=== PATIENT | female | born 1940 | race Caucasian/White ===

== ENCOUNTER 2024-08-17 08:50 | Inpatient (IN) | payer OTHER, SELFPAY ==
[2024-08-17] VITALS (27 sets, daily range): BP systolic 81–149; BP diastolic 56–103; BMI 24.8
[2024-08-17 01:59] LABS: % Basophils 0.7 % (0-2); % Eosinophils 1.4 % (0-6); % Immature Granulocytes 0.2 % (0-0.5); % Lymphocytes 24.7 % (20.5-51.1); % Monocytes 7.7 % (1.7-9.3); % Neutrophils 65.3 % (42.2-75.2); Absolute Basophils 0.1 10^3/uL (0-0.2); Absolute Eosinophils 0.1 10^3/uL (0-0.7); Absolute Lymphocytes 2.5 10^3/uL (1.2-3.4); Absolute Monocytes 0.8 10^3/uL (0.1-0.6); Absolute Neutrophils 6.6 10^3/uL (1.4-6.5); Hematocrit 36.3 % (37.0-47.0); Hemoglobin 12.1 g/dL (12.0-16.0); Mean Corp Hgb Conc. 33.3 g/dL (33.0-37.0); Mean Corpuscular Hgb 29.5 pg (27.0-31.0); Mean Corpuscular Volume 88.5 fL (81.0-99.0); Mean Platelet Volume 10.3 fL (7.4-10.4); Nucleated Red Blood Cells % 0 %; Platelet Count 223 10^3/uL (130-400); Red Cell Dist. Width 14.2 % (11.5-14.5)
[2024-08-17] MEDS: LOW STRENGTH ASPIRIN 324 MG PO (02:03)
[2024-08-17] MEDS: HEPARIN 4000 UNITS IV (02:11)
--- NOTE | 2024-08-17 02:11 | ED.GENMED ---
History of Present Illness
General
Chief Complaint: Chest Pain
Source: patient and family
Exam Limitations: none
Time Seen by Provider: 08/17/24 01:47
Nursing documentation reviewed up to this point in time: agreed with
History of Present Illness
History of Present Illness:
84-year-old female history of atrial fibrillation previous seen by Dr. James no history of CAD chest pain for few hours EMS was called patient refused aspirin but took nitro with no change in her chest pain 10 out of 10 in her mid chest did have jaw
pain earlier pain is somewhat reproducible, no vomiting, no fevers
Past History
Past History
ED Past Medical History: Arrthythmia (Atrial fib), Asthma, GERD, HTN, Valvular disease (MVP) and Other (superficial thrombophlebitis LE, Diverticulosis, )
ED Past Surgical History: Cholecystectomy, Orthopedic (Left shoulder surgery, Knee surgery, Left wrist surgery, ) and Other (Vein stripping, )
Social History
Tobacco: Non-smoker
Alcohol: None
Drug: None
Personal:
Living: alone
Employment: Retired
Family History
Family History: Other (Noncontributory)
Review of Systems
Review of Systems
All Other Systems: Not applicable
Constitutional: Denies fever or fatigue
Respiratory: Reports trouble breathing
Cardiac: Reports chest pain; Denies palpitations or syncope
ABD/GI: Reports nausea
Musculoskeletal: Reports no symptoms
Skin: Reports no symptoms
Neurological: Reports no symptoms
Phy Exam
Physical Exam
Physical Exam:
Physical Exam
General: 84 female looks comfortable
Neck: No jaw
Heart: s1/s2 regular rate and rhythm, no murmur. equal radial pulses.
Lungs: no acute respiratory distress. clear bilaterally
Abdomen: Nontender
Neuro: alert and oriented. no focal neurological deficits
Skin: no rash
Psychiatric: well kept. interactive and cooperative
Extremities: no edema. no calf tenderness.
Scores
Heart Score for Chest Pain Patients
STEMI patient?: No
History: Highly Suspicious
ECG: Significant ST-Depression
Age: >/= 65 years
Risk Factors: 1 or 2 Risk Factors
Troponin: >1 - <3 x Normal Limit
Heart Score for Chest Pain Patients: 8
Heart Score Risk: 72.7 % MACE over next 6 weeks
Course
Orders/Labs/Results
Orders:
Orders
08/17/24 01:50
Basic Metabolic Panel Urgent
Comment: CHANGED TO BMP WITHOUT K+ DUE TO HEMOLYSIS
Complete Blood Count/With Diff Urgent
Troponin I Urgent
08/17/24 01:53
Prothrombin Time Urgent
Aspirin 325 mg PO NOW STA
Nitroglycerin Sublingual [Nitrostat (Sublingual)] 0.4 mg SL [id number] PRN
CR Chest Portable - 1 View Urgent
Comment:
Reason For Exam: cp
Reason Study Needs to be Portable: Unable to Transport
08/17/24 01:59
EKG [Electrocardiogram (*1)] Urgent
Reason for Study: Chest Pain
Electrocardiogram (*1) Urgent
Reason for Study: Chest Pain
EKG- Treatment ONCE
Aspirin Chewable [Low Strength Aspirin] 324 mg .ROUTE .STK-MED ONE
Aspirin Chewable [Low Strength Aspirin] 4 mg PO NOW STA
08/17/24 02:00
EKG- Treatment ONCE
08/17/24 02:03
Aspirin Chewable [Low Strength Aspirin] 324 mg PO NOW STA
08/17/24 02:06
Heparin 4,000 units IV NOW STA
Ticagrelor [Brilinta] 180 mg PO ONCE ONE
08/17/24 02:36
Fentanyl Citrate/Pf [Sublimaze] 100 mcg .ROUTE .STK-MED ONE
Heparin 10,000 units .ROUTE .STK-MED ONE
Heparin Sodium,Porcine/Ns/Pf [Heparin 2000 Units/1000 ml] 2,000 unit in 1,000 ml .ROUTE .STK-MED
Lidocaine HCl/Pf [Xylocaine-Mpf 1% Vial] 100 mg .ROUTE .STK-MED ONE
Midazolam HCl [Versed] 2 mg .ROUTE .STK-MED ONE
Verapamil Injectable [Isoptin/Verapamil Injection] 5 mg .ROUTE .STK-MED ONE
08/17/24 02:37
Heparin 1000 Units/500 ml [Heparin] 1,000 units in 500 ml .ROUTE .STK-MED
Nitroglycerin [Tridil] 1,500 mcg .ROUTE .STK-MED ONE
08/17/24 02:59
Ondansetron Injectable [Zofran] 4 mg .ROUTE .STK-MED ONE
08/17/24 03:00
Flush (0.9% Sodium Chloride) [Flush (Nss)] See Dose Instructions IV PER PROTOCOL
08/17/24 03:18
Heparin 1000 Units/500 ml [Heparin] 1,000 units in 500 ml .ROUTE .STK-MED
08/17/24 04:07
Furosemide [Lasix] 40 mg .ROUTE .STK-MED ONE
08/17/24 04:12
Echo 2D MMode Color/Doppler Urgent
Reason for Study: NSTEMI
Acetaminophen [Tylenol] 650 mg PO Q4HPRN PRN
08/17/24 04:13
Electrocardiogram (*1) Urgent
Reason for Study: Other
Other Reason for Exam: s/p intervention
CARDIAC REHAB CONSULT Routine
Co-Sign Provider:
Cardiac Rehab & Exercise Evaluation Referral
Type of Cardiac Rehab Referral: Outpatient
Diagnosis: NSTEMI
Date of Diagnosis/Surgery: 08/17/24
Referring Provider: Donald Degroot
[facility]ensive Cardiac Rehab Exercise Prescription
The above named person is capable of participating in an intensive cardiac rehab exercise therapy program
under the guidance of the [facility] cardiac rehab staff, outpatient registered dieticians and
supervision of a physician.
ICR Program Objectives:
Provide supervised exercise, cooking classes, nutritional counseling and healthy mind-set education to
improve the function/symptom free work capacity to an optimal level as well as control risk factors to
prevent the progression of heart disease. During the supervised exercise therapy session some or all of
the following may be included in the cardiac rehab session: ECG telemetry, BP, heart rate, rate of
perceived exertion, symptoms/tolerance, cholesterol testing and education. Exercise modalities may
include: treadmill, upright or recumbent bike, spin bike, rowing machine, elliptical, recumbent
elliptical, arm-bike machine, recumbent stepper and free weights.
Intensity:
All CR staff will use ACSM guidelines: Most patients will exercise in the following range: Heart Rate
[place] range of 40% to 80% & Oxygen Uptake reserve range 40-80% (VO2R). Peak heart rate and VO2 are
derived from the cardiac rehab submaximal graded exercise test at RPE of 13/14 out of 20. Initial
intensity range: RPE 11 to 14/20 and may expand to 11 to 16/20.
Duration & Frequency:
If appropriate the patient will be progressed up to 40 minutes of exercise therapy. Patients will be
instructed to come three times a week in cardiac rehab and at a home/other gym to achieve optimal
physical activity/exercies i.e. 4000-10,000 steps per day.
Education:
The patient will receive one-on-one education during their orientation, initial exercise evaluation, ITP
reassessments and discharge session. Each exercise session will also include an education class (30-40
minutes).
Activity As Directed
Activity Level: Bedrest
Comment: refer to hemostasis device used for bedrest duration, then ambulate ad eros
Traffic Clerk Procedure As Directed
Cardiac Cath Procedure: percutaneous coronary intervention
Femoral Artery Hemostasis Method As Directed
Procedure performed:: Percutaneous Coronary Int
Type of femoral hemostasis method used:: Internal Closure Device
Duration of bedrest (hours):: 4
Call provider if:: hematoma present after hemostasis achieved
Head of Bed-Restrictions As Directed
Comment: may elevate head of bed 30 degrees
Intake/ Output As Directed
Frequency: Per unit guidelines
Notify MD As Directed
Notify physician if: immediately for chest pain or bleeding from access site(s)
Site Checks As Directed
Check access site for bleeding/hematoma: Yes
Comment: on arrival, Q15min x4, Q30min x2, Q1 hr x2, Q2 hr x2, Q4 hr or per
protocol
Vascular Checks As Directed
Location: distal to access site - pulse check
Frequency: Other
Comment: on arrival, Q15min x4, Q30min x2, Q1 hr x2, Q2 hr x2, Q4 hr or per protocol
Vital Signs As Directed
Frequency: Other
Additional Instructions:: on arrival, Q15min x4, Q30min x2, Q1 hr x2, Q2 hr x2, then Q4 hr or per unit
protocol
DX Deep Vein Thrombosis Video Routine
08/17/24 04:15
Rosuvastatin Calcium [Crestor] 20 mg PO QPM
08/17/24 04:35
Heparin 5,000 units .ROUTE .STK-MED ONE
08/17/24 05:00
Flush (0.9% Sodium Chloride) [Flush (Nss)] See Dose Instructions IV PER PROTOCOL
08/17/24 05:13
Code Status As Directed
Resuscitation Status: Do not resuscitate
Reached after discussion with pt or family/Healthcare POA: Yes
DNR Bracelet Application ONCE
08/17/24 05:16
Change Attending Physician As Directed
Change attending physician to: Augie
08/17/24 05:18
Prochlorperazine [Compazine] 5 mg IV Q6HPRN PRN
08/17/24 05:27
Basic Metabolic Panel IN AM
Cardiovascular Evaluation IN AM
Complete Blood Count/No Diff IN AM
Glycohemoglobin (HgbA1c) Routine
Magnesium IN AM
Troponin I Q6H
08/17/24 06:00
Electrocardiogram (*1) IN AM
Reason for Study: Other
Other Reason for Exam: s/p intervention
Cholesterol Lowering
At Your Request: Full Participation
Does patient need a safe tray?: No
Cholesterol Lowering: Sodium, 2 Gram
08/17/24 08:00
Aspirin Chewable [Low Strength Aspirin] 81 mg PO DAILY
Heparin 5,000 units SC Q12
Metoprolol [Lopressor] 25 mg PO DAILY
Ticagrelor [Brilinta] 90 mg PO BID
08/17/24 10:15
Troponin I Q6H
08/17/24 16:15
Troponin I Q6H
08/18/24 06:00
Electrocardiogram (*1) IN AM
Reason for Study: Other
Other Reason for Exam: s/p intervention
08/19/24 06:00
Electrocardiogram (*1) IN AM
Reason for Study: Other
Other Reason for Exam: s/p intervention
Abnormal Lab Results
08/17/24 08/17/24 08/17/24
01:50 03:00 03:35
RBC 4.10 L 10^6/uL
(4.20-5.40)
Hct 36.3 L %
(37.0-47.0)
MPV
Absolute Neuts (auto) 6.6 H 10^3/uL
(1.4-6.5)
Absolute Monos (auto) 0.8 H 10^3/uL
(0.1-0.6)
BUN 33 H mg/dl
(7-17)
Glucose 158 H mg/dl
(70-99)
Troponin I 0.045 H* ng/ml
POC ACT Low Range 181 H Seconds 292 H Seconds
(116-155) (116-155)
08/17/24 08/17/24
03:54 05:27
RBC
Hct
MPV 10.5 H fL
(7.4-10.4)
Absolute Neuts (auto)
Absolute Monos (auto)
BUN
Glucose
Troponin I
POC ACT Low Range 298 H Seconds
(116-155)
08/17/24 05:27
Vital Signs
Initial and Last Documented VS:
Initial Vital Signs
Pulse Resp
70 16
08/17/24 01:38 08/17/24 01:38
Last Documented Vital Signs
Temp Pulse Resp BP Pulse Ox
96.3 F L 67 16 142/73 96
08/17/24 04:50 08/17/24 05:30 08/17/24 04:50 08/17/24 05:30 08/17/24 05:30
MDM/Problems Addressed
Differential Diagnosis Includes:
ST segment elevation ACS pericarditis LV aneurysm PE
MDM/Problems Addressed:
Chest pain
Chronic conditions affecting care: Arrhythmia
Acute Exacerbation and/or Progression of Chronic Illness: Arrhythmia
*Radiology
Radiology exam reviewed: preliminary read by ED provider
*Pulse Oximetry
Patient hypoxic: no
*EKG
Interpreted by ED Provider?: Yes
Interpretation: abnormal
Comparison EKG: no changes
Heart Rate: 88
Rate: normal
Rhythm: a-fib
Ischemia: ST elevation
*Environmental Compliance Inspector Interpretation
Rate: normal
Interpretation: normal
Heart Rate: 78
Rhythm: a-fib
*Critical Care Note
Total Time (30-74mins, 75-104mins- exclusive of procedures): 30
Data Reviewed
Review of Other/Old Records Reveals: Other (EKG)
Source: patient, family and ambulance crew
Prescriptions/Medications Considered But Not Given:
TNK
Further Testing Considered But Not Given:
Echo
Update Note
Update Note:
Update, patient with somewhat reproducible chest pain EKG is abnormal compared to prior, looks like high lateral ST elevations with inferior reciprocal changes, will review with cardiology
Multiple long conversation with cardiology nursing patient and patient's daughter she was DNR, noncompliant with any meds for A-fib, after extensive conversation she did consent to go to the Traffic [facility]
ED Attending Note
-
Portions of this chart may have been created with voice recognition software.� Occasional wrong word or��sound alike� substitutions may have occurred due to the inherent limitations of voice recognition software.
Discharge Plan
Departure
Patient Disposition: Admit
Date of Disposition: 08/17/24
Time of Disposition: 02:11
Admit to: medical laboratory technician
Presentation/result/management discussed w/ accepting MD/DO: Hospitalist
Patient with high blood pressure during this ER visit?: No
Condition: Fair
Discharge Problem:
ACS (acute coronary syndrome)
Interventions
Interventions:
*General Assessment Last Done: 08/17/24 01:38
*Neglect/Abuse Screening Last Done: 08/17/24 01:38
*ED- Fall Risk Assessment Last Done: 08/17/24 01:38
*Nursing Disposition Last Done: 08/17/24 02:40
ED- Cardiac Assessment Last Done: 08/17/24 02:00
Discharge Date and Time
Discharge Date/Time: 08/17/24 02:40
[2024-08-17] MEDS: BRILINTA 180 MG PO (02:12)
[2024-08-17] MEDS: NITROSTAT (SUBLINGUAL) 0.4 MG SL ×2 (02:13→07:39)
[2024-08-17 02:15] LABS: INR 1.04; PT 13.9 Sec (11.4-14.6)
[2024-08-17 02:37] LABS: Troponin I 0.045 ng/ml
[2024-08-17 02:38] LABS: Blood Urea Nitrogen 33 mg/dl (7-17); Calcium 8.7 mg/dl (8.4-10.2); Carbon Dioxide 22 mmol/L (22-30); Chloride 107 mmol/L (98-107); Estimated Creatinine Clearance 37 ml/min; Glucose 158 mg/dl (70-99); Sodium 138 mmol/L (135-145)
--- NOTE | 2024-08-17 02:47 | ITS.CL.CATH ---
[facility] - Catheterization
Cardiac Catheterization
Procedure Report:
LEFT HEART CATHETERIZATION AND CORONARY INTERVENTION
Date of Procedure: August 17 2024
Referring: [place] emergency room
PROCEDURES:
1. Left heart catheterization, coronary angiogram.
2. Moderate sedation.
3. Successful percutaneous coronary artery intervention of a 90 to 95% hazy, thrombotic mid left circumflex stenosis (lesion type C, DARIEN II flow) with one 2.75 x 30 mm Medtronic [place] drug-eluting stent, postdilated using IVUS guidance with a 2.75
x 20 mm NC trek balloon at 16 mariama with an excellent angiographic result.
4. Intravascular ultrasound (IVUS)
INDICATION: Isa is a 84-year-old female with past medical history of hypertension, multiple drug allergies only on chronic hydrochlorothiazide, paroxysmal atrial fibrillation, refusing anticoagulation as she feels like it affects her vision
who presents with sudden onset substernal chest pain starting this evening found to have significant new ST changes in inferior and lateral leads, not meeting STEMI criteria but clearly new since 2021 with ongoing chest pain despite 2 sublingual
nitroglycerin, full dose aspirin and IV unfractionated heparin. Given persistent chest pain and ST changes noted on EKG, though not a clear ST elevation DE, we activated the heart catheterization lab due to concern for an high risk NSTEMI. Even
after I presented to the emergency room emergently bedside, there was a delay in about 32 minutes given patient expressed a lot of concerns over needing dual antiplatelet therapy post cath in case she would not need a stent without clear explanation
other than not wanting to be on medications. We also discussed her DNR/DNI status that she told me about in extensive detail and after reviewing the risk and benefits and alternative treatment options, she and her daughter have decided to move
ahead with invasive procedures including coronary angiogram excepting the risks that is intrinsic to the procedure excepting to take recommended cardiac medications including DAPT and reversal of DNR/DNI status, wanting to be full code for at least
the duration of this admission.
ACCESS: Right radial artery, 6Fr. sheath, under US guidance. Given significant right subclavian tortuosity this access had to be aborted.
Right common femoral artery, 6 [place] sheath, under ultrasound guidance using a micropuncture kit
HEMODYNAMICS : (mmHg)
AO (s/d) : 140/60
LVEDP : 27
No significant gradient across the aortic valve to suggest aortic stenosis.
CORONARY FINDINGS
Dominance: Right
Left Main Trunk (LMT): Large caliber vessel that gives rise to the LAD and LCx branches and is free of angiographic disease.
Left Anterior Descending Artery (LAD): Medium caliber vessel that gives off 2 major diagonal branches as it courses along the anterior inter-ventricular groove before wrapping around the cardiac apex. The LAD and its branches are free of
angiographic disease.
Left Circumflex Artery (LCx): Large caliber vessel that gives off 2 major obtuse marginal (OM) branches as it courses along the atrio-ventricular (AV) groove. The mid left circumflex has a hazy, thrombotic 90 to 95% stenosis just proximal to OM 1
with a 30 to 40% stenosis just distal to OM1. DARIEN II flow into the distal vessel. This lesion was thought to be the culprit of presenting acute coronary syndrome and was intervened upon as noted below.
Right Coronary Artery (RCA): Large caliber dominant vessel that gives rise to the posterior descending artery (RPDA) and postero-lateral ventricular (RPLV) branches distally. Ostial RCA with eccentric 60 to 70% stenosis and mild pressure dampening
upon selective engagement. Otherwise there is minimal luminal irregularities.
CORONARY INTERVENTION: Decision was made to proceed with mid left circumflex intervention. Additional heparin was given to maintain a therapeutic ACT throughout the case. The left coronary artery was engaged using a 6 [place] 3.5 EBU guide
catheter. A1 90 cm 0.014 run-through coronary wire was successfully advanced into the distal vessel across the mid left circumflex stenosis. The mid left circumflex stenosis lesion was predilated using a 2.5 x 12 mm semicompliant balloon at 14
mariama. The lesion was subsequently stented using a 2.75 x 30 mm Medtronic [place] drug-eluting stent and postdilated using a 2.75 x 20 mm NC trek balloon at 16 mariama. Post PCI IVUS was performed using [employer] [place] eye IVUS catheter which showed a
well-expanded and well apposed stent without evidence of proximal or distal stent edge dissections. DARIEN-3 flow into the distal vessel was restored. Patient tolerated the procedure well. She was loaded with 180 mg of Brilinta in the ED. No acute
complications.
SEDATION: 67 minutes of procedural sedation was utilized. IV Midazolam and IV Fentanyl were administered. An independent medical concierge was present to assist with and help manage the patient's level of consciousness and physiologic status.
RADIATION SUMMARY: Fluoro Time (min): 17.3, Dose (mGy): 443.3, DAP (Gy.cm2) : 32.7
Closure Device: There were no immediate intra-procedural complications. The sheath was pulled in the cathode ray tube salvage processor and a vascular-band applied to the right wrist for radial artery hemostasis using the patent hemostasis technique.
CONCLUSIONS
1. Successful percutaneous coronary artery intervention of a 90 to 95% hazy, thrombotic mid left circumflex stenosis (lesion type C, DARIEN II flow) with one 2.75 x 30 mm Medtronic [place] drug-eluting stent, postdilated using IVUS guidance with a 2.75 x
20 mm NC trek balloon at 16 mariama with an excellent angiographic result.
2. Significantly elevated LVEDP at 27 mmHg
RECOMMENDATIONS
1. Wean radial band per protocol. Monitor right hand perfusion and for bleeding from the radial site following removal of the vascular-band following trans-radial access.
2. Continue aggressive medical therapy and risk factor modification for secondary CAD prevention.
3. Continue ASA 81 mg daily for life. High intensity statin and beta-nuria as tolerated.
4. Continue Brilinta for at least 12 months of uninterrupted dual anti-platelet therapy given drug-eluting stent (YESICA) implantation to mitigate the risk of stent thrombosis. This is not to be stopped for any reason without the guidance of a
bin tripper operator. Of note given her history of paroxysmal versus atrial fibrillation where she has previously refused Eliquis, we will rediscuss given her high CHADS2 Vascor. If patient is agreeable for oral anticoagulation to reduce A-fib related
strokes, would consider switching her Brilinta to Plavix to minimize risk for bleeding. In this scenario would do triple therapy with aspirin, Plavix and Eliquis for 1 week and discontinue aspirin at that time to continue Plavix and Eliquis.
5. Hydrate with normal saline to mitigate the risk of contrast-induced acute kidney injury.
6. Aggressive risk factor control.
7. Echocardiogram to assess biventricular function and rule out any significant valvular abnormality
8. Referral for outpatient cardiac rehab.
9. Depending on how she does during this admission, consider outpatient stress test in the near future to assess ischemia in the RCA territory given moderate lesion in the ostial RCA
Karyn Louis MD, FACC, [facility]
[2024-08-17 03:06] LABS: ACT-LR - POC 181 Seconds (116-155)
[2024-08-17 03:42] LABS: ACT-LR - POC 292 Seconds (116-155)
[2024-08-17 03:59] LABS: ACT-LR - POC 298 Seconds (116-155)
--- NOTE | 2024-08-17 04:16 | CON.CAR ---
Consultation
Consultation Request
Date/Time Consultation Requested: 08/17/24
Date/Time Consultation Performed: 08/17/24
Requesting Provider: Daniel Holder
Performing Provider: Karyn Louis MD, [facility], [facility]
Reason for Consultation: Chest pain
Medical History
-
Chief Complaint: Chest Pain
History of Present Illness:
Isa is a 84-year-old female with past medical history of hypertension, multiple drug allergies only on chronic hydrochlorothiazide, paroxysmal atrial fibrillation, refusing anticoagulation as she feels like it affects her vision who presents
with sudden onset substernal chest pain starting this evening found to have significant new ST changes in inferior and lateral leads, not meeting STEMI criteria but clearly new since 2021 with ongoing chest pain despite 2 sublingual nitroglycerin,
full dose aspirin and IV unfractionated heparin. Given persistent chest pain and ST changes noted on EKG, though not a clear ST elevation LA, we activated the heart catheterization lab due to concern for an high risk NSTEMI. She tell me that
generally she lives independently does not use any walking aids, drives herself however generally just feels extremely weak. Her daughter checks in on her often. She denies any recent similar episodes of chest discomfort before yesterday however
does endorse ongoing dyspnea on exertion. Denies any lower extremity edema, orthopnea or PND. No lightheadedness/dizziness or yunier syncope. In regards to persistent A-fib history she tells me that she used to be on Eliquis but it caused some
vision changes and therefore she refuses to be on any oral anticoagulant. No prior history of of strokes or mini strokes.
Past Medical History
Past Medical History: CAD, HTN, Hypercholesterolemia and Other (A-fib)
Social History
Tobacco: Non-Smoker
Alcohol: None
Drug: None
Personal: Single
Living: Alone
Employment: Retired
Family History
Family History: Reviewed & Not Pertinent
Allergies / Home Medications
Allergy/AdvReac Type Severity Reaction Status Date / Time
erythromycin base Allergy Rash, hives Verified 08/17/24 01:38
(Erythromycin Base)
lisinopril (From Zestril) Allergy BAD COUGH Verified 08/17/24 01:38
tetracycline (Tetracycline) Allergy Hives Verified 08/17/24 01:38
�Medication �Instructions �Recorded �Confirmed �Type
hydrochlorothiazide 25 mg tablet 25 mg PO DAILY 08/17/24 08/17/24 History
Review of Systems
-
All other systems: Negative unless noted
Physical Exam
Vital Signs
Temp Pulse Resp BP Pulse Ox
97.4 F 69 7 120/66 96
08/17/24 01:56 08/17/24 02:15 08/17/24 02:15 08/17/24 02:13 08/17/24 02:15
Lab Results
08/17/24 01:50
08/17/24 01:50
Troponin I 0.045 ng/ml H* 08/17/24 01:50
Physical Exam
General: Well Developed, Well Nourished and Pain
HEENT: Moist Mucous Membranes
Respiratory: Wheezes, Crackles and Non Labored Respirations
Cardiac: S1/S2, Irregular Rhythm and JVD; Negative Murmur, Rub, Peripheral Edema or Calf Tenderness
GI: Soft, Non Tender, Non Distended and Normal Bowel Sounds
Musculoskeletal: No Clubbing, No Cyanosis and No Edema
Skin: Warm and Dry
Neuro: AO x 3
Psych: Calm
Impression / Plan
-
No outpatient edm operator that she follows with regularly.
Impression
High risk NSTEMI: 90 to 95% hazy mid left circumflex stenosis treated with one 2.75 x 30 mm Medtronic Rafiq drug-eluting stent, postdilated using IVUS guidance with a 2.75 x 20 mm NC balloon at 16 mariama.
Hypertension
Hyperlipidemia
Atrial fibrillation
Not on chronic anticoagulation due to Eliquis causing vision changes
Multiple drug allergies
At home, DNR/DNI which was reversed to full code when we discussed CODE STATUS 3 activation of heart catheterization lab with plan to maintain full code throughout this admission
Weakness
Fatigue
Upon my evaluation to the emergency room she was having ongoing 7 out of 10 chest pain for which we gave additional sublingual nitroglycerin at bedside and she has just received 4000 units of IV unfractionated heparin along with 180 mg of Brilinta
which she had chewed up along with the full dose aspirin. Daughter was at bedside. She expressed that she had refused to take Eliquis before given it because vision changes and refuses to be on anticoagulation. Through this we discussed and found
out that she has multiple drug allergies and intolerances. She is only on 1 chronic medication which is hydrochlorothiazide for her blood pressure. She has seen cardiology previously but does not follow with anyone regularly as ' there is nothing
wrong with me'
Extensive discussion was had with what we feel like was going on with the patient and I described to her that there is concern based on her EKG changes and ongoing chest pain that she is having an acute coronary syndrome and what the treatment
options are including medications only, a recommendation for urgent heart catheterization with possible PCI along with medications and the risk and benefits of each of them. Patient has significant hesitations initially agreeing to take dual
antiplatelet therapy in case she would not need a PCI. She also expressed that her living will states that she is a DNR/DNI with her daughter being POA. I expressed to her that given the nature of ACS and invasive heart catheterization, we would
only agree to take her if we can agree to reverse her CODE STATUS and treat her as a full code for the admission this admission. The emergency room physician, Dr. Daniel Holder also joined me and explaining to the patient our concerns in regards to
ongoing symptoms with likely high risk NSTEMI. After extensive discussion and offering her alternative treatment options, patient is agreeable as ' I guess I should try to live' she reassures us that she would take recommended cardiac medications
and she would like to be full code during this admission. Detail risk and benefits were described to her about what a coronary angiogram entails and in a shared decision-making fashion we agreed to proceed with urgent heart catheterization.
RECOMMENDATIONS
1. Continue aggressive medical therapy and risk factor modification for secondary CAD prevention.
2. Continue ASA 81 mg daily for life. High intensity statin and beta-nuria as tolerated.
3. Continue Brilinta for at least 12 months of uninterrupted dual anti-platelet therapy given drug-eluting stent (YESICA) implantation to mitigate the risk of stent thrombosis. This is not to be stopped for any reason without the guidance of a
edm operator. Of note given her history of paroxysmal versus atrial fibrillation where she has previously refused Eliquis, we will rediscuss given her high CHADS2 Vascor. If patient is agreeable for oral anticoagulation to reduce A-fib related
strokes, would consider switching her Brilinta to Plavix to minimize risk for bleeding. In this scenario would do triple therapy with aspirin, Plavix and Eliquis for 1 week and discontinue aspirin at that time to continue Plavix and Eliquis.
4. Echocardiogram to assess biventricular function and rule out any significant valvular abnormality
5. Referral for outpatient cardiac rehab.
6. Depending on how she does during this admission, consider outpatient stress test in the near future to assess ischemia in the RCA territory given moderate lesion in the ostial RCA chest pain
Karyn Louis MD, [facility], [facility]
Critical care time: 38 minutes
Data Reviewed
-
EKG: Tracing Personally Visualized and interpreted
Radiology: Image Personally Visualized and interpreted
Medical Tests (Nuc Med, Echo etc): Image Personally Visualized and interpreted
Labs: Labs Reviewed by me
Critical Care Time (in minutes): 38
--- NOTE | 2024-08-17 05:17 | HPS.HSE ---
Family Physician
-
Family Physician: Solitario Sharma
Chief Complaint
-
Chest Pain
History of Present Illness
Patient is an 84y F with PMH significant for hypertension who presents to ED complaining of crushing chest pain. Patient states that she was sitting on her couch around 10PM this evening when she began to feel 'not right'. She reports profuse
diaphoresis and crushing chest pain. She developed nausea with multiple episodes of non-bloody emesis. Patient woke her daughter who called 911 and she was brought to the ED for further evaluation and treatment.
In the ED, patient was noted to have borderline ST elevations and continued chest discomfort and was taken for urgent catheterization.
She is seen and examined in the IVU post-cath. Patient reports significant 'relief' in her chest discomfort following cath / stent.
90% lesion was discovered in the LCx with stent placed.
Patient has no prior h/o MO, CVA, etc.
Medical History
Past Medical History
Past Medical History: Reports Other
Additional Past Medical History:
Hypertension
Atrial Fibrillation
Varicose Veins
Superficial Thrombophlebitis
Past Surgical History: Reports Other
Additional Past Surgical History:
Vein Stripping
Left TKA
Left Shoulder Surgery
Cholecystectomy
Social History
Tobacco: Non-smoker
Alcohol: None
Drug: None
Family History
Family History: Not pertinent
Allergies / Home Medications
Allergies reflects when Allergies were last updated in [employer].
Home Medications with original date entered in [employer]
Allergy/Medication List:
Allergies
Allergy/AdvReac Type Severity Reaction Status Date / Time
erythromycin base Allergy Rash, hives Verified 08/17/24 01:38
(Erythromycin Base)
lisinopril (From Zestril) Allergy BAD COUGH Verified 08/17/24 01:38
tetracycline (Tetracycline) Allergy Hives Verified 08/17/24 01:38
Home Medications
hydrochlorothiazide 25 mg tablet 25 mg PO DAILY 08/17/24
Review of Systems
-
History Source: Patient
A 12 point ROS was completed and negative except as noted: Yes
Constitutional: Reports Fatigue; Denies Fever or Chills
Respiratory: Denies Cough or Trouble Breathing
Cardiac: Reports Chest Pain and Diaphoresis; Denies Palpitations
Abdomen/GI: Reports Nausea and Vomiting; Denies Abdominal Pain
: Denies Dysuria or Frequency
Musculoskeletal: Denies Joint Pain or Edema
Neurological: Reports Dizzy; Denies Headache
Psych: Denies Depression or Anxiety
Physical Exam
Vital Signs
Vital Signs
Temp Pulse Resp BP Pulse Ox
96.3 F L 75 16 119/56 94
08/17/24 04:50 08/17/24 04:45 08/17/24 04:50 08/17/24 04:45 08/17/24 04:50
Physical Exam
General: Other (84y F in no acute distress at present.)
HEENT: PERRLA and Other (Dry MM.)
Respiratory: Other (Decreased at bases - otherwise clear.)
Cardiac: S1/S2 and Irregular Rhythm; No Murmur
GI: Soft, Non Tender, Non Distended and Normal Bowel Sounds
Musculoskeletal: No Clubbing, No Cyanosis and No Edema
Neuro: AO x 3
Laboratory Results
-
Laboratory Results
PT 13.9 Sec (11.4-14.6) 08/17/24 01:53
INR 1.04 08/17/24 01:53
Total Bilirubin Cancelled 08/17/24 01:50
AST Cancelled 08/17/24 01:50
ALT Cancelled 08/17/24 01:50
Alkaline Phosphatase Cancelled 08/17/24 01:50
Troponin I 0.045 ng/ml H* 08/17/24 01:50
Impression/Plan
-
A/P: Patient is an 84y F with PMH significant for hypertension and A-Fib who presents to ED complaining of crushing substernal chest pain.
NSTEMI / ACS
- Admit for further eval and treatment.
- Urgent cath with 90% stenosis in LCx - stent placed. Patient with clinical relief in chest pain.
- Continue post-cath care per Cardiology.
- DAPT, statin, etc.
- Follow for any new / recurrent chest pain.
Atrial Fibrillation
- Unclear type. Patient not on OAC at her own discretion.
- Monitor on telemetry.
- No need for rate control medications at present.
- Ongoing discussions re: OAC prior to discharge.
- Cardiology following.
Benign Hypertension
- Hold HCTZ for now.
- GDMT for ASCVD / MO as noted above will likely manage BP.
DVT Prophylaxis: Subcut Heparin
Code Status: DNR
[2024-08-17] MEDS: CRESTOR 20 MG PO ×2 (05:27→20:04)
[2024-08-17] MEDS: COMPAZINE 5 MG IV ×2 (05:40→21:02)
[2024-08-17 05:43] LABS: Hematocrit 38.3 % (37.0-47.0); Hemoglobin 12.7 g/dL (12.0-16.0); Mean Corp Hgb Conc. 33.2 g/dL (33.0-37.0); Mean Corpuscular Hgb 29.5 pg (27.0-31.0); Mean Corpuscular Volume 88.9 fL (81.0-99.0); Mean Platelet Volume 10.5 fL (7.4-10.4); Platelet Count 214 10^3/uL (130-400); Red Blood Cell Count 4.31 10^6/uL (4.20-5.40); Red Cell Dist. Width 14.4 % (11.5-14.5); White Blood Cell Count 10.8 10^3/uL (4.8-10.8)
[2024-08-17] MEDS: MORPHINE SULFATE 1 MG IV (06:39)
[2024-08-17] MEDS: LOPRESSOR 25 MG PO ×2 (07:03→20:05)
[2024-08-17 07:20] LABS: Blood Urea Nitrogen 29 mg/dl (7-17); Calcium 9.1 mg/dl (8.4-10.2); Carbon Dioxide 21 mmol/L (22-30); Chloride 103 mmol/L (98-107); Estimated Creatinine Clearance 37 ml/min; Glucose 232 mg/dl (70-99); HDL Cholesterol 87 mg/dl; LDL Cholesterol, Calculated 153 mg/dl; Magnesium 1.6 mg/dl (1.6-2.3); Sodium 140 mmol/L (135-145); Total Cholesterol 255 mg/dl (50-199); Triglyceride 79 mg/dl (10-149); Very Low Density Lipoprotein 15 mg/dl (0-30)
[2024-08-17] MEDS: LOW STRENGTH ASPIRIN 81 MG PO (07:35)
[2024-08-17] MEDS: MAGNESIUM SULFATE 50 IV (07:36)
--- NOTE | 2024-08-17 07:55 | PTCARENOTE ---
Received patient from gold leaf laborer into room 2258. Patient AAOx3. Right groin site C/D/I w/ positive pulse. Tele monitor applied pt Afib w/ BBBC and multiple PVCs. Patient c/o 'chest heaviness' and SOB. Patient sating 97% RA. This RN applied 2L for
comfort. Repositioned patient. 1mg of IV Morphine administered--see MAR for details. Attempted to wean TR band off. Patient developed hematoma. 15 mins of manual pressure applied by nursing staff. Dr. Maxwell made aware and at bedside. Instructed RN
to raise right upper extremity and apply warm compress.STAT orders obtained for US. US at bedside. Right radial pulse positive. Patient w/ multiple episodes of Vtach. Attempted vasal maneuvers. Dr. Louis made aware. 25mg of PO Lopressor
administered.
[2024-08-17] MEDS: KCL 270 MEQ IV (08:05)
--- NOTE | 2024-08-17 08:09 | PTCARENOTE ---
U/S at bedside, unable to do U/S with TR band on, TR band removed, ecchymotic, no bleeding, upper forearm swollen, manual pressure applied, U/S being done shows hematoma on upper arm but no active bleeding. distal pulse weak but palpable. 1SL ntg
given for chest heaviness by previous RN, BP post 81/61, at present 114/59, heaviness was relived by SL nitro. right groin dsg. D/I, distal pulse weak but palpable. patient continues to have runs of [facility], Dr. Haley aware. K 3.0 mag. 1.6,
supplemented as ordered. patient was unable to take large potassium pills, Kim HERRING aware, IV potassium being given. Echo will be back to do Echo this am. Rose Mary HERRING in room assessing patient. patient is sleeping.
[2024-08-17] MEDS: BRILINTA 90 MG PO ×2 (08:22→20:04)
[2024-08-17] MEDS: HEPARIN 5000 UNITS SC ×2 (08:22→20:04)
--- NOTE | 2024-08-17 08:26 | PTCARENOTE ---
Echo being completed at bedside.
--- NOTE | 2024-08-17 08:27 | W.PN.CARDCBS ---
Addendum entered and electronically signed by Karyn Louis MD 08/18/24 01:03:
I saw and examined the patient.
The Process Cheese Cooker's note was reviewed and I agree with the note.
Comment: TT by nursing aroun 7:02AM on 08/17/24 that patient has been complaining of ongoing chest heaviness since 6 AM, as given one mg morphine, ongoing NSVT for which she got 25mg lopressor. I evaluated pt at bedside and she complains of chest
heaviness and difficult catching deep breath.
On exam, patient is well appearing, mild resp distress and pain, +JVD, irregularly irregular rate, normal S1 and S2, no m/r/g, +rales bibisilar, abd soft, NT, ND +BS, warm ext, no LE Edema, right radial site with band in place, fingers cyanotic, so
took out 4cc air bedside.
Asked nursing to get STAT ECG which showed Atach with variable block, ST-T changes from evolving MA, No acute or worsening but expected changes.
Asked nursing to trial SL nitro, additional morhpine as needed, additional lasix, Potassium resultsed low at 3.0 and Mg 1.6, repleted lytes.
global position system technician was called to request STAT bedside echo given chest pressure.
Soon after eval above nursing called me at beside again due to sudden right forearm pain and swelling. Unclear trigger but radial acces had been obtained for cath before and attempted though failed so aborted. Venous blood drawn from antecub fossa
also. STAT US ordered and discussed with Dr. Dheeraj Chapman from vascular, unclear source of hematoma which was reported, in regards to arterial vs venous. Will place MARGIE wrap to provide some compression.
Chest heaviness imporved but with ongoing NSVT, started urgent amiodarone given this for reduce ectopy with aggressive lyte repletion.
Echo reviewed by me showing overall preserved LV fxn, aoritc sclerosis, valve gradient do not suggest significant stenosis.
Aggressive IV diuretics. Stricts ins and outs, replete lytes, K> 4, Mg>2
Trop uptrending at 65, cont to trend and watch on tele.
Does not examine in low flow or cardiogenic shock.
Cont DAPT with ASA and Brilinta, Statin and BB, slowly uptitrte.
Discuss with pt OAC once daughter is at bedside. [id number]. If agreeable would do ASA, plavix and eliquis for 1wk total, then eliquis plavix.
Consider outpt stress to assess ischemia in RCA territory with ostial 60% ostial RCA stenosis.
Monitor another 24-36hrs. Encoruaged HH mediterranean diet and staying active. Outpt cardiac rehab.
Full code.
Karyn H. Louis
CC time: 32mins
Original Note:
Today's Communication / Plan
-
consider for additional diuresis
consider addition of amiodarone. follow rhythm
follow RUE hematoma
continue asa, brilinta. will need to discuss OAC again with patient
echo
Impression / Plan
-
No outpatient coffee weigher that she follows with regularly.
Impression:
High risk NSTEMI: 90 to 95% hazy mid left circumflex stenosis treated with one 2.75 x 30 mm Medtronic Rafiq drug-eluting stent, postdilated using IVUS guidance with a 2.75 x 20 mm NC balloon at 16 mariama.
Hypertension
Hyperlipidemia
Atrial fibrillation
Not on chronic anticoagulation due to Eliquis causing vision changes
Multiple drug allergies
At home, DNR/DNI which was reversed to full code when we discussed CODE STATUS 3 activation of heart catheterization lab with plan to maintain full code throughout this admission
Weakness
Fatigue
Hypokalemia
Hypomagnesemia
NSVT vs aberrant conduction on tele
Echo 08/01/2021: EF 60 to 65%, mild septal hypertrophy, mild MR, heavy focal calcification of noncoronary cusp of aortic valve, mild AR, mild TR, PAP 37 mmHg
ECHO 08/17/24: pending
RECOMMENDATIONS:
- Patient presented with chest discomfort and went urgently to cardiac catheterization for high risk NSTEMI. Status post circumflex PCI 08/16/2024
- trop up to 11, trend to peak. currently CP free.
- Continue aspirin, Brilinta
- This morning with swelling of right forearm/elbow. Ordered stat right upper extremity ultrasound which reveals evidence of hematoma without active bleeding. Manual pressure applied by nursing with improvement. Hemoglobin stable this morning at
12.7
- Noted on review of telemetry overnight to be in atrial fibrillation with frequent runs of NSVT versus aberrancy. Patient with hypokalemia and hypomagnesemia, and stat repletion ordered. continue lopressor 25mg BID. would consider addition of
amiodarone
- She has historically not been on anticoagulation due to prior issues with vision changes on Eliquis. [id number] score of 5 for age, HTN, female, vascular disease. Will continue DAPT at this time, and will need to revisit OAC with patient. If
patient is agreeable for oral anticoagulation to reduce A-fib related strokes, would consider switching her Brilinta to Plavix to minimize risk for bleeding. In this scenario would do triple therapy with aspirin, Plavix and Eliquis for 1 week and
discontinue aspirin at that time to continue Plavix and Eliquis.
- For urgent echocardiogram this morning, last from 2021 as above
- reports SOB this AM. check proBNP. CXR pending this AM. LVEDP at time of cath was 27 and received 40mg IV lasix in laborer pipelines. wean supp O2 as able
- LDL 153. was not on statin therapy prior to admission. crestor 20mg QPM added this admission
- cardiac rehab
- she has residual moderate ostial RCA lesion. will need to consider for OP stress testing to evaluate further if recurrent symptoms.
- d/w nursing
PREADMIT DATA:
Upon my evaluation to the emergency room she was having ongoing 7 out of 10 chest pain for which we gave additional sublingual nitroglycerin at bedside and she has just received 4000 units of IV unfractionated heparin along with 180 mg of Brilinta
which she had chewed up along with the full dose aspirin. Daughter was at bedside. She expressed that she had refused to take Eliquis before given it because vision changes and refuses to be on anticoagulation. Through this we discussed and found
out that she has multiple drug allergies and intolerances. She is only on 1 chronic medication which is hydrochlorothiazide for her blood pressure. She has seen cardiology previously but does not follow with anyone regularly as ' there is nothing
wrong with me'
Extensive discussion was had with what we feel like was going on with the patient and I described to her that there is concern based on her EKG changes and ongoing chest pain that she is having an acute coronary syndrome and what the treatment
options are including medications only, a recommendation for urgent heart catheterization with possible PCI along with medications and the risk and benefits of each of them. Patient has significant hesitations initially agreeing to take dual
antiplatelet therapy in case she would not need a PCI. She also expressed that her living will states that she is a DNR/DNI with her daughter being POA. I expressed to her that given the nature of ACS and invasive heart catheterization, we would
only agree to take her if we can agree to reverse her CODE STATUS and treat her as a full code for the admission this admission. The emergency room physician, Dr. Daniel Holder also joined me and explaining to the patient our concerns in regards to
ongoing symptoms with likely high risk NSTEMI. After extensive discussion and offering her alternative treatment options, patient is agreeable as ' I guess I should try to live' she reassures us that she would take recommended cardiac medications
and she would like to be full code during this admission. Detail risk and benefits were described to her about what a coronary angiogram entails and in a shared decision-making fashion we agreed to proceed with urgent heart catheterization.
Progress Note - [place]
Subjective
Date of Service: August 17, 2024
no CP. reports SOB and palpitations.
Objective
Labs:
08/17/24 05:27
08/17/24 06:42
Labs
Hgb 12.7 g/dL (12.0-16.0) 08/17/24 05:27
Hct 38.3 % (37.0-47.0) 08/17/24 05:27
Plt Count 214 10^3/uL (130-400) 08/17/24 05:27
PT 13.9 Sec (11.4-14.6) 08/17/24 01:53
INR 1.04 08/17/24 01:53
Sodium 140 mmol/L (135-145) 08/17/24 06:42
Potassium 3.0 mmol/L (3.5-5.1) L 08/17/24 06:42
BUN 29 mg/dl (7-17) H 08/17/24 06:42
Creatinine 1.0 mg/dL (0.6-1.0) 08/17/24 06:42
Glucose 232 mg/dl (70-99) H 08/17/24 06:42
Troponins
08/17/24 08/17/24
01:50 05:27
Troponin I 0.045 H* 11.000 H* D
Vital Signs and I&O:
Vital Signs
Temp Pulse Resp BP Pulse Ox
96.4 F L 88 16 91/62 96
08/17/24 06:02 08/17/24 07:03 08/17/24 04:50 08/17/24 07:44 08/17/24 05:45
Vital Signs
Temp Pulse Resp BP Pulse Ox
96.4 F L 88 16 91/62 96
08/17/24 06:02 08/17/24 07:03 08/17/24 04:50 08/17/24 07:44 08/17/24 05:45
Intake & Output
08/15/24 08/16/24 08/17/24 08/18/24
07:59 07:59 07:59 07:59
Output Total 850 / 850
Balance -850 / -850
Physical Exam
Physical Exam
GEN: No distress, awake but lethargic.
HEENT: supple, anicteric, mmm, eomi
LUNGS: CTA B/L, no wheezes/rales
CV: Irreg, S1/S2, no murmur
ABD: soft, BS+, NT/ND
EXT: No cyanosis, clubbing, edema
NEURO: Gross non-focal
SKIN: Warm, pink, dry. No rash. R elbow with ecchymoses, mild swelling. R wrist site c/d/i
[2024-08-17 09:16] LABS: NT-proBNP 2270 pg/ml
[2024-08-17] MEDS: PACERONE 400 MG PO ×3 (09:24→22:15)
[2024-08-17 09:37] LABS: Glycohemoglobin (HgbA1c) 5.5 % (4.0-5.6)
--- NOTE | 2024-08-17 09:49 | PTCARENOTE ---
patient continues to have several runs of Meghan, Rose Mary HERRING aware, po amiodarone given.
--- NOTE | 2024-08-17 09:56 | PTCARENOTE ---
additional K given as ordered. patient c/o being SOB, lasix IV given as ordered. wiley wrap to right forearm as per Rose Mary HERRING.
[2024-08-17] MEDS: KCL 160 MEQ IV (10:01)
[2024-08-17] MEDS: LASIX 20 MG IV ×2 (10:04→23:03)
[2024-08-17] MEDS: FLUSH (NSS) 1 FLUSH IV (10:05)
--- NOTE | 2024-08-17 12:39 | CM ---
spoke to pt in room, she is prev indep, lives alone in a 2 story home with 1 step to enter. she uses a cane and denies any dc planning needs. plan is for dc to home when medically stable.
--- NOTE | 2024-08-17 14:13 | CM ---
priced brilinta- at pts [facility] cost is $112/month. it will be in stock tomorrow
--- NOTE | 2024-08-17 14:50 | W.PN.HOSP.TC ---
Today's Communication/Plan
-
Monitor vitals
See plan
Continue with dual antiplatelet therapy
Echo
Started on metoprolol, Amio
Nonbillable note
Assessment / Plan
Assessment / Plan
General: No acute distress
HEENT: PERRLA and Other (Dry MM.)
Respiratory: No wheezing, clear to auscultation
Cardiac: S1/S2 and Irregular Rhythm; No Murmur
GI: Soft, Non Tender, Non Distended and Normal Bowel Sounds
Musculoskeletal: No Edema
Neuro: AO x 3
NSTEMI / ACS
- Urgent cath with 90% stenosis in LCx - stent placed. Patient with clinical relief in chest pain.
- Continue post-cath care per Cardiology.
- DAPT, statin, etc.
- Follow for any new / recurrent chest pain
Echo pending
Right upper extremity hematoma
Monitor
Atrial Fibrillation
- Unclear type. Patient not on OAC at her own discretion.
- Monitor on telemetry.
- No need for rate control medications at present.
- Ongoing discussions re: OAC prior to discharge.
- Cardiology following; Willie Vasc score 5
Started on metoprolol, amiodarone
Benign Hypertension
- Hold HCTZ for now.
- GDMT for ASCVD / SC as noted above will likely manage BP.
DVT Prophylaxis: Subcut Heparin
Code Status: DNR
Anticipated Discharge: 24 - 48 hours
Subjective/Interval History
-
Date of Service: August 17, 2024
denies pain
Objective Data
-
Labs:
Laboratory Results
08/17/24 08/17/24 08/17/24
05:27 06:42 14:00
WBC 10.8
Hgb 12.7
Hct 38.3
Plt Count 214
Sodium Cancelled 140 Pending
Potassium Cancelled 3.0 L Pending
Chloride Cancelled 103 Pending
Carbon Dioxide Cancelled 21 L Pending
BUN Cancelled 29 H Pending
Creatinine Cancelled 1.0 Pending
Glucose Cancelled 232 H Pending
Calcium Cancelled 9.1 Pending
Vital Signs:
Vital Signs
Temp Pulse Resp BP Pulse Ox
97.4 F 76 16 128/88 98
08/17/24 11:10 08/17/24 11:45 08/17/24 11:10 08/17/24 11:06 08/17/24 11:10
I&O
08/16/24 08/17/24 08/18/24
06:59 06:59 06:59
Output Total 850 / 850
Balance -850 / -850
--- NOTE | 2024-08-17 16:07 | W.PN.UPDATE ---
Update Note
Progress Note Update
checked back in to see patient. reports she now feels rested. reports she had a pleasant visit with her daughter. states she has chest 'tightness' which she rates a 4/10. repeat EKG pending. reports good output with dose of IV lasix. repeat trop
pending. d/w nursing. will try tylenol as SL nitro did not help her discomfort this AM just resulted in hypotension.
update: upon nursing entering room, patient was asked about above reported chest tightness and she now denies. states no pain/discomfort. hold off on tylenol administration. EKG stable. will follow. ? forgetfulness.
--- NOTE | 2024-08-17 16:29 | PTCARENOTE ---
Rose Mary HERRING went in to see patient , patient stated she has chest pressure, Rose Mary ordered EKG, EKG completed, shown to Rose Mary. when I went in to get EKG patient stated 'I dont have chest pressure, where did you hear that from.' lab work
drawn as previously ordered and sent to lab. right radial ecchymotic, distal pulse weak but palpable. wiley bandage remains on upper right forearm. right groin intact. emptied 1000cc of yellow urine from canister.
[2024-08-17 17:02] LABS: Blood Urea Nitrogen 29 mg/dl (7-17); Calcium 8.9 mg/dl (8.4-10.2); Carbon Dioxide 25 mmol/L (22-30); Chloride 105 mmol/L (98-107); Estimated Creatinine Clearance 41 ml/min; Glucose 142 mg/dl (70-99); Potassium 4.3 mmol/L (3.5-5.1); Sodium 137 mmol/L (135-145); eGFR > 60.00
--- NOTE | 2024-08-17 21:26 | PTCARENOTE ---
Assumed care of patient at change of shift. Tele monitor shows Afib w/ BBBC and occasional PVCs. Right radial site dressing intact and ecchymotic. Right radial pulse weak. Right forearm w/ acewrap in place by previous RN. Right groin dressing
saturated. This RN changed dressing and applied a 4x4 w/ tegaderm. Site soft and no hematoma noted at this time. Right pedal pulse palpable. Patient needed to move her bowels. This RN assisted patient to BSC. Patient became lightheaded and dizzy
while standing at bedside. RN assisted patient to sit back down, and obtained blood pressure w/ a result of 129/83. Patient w/ good relief. Attempted to stand and pivot to BSC. Patient had a small loose BM. Patient currently laying in bed. C/o
nausea, and PRN IV Compazine administered--see MAY. Patient educated on activity restrictions. Call salazar within reach.
--- NOTE | 2024-08-17 23:11 | W.PN.UPDATE ---
Update Note
Progress Note Update
-came in @ 10:35 pm to eval pt for c/o SOB after coming back from the bathroom. pOx was 100% on 3L. She has rales at bases b/l, no wheeze, no significant JVD or ankle edema noted. No distress, no CP. LVEDP was 27 on cath 08/17. She received 40 and 20
iv Lasix on 08/17 with good response (UO 1850+). Will give 20 iv Lasix tonight. Consider daily Lasix. Follow am labs.
[2024-08-18] VITALS (8 sets, daily range): BP systolic 124–137; BP diastolic 55–86; BMI 24.9
--- NOTE | 2024-08-18 07:37 | W.PN.CARDCBS ---
Addendum entered and electronically signed by Rose Mary Quintanilla PA-C 08/18/24 13:58:
labs reviewed. K supplemented. bump in WBC to 21.4 - follow for possible infection, could also be reactive/inflammatory. afebrile. will follow
Addendum entered and electronically signed by Neno Esparza MD 08/18/24 12:56:
I saw and examined the patient.
The RECYCLING MANAGER or PA's note was reviewed and I agree with the note.
Comment: General: Well developed, well nourished in NAD.
Neck: Supple, no JVD, HJR, carotids +2 B/L, no bruits bilaterally.
Heart: Non displaced PMI, Irreg, no murmurs, No S3, S4, no rubs.
Lungs: Clear to auscultation bilaterally, no wheeze, rhonchi, rubs bilaterally,
normal expiratory phase.
Abdomen: Normal bowel sounds, soft, non-tender, non-distended.
Extremities: No clubbing, cyanosis or edema bilaterally.
Neuro: Grossly nonfocal, awake, alert and oriented x3.
She remains in rate controlled atrial fibrillation at present. She had an episode of nonsustained VT versus aberrancy. Will decrease amiodarone to 200 mg p.o. 3 times daily. Will continue IV Lasix for acute diastolic CHF. She remains on oxygen.
She might need rehab
Original Note:
Today's Communication / Plan
-
labs pending
IV lasix 40mg daily
continue asa, brilinta, crestor, lopressor
decrease amiodarone to 200mg TID. follow QTc
will discuss OAC with patient/family today when patient more awake
Impression / Plan
-
No outpatient sulfur burner that she follows with regularly.
Impression:
High risk NSTEMI: 90 to 95% hazy mid left circumflex stenosis treated with one 2.75 x 30 mm Medtronic Rafiq drug-eluting stent, postdilated using IVUS guidance with a 2.75 x 20 mm NC balloon at 16 mariama.
Acute HFpEF
Hypertension
Hyperlipidemia
Atrial fibrillation
Not on chronic anticoagulation due to Eliquis causing vision changes
Multiple drug allergies
At home, DNR/DNI which was reversed to full code when we discussed CODE STATUS 3 activation of heart catheterization lab with plan to maintain full code throughout this admission
Weakness
Fatigue
Hypokalemia
Hypomagnesemia
NSVT vs aberrant conduction on tele
Echo 08/01/2021: EF 60 to 65%, mild septal hypertrophy, mild MR, heavy focal calcification of noncoronary cusp of aortic valve, mild AR, mild TR, PAP 37 mmHg
ECHO 08/17/24: EF 54%, mild concentric LVH, moderate MR, mild AR, moderate TR, PAP 25 to 30 mmHg, trivial pericardial effusion
RECOMMENDATIONS:
- Patient presented with chest discomfort and went urgently to cardiac catheterization for high risk NSTEMI. Status post circumflex PCI 08/16/2024
- trop peaked at 63.
- CP free.
- Continue aspirin, Brilinta
- continue wiley wrap of RUE hematoma. hgb pending 08/18
- remains in rate controlled afib vs atach on review of tele. continue with occasional runs of NSVT vs aberrancy. follow electrolytes. continue lopressor and amiodarone, started this admission but will decrease amiodarone dose to 200mg TID given
prolonged QTc by review of EKG 08/18.
- She has historically not been on anticoagulation due to prior issues with vision changes on Eliquis. [id number] score of 5 for age, HTN, female, vascular disease. Will continue DAPT at this time, and will need to revisit OAC with patient/family.
If patient is agreeable for oral anticoagulation to reduce A-fib related strokes, would consider switching her Brilinta to Plavix to minimize risk for bleeding. In this scenario would do triple therapy with aspirin, Plavix and Eliquis for 1 week
and discontinue aspirin at that time to continue Plavix and Eliquis.
- echo with results as above, EF preserved
- was noted to have SOB overnight requiring additional dose of 20mg IV lasix. LVEDP at time of cath 08/16 was 27. proBNP pending. will place on IV lasix 40mg daily pending AM bloodwork. wean supp O2 as able.
- LDL 153. was not on statin therapy prior to admission. crestor 20mg QPM added this admission
- cardiac rehab
- she has residual moderate ostial RCA lesion. will need to consider for OP stress testing to evaluate further if recurrent symptoms.
PREADMIT DATA:
Upon my evaluation to the emergency room she was having ongoing 7 out of 10 chest pain for which we gave additional sublingual nitroglycerin at bedside and she has just received 4000 units of IV unfractionated heparin along with 180 mg of Brilinta
which she had chewed up along with the full dose aspirin. Daughter was at bedside. She expressed that she had refused to take Eliquis before given it because vision changes and refuses to be on anticoagulation. Through this we discussed and found
out that she has multiple drug allergies and intolerances. She is only on 1 chronic medication which is hydrochlorothiazide for her blood pressure. She has seen cardiology previously but does not follow with anyone regularly as ' there is nothing
wrong with me'
Extensive discussion was had with what we feel like was going on with the patient and I described to her that there is concern based on her EKG changes and ongoing chest pain that she is having an acute coronary syndrome and what the treatment
options are including medications only, a recommendation for urgent heart catheterization with possible PCI along with medications and the risk and benefits of each of them. Patient has significant hesitations initially agreeing to take dual
antiplatelet therapy in case she would not need a PCI. She also expressed that her living will states that she is a DNR/DNI with her daughter being POA. I expressed to her that given the nature of ACS and invasive heart catheterization, we would
only agree to take her if we can agree to reverse her CODE STATUS and treat her as a full code for the admission this admission. The emergency room physician, Dr. Daniel Holder also joined me and explaining to the patient our concerns in regards to
ongoing symptoms with likely high risk NSTEMI. After extensive discussion and offering her alternative treatment options, patient is agreeable as ' I guess I should try to live' she reassures us that she would take recommended cardiac medications
and she would like to be full code during this admission. Detail risk and benefits were described to her about what a coronary angiogram entails and in a shared decision-making fashion we agreed to proceed with urgent heart catheterization.
Progress Note - Healthcare Management
Subjective
Date of Service: August 18, 2024
lethargic. denies CP. rfeports SOB improved this AM.
Objective
Labs:
Labs
Hgb 12.7 g/dL (12.0-16.0) 08/17/24 05:27
Hct 38.3 % (37.0-47.0) 08/17/24 05:27
Plt Count 214 10^3/uL (130-400) 08/17/24 05:27
PT 13.9 Sec (11.4-14.6) 08/17/24 01:53
INR 1.04 08/17/24 01:53
Sodium 137 mmol/L (135-145) 08/17/24 16:26
Potassium 4.3 mmol/L (3.5-5.1) D 08/17/24 16:26
BUN 29 mg/dl (7-17) H 08/17/24 16:26
Creatinine 0.9 mg/dL (0.6-1.0) 08/17/24 16:26
Glucose 142 mg/dl (70-99) H 08/17/24 16:26
Troponins
08/17/24 08/17/24 08/17/24
01:50 05:27 10:27
Troponin I 0.045 H* 11.000 H* D Cancelled
08/17/24 08/17/24 08/17/24
12:03 16:26 23:50
Troponin I 49.500 H* D 63.400 H* D 57.300 H*
Vital Signs and I&O:
Vital Signs
Temp Pulse Resp BP Pulse Ox
97.7 F 81 16 135/65 100
08/18/24 04:18 08/18/24 06:00 08/18/24 04:18 08/18/24 05:35 08/18/24 04:18
Vital Signs
Temp Pulse Resp BP Pulse Ox
97.7 F 81 16 135/65 100
08/18/24 04:18 08/18/24 06:00 08/18/24 04:18 08/18/24 05:35 08/18/24 04:18
Intake & Output
08/15/24 08/16/24 08/17/24 08/18/24
07:59 07:59 07:59 07:59
Intake Total 760 / 760
Output Total 850 / 850 1300 / 1300
Balance -850 / -850 -540 / -540
Physical Exam
Physical Exam
GEN: No distress, awake, lethargic. responds to questions when asked. on supp O2
HEENT: supple, anicteric, mmm, eomi
LUNGS: Clear anterolaterally, no wheezes
CV: Irreg, S1/S2, no murmur
ABD: soft, BS+, NT/ND
EXT: No cyanosis, clubbing. trace edema of B/L LE
NEURO: Gross non-focal
SKIN: Warm, pink, dry. No rash. RUE with wiley wrap in place
[2024-08-18] MEDS: LOPRESSOR 25 MG PO ×2 (07:55→19:34)
[2024-08-18] MEDS: PACERONE 200 MG PO ×3 (07:55→22:46)
[2024-08-18] MEDS: LOW STRENGTH ASPIRIN 81 MG PO (07:56)
[2024-08-18] MEDS: HEPARIN 5000 UNITS SC (08:22)
[2024-08-18] MEDS: BRILINTA 90 MG PO (09:34)
[2024-08-18] MEDS: LASIX 40 MG IV (09:37)
[2024-08-18 10:53] LABS: % Basophils 0.1 % (0-2); % Eosinophils 0.1 % (0-6); % Immature Granulocytes 0.5 % (0-0.5); % Monocytes 5.7 % (1.7-9.3); % Neutrophils 90.6 % (42.2-75.2); Absolute Immature Granulocytes 0.1 10^3/uL (0-0.05); Absolute Lymphocytes 0.6 10^3/uL (1.2-3.4); Absolute Monocytes 1.2 10^3/uL (0.1-0.6); Absolute Neutrophils 19.4 10^3/uL (1.4-6.5); Hematocrit 37.9 % (37.0-47.0); Hemoglobin 12.5 g/dL (12.0-16.0); Mean Corpuscular Hgb 28.7 pg (27.0-31.0); Mean Corpuscular Volume 87.1 fL (81.0-99.0); Mean Platelet Volume 10.6 fL (7.4-10.4); Nucleated Red Blood Cells % 0 %; Platelet Count 240 10^3/uL (130-400); Red Blood Cell Count 4.35 10^6/uL (4.20-5.40); Red Cell Dist. Width 14.6 % (11.5-14.5); White Blood Cell Count 21.4 10^3/uL (4.8-10.8)
[2024-08-18 11:18] LABS: NT-proBNP 7020 pg/ml
[2024-08-18 11:44] LABS: Blood Urea Nitrogen 32 mg/dl (7-17); Calcium 8.7 mg/dl (8.4-10.2); Carbon Dioxide 26 mmol/L (22-30); Chloride 100 mmol/L (98-107); Estimated Creatinine Clearance 35 ml/min; Glucose 184 mg/dl (70-99); Magnesium 1.9 mg/dl (1.6-2.3); Potassium 3.8 mmol/L (3.5-5.1); Sodium 134 mmol/L (135-145)
--- NOTE | 2024-08-18 12:46 | W.PN.HOSP.TC ---
Today's Communication/Plan
-
Monitor vital signs
see plan
Monitor leukocytosis
Continue aspirin, Brilinta
Continue metoprolol, Amio
Assessment / Plan
Assessment / Plan
General: No acute distress
HEENT: PERRLA
Respiratory: No wheezing, clear to auscultation
Cardiac: S1/S2 and Irregular Rhythm; No Murmur
GI: Soft, Non Tender, Non Distended and Normal Bowel Sounds
Musculoskeletal: No Edema
Neuro: AO x 3
NSTEMI / ACS
- Urgent cath with 90% stenosis in LCx - stent placed. Patient with clinical relief in chest pain.
- Continue post-cath care per Cardiology.
- DAPT, statin, etc.
Echo with preserved EF
Acute CHF with preserved EF
Continue with IV Lasix
Monitor I's and O's
Daily weight
Right upper extremity hematoma
Monitor
Hyponatremia
Monitor
Leukocytosis
Monitor, denies any fever/chills
Atrial Fibrillation
- Unclear type. Patient not on OAC at her own discretion.
- Monitor on telemetry.
- No need for rate control medications at present.
- Ongoing discussions re: OAC prior to discharge.
- Cardiology following; Willie Vasc score 5
Started on metoprolol, amiodarone
Benign Hypertension
- Hold HCTZ for now.
- GDMT for ASCVD / MS as noted above will likely manage BP.
DVT Prophylaxis: Subcut Heparin
Code Status: DNR
Anticipated Discharge: 24 - 48 hours
Subjective/Interval History
-
Date of Service: August 18, 2024
denies nausea
Objective Data
-
Labs:
Laboratory Results
08/18/24
10:43
WBC 21.4 H
Hgb 12.5
Hct 37.9
Plt Count 240
Sodium 134 L
Potassium 3.8
Chloride 100
Carbon Dioxide 26
BUN 32 H
Creatinine 1.0
Glucose 184 H
Calcium 8.7
Vital Signs:
Vital Signs
Temp Pulse Resp BP Pulse Ox
98.2 F 105 16 133/61 98
08/18/24 11:59 08/18/24 11:55 08/18/24 11:59 08/18/24 11:55 08/18/24 11:59
I&O
08/17/24 08/18/24 08/19/24
06:59 06:59 06:59
Intake Total 760 / 760
Output Total 2150 / 2150 400 / 400
Balance -1390 / -1390 -400 / -400
[2024-08-18] MEDS: KCL 260 MEQ IV (13:34)
--- NOTE | 2024-08-18 15:47 | W.PN.UPDATE ---
Update Note
Progress Note Update
Patient with family friend as well as daughter, Catherine at bedside. We discussed recommendation to retrial anticoagulation with Eliquis given atrial fibrillation. In addition, she is concerned about cost of Brilinta. We will transition from
Brilinta to Plavix. Continue aspirin for 1 week then stop, continuing Plavix and Eliquis. She reports she has history of significant epistaxis on Eliquis. Will need to monitor. Briefly discussed watchman and ablation procedures as potential
options in future. No present complaints of chest discomfort or shortness of breath. All questions answered.
--- NOTE | 2024-08-18 16:11 | CM ---
CM following for DC planning needs.
Met w/ patient at bedside. Sev. other visitors were present.
We reviewed cost of Brilinta-patient would like to investigate other options as this is pricey.
Reviewed initial assessment. Pt. comes from [facility] alone. Pt. is functionally indep. w/ ADLs, mobility with use of a SPC.
Noted in Cards note that rehab may be needed. I asked Attending for PT-OT eval. Will follow.
CM to follow for DC needs.
--- NOTE | 2024-08-18 16:27 | PTCARENOTE ---
Right radial cath site w/ dressing clean, dry and intact. Pt w/ +2 edema and ecchymosis noted from hand to above elbow. Venkata wrap to RUE, arm elevated on a pillow. Pt denies any discomfort. Will monitor.
[2024-08-18] MEDS: CRESTOR 20 MG PO (18:20)
[2024-08-18] MEDS: LOPRESSOR 12.5 MG PO (19:34)
[2024-08-18] MEDS: ELIQUIS 5 MG PO (19:34)
--- NOTE | 2024-08-18 23:46 | PTCARENOTE ---
Pt rec'd at change of shift lying in bed with daughter at bedside. Afib on telemetry no VT noted. Pt with fine crackles in bases, no cough or c/o sob noted. Right radial site ecchymotic and soft. Venkata wrap noted from forearm to upper arm; Elevated on
pillow while in bed. Pt requested to get a bath shortly after change of shift. Pt assisted to sit on side of bed; after resting for a few mins attempted to ambulate to bathroom however after about three steps pt's gait was wobbly and pt stated she
felt little weak. after sitting for a few mins weakness slightly improved and pt placed on bsc with nursing standing within arms length. Pt passed mod amt of loose stool. complete bed bath completed. Pt placed back to bed with pure wick in place.
call salazar within reach.
[2024-08-19] VITALS (9 sets, daily range): BP systolic 111–139; BP diastolic 54–80; PULSE 72; O2SAT 96; BMI 24.6
[2024-08-19 06:03] LABS: % Basophils 0.2 % (0-2); % Immature Granulocytes 0.2 % (0-0.5); % Lymphocytes 11.3 % (20.5-51.1); % Monocytes 9.4 % (1.7-9.3); % Neutrophils 78.9 % (42.2-75.2); Absolute Lymphocytes 1.5 10^3/uL (1.2-3.4); Absolute Monocytes 1.3 10^3/uL (0.1-0.6); Absolute Neutrophils 10.5 10^3/uL (1.4-6.5); Hematocrit 33.1 % (37.0-47.0); Mean Corp Hgb Conc. 33.2 g/dL (33.0-37.0); Mean Corpuscular Hgb 28.9 pg (27.0-31.0); Mean Corpuscular Volume 87.1 fL (81.0-99.0); Mean Platelet Volume 11.1 fL (7.4-10.4); Nucleated Red Blood Cells % 0 %; Platelet Count 212 10^3/uL (130-400); Red Cell Dist. Width 14.6 % (11.5-14.5); White Blood Cell Count 13.2 10^3/uL (4.8-10.8)
[2024-08-19 06:29] LABS: Blood Urea Nitrogen 38 mg/dl (7-17); Calcium 8.7 mg/dl (8.4-10.2); Carbon Dioxide 26 mmol/L (22-30); Chloride 101 mmol/L (98-107); Estimated Creatinine Clearance 35 ml/min; Glucose 100 mg/dl (70-99); Potassium 3.5 mmol/L (3.5-5.1); Sodium 136 mmol/L (135-145)
[2024-08-19] MEDS: PACERONE 200 MG PO ×3 (08:38→22:23)
[2024-08-19] MEDS: LOW STRENGTH ASPIRIN 81 MG PO (08:38)
[2024-08-19] MEDS: ELIQUIS 5 MG PO ×2 (08:39→20:32)
[2024-08-19] MEDS: LOPRESSOR 12.5 MG PO ×2 (08:39→20:32)
[2024-08-19] MEDS: LOPRESSOR 25 MG PO ×2 (08:39→20:32)
[2024-08-19] MEDS: LASIX 40 MG IV (08:39)
[2024-08-19] MEDS: PLAVIX 600 MG PO (08:44)
--- NOTE | 2024-08-19 08:45 | W.PN.CARDCBS ---
Addendum entered and electronically signed by Lukas Yung MD 08/19/24 09:39:
I also discussed with her her CODE STATUS. She will be full code while she is here hospitalized for her non-STEMI.
Addendum entered and electronically signed by Lukas Yung MD 08/19/24 09:37:
I saw and examined the patient.
The Healthcare Market Consultant's note was reviewed and I agree with the note.
Comment:
GEN: No distress, awake, Ox3
HEENT: supple, anicteric, mmm
LUNGS: CTA, no wheezes/rales
CV: Reg, S1/S2, 1/6 syst LSB, S3+
ABD: soft, BS+, NT/ND
EXT: No edema
NEURO: Gross non-focal
SKIN: No rash
Plan:
She continues to improve status post non-STEMI with left circumflex PCI
Telemetry with much less nonsustained VT. Continue amiodarone load 200 mg p.o. 3 times daily. Check EKG to follow QTc.
Replete potassium.
She is having some nosebleeds. I will discuss with interventional cardiology plan for anticoagulation. Potential options would be to lower dose of Eliquis to 2.5 twice daily as she is over 80 and close to 60 kg.
For now we will continue triple therapy. Hemoglobin at 11.
Continue metoprolol and IV Lasix and Crestor.
Original Note:
Today's Communication / Plan
-
continue IV lasix
EKG today to reassess QTc
continue amio
replete K. check mag
transitioned brilinta to plavix. triple therapy for 1 week then stop asa
PT/OT
Impression / Plan
-
No outpatient claim administrator that she follows with regularly.
Impression:
High risk NSTEMI: 90 to 95% hazy mid left circumflex stenosis treated with one 2.75 x 30 mm Medtronic [place] drug-eluting stent, postdilated using IVUS guidance with a 2.75 x 20 mm NC balloon at 16 mariama.
Acute HFpEF
Hypertension
Hyperlipidemia
Atrial fibrillation
Not on chronic anticoagulation due to Eliquis causing vision changes
Multiple drug allergies
At home, DNR/DNI which was reversed to full code when we discussed CODE STATUS 3 activation of heart catheterization lab with plan to maintain full code throughout this admission
Weakness
Fatigue
Hypokalemia
Hypomagnesemia
NSVT vs aberrant conduction on tele
Echo 08/01/2021: EF 60 to 65%, mild septal hypertrophy, mild MR, heavy focal calcification of noncoronary cusp of aortic valve, mild AR, mild TR, PAP 37 mmHg
ECHO 08/17/24: EF 54%, mild concentric LVH, moderate MR, mild AR, moderate TR, PAP 25 to 30 mmHg, trivial pericardial effusion
RECOMMENDATIONS:
- Patient presented with chest discomfort and went urgently to cardiac catheterization for high risk NSTEMI. Status post circumflex PCI 08/16/2024. trop peaked at 63.
- She appears to be doing much better today
- Remains in atrial fibrillation, however with much less ectopy overnight on review of telemetry. Heart rates are controlled. Continue Lopressor 37.5 mg twice daily and amiodarone 200 mg 3 times daily.
- Repeat EKG this morning to reassess QTc which was prolonged by EKG 08/18 and Amio dose was decreased
- After discussion with patient and daughter yesterday, she was agreeable to retry Eliquis. Started on Eliquis 5 mg twice daily. Also presently on aspirin and was transitioned from Brilinta to Plavix this morning. Plan will be for 1 week of
triple therapy, then stopping aspirin and continuing Plavix and Eliquis. Of note she had history of nosebleed on eliquis alone in past, so will need to monitor closely for bleeding.
- hgb stable at 11. continue wiley wrap of RUE hematoma
- echo with results as above, EF preserved
- proBNP 7020. continue diuresis with IV lasix. weaned off supp O2 this AM.
- replete K. check mag
- LDL 153. was not on statin therapy prior to admission. crestor 20mg QPM added this admission
- cardiac rehab
- she has residual moderate ostial RCA lesion. will need to consider for OP stress testing to evaluate further if recurrent symptoms.
- PT/OT evals
- for possible DC within next 24-48 hours
- will arrange OP cardiac follow up
- d/w nursing
PREADMIT DATA:
Upon my evaluation to the emergency room she was having ongoing 7 out of 10 chest pain for which we gave additional sublingual nitroglycerin at bedside and she has just received 4000 units of IV unfractionated heparin along with 180 mg of Brilinta
which she had chewed up along with the full dose aspirin. Daughter was at bedside. She expressed that she had refused to take Eliquis before given it because vision changes and refuses to be on anticoagulation. Through this we discussed and found
out that she has multiple drug allergies and intolerances. She is only on 1 chronic medication which is hydrochlorothiazide for her blood pressure. She has seen cardiology previously but does not follow with anyone regularly as ' there is nothing
wrong with me'
Extensive discussion was had with what we feel like was going on with the patient and I described to her that there is concern based on her EKG changes and ongoing chest pain that she is having an acute coronary syndrome and what the treatment
options are including medications only, a recommendation for urgent heart catheterization with possible PCI along with medications and the risk and benefits of each of them. Patient has significant hesitations initially agreeing to take dual
antiplatelet therapy in case she would not need a PCI. She also expressed that her living will states that she is a DNR/DNI with her daughter being POA. I expressed to her that given the nature of ACS and invasive heart catheterization, we would
only agree to take her if we can agree to reverse her CODE STATUS and treat her as a full code for the admission this admission. The emergency room physician, Dr. Daniel Holder also joined me and explaining to the patient our concerns in regards to
ongoing symptoms with likely high risk NSTEMI. After extensive discussion and offering her alternative treatment options, patient is agreeable as ' I guess I should try to live' she reassures us that she would take recommended cardiac medications
and she would like to be full code during this admission. Detail risk and benefits were described to her about what a coronary angiogram entails and in a shared decision-making fashion we agreed to proceed with urgent heart catheterization.
Progress Note - Telephone Station Repairer
Subjective
Date of Service: August 19, 2024
patient denies CP overnight. states breathing improving. states she can 'feel her stent' in her chest
Objective
Labs:
08/19/24 05:
08/19/24 05:
Labs
Hgb 11.0 g/dL (12.0-16.0) L 08/19/24 05:
Hct 33.1 % (37.0-47.0) L 08/19/24 05:
Plt Count 212 10^3/uL (130-400) 08/19/24 05:31
PT 13.9 Sec (11.4-14.6) 08/17/24 01:53
INR 1.04 08/17/24 01:53
Sodium 136 mmol/L (135-145) 08/19/24 05:31
Potassium 3.5 mmol/L (3.5-5.1) 08/19/24 05:31
BUN 38 mg/dl (7-17) H 08/19/24 05:31
Creatinine 1.0 mg/dL (0.6-1.0) 08/19/24 05:31
Glucose 100 mg/dl (70-99) H 08/19/24 05:31
Troponins
08/17/24 08/17/24 08/17/24
01:50 05:27 10:27
Troponin I 0.045 H* 11.000 H* D Cancelled
08/17/24 08/17/24 08/17/24
12:03 16:26 23:50
Troponin I 49.500 H* D 63.400 H* D 57.300 H*
Vital Signs and I&O:
Vital Signs
Temp Pulse Resp BP Pulse Ox
97.9 F 78 16 139/70 98
08/19/24 07:00 08/19/24 07:00 08/19/24 07:00 08/19/24 07:00 08/19/24 07:00
Vital Signs
Temp Pulse Resp BP Pulse Ox
97.9 F 78 16 139/70 98
08/19/24 07:00 08/19/24 07:00 08/19/24 07:00 08/19/24 07:00 08/19/24 07:00
Intake & Output
08/17/24 08/18/24 08/19/24 08/20/24
07:59 07:59 07:59 07:59
Intake Total 760 / 760 490 / 490
Output Total 850 / 850 1300 / 1300 700 / 700
Balance -850 / -850 -540 / -540 -210 / -210
Physical Exam
Physical Exam
GEN: No distress, awake, alert, oriented to self, place.
HEENT: supple, anicteric, mmm, eomi
LUNGS: Clear B/L, no wheezes
CV: Irreg, S1/S2, no murmur
ABD: soft, BS+, NT/ND
EXT: No cyanosis, clubbing. trace edema of B/L LE
NEURO: Gross non-focal
SKIN: Warm, pink, dry. No rash. RUE with wiley wrap in place with underlying ecchymoses
[2024-08-19] MEDS: KCL 270 MEQ IV (10:10)
--- NOTE | 2024-08-19 11:13 | PTCARENOTE ---
Pt received this am with no c/o of any sob. O2 removed, sat 96%. Pt later had a slight nosebleed which did not persist. Assisted oob to the chair for breakfast. Denies any pain or discomfort. Right arm venkata wrap removed and arm assessed. Continues
with dark ecchymosis at rad site and forearm. Venkata wrap reapplied. Pt oob to the bathroom, gait steady.
--- NOTE | 2024-08-19 11:31 | W.PN.ENT ---
Today's Communication
-
F/u with us in office
Impression / Plan
-
Mild epistaxis secondary to nasal O2 and anti-coagulation.
Cotton packing is applied.
This may be removed tomorrow.
She should f/u with us in office in a week or so
Subjective Data
-
Mild bilateral epistaxis which has resolved
Full consult dictated
Objective Data
-
Vital Signs
Temp Pulse Resp BP Pulse Ox
97.9 F 78 16 139/70 96
08/19/24 07:00 08/19/24 07:00 08/19/24 07:00 08/19/24 07:00 08/19/24 08:00
Intake & Output
08/18/24 08/19/24 08/20/24
06:59 06:59 06:59
Intake:
Oral fluids 360 / 360 240 / 240
IV piggybacks 400 / 400 250 / 250
Output:
Urine, Voided 2150 / 2150 700 / 700
Other:
Number of approximated LARGE 1
amounts of urine
Lab Results
08/19/24 05:31
08/19/24 05:31
PT 13.9 Sec (11.4-14.6) 08/17/24 01:53
INR 1.04 08/17/24 01:53
Calcium 8.7 mg/dl (8.4-10.2) 08/19/24 05:31
Magnesium 2.0 mg/dl (1.6-2.3) 08/19/24 05:31
Total Bilirubin Cancelled 08/17/24 01:50
AST Cancelled 08/17/24 01:50
ALT Cancelled 08/17/24 01:50
Alkaline Phosphatase Cancelled 08/17/24 01:50
Triglycerides 79 mg/dl (10-149) 08/17/24 06:42
LDL Cholesterol, Calc 153 mg/dl 08/17/24 06:42
VLDL Cholesterol, Calc 15 mg/dl (0-30) 08/17/24 06:42
HDL Cholesterol 87 mg/dl 08/17/24 06:42
Physical Exam
-
Dry nasal mucosa with scant clot but no active bleeding.
Cotton packing applied bilaterally
--- NOTE | 2024-08-19 12:52 | CM ---
CM following for DC planning needs.
Met w/ patient at bedside.
We reviewed DC plans. Noted that PT magalie is recommending home health care.
I have discussed this with patient and offered VN. She would be agreeable to this. Referral sent to [facility]; await response.
Plan is for home w/ [facility], if accepted
--- NOTE | 2024-08-19 13:10 | W.PN.HOSP.TC ---
Today's Communication/Plan
-
monitor vitals
see plan
aspirin stopped
cw eliquis,plavix
ENT
wean o2 as tolerated
Assessment / Plan
Assessment / Plan
General: No acute distress
HEENT: PERRLA
Respiratory: No wheezing, clear to auscultation
Cardiac: S1/S2 and Irregular Rhythm; No Murmur
GI: Soft, Non Tender, Non Distended and Normal Bowel Sounds
Musculoskeletal: No Edema
Neuro: AO x 3
NSTEMI / ACS
- Urgent cath with 90% stenosis in LCx - stent placed. Patient with clinical relief in chest pain.
- Continue post-cath care per Cardiology.
-on plavix and eliquis. aspirin stopped
Echo with preserved EF
Acute CHF with preserved EF
Continue with IV Lasix
Monitor I's and O's
Daily weight
Mild epistaxis
Packing per ENT
ENT following
Patient will follow-up with them outpatient
Right upper extremity hematoma
Monitor
Hyponatremia
Monitor
Leukocytosis
Monitor, denies any fever/chills
Atrial Fibrillation
- Unclear type. Patient not on OAC at her own discretion.
- Monitor on telemetry.
- No need for rate control medications at present.
- Ongoing discussions re: OAC prior to discharge.
- Cardiology following; Willie Vasc score 5
Started on metoprolol, amiodarone
Benign Hypertension
- Hold HCTZ for now.
- GDMT for ASCVD / [place] as noted above will likely manage BP.
DVT Prophylaxis: Subcut Heparin
Code Status: DNR
Anticipated Discharge: 24 - 48 hours
Subjective/Interval History
-
Date of Service: August 19, 2024
denies pain
Objective Data
-
Labs:
Laboratory Results
08/19/24
05:31
WBC 13.2 H
Hgb 11.0 L
Hct 33.1 L
Plt Count 212
Sodium 136
Potassium 3.5
Chloride 101
Carbon Dioxide 26
BUN 38 H
Creatinine 1.0
Glucose 100 H
Calcium 8.7
Vital Signs:
Vital Signs
Temp Pulse Resp BP Pulse Ox
97.3 F 78 16 139/70 97
08/19/24 11:41 08/19/24 07:00 08/19/24 11:41 08/19/24 07:00 08/19/24 11:41
I&O
08/18/24 08/19/24 08/20/24
06:59 06:59 06:59
Intake Total 760 / 760 490 / 490
Output Total 2150 / 2150 700 / 700
Balance -1390 / -1390 -210 / -210
[2024-08-19] MEDS: CRESTOR 20 MG PO (17:29)
--- NOTE | 2024-08-19 22:32 | PTCARENOTE ---
Pt rec'd at change of shift awake,alert with nasal packing present. some discomfort per pt but tolerable. R/a sat high 90's on R/A. Lungs diminished but clear. some DENT with ambulating. Right radial and right femoral drsg removed. areas cleansed
with nss left magdiel.
[2024-08-20] VITALS (9 sets, daily range): BP systolic 116–153; BP diastolic 53–98; BMI 24.2
[2024-08-20 04:20] LABS: % Basophils 0.3 % (0-2); % Eosinophils 0.3 % (0-6); % Immature Granulocytes 0.5 % (0-0.5); % Lymphocytes 17.5 % (20.5-51.1); % Monocytes 9.9 % (1.7-9.3); % Neutrophils 71.5 % (42.2-75.2); Absolute Immature Granulocytes 0.1 10^3/uL (0-0.05); Absolute Monocytes 1.2 10^3/uL (0.1-0.6); Absolute Neutrophils 8.3 10^3/uL (1.4-6.5); Hemoglobin 10.9 g/dL (12.0-16.0); Mean Corpuscular Volume 87.8 fL (81.0-99.0); Mean Platelet Volume 11.3 fL (7.4-10.4); Nucleated Red Blood Cells % 0 %; Platelet Count 201 10^3/uL (130-400); Red Blood Cell Count 3.76 10^6/uL (4.20-5.40); Red Cell Dist. Width 14.7 % (11.5-14.5); White Blood Cell Count 11.6 10^3/uL (4.8-10.8)
[2024-08-20 04:39] LABS: Blood Urea Nitrogen 46 mg/dl (7-17); Calcium 8.7 mg/dl (8.4-10.2); Carbon Dioxide 26 mmol/L (22-30); Chloride 104 mmol/L (98-107); Estimated Creatinine Clearance 32 ml/min; Glucose 96 mg/dl (70-99); Potassium 3.5 mmol/L (3.5-5.1); Sodium 136 mmol/L (135-145); eGFR 49.86
--- NOTE | 2024-08-20 07:45 | W.PN.CARDCBS ---
Addendum entered and electronically signed by Lukas Yung MD 08/20/24 08:49:
I saw and examined the patient.
The Flexographic Printing Machinist's note was reviewed and I agree with the note.
Comment:
GEN: No distress, awake, Ox3
HEENT: supple, anicteric, mmm
LUNGS: CTA, no wheezes/rales
CV: Irreg, S1/S2, 1/6 syst LSB, no gallop
ABD: soft, BS+, NT/ND
EXT: Right upper extremity severe ecchymosis
NEURO: Gross non-focal
SKIN: No rash
PLan:
No further nosebleeds. Hemoglobin stable at 10.9. Appreciate ENT input.
Will reduce Eliquis to 2.5 mg p.o. twice daily and continue Plavix. Weight continues to fall with diuresis and is now at 61 kg. With her nosebleeds, anemia, and mild renal insufficiency and age we will use Eliquis 2.5 mg p.o. twice daily.
Much less ventricular ectopy. Continue amiodarone 200 mg twice daily for 1 month then decrease to 20 mg daily. Continue Lopressor 37.5 mg p.o. twice daily.
Transition Lasix to 40 mg p.o. daily.
If stable this afternoon okay for discharge. Will arrange follow-up.
Cont Crestor
Original Note:
Today's Communication / Plan
-
continue eliquis, plavix. pending weight this AM, may need to reduce eliquis dosing to 2.5mg BID
no ectopy noted overnight. will plan for 5 day Bardy monitor upon DC. continue amiodarone 200mg BID for 1 month then decrease to 200mg daily and lopressor 37.5mg BID
transition to po lasix 40mg daily
CBC/BMP/proBNP in 1 week
cardiac rehab
OP cardiac follow up arranged
ok for DC from cardiac standpoint
Impression / Plan
-
No outpatient counter help that she follows with regularly.
Impression:
High risk NSTEMI: 90 to 95% hazy mid left circumflex stenosis treated with one 2.75 x 30 mm Medtronic [place] drug-eluting stent, postdilated using IVUS guidance with a 2.75 x 20 mm NC balloon at 16 mariama.
Acute HFpEF
Hypertension
Hyperlipidemia
Atrial fibrillation
Not on chronic anticoagulation due to Eliquis causing vision changes
Multiple drug allergies
At home, DNR/DNI which was reversed to full code when we discussed CODE STATUS 3 activation of heart catheterization lab with plan to maintain full code throughout this admission
Weakness
Fatigue
Hypokalemia
Hypomagnesemia
NSVT vs aberrant conduction on tele
Echo 08/01/2021: EF 60 to 65%, mild septal hypertrophy, mild MR, heavy focal calcification of noncoronary cusp of aortic valve, mild AR, mild TR, PAP 37 mmHg
ECHO 08/17/24: EF 54%, mild concentric LVH, moderate MR, mild AR, moderate TR, PAP 25 to 30 mmHg, trivial pericardial effusion
RECOMMENDATIONS:
- Patient presented with chest discomfort and went urgently to cardiac catheterization for high risk NSTEMI. Status post circumflex PCI 08/16/2024. trop peaked at 63.
- remains in rate controlled afib however no ectopy noted overnight on review of tele. continue lopressor 37.5mg BID and amiodarone. plan for 200mg BID for 1 month then decrease to 200mg daily. QTc improving by EKG 08/20. will plan for 5 day Bardy
monitor to be placed prior to DC
- Initially post PCI plan was for triple therapy, however patient with history of nosebleeds, and again had nosebleed yesterday. Aspirin stopped. Appreciate ENT input. Currently on Eliquis 5 mg twice daily and Plavix 75 mg daily. Of note she is
borderline for decrease in dosing of Eliquis, so may need to consider if continues with epistaxis. Awaiting 08/20 weight. Hemoglobin 10.9 on 08/20.
- continue wiley wrap of RUE hematoma
- echo with results as above, EF preserved
- BUN/Cr bumped this morning. transition to po lasix 40mg daily. KAIAKO KOHANGA REO was on HCTZ 25mg daily.
- added daily K repletion. mag stable
- LDL 153. was not on statin therapy prior to admission. crestor 20mg QPM added this admission
- cardiac rehab
- she has residual moderate ostial RCA lesion. will need to consider for OP stress testing to evaluate further if recurrent symptoms.
- PT/OT
- cardiac rehab
- OP cardiac follow up arranged. if remains in afib at OP follow up next week, would consider for KAREEN/CV to restore SR.
- d/w nursing
PREADMIT DATA:
Upon my evaluation to the emergency room she was having ongoing 7 out of 10 chest pain for which we gave additional sublingual nitroglycerin at bedside and she has just received 4000 units of IV unfractionated heparin along with 180 mg of Brilinta
which she had chewed up along with the full dose aspirin. Daughter was at bedside. She expressed that she had refused to take Eliquis before given it because vision changes and refuses to be on anticoagulation. Through this we discussed and found
out that she has multiple drug allergies and intolerances. She is only on 1 chronic medication which is hydrochlorothiazide for her blood pressure. She has seen cardiology previously but does not follow with anyone regularly as ' there is nothing
wrong with me'
Extensive discussion was had with what we feel like was going on with the patient and I described to her that there is concern based on her EKG changes and ongoing chest pain that she is having an acute coronary syndrome and what the treatment
options are including medications only, a recommendation for urgent heart catheterization with possible PCI along with medications and the risk and benefits of each of them. Patient has significant hesitations initially agreeing to take dual
antiplatelet therapy in case she would not need a PCI. She also expressed that her living will states that she is a DNR/DNI with her daughter being POA. I expressed to her that given the nature of ACS and invasive heart catheterization, we would
only agree to take her if we can agree to reverse her CODE STATUS and treat her as a full code for the admission this admission. The emergency room physician, Dr. Daniel Holder also joined me and explaining to the patient our concerns in regards to
ongoing symptoms with likely high risk NSTEMI. After extensive discussion and offering her alternative treatment options, patient is agreeable as ' I guess I should try to live' she reassures us that she would take recommended cardiac medications
and she would like to be full code during this admission. Detail risk and benefits were described to her about what a coronary angiogram entails and in a shared decision-making fashion we agreed to proceed with urgent heart catheterization.
Progress Note - Copy Chaser
Subjective
Date of Service: August 20, 2024
resting comfortably
Objective
Labs:
08/20/24 03:04
08/20/24 03:04
Labs
Hgb 10.9 g/dL (12.0-16.0) L 08/20/24 03:04
Hct 33.0 % (37.0-47.0) L 08/20/24 03:04
Plt Count 201 10^3/uL (130-400) 08/20/24 03:04
PT 13.9 Sec (11.4-14.6) 08/17/24 01:53
INR 1.04 08/17/24 01:53
Sodium 136 mmol/L (135-145) 08/20/24 03:04
Potassium 3.5 mmol/L (3.5-5.1) 08/20/24 03:04
BUN 46 mg/dl (7-17) H 08/20/24 03:04
Creatinine 1.1 mg/dL (0.6-1.0) H 08/20/24 03:04
Glucose 96 mg/dl (70-99) 08/20/24 03:04
Troponins
08/17/24 08/17/24 08/17/24
10:27 12:03 16:26
Troponin I Cancelled 49.500 H* D 63.400 H* D
08/17/24
23:50
Troponin I 57.300 H*
Vital Signs and I&O:
Vital Signs
Temp Pulse Resp BP Pulse Ox
98.0 F 64 16 135/70 98
08/20/24 07:30 08/20/24 05:00 08/20/24 07:30 08/20/24 02:54 08/20/24 07:30
Vital Signs
Temp Pulse Resp BP Pulse Ox
98.0 F 64 16 135/70 98
08/20/24 07:30 08/20/24 05:00 08/20/24 07:30 08/20/24 02:54 08/20/24 07:30
Intake & Output
08/17/24 08/18/24 08/19/24 08/20/24
07:59 07:59 07:59 07:59
Intake Total 760 / 760 490 / 490
Output Total 850 / 850 1300 / 1300 700 / 700
Balance -850 / -850 -540 / -540 -210 / -210
Physical Exam
Physical Exam
GEN: No distress, awake but lethargic.
HEENT: supple, anicteric, mmm, eomi
LUNGS: CTA B/L, no wheezes/rales
CV: Irreg, S1/S2, no murmur
ABD: soft, BS+, NT/ND
EXT: No cyanosis, clubbing, edema
NEURO: Gross non-focal
SKIN: Warm, pink, dry. No rash
[2024-08-20] MEDS: KCL 270 MEQ IV (08:18)
[2024-08-20] MEDS: PACERONE 200 MG PO ×2 (08:18→21:37)
[2024-08-20] MEDS: PLAVIX 75 MG PO (08:18)
[2024-08-20] MEDS: LOPRESSOR 25 MG PO ×2 (08:18→21:36)
[2024-08-20] MEDS: LASIX 40 MG PO (08:22)
[2024-08-20] MEDS: KLOR-CON 20 MEQ PO (08:22)
[2024-08-20] MEDS: LOPRESSOR 12.5 MG PO ×2 (08:26→21:37)
[2024-08-20] MEDS: ELIQUIS 2.5 MG PO ×2 (09:14→21:36)
[2024-08-20] MEDS: ELIQUIS PO (09:20)
[2024-08-20] MEDS: COMPAZINE 5 MG IV (09:56)
--- NOTE | 2024-08-20 11:22 | VNURNOTE ---
Attempted to speak w/patient. She was asleep and not disturbed. VN referral accepted in [facility].
--- NOTE | 2024-08-20 11:26 | CM ---
CM following for DC planning needs.
Met w/ patient at bedside. She was c/o SOB. O2 sats 91-99%. Emotional support provided. Did notify RN of her concerns. PCT was also present.
Reviewed DC plan; anticipated DC plan is for home w/ [facility]. Pt. has been accepted for VN.
Will cont. to follow.
--- NOTE | 2024-08-20 13:06 | W.PN.HOSP.TC ---
Today's Communication/Plan
-
monitor vitals
see plan
check CXR
cw lasix
cw amio,metoprolol
appears anxious
Assessment / Plan
Assessment / Plan
General: No acute distress
HEENT: PERRLA
Respiratory: No wheezing, clear to auscultation
Cardiac: S1/S2 and Irregular Rhythm; No Murmur
GI: Soft, Non Tender, Non Distended and Normal Bowel Sounds
Musculoskeletal: No Edema
Neuro: AO x 3
NSTEMI / ACS
- Urgent cath with 90% stenosis in LCx - stent placed. Patient with clinical relief in chest pain.
- Continue post-cath care per Cardiology.
-on plavix and eliquis. aspirin stopped
Echo with preserved EF
Acute CHF with preserved EF
now on PO lasix
Monitor I's and O's
Daily weight
Mild epistaxis
Packing per ENT; packing removed 08/20
ENT following
Patient will follow-up with them outpatient
Right upper extremity hematoma
Monitor
Hyponatremia
Monitor
Leukocytosis
Monitor, denies any fever/chills
Atrial Fibrillation
- Unclear type. Patient not on OAC at her own discretion.
- Monitor on telemetry.
- No need for rate control medications at present.
- Ongoing discussions re: OAC prior to discharge.
- Cardiology following; Willie Vasc score 5
Started on metoprolol, amiodarone. now on plavix and dec dose of eliquis due to bleeding risk
Subjective sob
check CXR; no hypoxia noted so far
Benign Hypertension
- Hold HCTZ for now.
- GDMT for ASCVD / [place] as noted above will likely manage BP.
DVT Prophylaxis: Subcut Heparin
Code Status: DNR
Anticipated Discharge: Within 24 hours
Subjective/Interval History
-
Date of Service: August 20, 2024
feels sob
Objective Data
-
Labs:
Laboratory Results
08/20/24
03:04
WBC 11.6 H
Hgb 10.9 L
Hct 33.0 L
Plt Count 201
Sodium 136
Potassium 3.5
Chloride 104
Carbon Dioxide 26
BUN 46 H
Creatinine 1.1 H
Glucose 96
Calcium 8.7
Vital Signs:
Vital Signs
Temp Pulse Resp BP Pulse Ox
97.3 F 64 18 135/70 100
08/20/24 11:28 08/20/24 05:00 08/20/24 11:28 08/20/24 02:54 08/20/24 11:28
I&O
08/19/24 08/20/24 08/21/24
06:59 06:59 06:59
Intake Total 490 / 490
Output Total 700 / 700
Balance -210 / -210
[2024-08-20] MEDS: CRESTOR 20 MG PO (16:59)
--- NOTE | 2024-08-20 17:30 | PTCARENOTE ---
Pt received this am with no c/o of any pain or sob. Assisted oob to the BR and to the chair for breakfast. Pt c/o of nausea and medicated with compazine as ordered with relief. Pt later stated she was sob, sat 97%. O2 applied at 2L. Dr. Carter aware.
Sent for a CXR.
[2024-08-21] VITALS (11 sets, daily range): BP systolic 96–150; BP diastolic 45–114; PULSE 70; BMI 21.4; BMI 24.2
--- NOTE | 2024-08-21 02:36 | PTCARENOTE ---
Assumed care of the pt @ 1900. Pt is AAOx3 A Fib on the monitor. vss denies cp c/o DENT 1 person assist with rolling walker to bathroom + loose bm. Assisted pt with bath. Rt arm +1 edema and ecchymotic + radial pulse. Pt expressed concerned being
discharged to home feels she needs SNF for rehab. Call salazar within reach.
[2024-08-21 03:41] LABS: % Basophils 0.3 % (0-2); % Eosinophils 0.5 % (0-6); % Immature Granulocytes 0.5 % (0-0.5); % Monocytes 8.4 % (1.7-9.3); % Neutrophils 79.3 % (42.2-75.2); Absolute Eosinophils 0.1 10^3/uL (0-0.7); Absolute Immature Granulocytes 0.1 10^3/uL (0-0.05); Absolute Lymphocytes 1.7 10^3/uL (1.2-3.4); Absolute Monocytes 1.3 10^3/uL (0.1-0.6); Absolute Neutrophils 12.2 10^3/uL (1.4-6.5); Hematocrit 34.2 % (37.0-47.0); Hemoglobin 11.5 g/dL (12.0-16.0); Mean Corp Hgb Conc. 33.6 g/dL (33.0-37.0); Mean Corpuscular Hgb 29.7 pg (27.0-31.0); Mean Corpuscular Volume 88.4 fL (81.0-99.0); Mean Platelet Volume 11.1 fL (7.4-10.4); Nucleated Red Blood Cells % 0 %; Platelet Count 226 10^3/uL (130-400); Red Blood Cell Count 3.87 10^6/uL (4.20-5.40); Red Cell Dist. Width 14.7 % (11.5-14.5); White Blood Cell Count 15.4 10^3/uL (4.8-10.8)
[2024-08-21 04:04] LABS: Blood Urea Nitrogen 44 mg/dl (7-17); Calcium 9.3 mg/dl (8.4-10.2); Carbon Dioxide 25 mmol/L (22-30); Chloride 105 mmol/L (98-107); Estimated Creatinine Clearance 35 ml/min; Glucose 120 mg/dl (70-99); Sodium 139 mmol/L (135-145)
--- NOTE | 2024-08-21 07:45 | W.PN.CARDCBS ---
Addendum entered and electronically signed by Lukas Yung MD 08/21/24 11:00:
I saw and examined the patient.
The Recreation Therapy Aide's note was reviewed and I agree with the note.
Comment:
GEN: No distress, awake, Ox3
HEENT: supple, anicteric, mmm
LUNGS: CTA, no wheezes/rales
CV: Reg, S1/S2, 1/6 syst LSB, no gallop
ABD: soft, BS+, NT/ND
EXT: No edema
NEURO: Gross non-focal
SKIN: No rash
Plan:
In sinus rhythm. Overall doing better. Having some sinus bradycardia. Continue amiodarone 200 mg twice daily for 1 month then 200 mg daily. Will decrease metoprolol to 12.5 mg twice daily
No further nosebleeds. Will continue Eliquis 2.5 mg twice daily and Plavix 75 mg daily.
Continue Lasix 40 mg daily.
Weight is improved. Creat 1.0.
OK for discharge from Cardiology standpoint
Original Note:
Today's Communication / Plan
-
Reduce Lopressor to 12.5 mg twice a day
Discharged home on Eliquis 2.5 mg twice a day and Plavix 75 mg daily
Continue amiodarone 200 mg twice a day x 1 month then 200 mg after
Encourage patient to participate in PT/OT today with hopeful anticipation for discharge to home with VN
Outpatient cardiology follow-up arranged
Impression / Plan
-
No outpatient copy clerk prior to admission, initial consultation Dr. Louis
Impression:
Presented 08/17/2024 with chest discomfort
High risk NSTEMI: 90 to 95% hazy mid left circumflex stenosis treated with one 2.75 x 30 mm Medtronic Rafiq drug-eluting stent, postdilated using IVUS guidance with a 2.75 x 20 mm NC balloon at 16 mariama.
Acute HFpEF
Hypertension
Hyperlipidemia
Atrial fibrillation
Not on chronic anticoagulation due to Eliquis causing vision changes
Multiple drug allergies
At home, DNR/DNI which was reversed to full code when we discussed CODE STATUS 3 activation of heart catheterization lab with plan to maintain full code throughout this admission
Weakness
Fatigue
Hypokalemia
Hypomagnesemia
NSVT vs aberrant conduction on tele
Echo 08/01/2021: EF 60 to 65%, mild septal hypertrophy, mild MR, heavy focal calcification of noncoronary cusp of aortic valve, mild AR, mild TR, PAP 37 mmHg
ECHO 08/17/24: EF 54%, mild concentric LVH, moderate MR, mild AR, moderate TR, PAP 25 to 30 mmHg, trivial pericardial effusion
Left heart catheterization 08/17/2024: LM: Patent. LAD: Patent. Left circumflex: 90 to 95% hazy mid left circumflex stenosis s/p 2.75 x 30 mm Medtronic Leicester drug-eluting stent. Mid circumflex 30 to 40% stenosis. RCA: Ostial 60 to 70% stenosis with
mild pressure dampening upon selective engagement
RECOMMENDATIONS:
- Patient presented with chest discomfort and went urgently to cardiac catheterization for high risk NSTEMI. Status post circumflex PCI 08/16/2024. trop peaked at 63.
-echo with results as above, EF preserved
- Patient noted to be hypotensive and bradycardic. Reduce Lopressor to 12.5 mg twice a day. Of note patient had intolerance to MARGIE inhibitor in the past. Could consider rechallenging with ARB in office if blood pressure allows as outpatient.
-Chest x-ray 08/20/2024 with subtle mild interstitial edema with minimal bilateral pleural effusions.
- BUN/Cr stable at 1.0. Plan is to send patient home on Lasix 40mg daily. 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
- LDL 153. was not on statin therapy prior to admission. crestor 20mg QPM added this admission
- cardiac rehab
- she has residual moderate ostial RCA lesion. will need to consider for OP stress testing to evaluate further if recurrent symptoms.
-Found to have paroxysmal atrial fibrillation during admission. Per review of telemetry converted to sinus rhythm overnight. EKG on 08/21/2024 shows sinus bradycardia with PACs. QTc stable at 490 ms.
-New to pressor and amiodarone this admission. Will reduce Lopressor to 12.5 mg twice a day given bradycardia and hypotension in sinus rhythm
-Plan for 200mg BID for 1 month then decrease to 200mg daily. Consider outpatient monitor at cardiology follow-up will plan for 5 day Bardy monitor to be placed prior to DC
- Initially post PCI plan was for triple therapy, however patient with history of anemia and nosebleeds. Noted to have intermittent nosebleeds during admission. Therefore decision was to stop aspirin. Appreciate ENT input who used nasal packing.
No additional nosebleeds. Given weight of 120 pounds, age of 84 patient's Eliquis reduced to 2.5 mg.
-Patient will go home on Plavix 75 mg and Eliquis 2.5 mg
-Hemoglobin stable at 11.5
- RUE hematoma stable
-Encouraged PT/OT
-OP cardiac follow up arranged. Patient will go home with VN
- d/w nursing, patient, patient's daughter Fatou who was at bedside
Patient is requesting medications be sent to [facility] pharmacy [phone] and if possible be informed of blister pack
PREADMIT DATA:
Upon my evaluation to the emergency room she was having ongoing 7 out of 10 chest pain for which we gave additional sublingual nitroglycerin at bedside and she has just received 4000 units of IV unfractionated heparin along with 180 mg of Brilinta
which she had chewed up along with the full dose aspirin. Daughter was at bedside. She expressed that she had refused to take Eliquis before given it because vision changes and refuses to be on anticoagulation. Through this we discussed and found
out that she has multiple drug allergies and intolerances. She is only on 1 chronic medication which is hydrochlorothiazide for her blood pressure. She has seen cardiology previously but does not follow with anyone regularly as ' there is nothing
wrong with me'
Extensive discussion was had with what we feel like was going on with the patient and I described to her that there is concern based on her EKG changes and ongoing chest pain that she is having an acute coronary syndrome and what the treatment
options are including medications only, a recommendation for urgent heart catheterization with possible PCI along with medications and the risk and benefits of each of them. Patient has significant hesitations initially agreeing to take dual
antiplatelet therapy in case she would not need a PCI. She also expressed that her living will states that she is a DNR/DNI with her daughter being POA. I expressed to her that given the nature of ACS and invasive heart catheterization, we would
only agree to take her if we can agree to reverse her CODE STATUS and treat her as a full code for the admission this admission. The emergency room physician, Dr. Daniel Holder also joined me and explaining to the patient our concerns in regards to
ongoing symptoms with likely high risk NSTEMI. After extensive discussion and offering her alternative treatment options, patient is agreeable as ' I guess I should try to live' she reassures us that she would take recommended cardiac medications
and she would like to be full code during this admission. Detail risk and benefits were described to her about what a coronary angiogram entails and in a shared decision-making fashion we agreed to proceed with urgent heart catheterization.
Progress Note - Etiology Teacher
Subjective
Date of Service: August 21, 2024
Patient seen and examined with daughter Fatou at bedside. Patient reports she is feeling better today.
Objective
Labs:
08/21/24 03:22
08/21/24 03:22
Labs
Hgb 11.5 g/dL (12.0-16.0) L 08/21/24 03:22
Hct 34.2 % (37.0-47.0) L 08/21/24 03:22
Plt Count 226 10^3/uL (130-400) 08/21/24 03:22
PT 13.9 Sec (11.4-14.6) 08/17/24 01:53
INR 1.04 08/17/24 01:53
Sodium 139 mmol/L (135-145) 08/21/24 03:22
Potassium 4.0 mmol/L (3.5-5.1) 08/21/24 03:22
BUN 44 mg/dl (7-17) H 08/21/24 03:22
Creatinine 1.0 mg/dL (0.6-1.0) 08/21/24 03:22
Glucose 120 mg/dl (70-99) H 08/21/24 03:22
Vital Signs and I&O:
Vital Signs
Temp Pulse Resp BP Pulse Ox
97.8 F 55 16 125/60 100
08/21/24 03:10 08/21/24 03:10 08/20/24 22:55 08/21/24 03:01 08/21/24 03:10
Vital Signs
Temp Pulse Resp BP Pulse Ox
97.8 F 55 16 125/60 100
08/21/24 03:10 08/21/24 03:10 08/20/24 22:55 08/21/24 03:01 08/21/24 03:10
Intake & Output
08/19/24 08/20/24 08/21/24 08/22/24
06:59 06:59 06:59 06:59
Intake Total 490 / 490 120 / 120
Output Total 700 / 700
Balance -210 / -210 120 / 120
Physical Exam
Physical Exam
GEN: No distress, awake, Ox3, lying in bed
HEENT: supple, anicteric, mmm
LUNGS: CTA, no wheezes/rales
CV: Reg, S1/S2, no murmur, rub or gallop
ABD: soft, BS+, NT/ND
EXT: No edema, clubbing or cyanosis. Right upper extremity with ecchymosis
NEURO: Gross non-focal
SKIN: No rash, warm, dry, pink
[2024-08-21] MEDS: LOPRESSOR PO ×2 (08:37→10:51)
[2024-08-21] MEDS: PLAVIX 75 MG PO (08:43)
[2024-08-21] MEDS: PACERONE 200 MG PO ×2 (08:43→21:19)
[2024-08-21] MEDS: KLOR-CON 20 MEQ PO (08:43)
[2024-08-21] MEDS: LASIX 40 MG PO (08:43)
[2024-08-21] MEDS: ELIQUIS 2.5 MG PO ×2 (08:44→21:18)
[2024-08-21] MEDS: LOPRESSOR 25 MG PO (11:17)
--- NOTE | 2024-08-21 11:32 | PTCARENOTE ---
received patient sleeping in bed with daughter at bedside. monitor shows SB, BP remains 90/p. help am Lopressor but when patient woke up and was in a chair BP 150/74, Sherice [address] aware and ordered Lopressor 25mg po, given as ordered. stool sample was
ordered by hospitalist, asked patient if she was having loose stool, patient stated, 'yes, 1 time last night.' will continue to monitor and obtain specimen if available.
--- NOTE | 2024-08-21 12:13 | W.PN.HOSP.TC ---
Today's Communication/Plan
-
Monitor vital signs see plan
Slowly improving, PT to see today
Discharge planning, possible discharge tomorrow
cw lasix
amio,metoprolol
discussed with daughter
Assessment / Plan
Assessment / Plan
General: No acute distress
HEENT: PERRLA
Respiratory: No wheezing, clear to auscultation
Cardiac: S1/S2 and Irregular Rhythm; No Murmur
GI: Soft, Non Tender, Non Distended and Normal Bowel Sounds
Musculoskeletal: No Edema
Neuro: AO x 3
NSTEMI / ACS
- Urgent cath with 90% stenosis in LCx - stent placed. Patient with clinical relief in chest pain.
- Continue post-cath care per Cardiology.
-on plavix and eliquis. aspirin stopped
Echo with preserved EF
Acute CHF with preserved EF
now on PO lasix
Monitor I's and O's
Daily weight
Mild epistaxis
Packing per ENT; packing removed 08/20
ENT following
Patient will follow-up with them outpatient
Right upper extremity hematoma
Monitor
Hyponatremia
Monitor
Leukocytosis
Monitor, denies any fever/chills
Atrial Fibrillation
- Unclear type. Patient not on OAC at her own discretion.
- Monitor on telemetry.
- No need for rate control medications at present.
- Ongoing discussions re: OAC prior to discharge.
- Cardiology following; Willie Vasc score 5
Started on metoprolol, amiodarone. now on plavix and dec dose of eliquis due to bleeding risk
Subjective sob
check CXR; no hypoxia noted so far
Benign Hypertension
- Hold HCTZ for now.
- GDMT for ASCVD / KS as noted above will likely manage BP.
DVT Prophylaxis: Subcut Heparin
Code Status: DNR
PT/OT, patient was unable to participate yesterday. PT to see today
Anticipated Discharge: Within 24 hours
Subjective/Interval History
-
Date of Service: August 21, 2024
Feeling little better
Objective Data
-
Labs:
Laboratory Results
08/21/24
03:22
WBC 15.4 H
Hgb 11.5 L
Hct 34.2 L
Plt Count 226
Sodium 139
Potassium 4.0
Chloride 105
Carbon Dioxide 25
BUN 44 H
Creatinine 1.0
Glucose 120 H
Calcium 9.3
Vital Signs:
Vital Signs
Temp Pulse Resp BP Pulse Ox
97.8 F 56 18 150/76 96
08/21/24 03:10 08/21/24 11:17 08/21/24 08:47 08/21/24 11:17 08/21/24 08:47
I&O
08/20/24 08/21/24 08/22/24
06:59 06:59 06:59
Intake Total 120 / 120
Balance 120 / 120
--- NOTE | 2024-08-21 17:46 | PTCARENOTE ---
stool was obtained and sent to lab as ordered.
[2024-08-21] MEDS: CRESTOR 20 MG PO (18:16)
[2024-08-21] MEDS: LOPRESSOR 12.5 MG PO (21:18)
--- NOTE | 2024-08-22 00:02 | PTCARENOTE ---
Assumed care of the pt @ 1900. Pt is AAOx3 sitting up in chair daughter at bedside. SB on the monitor VSS denies cp. Call salazar within reach.
[2024-08-22 03:39] VITALS: BP 148/61
[2024-08-22 04:10] LABS: % Basophils 0.3 % (0-2); % Eosinophils 0.5 % (0-6); % Immature Granulocytes 0.5 % (0-0.5); % Lymphocytes 15.9 % (20.5-51.1); % Monocytes 9.5 % (1.7-9.3); % Neutrophils 73.3 % (42.2-75.2); Absolute Eosinophils 0.1 10^3/uL (0-0.7); Absolute Immature Granulocytes 0.1 10^3/uL (0-0.05); Absolute Monocytes 1.2 10^3/uL (0.1-0.6); Absolute Neutrophils 9.2 10^3/uL (1.4-6.5); Hematocrit 32.2 % (37.0-47.0); Hemoglobin 10.9 g/dL (12.0-16.0); Mean Corp Hgb Conc. 33.9 g/dL (33.0-37.0); Mean Corpuscular Hgb 29.5 pg (27.0-31.0); Mean Corpuscular Volume 87.3 fL (81.0-99.0); Mean Platelet Volume 11.3 fL (7.4-10.4); Nucleated Red Blood Cells % 0 %; Platelet Count 218 10^3/uL (130-400); Red Blood Cell Count 3.69 10^6/uL (4.20-5.40); Red Cell Dist. Width 14.5 % (11.5-14.5); White Blood Cell Count 12.6 10^3/uL (4.8-10.8)
[2024-08-22 04:36] LABS: Blood Urea Nitrogen 48 mg/dl (7-17); Calcium 9.1 mg/dl (8.4-10.2); Carbon Dioxide 22 mmol/L (22-30); Chloride 106 mmol/L (98-107); Estimated Creatinine Clearance 32 ml/min; Glucose 107 mg/dl (70-99); Potassium 4.2 mmol/L (3.5-5.1); Sodium 136 mmol/L (135-145); eGFR 49.86
[2024-08-22 05:24] VITALS: BMI 24.2
[2024-08-22] MEDS: KLOR-CON 20 MEQ PO (07:37)
[2024-08-22 07:38] VITALS: BP 132/87
[2024-08-22] MEDS: PLAVIX 75 MG PO (07:38)
[2024-08-22] MEDS: PACERONE 200 MG PO (07:38)
[2024-08-22] MEDS: LASIX 40 MG PO (07:39)
[2024-08-22] MEDS: LOPRESSOR 12.5 MG PO (07:39)
[2024-08-22] MEDS: ELIQUIS 2.5 MG PO (07:39)
[2024-08-22 10:02] VITALS: BP 127/96
--- NOTE | 2024-08-22 10:16 | PTCARENOTE ---
Dr. Carter in room , allowed to take patient off telemtry, she will be D/C to home today.
[2024-08-22 10:24] VITALS: BP 127/96
[2024-08-22 10:35] VITALS: BP 146/61
[2024-08-22 10:37] VITALS: BP 146/61
--- NOTE | 2024-08-22 10:43 | W.PN.HOSP.TC ---
Today's Communication/Plan
-
Monitor vital signs see plan
Discharge today
Continue with cardiac meds
Time of discharge 38 minutes
Assessment / Plan
Assessment / Plan
General: No acute distress
HEENT: PERRLA
Respiratory: No wheezing, clear to auscultation
Cardiac: S1/S2 and Irregular Rhythm; No Murmur
GI: Soft, Non Tender, Non Distended and Normal Bowel Sounds
Musculoskeletal: No Edema
Neuro: AO x 3
NSTEMI / ACS
- Urgent cath with 90% stenosis in LCx - stent placed. Patient with clinical relief in chest pain.
- Continue post-cath care per Cardiology.
-on plavix and eliquis. aspirin stopped
Echo with preserved EF
Acute CHF with preserved EF
now on PO lasix
Monitor I's and O's
Daily weight
Mild epistaxis
Packing per ENT; packing removed 08/20
ENT following
Patient will follow-up with them outpatient
Right upper extremity hematoma
Monitor
Hyponatremia
Monitor
Leukocytosis
Monitor, denies any fever/chills
Atrial Fibrillation
- Unclear type. Patient not on OAC at her own discretion.
- Monitor on telemetry.
- No need for rate control medications at present.
- Ongoing discussions re: OAC prior to discharge.
- Cardiology following; Willie Vasc score 5
Started on metoprolol, amiodarone. now on plavix and dec dose of eliquis due to bleeding risk
Subjective sob
check CXR; no hypoxia noted so far
Benign Hypertension
-hold HCTZ for now
- GDMT for ASCVD / [place] as noted above will likely manage BP.
DVT Prophylaxis: Subcut Heparin
Code Status: DNR
PT/OT, patient was unable to participate yesterday. PT to see today
Anticipated Discharge: Today
Subjective/Interval History
-
Date of Service: August 22, 2024
denies pain
Objective Data
-
Labs:
Laboratory Results
08/22/24
03:49
WBC 12.6 H
Hgb 10.9 L
Hct 32.2 L
Plt Count 218
Sodium 136
Potassium 4.2
Chloride 106
Carbon Dioxide 22
BUN 48 H
Creatinine 1.1 H
Glucose 107 H
Calcium 9.1
Vital Signs:
Vital Signs
Temp Pulse Resp BP Pulse Ox
98.2 F 64 16 146/61 96
08/22/24 10:37 08/22/24 10:37 08/22/24 10:37 08/22/24 10:37 08/22/24 10:37
I&O
08/21/24 08/22/24 08/23/24
06:59 06:59 06:59
Intake Total 120 / 120
Balance 120 / 120
--- NOTE | 2024-08-22 10:47 | W.DCSUMMARY ---
Discharge Summary
Discharge Data
Date of Admission: 08/17/24
Date of Discharge: 08/22/24
-
Pending Results: No
Hospital Course
84-year-old female with past medical history of hypertension, atrial fibrillation came to the hospital with chest pain known to have acute coronary syndrome with non-ST elevation myocardial infarction patient. Patient was seen by cardiology and was
taken for cardiac catheterization which showed 90% stenosis in LCx where stent was placed. Patient chest pain continued to improve over time. She was started on Plavix. For her A-fib she was also started on Eliquis. She also developed mild
epistaxis for which she was seen by ENT who initially had nasal packing which was removed. She was instructed to follow-up with ENT outpatient. On this hospitalization patient also had acute congestive heart failure exacerbation which was treated
with Lasix. For her atrial fibrillation she was also started on amiodarone along with metoprolol. Once her symptoms continue to improve, she was then discharged home with instructions to follow-up with all her physicians outpatient.
Discharge Plan
-
Patient Disposition: Home (Routine Discharge)
Discharge Diagnosis/Procedures: Non-ST elevation myocardial infarction
Acute congestive heart failure with preserved ejection fraction
Epistaxis
Right upper extremity hematoma
Hyponatremia
Leukocytosis
Atrial fibrillation
Diet: 2 Gram Sodium
Activity: As tolerated
Blood Work: BMP/proBNP in 1 week
Other Services: VN and Cardiac Rehab
Specialty Instructions: Weigh Daily- Call MD for wt gain/loss 3 lbs overnight/5 lbs in 1 week
Activity Restrictions/Additional Instructions:
Call [facility] or [facility] to get scheduled.
Instructions: *[facility] Heart Failure Instructions
Stand Alone Forms: DC Instructions- Cath/EP Lab
Referrals:
[facility] [Outside] - in one to two days
Solitario Sharma MD [Family Provider, Internal Medicine] - in less than 1 week
Mercedez Johnson PA-C [Specified Professional Personl, Cardiology] - 08/25/24 2:40 pm
Referral Note: You have a cardiology follow up appointment at the [place] office, [address]. Please call with questions.
Александр Redd MD [Active, Otology]
Additional Discharge Medication Instructions: continue amiodarone 200mg twice daily for 1 month then decrease to 200mg daily!
Prescriptions:
New
potassium chloride 20 mEq Packet
20 meq PO DAILY Qty: 30 0RF
rosuvastatin 20 mg Tablet
20 mg PO QPM Qty: 30 0RF
Eliquis 2.5 mg Tablet
2.5 mg PO BID Qty: 60 0RF
furosemide 40 mg Tablet
40 mg PO DAILY Qty: 30 0RF
amiodarone 200 mg Tablet
200 mg PO BID Qty: 60 0RF
nitroglycerin 0.4 mg Tablet, Sublingual
0.4 mg sublingual [id number] PRN (Reason: ANGINA) Qty: 3 0RF
metoprolol tartrate 25 mg Tablet
12.5 mg PO BID Qty: 60 0RF
clopidogrel 75 mg Tablet
75 mg PO DAILY Qty: 30 0RF
Discontinued
hydrochlorothiazide 25 mg Tablet
25 mg PO DAILY
Discharge Orders:
Discharge Patient (As Directed); Ordered 08/22/24
Ordered By: Shon Carter
Care Plan Goals
Care Plan Goals:
Problem: Readiness for enhanced knowledge related to diagnosis and treatment plan
Goal: Understand your diagnosis and treatment plan needs, including medications if applicable.
Instructions: Know your diagnosis, underlying causes and treatment plan options, including medications if applicable. Consult with your health care team to learn about your diagnosis and treatment plan, including medications if applicable.
Discharge Date and Time
Discharge Date/Time: 08/22/24 11:38
Print Language: ROMANIAN
--- NOTE | 2024-08-22 11:33 | PTCARENOTE ---
D/C instructions given to patient and daughter, both verbalizes understanding. INT D/C'd, telemetry D/C'd, personal belongings packed and sent home with patient. patient will have VN, D/C papers faxed and confirmed. D/C to home via wc accompanied
by staff.
--- NOTE | 2024-08-22 11:42 | W.PN.CARDCBS ---
Today's Communication / Plan
-
Okay for discharge. Continue amiodarone 200 mg p.o. twice daily for 1 month then decrease to 20 mg daily.
Continue metoprolol 12.5 mg p.o. twice daily. She states she thinks she may have not tolerated metoprolol in the past. For now she is agreeable to continue.
Hemoglobin stable at 10.9. Continue Eliquis 2.5 mg p.o. twice daily and Plavix.
Okay for discharge. She has follow-up early next week.
Will need to continue to monitor possible nosebleeds.
Impression / Plan
-
No outpatient volleyball coach prior to admission, initial consultation Dr. Louis
Impression:
Presented 08/17/2024 with chest discomfort
High risk NSTEMI: 90 to 95% hazy mid left circumflex stenosis treated with one 2.75 x 30 mm Medtronic Rafiq drug-eluting stent, postdilated using IVUS guidance with a 2.75 x 20 mm NC balloon at 16 mariama.
Acute HFpEF
Hypertension
Hyperlipidemia
Atrial fibrillation
Not on chronic anticoagulation due to Eliquis causing vision changes
Multiple drug allergies
At home, DNR/DNI which was reversed to full code when we discussed CODE STATUS 3 activation of heart catheterization lab with plan to maintain full code throughout this admission
Weakness
Fatigue
Hypokalemia
Hypomagnesemia
NSVT vs aberrant conduction on tele
Echo 08/01/2021: EF 60 to 65%, mild septal hypertrophy, mild MR, heavy focal calcification of noncoronary cusp of aortic valve, mild AR, mild TR, PAP 37 mmHg
ECHO 08/17/24: EF 54%, mild concentric LVH, moderate MR, mild AR, moderate TR, PAP 25 to 30 mmHg, trivial pericardial effusion
Left heart catheterization 08/17/2024: LM: Patent. LAD: Patent. Left circumflex: 90 to 95% hazy mid left circumflex stenosis s/p 2.75 x 30 mm Medtronic [place] drug-eluting stent. Mid circumflex 30 to 40% stenosis. RCA: Ostial 60 to 70% stenosis with
mild pressure dampening upon selective engagement
RECOMMENDATIONS:
- Patient presented with chest discomfort and went urgently to cardiac catheterization for high risk NSTEMI. Status post circumflex PCI 08/16/2024. trop peaked at 63.
-echo with results as above, EF preserved
- Patient noted to be hypotensive and bradycardic. Continue low-dose metoprolol 12.5mg po bid. of note patient had intolerance to MARGIE inhibitor in the past. Could consider rechallenging with ARB in office if blood pressure allows as outpatient.
-Chest x-ray 08/20/2024 with subtle mild interstitial edema with minimal bilateral pleural effusions.
- BUN/Cr stable at 1.0. Plan is to send patient home on Lasix 40mg daily. 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
- LDL 153. was not on statin therapy prior to admission. crestor 20mg QPM added this admission
- cardiac rehab
- she has residual moderate ostial RCA lesion. will need to consider for OP stress testing to evaluate further if recurrent symptoms.
-Found to have paroxysmal atrial fibrillation during admission. Per review of telemetry converted to sinus rhythm overnight. EKG on 08/21/2024 shows sinus bradycardia with PACs. QTc stable at 490 ms.
-New to pressor and amiodarone this admission. Will reduce Lopressor to 12.5 mg twice a day given bradycardia and hypotension in sinus rhythm
-Plan for 200mg BID for 1 month then decrease to 200mg daily. Consider outpatient monitor at cardiology follow-up will plan for 5 day Bardy monitor to be placed prior to DC
- Initially post PCI plan was for triple therapy, however patient with history of anemia and nosebleeds. Noted to have intermittent nosebleeds during admission. Therefore decision was to stop aspirin. Appreciate ENT input who used nasal packing.
No additional nosebleeds. Given weight of 120 pounds, age of 84 patient's Eliquis reduced to 2.5 mg.
-Patient will go home on Plavix 75 mg and Eliquis 2.5 mg
-Hemoglobin stable at 11.5
- RUE hematoma stable
-Encouraged PT/OT
-OP cardiac follow up arranged. Patient will go home with VN
- d/w nursing, patient, patient's daughter Fatou who was at bedside
Patient is requesting medications be sent to [facility] pharmacy [phone] and if possible be informed of blister pack
PREADMIT DATA:
Upon my evaluation to the emergency room she was having ongoing 7 out of 10 chest pain for which we gave additional sublingual nitroglycerin at bedside and she has just received 4000 units of IV unfractionated heparin along with 180 mg of Brilinta
which she had chewed up along with the full dose aspirin. Daughter was at bedside. She expressed that she had refused to take Eliquis before given it because vision changes and refuses to be on anticoagulation. Through this we discussed and found
out that she has multiple drug allergies and intolerances. She is only on 1 chronic medication which is hydrochlorothiazide for her blood pressure. She has seen cardiology previously but does not follow with anyone regularly as ' there is nothing
wrong with me'
Extensive discussion was had with what we feel like was going on with the patient and I described to her that there is concern based on her EKG changes and ongoing chest pain that she is having an acute coronary syndrome and what the treatment
options are including medications only, a recommendation for urgent heart catheterization with possible PCI along with medications and the risk and benefits of each of them. Patient has significant hesitations initially agreeing to take dual
antiplatelet therapy in case she would not need a PCI. She also expressed that her living will states that she is a DNR/DNI with her daughter being POA. I expressed to her that given the nature of ACS and invasive heart catheterization, we would
only agree to take her if we can agree to reverse her CODE STATUS and treat her as a full code for the admission this admission. The emergency room physician, Dr. Daniel Holder also joined me and explaining to the patient our concerns in regards to
ongoing symptoms with likely high risk NSTEMI. After extensive discussion and offering her alternative treatment options, patient is agreeable as ' I guess I should try to live' she reassures us that she would take recommended cardiac medications
and she would like to be full code during this admission. Detail risk and benefits were described to her about what a coronary angiogram entails and in a shared decision-making fashion we agreed to proceed with urgent heart catheterization.
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
Subjective
Date of Service: August 22, 2024
Remains in sinus rhythm. Overall doing well.
Objective
Labs:
08/22/24 03:49
08/22/24 03:49
Labs
Hgb 10.9 g/dL (12.0-16.0) L 08/22/24 03:49
Hct 32.2 % (37.0-47.0) L 08/22/24 03:49
Plt Count 218 10^3/uL (130-400) 08/22/24 03:49
PT 13.9 Sec (11.4-14.6) 08/17/24 01:53
INR 1.04 08/17/24 01:53
Sodium 136 mmol/L (135-145) 08/22/24 03:49
Potassium 4.2 mmol/L (3.5-5.1) 08/22/24 03:49
BUN 48 mg/dl (7-17) H 08/22/24 03:49
Creatinine 1.1 mg/dL (0.6-1.0) H 08/22/24 03:49
Glucose 107 mg/dl (70-99) H 08/22/24 03:49
Vital Signs and I&O:
Vital Signs
Temp Pulse Resp BP Pulse Ox
98.2 F 64 16 146/61 96
08/22/24 10:37 08/22/24 10:37 08/22/24 10:37 08/22/24 10:37 08/22/24 10:37
Vital Signs
Temp Pulse Resp BP Pulse Ox
98.2 F 64 16 146/61 96
08/22/24 10:37 08/22/24 10:37 08/22/24 10:37 08/22/24 10:37 08/22/24 10:37
Intake & Output
08/20/24 08/21/24 08/22/24 08/23/24
06:59 06:59 06:59 06:59
Intake Total 120 / 120
Balance 120 / 120
Physical Exam
Physical Exam
GEN: No distress, awake, Ox3
HEENT: supple, anicteric, mmm
LUNGS: CTA, no wheezes/rales
CV: Reg, S1/S2, 1/6 syst LSB, no gallop
ABD: soft, BS+, NT/ND
EXT: No edema
NEURO: Gross non-focal
SKIN: No rash
== END 2024-08-22 11:38 | disposition home health service (06) | DRG 321 ==
LOC: IVU 08:50
PROVIDERS: Physician Assistant; ADMITTING PHYSICIAN Hospitalist; ATTENDING PHYSICIAN Internal Medicine; CONSULT PHYSICIAN Internal Medicine Interventional Cardiology; EMERGENCY PHYSICIAN Emergency Medicine; FAMILY PHYSICIAN Internal Medicine; OTHER PHYSICIAN Otolaryngology
PROC: 4A023N7 Measurement of Cardiac Sampling and Pressure, Left Heart, Percutaneous Approach (ICD-10-PCS; 2024-08-17)
PROC: B2111ZZ Fluoroscopy of Multiple Coronary Arteries using Low Osmolar Contrast (ICD-10-PCS; 2024-08-17)
PROC: 027034Z Dilation of Coronary Artery, One Artery with Drug-eluting Intraluminal Device, Percutaneous Approach (ICD-10-PCS; 2024-08-17)
PROC: B240ZZ3 Ultrasonography of Single Coronary Artery, Intravascular (ICD-10-PCS; 2024-08-17)
PROC: 2Y41X5Z Packing of Nasal Region using Packing Material (ICD-10-PCS; 2024-08-19)
DX: I21.4 Non-ST elevation (NSTEMI) myocardial infarction (principal); I50.31 Acute diastolic (congestive) heart failure; E87.1 Hypo-osmolality and hyponatremia; I47.29 Other ventricular tachycardia; I11.0 Hypertensive heart disease with heart failure; I25.10 Atherosclerotic heart disease of native coronary artery without angina pectoris; I48.0 Paroxysmal atrial fibrillation; Z66 Do not resuscitate; E78.00 Pure hypercholesterolemia, unspecified; R04.0 Epistaxis; D72.829 Elevated white blood cell count, unspecified; R00.1 Bradycardia, unspecified; E87.6 Hypokalemia; E83.42 Hypomagnesemia; S40.021A Contusion of right upper arm, initial encounter; X58.XXXA Exposure to other specified factors, initial encounter; K21.9 Gastro-esophageal reflux disease without esophagitis; J45.909 Unspecified asthma, uncomplicated
CPT/HCPCS: 71045; 71046; 80048; 80061; 83036; 83735; 83880; 84484; 85025; 85027; 85347; 85610; 87045; 87046; 87324; 87427; 87449; 89055; 92978; 93005; 93306; 93458; 93931; 96374; 97116; 97162; 97167; 97530; 97535; 99152; 99153; 99291; C1725; C1753; C1760; C1769; C1874; C1894; C9600

== ENCOUNTER 2024-09-10 16:58 | Emergency (ER) | payer OTHER, SELFPAY ==
[2024-09-10 17:02] VITALS: BP 143/69
--- NOTE | 2024-09-10 18:29 | EDRN ---
Pt in BR at this time and was asked to provide urine spec.
[2024-09-10 19:37] VITALS: BP 130/79
[2024-09-10 20:00] VITALS: BP 140/55
--- NOTE | 2024-09-10 20:26 | ED.GENMED ---
History of Present Illness
General
Chief Complaint: Weakness
Source: patient
Exam Limitations: none
Time Seen by Provider: 09/10/24 20:19
History of Present Illness
History of Present Illness:
See MDM
Past History
Past History
ED Past Medical History: Arrthythmia (Atrial fib), Asthma, GERD, HTN, Valvular disease (MVP) and Other (superficial thrombophlebitis LE, Diverticulosis, )
ED Past Surgical History: Cholecystectomy, Orthopedic (Left shoulder surgery, Knee surgery, Left wrist surgery, ) and Other (Vein stripping, )
Social History
Tobacco: Non-smoker
Alcohol: None
Drug: None
Personal:
Living: alone
Employment: Retired
Family History
Family History: Other (Noncontributory)
Phy Exam
Physical Exam
Physical Exam:
See MDM
Scores
NIH Stroke Score
Level of Consciousness: 0 - Alert
LOC Questions: 0-Answers both correctly
LOC Commands: 0-Performs both correctly
Best Horizontal Gaze: 0-Normal
Visual Conte: 0=Normal, no visual loss
Facial Palsy: 0=Normal, symmetrical
Motor - Right Arm: 0=No drift 10 seconds
Motor - Left Arm: 0=No drift 10 seconds
Motor - Right Le-No drift 5 seconds
Motor - Left Le-No drift 5 seconds
Limb Ataxia: 0-Absent
Sensation: 0-Normal
Best Language: 0-No aphasia
Dysarthria: 0-Normal
Extinction and Inattention: 0-No abnormality
NIH Total Score:: 0
Course
Orders/Labs/Results
Orders:
Orders
09/10/24 17:07
CT Head W/o Iv Contrast Urgent
Reason For Exam: feels pulsing in her head.
09/10/24 20:25
Acetaminophen [Tylenol] 650 mg PO NOW STA
Vital Signs
Initial and Last Documented VS:
Initial Vital Signs
Temp Pulse Resp BP Pulse Ox
97.8 F 66 12 143/69 100
09/10/24 17:02 09/10/24 17:02 09/10/24 17:02 09/10/24 17:02 09/10/24 17:02
Last Documented Vital Signs
Temp Pulse Resp BP Pulse Ox
97.8 F 54 16 140/55 100
09/10/24 17:02 09/10/24 20:15 09/10/24 20:15 09/10/24 20:00 09/10/24 20:28
MDM/Problems Addressed
Differential Diagnosis Includes:
HPI and MDM Narrative:
84-year-old female presenting with headache and weakness. She has had a headache since yesterday. Patient is unsure if this is related to cardiac rehab or recent cardiac stent. She talked to her therapist and was told to go to the hospital to
rule out any stroke. Patient states she developed left-sided weakness earlier today. On my exam, her NIH stroke scale is 0. CT was done prior to my assessment which was negative. On exam, she has no neurodeficits. She is well-appearing and
nontoxic. She has no tenderness to temporal artery palpation. Patient states she feels comfortable going home
Physical exam
General: Well appearing and non-toxic
HEENT: protecting airway. EOMI. No tenderness to palpation of temporal arteries
Neck: appears supple
CV: No evidence of cyanosis
Resp: No accessory muscle use
Abd: Non-distended
Extremities: No deformities
Neuro: alert. Muscle strength and sensation grossly intact in all extremities
Psych: Normal affect
Skin: Intact
Problems Addressed including Acute and Chronic Conditions affecting care:
1. Headache
Acuity: acute
Prognosis: stable
Details: CT negative for ischemic changes. No hemorrhage noted. Patient feeling better after Tylenol
Differential Diagnosis (but not limited to): Migraine, tension headache, intracranial hemorrhage
Testing considered: CTA
Drug therapy (if applicable): OTC meds, please see d/c instruction regarding Rx drugs
Amount and/or Complexity of Data Reviewed
Clinical info obtained from: Patient
External data reviewed: N/A
Labs I independently reviewed (but not limited to): N/A
Radiology: The CT scan was personally and independently reviewed. In addition, official CT report reviewed.
Pulse Ox: not hypoxic
EKG independently reviewed: N/A
Antitank Assault Gunner: N/A
Critical Care: N/A
Risk of Complication:
Social Determinants of health: Good social support
Discussed with other providers: N/A
Escalation of Care includes Admit/Obs: After being observed in the Emergency Department, pt stable for discharge.
Occasional wrong word or 'sound a like' substitutions may have occurred due to the inherent limitations of voice recognition software. Read the chart carefully and recognize, using context, where substitutions have occurred.
*Pulse Oximetry
SaO2: 100
Oxygen Mode of Delivery: Room air
Patient hypoxic: no
*Critical Care Note
Total Time (30-74mins, 75-104mins- exclusive of procedures): Not Applicable
ED Attending Note
-
Portions of this chart may have been created with voice recognition software.� Occasional wrong word or��sound alike� substitutions may have occurred due to the inherent limitations of voice recognition software.
Discharge Plan
Departure
Patient Disposition: Home (Routine Discharge)
Date of Disposition: 09/10/24
Time of Disposition: 20:42
Patient with high blood pressure during this ER visit?: No
Discharge Problem:
Headache
Instructions: Headache in adults - ED discharge instructions
Prescriptions:
No Action
potassium chloride 20 mEq Packet
20 meq PO DAILY Qty: 30 0RF
rosuvastatin 20 mg Tablet
20 mg PO QPM Qty: 30 0RF
Eliquis 2.5 mg Tablet
2.5 mg PO BID Qty: 60 0RF
furosemide 40 mg Tablet
40 mg PO DAILY Qty: 30 0RF
amiodarone 200 mg Tablet
200 mg PO BID Qty: 60 0RF
nitroglycerin 0.4 mg Tablet, Sublingual
0.4 mg sublingual [id number] PRN (Reason: ANGINA) Qty: 3 0RF
metoprolol tartrate 25 mg Tablet
12.5 mg PO BID Qty: 60 0RF
clopidogrel 75 mg Tablet
75 mg PO DAILY Qty: 30 0RF
Referrals:
Solitario Sharma MD [Family Provider, Internal Medicine]
Activity Restrictions/Additional Instructions:
Please return for any worsening symptoms.
You may return at any time if you have further concerns.
Please follow up with your doctor at the first available appointment, preferably this week.
Thank you for choosing [facility].
Interventions
Interventions:
*Risk Screen - Suicide Last Done: 09/10/24 17:02
*General Assessment Last Done: 09/10/24 20:29
*Neglect/Abuse Screening Last Done: 09/10/24 17:02
*ED- Fall Risk Assessment Last Done: 09/10/24 17:02
*ED COVID-19 Vaccine History Last Done: 09/10/24 20:29
ED- Cardiac Assessment Last Done: 09/10/24 20:29
ED- Neurological Assessment Last Done: 09/10/24 20:29
ED- Pulmonary Assessment Last Done: 09/10/24 20:30
Discharge Date and Time
Print Language: HUNGARIAN
[2024-09-10 20:29] VITALS: BMI 25.4
[2024-09-10] MEDS: TYLENOL 650 MG PO (20:34)
== END 2024-09-10 21:26 | disposition home or self-care (01) ==
LOC: EMR 16:58
PROVIDERS: EMERGENCY PHYSICIAN Student in an Organized Health Care Education/Training Program; FAMILY PHYSICIAN Internal Medicine
DX: R51.9 Headache, unspecified (principal); R53.1 Weakness; I10 Essential (primary) hypertension; J45.909 Unspecified asthma, uncomplicated; I48.91 Unspecified atrial fibrillation
CPT/HCPCS: 99284; 70450

== ENCOUNTER 2024-09-18 19:40 | Inpatient (IN) | payer OTHER, SELFPAY ==
[2024-09-18] VITALS (14 sets, daily range): BP systolic 119–150; BP diastolic 47–89; BMI 25.3; BMI 24.4
[2024-09-18 16:26] LABS: Hematocrit 22.9 % (37.0-47.0); Hemoglobin 7.3 g/dL (12.0-16.0); Mean Corp Hgb Conc. 31.9 g/dL (33.0-37.0); Mean Corpuscular Volume 97.0 fL (81.0-99.0); Nucleated Red Blood Cells % 0 %; Platelet Count 251 10^3/uL (130-400); Red Cell Dist. Width 21.0 % (11.5-14.5)
[2024-09-18 16:40] LABS: ALT (SGPT) 33 U/L (0-35); AST (SGOT) 44 U/L (14-36); Albumin 3.6 g/dl (3.5-5.0); Alkaline Phosphatase 72 U/L (38-126); Blood Urea Nitrogen 34 mg/dl (7-17); Calcium 8.6 mg/dl (8.4-10.2); Carbon Dioxide 35 mmol/L (22-30); Chloride 96 mmol/L (98-107); Estimated Creatinine Clearance 28 ml/min; Glucose 133 mg/dl (70-99); Potassium 3.2 mmol/L (3.5-5.1); Sodium 135 mmol/L (135-145); Total Protein 6.2 g/dl (6.3-8.2); eGFR 44.91
[2024-09-18] MEDS: NSS 500 IV (16:44)
[2024-09-18] MEDS: PROTONIX IV 80 MG IV (16:44)
--- NOTE | 2024-09-18 16:45 | ED.GENMED ---
History of Present Illness
General
Chief Complaint: Weakness
Source: patient and family
Exam Limitations: none
Time Seen by Provider: 09/18/24 15:33
Nursing documentation reviewed up to this point in time: agreed with
History of Present Illness
History of Present Illness:
Patient is an 84-year-old female with history atrial fibrillation on Eliquis, CAD s/p recent stent placement, hypertension who presents to the emergency department with progressively worsening weakness. 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
since she suffered a heart attack, 08/17/2024 reports the patient has been extremely weak over the past few weeks however progressively worsening. She states that this point she is having difficulty transferring to the bathroom and the daughter is
having trouble getting her up. Daughter states that patient has been eating and drinking very little. In addition�she reports very small, dark bowel movements. No obvious hematochezia.
Patient denies any recent fever or chills. No chest pain or shortness of breath. No abdominal pain. No dysuria.
Patient was admitted early August and had a stent placed with cardiology. She has since been taking Eliquis, Plavix.
Past History
Past History
ED Past Medical History: Arrthythmia (Atrial fib), Asthma, GERD, HTN, Valvular disease (MVP) and Other (superficial thrombophlebitis LE, Diverticulosis, )
ED Past Surgical History: Cholecystectomy, Orthopedic (Left shoulder surgery, Knee surgery, Left wrist surgery, ) and Other (Vein stripping, )
Social History
Tobacco: Non-smoker
Alcohol: None
Drug: None
Personal:
Living: alone
Employment: Retired
Family History
Family History: Other (Noncontributory)
Review of Systems
Review of Systems
Allergies reviewed?: Yes
All Other Systems: ROS reviewed and negative except as documented in HPI and ROS
Phy Exam
Physical Exam
Physical Exam:
Vitals: Mildly hypertensive, otherwise vital signs stable. Afebrile
General: Patient is well appearing, no acute distress
Skin: Pale, no rashes or lesions
Head: Normocephalic, atraumatic
Eyes: Sclera nonicteric.
Throat: Protecting airway
Neck: Normal ROM, no cervical spine tenderness, no meningismus
Cardiac: Regular rate and irregularly irregular rhythm, no murmurs.
Pulm: Normal respiratory effort, no wheezes, rales, rhonchi heard on exam
.
Abdomen: Abdomen soft and nontender.
Rectal: Dark, heme positive stool.
Extremities: No evidence of cyanosis or edema. 2+ palpable DP pulses bilaterally
Neuro: AAOx3. No focal neurologic deficits. Strength equal bilaterally
Psychiatric: Normal affect.
Course
Orders/Labs/Results
Orders:
Orders
09/18/24 16:03
0.9% Sodium Chloride 500 ml [Nss] 500 ml IV BOLUS
Pantoprazole [Protonix IV] 80 mg IV NOW STA
09/18/24 16:04
Electrocardiogram (*1) Urgent
Reason for Study: Fatigue / Weakness
EKG- Treatment ONCE
09/18/24 16:17
Type+Screen Urgent
COVID-19 Antigen Urgent
Source: Nasal Swab
Complete Blood Count/With Diff Urgent
Comprehensive Metabolic Panel Urgent
Creatine Phosphokinase Urgent
Comment: ADD ON
Magnesium Urgent
Comment: ADD ON
NT-proBNP Urgent
Troponin I Urgent
Urinalysis Reflex To Culture Urgent
Date Specimen was Collected: 09/18/24
Time Specimen was Collected: 16:14
Urine Microscopic Reflex Cult Urgent
09/18/24 17:24
Blood Bank Products [* Blood Bank Products] Urgent
Blood Bank Products: *Packed RBC Leuko(PRBC's)
Quantity: 1
Transfuse Today: Yes
Reason: Anemia
09/18/24 18:49
Add On- LAB Routine
Tests Added?: magnesium
09/18/24 18:50
Potassium Chloride [KCl] 40 meq PO NOW STA
09/18/24 19:19
CT Head W/o Iv Contrast Urgent
Comment:
Reason For Exam: left arm weakness
09/18/24 19:20
Potassium Chloride 10% Elixir [KCl Elixir] 40 meq PO NOW STA
CR Chest - 2 Views Urgent
Comment:
Reason For Exam: shortness of breath
09/18/24 19:26
Admit/Transfer Patient As Directed
Co-Sign Provider:
Level of Care: Inpatient admission
Assign to:: Telemetry
Physician / Group: Ophelia Cunningham
Diagnosis: left-sided weakness, UGIB, anemia
Reason for Telemetry: Chest Pain syndromes
Date to Stop Telemetry: 09/20/24
Time to Stop Telemetry: 11:00
Reason for Hospitalization: left-sided weakness, UGIB, anemia
Expected length of stay greater than two midnights?: Yes
ELOS- Estimated Length of Stay in days: 3
I certify the patient meets the requirements for IP care: Yes
PRN Pain Medication Management As Directed
May give lesser potent ordered pain med per pt: Yes
preference::
Protocol:: Medication orders for pain may be administered in a
manner that supports deferring to patient preference
when the pt is:
- Requesting an ordered lesser potent pain medication.
Least to most potent pain medications are defined
as: acetaminophen < NSAID < tramadol < opioids
(morphine, oxycodone, hydromorphone).
- Requesting a lesser dose of the same medication IF
ORDERED.
- Requesting a less intrusive route of administration
if both routes are prescribed by the provider (PO <
IV).
09/18/24 19:27
Code Status As Directed
Resuscitation Status: Full Code
09/18/24 19:35
Add On- LAB Routine
Tests Added?: creatinine kinase
09/18/24 22:10
Acetaminophen [Tylenol/Feverall] 650 mg RECTAL Q4HPRN PRN
Acetaminophen [Tylenol] 650 mg PO Q4HPRN PRN
Pantoprazole 80 mg/100 ml Nss [Protonix] 80 mg in 100 ml IV Q10H
09/18/24 22:10
CARDIOLOGY CONSULT Routine
Consulting Provider: Neno Esparza
Was physician already notified: Yes
Case Management Consult ONCE
Case Management Consult: Discharge Planning
Comment: stroke/tia
DIETARY IP CONSULT Routine
Reason for Consult: stroke/TIA
GASTROINTESTINAL CONSULT Routine
Consulting Provider: Rosa Pacheco
Was physician already notified: Yes
NEUROLOGY CONSULT Routine
Consulting Provider: Renaldo Deleon
Was physician already notified: Yes
Infusion Pharmacist Urgent
Activity As Directed
Activity Level: As Tolerated
INT (Intravenous Needle Therapy) As Directed
Comment: Place 2 IV catheters of the largest bore possible until stable
NIH Stroke Scale As Directed
Directions: Per protocol
Comment: every shift and with any change in condition or mental status
Neurological Checks As Directed
Frequency: q4h
Additional Instructions:: q4h x 24h upon admission to the floor, then qshift & with any change in condition
and mental status
Orthostatic Vital Signs As Directed
Orthostatic VS Frequency: Now
Comment: then every four hours for twenty-four hours
Patient Education As Directed
Type: Stroke education packet
Comment: provide to patient and family
Pneumatic Compression Sleeves As Directed
Type: Knee high
Swallow Screening CVA/TIA ONLY As Directed
Comment: NPO until swallowing screening completed
If patient FAILS swallow screening:: NPO, Speech Therapy consult, Aspiration Precautions
If patient PASSES swallow screening, diet:: Clear Liquid
Above diet order entered?: Yes- passed screening
Vital Signs As Directed
Frequency: Per unit guidelines
Ot Eval And Treat Routine
Pt Eval And Treat Routine
Activity Level: As Tolerated
Speech Therapy Eval & Treat Routine
DX Deep Vein Thrombosis Video Routine
09/18/24 22:14
Metoprolol [Lopressor] 12.5 mg PO BID
09/18/24 23:13
H&H Q8H
Troponin I Q8H
09/19/24 06:00
Basic Metabolic Panel IN AM
Cardiovascular Evaluation IN AM
Complete Blood Count/No Diff IN AM
Glycohemoglobin (HgbA1c) IN AM
Magnesium IN AM
09/19/24 06:10
Troponin I Q8H
09/19/24 08:00
Aspirin Chewable [Low Strength Aspirin] 81 mg PO DAILY
09/20/24 11:00
DC Protocol for Telemetry ONCE
Abnormal Lab Results
09/18/24
16:17
RBC 2.36 L 10^6/uL
(4.20-5.40)
Hgb 7.3 L g/dL
(12.0-16.0)
Hct 22.9 L %
(37.0-47.0)
MCHC 31.9 L g/dL
(33.0-37.0)
RDW 21.0 H %
(11.5-14.5)
MPV 10.6 H fL
(7.4-10.4)
Absolute Neuts (auto) 7.5 H 10^3/uL
(1.4-6.5)
Absolute Monos (auto) 1.3 H 10^3/uL
(0.1-0.6)
Lymphocytes % 16.7 L %
(20.5-51.1)
Monocytes % 11.9 H %
(1.7-9.3)
Potassium 3.2 L mmol/L
(3.5-5.1)
Chloride 96 L mmol/L
(98-107)
Carbon Dioxide 35 H mmol/L
(22-30)
BUN 34 H mg/dl
(7-17)
Creatinine 1.2 H mg/dL
(0.6-1.0)
Glucose 133 H mg/dl
(70-99)
AST 44 H U/L
(14-36)
Troponin I 0.068 H* ng/ml
Total Protein 6.2 L g/dl
(6.3-8.2)
Ur Occult Blood Reflex 1+ A
(Negative)
Urine Bacteria (Reflex) Few A
(Negative)
Urine Albumin (Reflex) 1+ A
(Neg - Trace)
Crossmatch IS Only See Detail
09/18/24 16:17
09/18/24 16:17
Vital Signs
Initial and Last Documented VS:
Initial Vital Signs
BP Pulse Ox
150/75 95
09/18/24 14:04 09/18/24 14:04
Last Documented Vital Signs
Temp Pulse Resp BP Pulse Ox
98.2 F 72 18 136/62 97
09/18/24 22:33 09/18/24 22:57 09/18/24 22:33 09/18/24 22:57 09/18/24 22:33
MDM/Problems Addressed
Differential Diagnosis Includes:
Not limited to: Viral illness, acute dehydration, acute coronary syndrome, anemia, UTI,
MDM/Problems Addressed:
84-year-old female presenting with progressively worsening weakness at home and history of recent dark stools. No known fever, chest pain, shortness of breath, or syncopal events. Patient hemodynamically stable on arrival and afebrile. On
exam�patient somewhat pale appearing although appears in no apparent distress. Cardio/pulmonary assessment unremarkable. Abdomen soft and nontender however rectal exam reveals heme positive dark stool. Given weakness and associated heme positive
stool�concern for possible GI bleeding. Other considerations include possible dehydration, UTI, failure to thrive, or cardiac etiology. ED plan: Labs, troponin, BNP, UA, viral studies. Will obtain type and screen. Will give 80 mg IV Protonix,
fluids and closely monitor
Update: Labs reveal significant anemia of 7.3 which is a significant decrease from 10.9 approximately 1 month ago. This is likely the etiology of patients worsening weakness. Chemistry reveals mild renal insufficiency and hypokalemia. Troponin
mildly elevated to 0.068 which I suspect to be secondary to demand [place] [address] without any clinical evidence of fluid overload on exam. Urine does not appear infected. Blood consent signed. Will transfuse 1 unit in the ED
given suspected symptomatic anemia secondary to upper GI bleeding. Patient will require admission to hospital for blood transfusion and further monitoring given significant anemia and oral anticoagulation. Patient accepted to hospitalist service
in stable condition.
Chronic conditions affecting care:
Atrial fibrillation on Eliquis, CAD s/p recent stent placement on Plavix, hypertension
Acute Exacerbation and/or Progression of Chronic Illness:
Acutely hypertensive
*Pulse Oximetry
SaO2: 99
Oxygen Mode of Delivery: Room air
Patient hypoxic: no
*EKG
Interpreted by ED Provider?: Yes
EKG Intrepretation Date: 09/18/24
Interpretation: abnormal
Comparison EKG: changes noted
Heart Rate: 68
Rate: normal
Rhythm: a-fib
Oracle: normal axis
Interval: long QT
QRS Pattern: right bundle branch block
Ischemia: T-wave inversion
*Riveting Machine Operator Interpretation
Rate: normal
Interpretation: normal
Heart Rate: 70
Rhythm: sinus
*Critical Care Note
Total Time (30-74mins, 75-104mins- exclusive of procedures): Not Applicable
Patient Management
Discussion with other providers: Hospitalist
Escalation/DeEscalation of care consider admission/obs:
Admit with weakness secondary to upper GI bleeding on anticoagulation
ED Attending Note
-
Portions of this chart may have been created with voice recognition software.� Occasional wrong word or��sound alike� substitutions may have occurred due to the inherent limitations of voice recognition software.
Discharge Plan
Departure
Patient Disposition: Admit
Date of Disposition: 09/18/24
Time of Disposition: 17:51
Presentation/result/management discussed w/ accepting MD/DO: Hospitalist
Discharge Problem:
Acute GI bleeding, Anemia, Generalized weakness
Interventions
Interventions:
*Risk Screen - Suicide Last Done: 09/18/24 23:25
*General Assessment Last Done: 09/18/24 14:05
*Neglect/Abuse Screening Last Done: 09/18/24 14:05
*ED- Fall Risk Assessment Last Done: 09/18/24 14:05
*ED COVID-19 Vaccine History Last Done: 09/18/24 23:25
*Nursing Disposition Last Done: 09/18/24 22:07
ED- Cardiac Assessment Last Done: 09/18/24 19:40
ED- Neurological Assessment Last Done: 09/18/24 21:37
ED- Pulmonary Assessment Last Done: 09/18/24 19:40
Discharge Date and Time
Discharge Date/Time: 09/18/24 22:07
[2024-09-18 16:47] LABS: COVID-19 Antigen Negative (Negative)
[2024-09-18 16:55] LABS: Troponin I 0.068 ng/ml
--- NOTE | 2024-09-18 18:38 | HPS.HSE ---
Family Physician
-
Family Physician: Solitario Sharma
Chief Complaint
-
weakness
History of Present Illness
Ms. Isa Jasso is a 84 yo woman with hx paroxysmal atrial fibrillation on [facility], admission 08/17-08/22/24 for NSTEMI (s/p PCI to LCx), HFpEF, essential HTN, HLD presents to the ER with progressive weakness.
Patient states she has had weakness in her left leg since September 01 where she has trouble walking and has fallen twice. She had a fall where she hit her head on September [address]. Past 4 days she also has left upper extremity weakness,
where she has shaking and cannot lift things easily. No difficulty speaking or swallowing.
She also reports prior history of diarrhea that resolved when she cut out lactose. She now has constipation but when she has a bowel movement it is black. No other signs of active bleeding.
She denies chest pain. She has shortness of breath. No persistent nausea/vomiting or abdominal pain. No LE swelling. No rash.
She took all of her medications this .
Medical History
Past Medical History
Past Medical History: Reports CAD (s/p PCI 09/08) and Other
Additional Past Medical History:
Hypertension
Parosyxmal Atrial Fibrillation
Varicose Veins
Superficial Thrombophlebitis
Past Surgical History: Reports Other
Additional Past Surgical History:
Vein Stripping
Left TKA
Left Shoulder Surgery
Cholecystectomy
Social History
Tobacco: Non-smoker
Alcohol: None
Drug: None
Family History
Family History: Not pertinent
Allergies / Home Medications
Allergies reflects when Allergies were last updated in [facility].
Home Medications with original date entered in [facility]
Allergy/Medication List:
Allergies
Allergy/AdvReac Type Severity Reaction Status Date / Time
erythromycin base Allergy Rash, hives Verified 09/10/24 17:00
(Erythromycin Base)
lisinopril (From Zestril) Allergy BAD COUGH Verified 09/10/24 17:00
tetracycline (Tetracycline) Allergy Hives Verified 09/10/24 17:00
Home Medications
amiodarone 200 mg tablet 200 mg PO BID #60 tabs 08/22/24
apixaban 2.5 mg tablet (Eliquis) 2.5 mg PO BID #60 tabs 08/22/24
clopidogrel 75 mg tablet 75 mg PO DAILY #30 tabs 08/22/24
furosemide 40 mg tablet 40 mg PO DAILY #30 tabs 08/22/24
metoprolol tartrate 25 mg tablet 12.5 mg (1/2 x 25 mg) PO BID #60 tabs 08/22/24
nitroglycerin 0.4 mg sublingual tablet 0.4 mg sublingual [id number] PRN ANGINA #3 tabs 08/22/24
potassium chloride 20 mEq oral packet 20 meq PO DAILY #30 ea 08/22/24
rosuvastatin 20 mg tablet 20 mg PO QPM #30 tabs 08/22/24
Review of Systems
-
History Source: Patient
A 12 point ROS was completed and negative except as noted: Yes
Physical Exam
Vital Signs
Vital Signs
Temp Pulse Resp BP Pulse Ox
98.3 F 67 14 126/47 98
09/18/24 18:28 09/18/24 18:28 09/18/24 18:28 09/18/24 18:28 09/18/24 18:28
Physical Exam
General: No Apparent Distress
HEENT: PERRLA
Respiratory: Clear; No Wheezes
Cardiac: S1/S2, Regular Rhythm and JVD
GI: Soft and Non Tender
Musculoskeletal: No Edema
Skin: Warm and Dry; No Rash
Neuro: AO x 3 and Other (DESTINEE, EOMI, left-sided pronator drift, 4+/5 strength RLE; 4/5 strength LLE, speech normal, slight left-sided facial droop)
Psych: Calm
Laboratory Results
-
09/18/24 16:17
09/18/24 16:17
Laboratory Results
Total Bilirubin 0.6 mg/dl (0.2-1.3) 09/18/24 16:17
AST 44 U/L (14-36) H 09/18/24 16:17
ALT 33 U/L (0-35) 09/18/24 16:17
Alkaline Phosphatase 72 U/L (38-126) 09/18/24 16:17
Troponin I 0.068 ng/ml H* 09/18/24 16:17
Data Reviewed
-
Diagnostic Radiology: Report Reviewed by me
Lab Data: Labs Reviewed by me
Impression/Plan
-
Ms. Isa Jasso is a 84 yo woman with hx paroxysmal atrial fibrillation on Eliquis, admission 08/17-08/22/24 for NSTEMI (s/p PCI to LCx), HFpEF, essential HTN, HLD presents to the ER with progressive weakness.
Triage VS: T 97.6, P 60, BP 150/75, SpO2 95%, RR 19
LABS: WBC 10.8, Hg 7.3 (Hg 10.9 08/22/24), PLT 251, Na 135, K+ 3.2, Cr 1.2 (baseline 1-1.1), Glucose 133, T. Bili 0.6, AST 44, ALT 33, Alk Phos 72, Trop 0.068, BNP 86769
MAR: NS 500cc, Protonix 80mg IV; ordered for 1 unit PRBC
Left-Sided Weakness, concern for acute CVA
-patient had head CT for fall post onset of weakness, with new left arm weakness and patient is on Eliquis will repeat head CT now
-admit to telemetry
-neuro checks
-hold Plavix/Eliquis (for GI Bleed, see below); start asa 81mg PO QD tomorrow
-[employer] Statin
-patient had a bad experience with MRI in past and has metal in left wrist. I will hold off on ordering, discussed with Neurology
-formal Neurology consult tomorrow
-PT/OT/ST
UGIB
Weakness
Melena
Acute Blood Loss Anemia
-receiving 1 unit PRBC now
-s/p Protonix 80mg bolus, will start IV drip
-hold [employer] WORKER Plavix and Eliquis and start daily asa tomorrow with recent cardiac hx (see below)
-trend Hg overnight
-GI consult
-Patient had Eliquis this morning, will continue diet as unable to be scoped tomorrow
Coronary Artery Disease s/p PCI to LCx 08/17/24
-hold Plavix, Eliquis in setting of bleed
-asa 81mg PO QD
-[employer] WORKER Statin
-Cardiology consult
Non-ischemic Troponin Elevation
-no chest pain, in setting of anemia/bleed
-trend overnight
Heart Failure Preserved EF
Moderate MR
Moderate TR
-most recent TTE 08/17/24; EF 54%
-obtain CXR given report of SOB
-replete K, will consider IV Lasix post CXR results and K repletion
-hold off on ordering oral Lasix for tomorrow as suspect she'll benefit from IV diuresis
paroxysmal Atrial Fibrillation
-[employer] WORKER Amiodarone
-hold [employer] WORK[employer] Eliquis as above
-Cardiology consult
Hypokalemia
-replete, add on Mag
Essential HTN
HLD
-[employer] WORKER Statin
DVT PPx SCD
FULL CODE - this was a long discussion in the ER with patient and daughters. I encouraged her to have continued discussions
76 minutes spent on patient care
[2024-09-18 18:56] LABS: Urine Character Clear (Clear)
[2024-09-18 19:24] LABS: Magnesium 2.3 mg/dl (1.6-2.3)
[2024-09-18 19:39] LABS: Urine Red Blood Cell 0-2 /HPF (0-2)
--- NOTE | 2024-09-18 19:46 | CON.CAR ---
Consultation
Consultation Request
Date/Time Consultation Requested: 09/18/2024 19: 30
Date/Time Consultation Performed: 09/18/2024 19: 45
Requesting Provider: Marisa
Performing Provider: Isaias
Reason for Consultation: GI bleed, assess anticoagulation
Medical History
-
Chief Complaint: Chest Pain
History of Present Illness:
Isa has past medical history of hypertension, multiple drug allergies only on chronic hydrochlorothiazide, paroxysmal atrial fibrillation, CAD status post circumflex stent with non-STEMI in August 2024, chronic diastolic CHF, hyperlipidemia.
She was admitted in August 2024 with non-STEMI and underwent circumflex stent.
She is admitted with weakness, anemia, and GI bleeding. She has had weakness in her left leg since September 01 and has had trouble walking and fallen twice. She hit her head on September 10 and a normal CAT scan. Over the past 4 days she has had left
upper extremity weakness where she was shaking and cannot lift things easily. She presented to the ER and found to be severely anemic with hemoglobin of 7.3 and is admitted for workup of GI bleeding. Cardiology consulted regarding anticoagulation
as she is on Plavix and Eliquis. She denies chest pain or shortness of breath.
Past Medical History
Past Medical History: CAD, HTN, Hypercholesterolemia and Other (A-fib)
Past Surgical History: Other (Rotator cuff repair, varicose vein stripping, laparoscopic cholecystectomy, knee arthroscopy, D&C, left foot toe surgery)
Social History
Tobacco: Non-Smoker
Alcohol: None
Drug: None
Personal: Single
Living: Alone
Employment: Retired
Family History
Family History: Other (Father at 77 and had heart disease, mother at 90 and had hypertension)
Allergies / Home Medications
Allergy/AdvReac Type Severity Reaction Status Date / Time
erythromycin base Allergy Rash, hives Verified 09/10/24 17:00
(Erythromycin Base)
lisinopril (From Zestril) Allergy BAD COUGH Verified 09/10/24 17:00
tetracycline (Tetracycline) Allergy Hives Verified 09/10/24 17:00
�Medication �Instructions �Recorded �Confirmed �Type
apixaban 2.5 mg tablet (Eliquis) 2.5 mg PO BID #60 tabs 08/22/24 09/18/24 Rx
clopidogrel 75 mg tablet 75 mg PO DAILY #30 tabs 08/22/24 09/18/24 Rx
furosemide 40 mg tablet 40 mg PO DAILY #30 tabs 08/22/24 09/18/24 Rx
metoprolol tartrate 25 mg tablet 12.5 mg (1/2 x 25 mg) PO BID #60 08/22/24 09/18/24 Rx
tabs
nitroglycerin 0.4 mg sublingual 0.4 mg sublingual [id number] PRN 08/22/24 09/18/24 Rx
tablet ANGINA #3 tabs
acetaminophen 160 mg/5 mL oral 480 mg PO DAILYPRN PRN mild pain 09/18/24 09/18/24 History
liquid
amiodarone 200 mg tablet 200 mg PO DAILY 09/18/24 09/18/24 History
magnesium hydroxide 400 mg/5 mL 15 ml PO ONCE PRN constipation 09/18/24 09/18/24 History
oral suspension (Milk of Magnesia)
ondansetron 4 mg disintegrating 4 mg PO DAILYPRN PRN 09/18/24 09/18/24 History
tablet nausea/vomiting
rosuvastatin 20 mg tablet 20 mg PO DAILY@1500 09/18/24 09/18/24 History
vit C 250 mg-E 90 mg-zinc 40 1 tab PO BID 09/18/24 09/18/24 History
mg-copper 1 [id number] chew
tablet (PreserVision AREDS-2)
Review of Systems
-
History Source: Patient
All other systems: Negative unless noted
Constitutional: Fatigue
EENT: No Symptoms
Respiratory: No Symptoms
Cardiac: No Symptoms
Abdomen/GI: Black Stools
: No Symptoms
Musculoskeletal: No Symptoms
Skin: No Symptoms
Neurological: No Symptoms
Endocrine: No Symptoms
Hematologic/Lymphatic: No Symptoms
Physical Exam
Vital Signs
Temp Pulse Resp BP Pulse Ox
98.4 F 61 20 119/89 95
09/18/24 18:47 09/18/24 18:47 09/18/24 18:47 09/18/24 18:47 09/18/24 18:47
Lab Results
09/18/24 16:17
09/18/24 16:17
Troponin I 0.068 ng/ml H* 09/18/24 16:17
Dxz-A-Ugnffaixgph Pept 00126 pg/ml 09/18/24 16:17
General: Appears pale
Neck: Supple, no JVD, HJR, carotids +2 B/L, no bruits bilaterally.
Heart: Non displaced PMI, irregular, no murmurs, No S3, S4, no rubs.
Lungs: Clear to auscultation bilaterally, no wheeze, rhonchi, rubs bilaterally,
normal expiratory phase.
Abdomen: Normal bowel sounds, soft, non-tender, non-distended.
Extremities: No clubbing, cyanosis or edema bilaterally.
Neuro: Grossly nonfocal, awake, alert and oriented x3.
Impression / Plan
-
Scheduled to see Dr. Yung
Impression:
Severe anemia/GI bleed
NSTEMI August 2024 with peak troponin of 63.4/ 90 to 95% hazy mid left circumflex stenosis treated with one 2.75 x 30 mm Medtronic Phelan drug-eluting stent, postdilated using IVUS guidance with a 2.75 x 20 mm NC balloon at 16 mariama.
Chronic diastolic HFpEF
Hypertension
Hyperlipidemia
Atrial fibrillation on Eliquis
Multiple drug allergies
Hypokalemia
Mild renal insufficiency
Non-NH troponin elevation
Elevated proBNP on admission of 13,200
Echo 08/01/2021: EF 60 to 65%, mild septal hypertrophy, mild MR, heavy focal calcification of noncoronary cusp of aortic valve, mild AR, mild TR, PAP 37 mmHg
ECHO 08/17/24: EF 54%, mild concentric LVH, moderate MR, mild AR, moderate TR, PAP 25 to 30 mmHg, trivial pericardial effusion
Left heart catheterization 08/17/2024: LM: Patent. LAD: Patent. Left circumflex: 90 to 95% hazy mid left circumflex stenosis s/p 2.75 x 30 mm Medtronic Rafiq drug-eluting stent. Mid circumflex 30 to 40% stenosis. RCA: Ostial 60 to 70% stenosis with
mild pressure dampening upon selective engagement
RECOMMENDATIONS:
She presents with a GI bleed with severe anemia and is getting transfusion. GI workup with testing is planned and Eliquis and Plavix are on hold. Agree with starting aspirin and transfusion.
She was in sinus rhythm on discharge in August 2024 but was in A-fib when seen in our office. 5-day monitor in August 2024 revealed 100% atrial fibrillation. Likely asymptomatic with A-fib and will need to consider stopping amiodarone. Eliquis
currently on hold with GI bleeding
There may be an element of volume overload with elevated proBNP of 13,200 which was 7020 in August 2024. Check chest x-ray in AM. Weight is similar to weight on discharge in August 2024
Await GI workup and will need to decide whether Plavix will be continued as she has completed 1 month of Plavix. Might consider discharging on Eliquis and aspirin alone
Data Reviewed
-
EKG: Tracing Personally Visualized and interpreted
Radiology: Report Reviewed by me
CT Scan: Report Reviewed by me
Medical Tests (Nuc Med, Echo etc): Report Reviewed by me
Labs: Labs Reviewed by me
Old Records: Reviewed
[2024-09-18] MEDS: KCL ELIXIR 40 MEQ PO (19:55)
[2024-09-18] MEDS: PROTONIX 100 IV (22:55)
[2024-09-18] MEDS: LOPRESSOR 12.5 MG PO (22:57)
[2024-09-18 23:20] LABS: Hematocrit 23.8 % (37.0-47.0); Hemoglobin 8.1 g/dL (12.0-16.0)
[2024-09-19] VITALS (13 sets, daily range): BP systolic 107–159; BP diastolic 53–118; PULSE 58–76; O2SAT 98; BMI 24.0
[2024-09-19 00:01] LABS: Troponin I 0.064 ng/ml
[2024-09-19 07:06] LABS: Hematocrit 25.2 % (37.0-47.0); Hemoglobin 8.3 g/dL (12.0-16.0); Mean Corp Hgb Conc. 32.9 g/dL (33.0-37.0); Mean Corpuscular Volume 92.6 fL (81.0-99.0); Platelet Count 204 10^3/uL (130-400); Red Cell Dist. Width 20.6 % (11.5-14.5)
[2024-09-19 07:31] LABS: Blood Urea Nitrogen 31 mg/dl (7-17); Calcium 8.4 mg/dl (8.4-10.2); Carbon Dioxide 31 mmol/L (22-30); Chloride 102 mmol/L (98-107); Estimated Creatinine Clearance 28 ml/min; Glucose 100 mg/dl (70-99); HDL Cholesterol 39 mg/dl; LDL Cholesterol, Calculated 28 mg/dl; Magnesium 2.3 mg/dl (1.6-2.3); Potassium 3.3 mmol/L (3.5-5.1); Sodium 136 mmol/L (135-145); Very Low Density Lipoprotein 15 mg/dl (0-30); eGFR 44.91
--- NOTE | 2024-09-19 07:36 | W.PN.HOSP.TC ---
Today's Communication/Plan
-
See plan
Assessment / Plan
Assessment / Plan
Physical Exam
General: No Apparent Distress
HEENT: Normocephalic
Respiratory: Clear to Auscultation Bilaterally
Cardiac: S1/S2, Regular Rhythm and JVD
GI: Soft and Non Tender. Positive bowel sounds.
Musculoskeletal: No cyanosis
Skin: Warm and Dry
Neuro: AO x 3 and Other (DESTINEE, EOMI, left-sided pronator drift, 4+/5 strength RLE; 4/5 strength LLE, speech normal, slight left-sided facial droop)
Psych: Calm
Assessment/Plan
84 yo woman with history of paroxysmal atrial fibrillation on Eliquis, admission 08/17-08/22/24 for NSTEMI (s/p PCI to LCx), HFpEF, essential HTN, HLD presented to the ER with progressive weakness.
Patient states she has had weakness in her left leg since September 01, 2024 where she has trouble walking and has fallen twice. She had a fall where she hit her head on September 10, [address] For 4 days prior to admission this
hospitalization, she also has left upper extremity weakness, where she had shaking and could not lift things easily. No difficulty speaking or swallowing. She also reported prior history of diarrhea that resolved when she cut out lactose. She now
has constipation but when she has a bowel movement it is black. No other signs of active bleeding. She denied chest pain. She has shortness of breath. No persistent nausea/vomiting or abdominal pain. No LE swelling. No rash.

Triage VS: T 97.6, P 60, BP 150/75, SpO2 95%, RR 19
LABS: WBC 10.8, Hg 7.3 (Hg 10.9 08/22/24), PLT 251, Na 135, K+ 3.2, Cr 1.2 (baseline 1-1.1), Glucose 133, T. Bili 0.6, AST 44, ALT 33, Alk Phos 72, Trop 0.068, BNP 76744
MAR: NS 500cc, Protonix 80mg IV; ordered for 1 unit PRBC

Left-Sided Weakness (Left Arm Spasms x 4 days prior to presentation), Left Lower Extremity Weakness and Spasms (for ~2 weeks prior to presentation), concern for acute CVA
Above weakness was thought (by outpatient providers) to be from serum potassium imbalance and lipid lower meds
-Patient had head CT for fall post onset of weakness, with new left arm weakness and patient is on Eliquis; repeat head CT with no bleed
-Continue to monitor on telemetry
-Neuro checks
-Hold Plavix/Eliquis (for GI Bleed, see below); Aspirin 81mg PO QD started on 09/19/24
-[employer]PER[employer] Statin
-patient had a bad experience with MRI in past and has metal in left wrist. Did not order MRI, this was discussed with Neurology
-Neurology consultation appreciated
-PT/OT/ST
UGIB
Generalized Weakness
Melena
Acute Blood Loss Anemia
History of H. Pylori
-Maintain 2 large bore peripheral gauge IVs
-Received 1 unit PRBC on 09/18/24
-s/p Protonix 80mg bolus, continue Protonix Drip
-Okay for clear liquids diet
-See speech evaluation diet for recommendations for when diet is advanced
-hold [employer] Plavix and Eliquis and started daily Aspirin with recent cardiac hx (see below)
-trend Hg and transfuse to maintain Hgb at least 8 given CAD history
-GI consult
-Patient had Eliquis on the morning of 09/19/24
Coronary Artery Disease s/p PCI to LCx 08/17/24
-hold Plavix, Eliquis in setting of bleed
-Continue newly asa 81mg PO QD
-SUPER[employer] Statin
-Cardiology consult
Non-ischemic Troponin Elevation
-no chest pain, in setting of anemia/bleed
-trend overnight
Heart Failure Preserved EF
Moderate MR
Moderate TR
-most recent TTE 08/17/24; EF 54%
-CXR (given reports of SOB): trace bilateral pleural effusions with minimal bibasilar atelectasis
-repleted K, consider IV Lasix
-hold off on ordering oral Lasix for tomorrow as suspect she'll benefit from IV diuresis
paroxysmal Atrial Fibrillation
-[employer] Amiodarone
-hold [employer] Eliquis as above
-Cardiology consult
Hypokalemia
-replete, add on Mag
Essential HTN
HLD
-[employer] Statin
DVT PPx SCD
FULL CODE - Dr. Cunningham had a long discussion in the ER with patient and daughters. Dr. Cunningham encouraged her to have continued discussions
Anticipated Discharge: > 48 hours
Subjective/Interval History
-
Date of Service: September 19, 2024
Patient was seen and examined. No new symptoms or complaints this morning.
Objective Data
-
Labs:
Laboratory Results
09/18/24 09/19/24
23:13 06:53
WBC 9.9
Hgb 8.1 L 8.3 L
Hct 23.8 L 25.2 L
Plt Count 204
Sodium 136
Potassium 3.3 L
Chloride 102
Carbon Dioxide 31 H
BUN 31 H
Creatinine 1.2 H
Glucose 100 H
Calcium 8.4
Vital Signs:
Vital Signs
Temp Pulse Resp BP Pulse Ox
98.2 F 72 18 136/62 95
09/18/24 22:33 09/18/24 22:57 09/18/24 22:33 09/18/24 22:57 09/19/24 03:00
I&O
09/18/24 09/19/24 09/20/24
06:59 06:59 06:59
Intake Total 250 / 250
Balance 250 / 250
[2024-09-19 07:43] LABS: Troponin I 0.084 ng/ml
[2024-09-19] MEDS: LOPRESSOR 12.5 MG PO ×2 (08:21→21:15)
[2024-09-19] MEDS: LOW STRENGTH ASPIRIN 81 MG PO (08:21)
[2024-09-19] MEDS: PACERONE 200 MG PO (08:21)
[2024-09-19] MEDS: PROTONIX 100 IV ×2 (08:21→17:12)
[2024-09-19] MEDS: OCUVITE SOFTGEL PO ×2 (08:32→21:16)
--- NOTE | 2024-09-19 09:52 | CON.GI ---
Consultation
-
Date/Time Consultation Requested: 09/18/24
Date/Time Consultation Performed: 09/19/24
Requesting Provider: Ophelia Cunningham
Performing Provider: Fiona Pacheco
Reason for Consultation: Melena, acute blood loss anemia
Medical History
Chief Complaint / HPI
Chief Complaint: left-sided weakness, melena
History of Present Illness:
Isa Jasso is an 84 y.o. female with pmhx fib on eliquis, HFpEF, HTN, HLD, CAD s/p recent PCI to Lcx on 08/17/24 on plavix admitted with weakness, dark stools and constipation. Rectal exam in the ER with dark, heme positive stool. Neuro exam
notable for left-sided weakness, concerning for stroke. She states she was struggling with left leg weakness in mid august, fell twice, hit her head on 09/10, had a CT scan which was normal. Following this, she started to develop LUE weakness as well.
Her hemoglobin was found to be 7.3. She received 1 unit of PRBC with improvement to 8.1, repeat hgb 8.3.
Upon review of her labs, at baseline prior to recent NSTEMI, hemoglobin in the 12s, dropped to 11 on 08/19/24. Hgb was 10.9 at discharge on 08/22/24. Upon arrival, hub noted to be 7.3. BUN elevated during recent admission, was 48 at discharge, now 34.
Prior EGD in 2014, H pylori +. She has never had a colonoscopy before or noninvasive stool testing for CRC screening. She has always feared colonoscopies and avoided having one. She denies family history of CRC.
Echo 08/01/2021: EF 60 to 65%, mild septal hypertrophy, mild MR, heavy focal calcification of noncoronary cusp of aortic valve, mild AR, mild TR, PAP 37 mmHg
ECHO 08/17/24: EF 54%, mild concentric LVH, moderate MR, mild AR, moderate TR, PAP 25 to 30 mmHg, trivial pericardial effusion
Left heart catheterization 08/17/2024: LM: Patent. LAD: Patent. Left circumflex: 90 to 95% hazy mid left circumflex stenosis s/p 2.75 x 30 mm Medtronic Stout drug-eluting stent. Mid circumflex 30 to 40% stenosis. RCA: Ostial 60 to 70% stenosis with
mild pressure dampening upon selective engagement
Past Medical History
Past Medical History: Other (afib on eliquis, HFpEF, HTN, HLD, CAD s/p recent PCI to Lcx on 08/17/24 )
Past Surgical History: Other (rotator cuff repair, varicose vein stripping, cholecystectomy, knee arthroscopy, D&C, left foot toe surgery)
Social History
Tobacco: Non-Smoker
Alcohol: None
Drug: None
Personal: Single
Living: Alone
Employment: Retired
Family History
Family History: Reviewed & Not Pertinent
Allergies / Home Medications
Allergy/AdvReac Type Severity Reaction Status Date / Time
erythromycin base Allergy Rash, hives Verified 09/10/24 17:00
(Erythromycin Base)
lisinopril (From Zestril) Allergy BAD COUGH Verified 09/10/24 17:00
tetracycline (Tetracycline) Allergy Hives Verified 09/10/24 17:00
�Medication �Instructions �Recorded
metoprolol tartrate 25 mg tablet 12.5 mg (1/2 x 25 mg) PO BID #60 08/22/24
tabs
nitroglycerin 0.4 mg sublingual 0.4 mg sublingual [id number] PRN 08/22/24
tablet ANGINA #3 tabs
acetaminophen 160 mg/5 mL oral 480 mg PO DAILYPRN PRN mild pain 09/18/24
liquid
amiodarone 200 mg tablet 200 mg PO DAILY Heart 09/18/24
Disease/Condition
magnesium hydroxide 400 mg/5 mL 15 ml PO ONCE PRN constipation 09/18/24
oral suspension (Milk of Magnesia)
ondansetron 4 mg disintegrating 4 mg PO DAILYPRN PRN 09/18/24
tablet nausea/vomiting
rosuvastatin 20 mg tablet 20 mg PO DAILY@1500 High 09/18/24
Cholesterol
vit C 250 mg-E 90 mg-zinc 40 1 tab PO BID Supplement 09/18/24
mg-copper 1 [id number] chew
tablet (PreserVision AREDS-2)
apixaban 2.5 mg tablet (Eliquis) 2.5 mg PO BID Blood Clot 09/19/24
Prevention/Tx
clopidogrel 75 mg tablet 75 mg PO DAILY Blood Clot 09/19/24
Prevention/Tx
furosemide 40 mg tablet 40 mg PO DAILY Fluid 09/19/24
Retention/Swelling
Review of Systems
-
All other systems: A 12 pt ROS was Negative except as stated above in HPI
Vital Signs
Temp Pulse Resp BP Pulse Ox
98.5 F 68 18 153/63 95
09/19/24 07:00 09/19/24 07:00 09/19/24 07:00 09/19/24 07:00 09/19/24 07:00
Physical Exam
Exam
General: Well Developed and No Apparent Distress
GI: Soft, Non Tender, Non Distended and Normal Bowel Sounds
Neuro: Other (+left sided weakness)
Results
WBC 9.9 10^3/uL (4.8-10.8) 09/19/24 06:53
Hgb 8.3 g/dL (12.0-16.0) L 09/19/24 06:53
Hct 25.2 % (37.0-47.0) L 09/19/24 06:53
MCV 92.6 fL (81.0-99.0) 09/19/24 06:53
Plt Count 204 10^3/uL (130-400) 09/19/24 06:53
Absolute Neuts (auto) 7.5 10^3/uL (1.4-6.5) H 09/18/24 16:17
Sodium 136 mmol/L (135-145) 09/19/24 06:53
Potassium 3.3 mmol/L (3.5-5.1) L 09/19/24 06:53
Chloride 102 mmol/L (98-107) 09/19/24 06:53
Carbon Dioxide 31 mmol/L (22-30) H 09/19/24 06:53
BUN 31 mg/dl (7-17) H 09/19/24 06:53
Creatinine 1.2 mg/dL (0.6-1.0) H 09/19/24 06:53
Calcium 8.4 mg/dl (8.4-10.2) 09/19/24 06:53
Total Bilirubin 0.6 mg/dl (0.2-1.3) 09/18/24 16:17
AST 44 U/L (14-36) H 09/18/24 16:17
ALT 33 U/L (0-35) 09/18/24 16:17
Alkaline Phosphatase 72 U/L (38-126) 09/18/24 16:17
Diagnostic Image Results:
Prior GI Procedures:
EGD:
Colonoscopy:
Assessment / Plan
-
84 y.o. female with pmhx fib on eliquis, HFpEF, HTN, HLD, CAD s/p recent PCI to Lcx on 08/17/24 on plavix admitted with left-sided weakness and dark stools, found to be anemic with heme positive stool, now with concern for acute CVA.
Hgb 10.9 --> 7.3, received 1 unit PRBC with improvement to 8.1 --> 8.3.
BUN 48 -->34 --> 31
Rectal exam in the ER with dark, heme positive stool. She is on eliquis and plavix, which have both been held on admission, started on 81 mg ASA. Cardiology following. Exam on arrival concerning for new CVA, no acute focal abnormalities seen on head
CT, unable to get an MRI however, Dr. Cunningham is highly suspicious for acute CVA. Formal neurology consult pending.
She certainly had a drop in her hemoglobin following initiation of plavix and eliquis and with melena, likely UGI source of bleeding vs. small bowel vs. right-sided colon. Given her blood thinners, recent cardiac stenting and concern for acute CVA,
she is a high risk procedure, which I explained to her. She is on a PPI gtt. We need to allow for both eliquis and plavix washout regardless. Will await neurology consult, appreciate cardiology input.
Plan
-2 large bore peripheral gauge IVs
-Trend H&H, transfuse for Hgb <8 in setting of cardiac disease
-check iron panel
-okay to hold eliquis and plavix per cardiology, continuing with 81 mg ASA only; may consider ultimately d/cing on eliquis and ASA only
-Neurology consult pending
-continue PPI gtt for now, depending on neuro workup and clinical course moving forward, can determine if we can treat supportively with PPI, if hemoglobin stable and no signs of ongoing GI bleeding vs. need for further assessment with EGD,
understanding she is high risk
-okay for clear liquids
-Prior H. pylori positive, no testing for eradication. Defer ordering test in setting of active bleeding, can lead to false negative results. Defer to outpatient once bleeding has resolved.
Data Reviewed
-
Old Records: Reviewed
-
-
Thank you for consultation and allowing me to participate in the patient's care. Please call the air conditioning supervisor GI physician during the after hours with any questions or concerns.
[2024-09-19 10:26] LABS: Glycohemoglobin (HgbA1c) 4.8 % (4.0-5.6)
--- NOTE | 2024-09-19 10:43 | PTOTSP ---
Speech therapy
Presentation: Patient was oriented but appeared to be easily fatigued. Per daughter, patient typically takes ~4 hour nap after medications.
Patient's speech and language was short in length and weak in quality. Patient reports trouble with word-finding and speech production for~2 days. REFRIGERATING OILER noted intermittent possible dysarthric speech.
Swallowing function: Patient was observed with several sips of thin liquids and bites of puree and regular consistency solid trials in which patient appeared to tolerate as she did not exhibit any overt clinical s/sx of aspiration. Noted mild
prolonged mastication and independent small, single bites and sips which patient's daughter states this is her baseline functioning.
Swallowing complaints: Patient and daughter shared that patient intermittently has difficulty with solids such as rice which has been occurring for 'awhile'. Of note, patient reports having a goiter within the thyroid which may be a contributor to
this complaint. Per daughter, patient has lost ~10 lbs in 1 month and has a decreased appetite.
Per RN, patient tolerated medications crushed in puree. Per daughter, patient typically takes smaller pills with thin liquids and larger pills crushed in puree.
Given the above, recommend continuation of reg/ thin with consideration of Ensure and nutritional consult to ensure adequate caloric and nutritional intake. Consider speech/ language evaluation.
Recommendations:
1. continuation of reg/ thin
2. consideration of Ensure
3. nutritional consult to ensure adequate caloric and nutritional intake
4. assistance and supervision with PO
5. PO only when alert
6. consider speech/ language evaluation
Plan: REFRIGERATING OILER will continue to follow to ensure tolerance; pending hospitalization.
[2024-09-19] MEDS: KLOR-CON 20 MEQ PO (10:44)
[2024-09-19] MEDS: CRESTOR 20 MG PO (14:53)
[2024-09-19 17:34] LABS: Glucose - Point of Care 108 mg/dl (70-99)
[2024-09-19] MEDS: NITROSTAT (SUBLINGUAL) 0.4 MG SL (18:10)
[2024-09-19 19:20] LABS: Troponin I 0.072 ng/ml
--- NOTE | 2024-09-19 20:13 | CON.NEURO ---
Neuro Assessment/Plan
Assessment
left sided weakness, worsening x2 weeks. the spasms when she walks is part of the weakness
Either stroke with deconditioning, or concern for brain tumor.
we had a long discussion, about goals of care and if we should do MRI; patient and dtr/POA Cayla were very reasonable though other outspoken family members had different opinion
patient does not want MRI, as it will not change the treatment, is ready to leave this in God's hands. for now diagnosis will be stroke, but if she worsens after 4 weeks of Rehab then It was probably a brain tumor
with GI bleed, Eliquis stopped and we decided she is never going back on it
she wants to be less aggressive with her care, feels very sedated a few mins after taking her meds and wants to stop non-essential meds
Plan
call with questions
Consultation
Order
Date of Consultation: 09/19/24
Requesting Provider:
Reason for Consult:
Subjective/Objective
Subjective Data
Date of Service: September 19, 2024
from h&p:
Ms. Isa Jasso is a 84 yo woman with hx paroxysmal atrial fibrillation on Eliquis, admission 08/17-08/22/24 for NSTEMI (s/p PCI to LCx), HFpEF, essential HTN, HLD presents to the ER with progressive weakness.
Patient states she has had weakness in her left leg since September 01 where she has trouble walking and has fallen twice. She had a fall where she hit her head on September [address]. Past 4 days she also has left upper extremity weakness,
where she has shaking and cannot lift things easily. No difficulty speaking or swallowing.
She also reports prior history of diarrhea that resolved when she cut out lactose. She now has constipation but when she has a bowel movement it is black. No other signs of active bleeding.
She denies chest pain. She has shortness of breath. No persistent nausea/vomiting or abdominal pain. No LE swelling. No rash.
Objective Data
Vital Signs
Temp Pulse Resp BP Pulse Ox
36.4 C 61 20 138/61 99
09/19/24 15:00 09/19/24 17:37 09/19/24 17:37 09/19/24 18:15 09/19/24 17:37
Lab Results
09/19/24 06:53
09/19/24 06:53
Sodium 136 mmol/L (135-145) 09/19/24 06:53
Potassium 3.3 mmol/L (3.5-5.1) L 09/19/24 06:53
BUN 31 mg/dl (7-17) H 09/19/24 06:53
Glucose 100 mg/dl (70-99) H 09/19/24 06:53
Calcium 8.4 mg/dl (8.4-10.2) 09/19/24 06:53
Dsh-G-Lpddsxdcifr Pept 79200 pg/ml 09/18/24 16:17
LDL Cholesterol, Calc 28 mg/dl 09/19/24 06:53
Patient Allergies
erythromycin base (Erythromycin Base) Allergy (Verified 09/10/24 17:00)
Rash, hives
lisinopril (From Zestril) Allergy (Verified 09/10/24 17:00)
BAD COUGH
tetracycline (Tetracycline) Allergy (Verified 09/10/24 17:00)
Hives
Physical Exam
-
AAOx3, speech clear, language intact
partial visual field loss due to macular degeneration OU, EOMI, face symmetric
LUE/LE 5-/5, RUE/LE full strength
sensation intact to touch
Medications
-
Active Medications
Generic Name Dose Route Start Last Admin
Trade Name Freq PRN Reason Stop Dose Admin
Acetaminophen 650 mg 09/18/24 22:10
Acetaminophen 650 Mg Rectal Suppository RECTAL 10/16/24 22:09
Q4HPRN PRN
OLIVO, mild pain, or temp >100.4F
Acetaminophen 650 mg 09/18/24 22:10
Acetaminophen 325 Mg Tablet PO 10/16/24 22:09
Q4HPRN PRN
OLIVO, mild pain, or temp >100.4F
Amiodarone HCl 200 mg 09/19/24 08:00 09/19/24 08:21
Amiodarone 200 Mg Tablet PO 10/17/24 07:59 200 mg
DAILY ANURADHA Administration
Aspirin 81 mg 09/19/24 08:00 09/19/24 08:21
Aspirin 81 Mg Chewable Tablet PO 10/17/24 07:59 81 mg
DAILY ANURADHA Administration
Pantoprazole Sodium 80 mg in 100 mls @ 10 mls/hr 09/18/24 22:10 09/19/24 17:12
Protonix IV 100 mls
Q10H ANURADHA Administration
8 MG/HR
Metoprolol Tartrate 12.5 mg 09/18/24 22:14 09/19/24 08:21
Metoprolol 12.5 Mg Regular Release Dose (1/2 Of 25 Mg Tablet) PO 10/16/24 22:13 12.5 mg
BID ANURADHA Administration
Nitroglycerin 0.4 mg 09/19/24 17:55 09/19/24 18:10
Nitroglycerin 0.4 Mg Sl Tablet SL 10/17/24 17:54 0.4 mg
[id number] PRN Administration
ANGINA
Rosuvastatin Calcium 20 mg 09/19/24 15:00 09/19/24 14:53
Rosuvastatin (Crestor) 20 Mg Tablet PO 10/17/24 14:59 20 mg
DAILY@1500 ANURADHA Administration
Sodium Chloride 0 flush 09/18/24 23:00
Sodium Chloride 0.9% (Flush) Syringe IV 10/16/24 22:59
PER PROTOCOL ANURADHA
Vitamin C/Vitamin E 1 cap 09/19/24 08:00 07/06/25 08:32
Vit C/Vit E/Lutein/Min/[place]-3 (Ocuvite) Capsule PO 10/17/24 07:59 Not Given
BID ANURADHA
Home Medications
�Medication �Instructions �Recorded
metoprolol tartrate 25 mg tablet 12.5 mg (1/2 x 25 mg) PO BID #60 08/22/24
tabs
nitroglycerin 0.4 mg sublingual 0.4 mg sublingual [id number] PRN 08/22/24
tablet ANGINA #3 tabs
acetaminophen 160 mg/5 mL oral 480 mg PO DAILYPRN PRN mild pain 09/18/24
liquid
amiodarone 200 mg tablet 200 mg PO DAILY Heart 09/18/24
Disease/Condition
magnesium hydroxide 400 mg/5 mL 15 ml PO ONCE PRN constipation 09/18/24
oral suspension (Milk of Magnesia)
ondansetron 4 mg disintegrating 4 mg PO DAILYPRN PRN 09/18/24
tablet nausea/vomiting
rosuvastatin 20 mg tablet 20 mg PO DAILY@1500 High 09/18/24
Cholesterol
vit C 250 mg-E 90 mg-zinc 40 1 tab PO BID Supplement 09/18/24
mg-copper 1 or-[id number] chew
tablet (PreserVision AREDS-2)
apixaban 2.5 mg tablet (Eliquis) 2.5 mg PO BID Blood Clot 09/19/24
Prevention/Tx
clopidogrel 75 mg tablet 75 mg PO DAILY Blood Clot 09/19/24
Prevention/Tx
furosemide 40 mg tablet 40 mg PO DAILY Fluid 09/19/24
Retention/Swelling
[2024-09-20] MEDS: SENOKOT 8.6 MG PO ×3 (00:22→20:53)
[2024-09-20 00:46] LABS: Troponin I 0.074 ng/ml
[2024-09-20 03:22] VITALS: BP 152/66
[2024-09-20] MEDS: PROTONIX 100 IV ×2 (03:36→15:29)
[2024-09-20 07:22] LABS: Hematocrit 26.7 % (37.0-47.0); Hemoglobin 8.8 g/dL (12.0-16.0); Mean Corp Hgb Conc. 33.0 g/dL (33.0-37.0); Mean Corpuscular Volume 93.4 fL (81.0-99.0); Platelet Count 215 10^3/uL (130-400); Red Cell Dist. Width 20.4 % (11.5-14.5)
--- NOTE | 2024-09-20 07:41 | W.PN.HOSP.TC ---
Today's Communication/Plan
-
see a/p
Assessment / Plan
Assessment / Plan
Physical Exam
General: No Apparent Distress
HEENT: Normocephalic
Respiratory: Clear to Auscultation Bilaterally
Cardiac: S1/S2, Regular Rhythm and JVD
GI: Soft and Non Tender. Positive bowel sounds.
Musculoskeletal: No cyanosis
Skin: Warm and Dry
Neuro: AOx3 PERRLA, EOMI, left-sided pronator drift, 4+/5 strength RLE; 4/5 strength LLE, speech normal, slight left-sided facial droop
Psych: Calm
Assessment/Plan
84F paroxysmal afib Eliquis, admission 08/17-08/22/24 for NSTEMI (s/p PCI to LCx), HFpEF, essential HTN, HLD presented to the ER with progressive weakness.
Patient states she has had weakness in her left leg since September 01, 2024 where she has trouble walking and has fallen twice. She had a fall where she hit her head on September 10, [address] For 4 days prior to admission this
hospitalization, she also had left upper extremity weakness, where she had shaking and could not lift things easily. No difficulty speaking or swallowing. She also reported prior history of diarrhea that resolved when she cut out lactose. She now
has constipation but when she has a bowel movement it is black.
Left-Sided Weakness (Left Arm Spasms x 4 days prior to presentation), Left Lower Extremity Weakness and Spasms (for ~2 weeks prior to presentation), concern for acute CVA
-Patient had head CT for fall post onset of weakness, with new left arm weakness and patient is on Eliquis; repeat head CT with no bleed
-Continue to monitor on telemetry
-Neuro checks
-Hold Plavix/Eliquis (for GI Bleed, see below); Aspirin 81mg PO QD started on 09/19/24
-PUMP AND BLOWER OPERATOR Statin
-patient had a bad experience with MRI in past and has metal in left wrist
-Neurology consultation appreciated no need for statin at this time
-PT/OT eval appreciated SNF rehab
-ST eval appreciated
Severe bilateral Carotid Stenosis R>L noted on carotid US
-Vascular eval requested
UGIB
Generalized Weakness
Melena
Acute Blood Loss Anemia
History of H. Pylori
-Maintain 2 large bore peripheral gauge IVs
-Received 1 unit PRBC on 09/18/24
-s/p Protonix 80mg bolus, continue Protonix Drip as per GI
-Diet advanced to Low residue
-See speech evaluation diet for recommendations for when diet is advanced
-hold PUMP AND BLOWER OPERATOR Plavix and Eliquis and started daily Aspirin with recent cardiac hx (see below)
-trend Hg and transfuse to maintain Hgb at least 8 given CAD history
-GI consult appreciated PPI gtt x72 hours then PO BID, deferring EGD for now
-Patient had Eliquis on the morning of 09/19/24
Coronary Artery Disease s/p PCI to LCx 08/17/24
-hold Plavix, Eliquis in setting of bleed
-Continue new asa 81mg PO QD
-Cardiology consult appreciated
Non-ischemic Troponin Elevation
-no chest pain, in setting of anemia/bleed
-trended to peak 0.084 since trended down
Heart Failure Preserved EF
Moderate MR
Moderate TR
-most recent TTE 08/17/24; EF 54%
-CXR (given reports of SOB): trace bilateral pleural effusions with minimal bibasilar atelectasis
-cont PO Lasix Metoprolol
paroxysmal Atrial Fibrillation
-PUMP AND BLOWER OPERATOR Amiodarone
-hold PUMP AND BLOWER OPERATOR Eliquis as above
-Cardiology consult
Suspect CKD III vs mild ZAHIRA
-monitor renal function
Hypokalemia
monitor and replete as necessary
Essential HTN
HLD
-PUMP AND BLOWER OPERATOR Statin
DVT PPx SCD
Full Code
discussed with patient and patient's daughter Fatou
I spent a total of 45 minutes with the patient or on the floor. More than 50% of this time involved counseling and coordination of care.
Anticipated Discharge: 24 - 48 hours
Subjective/Interval History
-
Date of Service: September 20, 2024
No acute distress, appears comfortable at this time. Reports weakness improved.
Objective Data
-
Labs:
Laboratory Results
09/20/24
06:54
WBC 9.7
Hgb 8.8 L
Hct 26.7 L
Plt Count 215
Sodium Pending
Potassium Pending
Chloride Pending
Carbon Dioxide Pending
BUN Pending
Creatinine Pending
Glucose Pending
Calcium Pending
Total Bilirubin Pending
AST Pending
ALT Pending
Alkaline Phosphatase Pending
Vital Signs:
Vital Signs
Temp Pulse Resp BP Pulse Ox
97.8 F 68 16 152/66 95
09/20/24 03:22 09/20/24 03:22 09/20/24 03:22 09/20/24 03:22 09/20/24 03:22
I&O
09/19/24 09/20/24 09/21/24
06:59 06:59 06:59
Intake Total 250 / 250 1080 / 1080
Balance 250 / 250 1080 / 1080
[2024-09-20 07:53] VITALS: BP 148/69; BP 152/62; BP 167/62; PULSE 68; PULSE 76
[2024-09-20 08:00] VITALS: BMI 24.0
[2024-09-20 08:11] LABS: ALT (SGPT) 31 U/L (0-35); AST (SGOT) 49 U/L (14-36); Albumin 3.6 g/dl (3.5-5.0); Alkaline Phosphatase 81 U/L (38-126); Blood Urea Nitrogen 31 mg/dl (7-17); Calcium 9.1 mg/dl (8.4-10.2); Carbon Dioxide 28 mmol/L (22-30); Chloride 102 mmol/L (98-107); Estimated Creatinine Clearance 31 ml/min; Glucose 95 mg/dl (70-99); Magnesium 2.3 mg/dl (1.6-2.3); Potassium 3.6 mmol/L (3.5-5.1); Sodium 137 mmol/L (135-145); Total Protein 6.2 g/dl (6.3-8.2); eGFR 49.86
[2024-09-20] MEDS: LOPRESSOR 12.5 MG PO ×2 (08:21→20:52)
[2024-09-20] MEDS: OCUVITE SOFTGEL PO (08:21)
[2024-09-20] MEDS: LOW STRENGTH ASPIRIN 81 MG PO (08:21)
[2024-09-20] MEDS: PACERONE 200 MG PO (08:21)
[2024-09-20 08:51] LABS: Troponin I 0.083 ng/ml
--- NOTE | 2024-09-20 10:52 | W.PN.GI.CBS2 ---
Today's Communication / Plan
-
Patient given tray of food accidentally. No evidence of active GI bleeding. Okay to advance diet from a GI perspective. PPI gtt x72 hours then PO BID, deferring EGD for now
Assessment / Plan
-
84 y.o. female with pmhx fib on eliquis, HFpEF, HTN, HLD, CAD s/p recent PCI to Lcx on 08/17/24 on plavix admitted with left-sided weakness and dark stools, found to be anemic with heme positive stool, now with concern for acute CVA vs. Brain tumor.
After extensive discussion, patient does not want to proceed with MRI. Working diagnosis is CVA, however, if no improvement following 4 weeks of rehab, likely brain tumor per neurology. .
Hgb 10.9 --> 7.3, received 1 unit PRBC with improvement to 8.1 --> 8.3 --> 8.8
BUN 48 -->34 --> 31
She certainly had a drop in her hemoglobin following initiation of plavix and eliquis and with melena, likely UGI source of bleeding vs. small bowel vs. right-sided colon. Given her blood thinners, recent cardiac stenting and concern for acute CVA,
she is a high risk procedure, which I explained to her. She is on a PPI gtt. Plavix and eliquis both on hold.
Plan
-2 large bore peripheral gauge IVs
-Trend H&H, transfuse for Hgb <8 in setting of cardiac disease
-hemoglobin stable following initial blood transfusion on admission
-check iron panel
-okay to hold eliquis and plavix per cardiology, continuing with 81 mg ASA only; may consider ultimately d/cing on eliquis and ASA only
-continue PPI gtt for now, holding off on EGD, which patient prefers, due to her being high risk and seems bleeding has subsided
,-continue with supportive care
-She had been on clear liquids however, by accident, given a tray of food this morning and ate. Given no active bleeding and overall goals of care following neurology discussion with patient, okay for diet from GI perspective
-bowel regimen
-Prior H. pylori positive, no testing for eradication. Defer ordering test in setting of active bleeding, can lead to false negative results. Defer to outpatient once bleeding has resolved.
Subjective
Subjective
Date of Service: September 20, 2024
Patient evaluated by neurology. Declined MRI. She likely has a brain tumor vs. CVA. She continues on the PPI gtt, hemoglobin is stable at 8.8. She does complain of constipation.
Objective
Data Reviewed
Laboratory Data:
Laboratory Results
09/20/24 06:54
09/20/24 06:54
Laboratory Results
Magnesium 2.3 mg/dl (1.6-2.3) 09/20/24 06:54
Total Bilirubin 1.0 mg/dl (0.2-1.3) 09/20/24 06:54
AST 49 U/L (14-36) H 09/20/24 06:54
ALT 31 U/L (0-35) 09/20/24 06:54
Alkaline Phosphatase 81 U/L (38-126) 09/20/24 06:54
Vital Signs and I&O:
Vital Signs
Temp Pulse Resp BP Pulse Ox
97.9 F 68 16 167/62 99
09/20/24 07:53 09/20/24 07:53 09/20/24 07:53 09/20/24 07:53 09/20/24 08:00
I&O
09/19/24 09/20/24 09/21/24
06:59 06:59 06:59
Intake Total 250 / 250 1080 / 1080
Balance 250 / 250 1080 / 1080
Physical Exam
Physical Exam
HEENT: Anicteric and Moist mucous membranes
GI: Soft, Non Distended and Non Tender
[2024-09-20] MEDS: MIRALAX PO (11:14)
--- NOTE | 2024-09-20 13:02 | W.PN.NEURO.1 ---
Today's Communication / Plan
-
Patient is not interested in diagnostic evaluation by MRI and there is no such testing as MRI while seated
Patient is unwilling to utilize anticoagulant at this time
Would discontinue rosuvastatin as the patient's cholesterol is exceptionally low
Neuro Assessment/Plan
Assessment
left sided weakness, worsening x2 weeks. the spasms when she walks is part of the weakness
Most likely stroke
Plan
Patient is not interested in diagnostic evaluation by MRI and there is no such testing as MRI while seated
Patient is unwilling to utilize anticoagulant at this time
Would discontinue rosuvastatin as the patient's cholesterol is exceptionally low
Will follow as needed
Subjective/Objective
Subjective Data
Date of Service: September 20, 2024
Objective Data
Vital Signs
Temp Pulse Resp BP Pulse Ox
36.6 C 68 16 167/62 99
09/20/24 07:53 09/20/24 07:53 09/20/24 07:53 09/20/24 07:53 09/20/24 08:00
Lab Results
09/20/24 06:54
09/20/24 06:54
Sodium 137 mmol/L (135-145) 09/20/24 06:54
Potassium 3.6 mmol/L (3.5-5.1) 09/20/24 06:54
BUN 31 mg/dl (7-17) H 09/20/24 06:54
Glucose 95 mg/dl (70-99) 09/20/24 06:54
Calcium 9.1 mg/dl (8.4-10.2) 09/20/24 06:54
Piv-A-Kjekuudcuaj Pept 14287 pg/ml 09/18/24 16:17
LDL Cholesterol, Calc 28 mg/dl 09/19/24 06:53
Patient Allergies
erythromycin base (Erythromycin Base) Allergy (Verified 09/10/24 17:00)
Rash, hives
lisinopril (From Zestril) Allergy (Verified 09/10/24 17:00)
BAD COUGH
tetracycline (Tetracycline) Allergy (Verified 09/10/24 17:00)
Hives
Data Reviewed
-
CT Head: Report Reviewed
Labs: Report Reviewed
Reviewed with: Physician
Old Records: Summarized
Past History
Past History
ED Past Medical History: Arrthythmia (Atrial fib), Asthma, GERD, HTN, Valvular disease (MVP) and Other (superficial thrombophlebitis LE, Diverticulosis, )
ED Past Surgical History: Cholecystectomy, Orthopedic (Left shoulder surgery, Knee surgery, Left wrist surgery, ) and Other (Vein stripping, )
Social History
Tobacco: Non-smoker
Alcohol: None
Drug: None
Personal:
Living: alone
Employment: Retired
Family History
Family History: Other (Noncontributory)
Medications
-
Medications:
Generic Name Dose Route Start Last Admin
Trade Name Freq PRN Reason Stop Dose Admin
Acetaminophen 650 mg 09/18/24 22:10
Acetaminophen 650 Mg Rectal Suppository RECTAL 10/16/24 22:09
Q4HPRN PRN
OLIVO, mild pain, or temp >100.4F
Acetaminophen 650 mg 09/18/24 22:10
Acetaminophen 325 Mg Tablet PO 10/16/24 22:09
Q4HPRN PRN
OLIVO, mild pain, or temp >100.4F
Amiodarone HCl 200 mg 09/19/24 08:00 09/20/24 08:21
Amiodarone 200 Mg Tablet PO 10/17/24 07:59 200 mg
DAILY ANURADHA Administration
Aspirin 81 mg 09/19/24 08:00 09/20/24 08:21
Aspirin 81 Mg Chewable Tablet PO 10/17/24 07:59 81 mg
DAILY ANURADHA Administration
Pantoprazole Sodium 80 mg in 100 mls @ 10 mls/hr 09/18/24 22:10 09/20/24 03:36
Protonix IV 100 mls
Q10H ANURADHA Administration
8 MG/HR
Metoprolol Tartrate 12.5 mg 09/18/24 22:14 09/20/24 08:21
Metoprolol 12.5 Mg Regular Release Dose (1/2 Of 25 Mg Tablet) PO 10/16/24 22:13 12.5 mg
BID ANURADHA Administration
Nitroglycerin 0.4 mg 09/19/24 17:55 09/19/24 18:10
Nitroglycerin 0.4 Mg Sl Tablet SL 10/17/24 17:54 0.4 mg
[id number] PRN Administration
ANGINA
Polyethylene Glycol 17 grams 09/20/24 11:00 09/20/24 11:14
Polyethylene Glycol Powder 17 Grams Packet PO 10/18/24 10:59 Not Given
DAILY ANURADHA
Rosuvastatin Calcium 20 mg 09/19/24 15:00 09/19/24 14:53
Rosuvastatin (Crestor) 20 Mg Tablet PO 10/17/24 14:59 20 mg
DAILY@1500 ANURADHA Administration
Sennosides 8.6 mg 09/19/24 23:45 09/20/24 08:21
Sennosides (Senokot) 8.6 Mg Tablet PO 10/17/24 23:44 8.6 mg
BID ANURADHA Administration
Sodium Chloride 0 flush 09/18/24 23:00
Sodium Chloride 0.9% (Flush) Syringe IV 10/16/24 22:59
PER PROTOCOL ANURADHA
Vitamin C/Vitamin E 1 cap 09/19/24 08:00 09/20/24 08:21
Vit C/Vit E/Lutein/Min/[place]-3 (Ocuvite) Capsule PO 10/17/24 07:59 Not Given
BID ANURADHA
--- NOTE | 2024-09-20 14:00 | CHAP ---
Fr. Zi Hussein of [facility] in [place] anointed Isa and gave her Holy Communion. Exact time uncertain.
[2024-09-20 14:15] VITALS: BP 140/64; PULSE 73
--- NOTE | 2024-09-20 14:30 | CON.VAS ---
Consultation
Consultation Request
Date/Time Consultation Performed: 09/20/2024 12:30 PM
Performing Provider: Cate
Reason for Consultation: Carotid stenosis
Medical History
-
Chief Complaint: Left-sided weakness
History of Present Illness:
84-year-old female with past medical history significant for paroxysmal A-fib on Eliquis, NSTEMI 08/17/2024 with PCI, CHF, hypertension admitted through the emergency room on 09/18/2024 for progressive left-sided weakness and dark stool. Patient states
she had weakness in her left leg starting September 01, following this she had 2 falls. On 09/16/2024 she noted her left upper extremity began shaking and she could not lift things easily. She denies any difficulty speaking, trouble getting her words
out, loss of vision in 1 eye or the other. She admits to macular degeneration in both eyes but still has some vision in both eyes. Patient denies similar symptoms in the past.
Rectal exam in the ER with heme positive stool. Eliquis and Plavix held at this time. Cardiology and GI following.
Initially when patient was seen by neurology she was leaning towards comfort measures and did not want MRI and to stop nonessential medications. Today patient showed interest in surgery for carotid stenosis. Vascular consult for evaluation.
Patient seen at bedside this afternoon with daughter present.
Carotid ultrasound: there are greater than 70% stenoses of the bilateral internal carotid arteries. Right more severely affected as compared with the left.
Past Medical History
Past Medical History: Arrhythmias (A-fib on Eliquis), CAD, CHF, GERD, HTN, [place] and Other (Varicose veins)
Past Surgical History: Cardiac (PCI 08/17/2024) and Other (Vein stripping, rotator pair, lap robert, left toe surgery, knee surgery)
Social History
Tobacco: Non-Smoker
Alcohol: None
Drug: None
Personal:
Living: Alone
Employment: Retired
Family History
Family History: CAD
Allergies / Home Medications
Allergy/AdvReac Type Severity Reaction Status Date / Time
erythromycin base Allergy Rash, hives Verified 09/10/24 17:00
(Erythromycin Base)
lisinopril (From Zestril) Allergy BAD COUGH Verified 09/10/24 17:00
tetracycline (Tetracycline) Allergy Hives Verified 09/10/24 17:00
�Medication �Instructions �Recorded �Confirmed �Type
metoprolol tartrate 25 mg tablet 12.5 mg (1/2 x 25 mg) PO BID #60 08/22/24 09/18/24 Rx
tabs
nitroglycerin 0.4 mg sublingual 0.4 mg sublingual [id number] PRN 08/22/24 09/18/24 Rx
tablet ANGINA #3 tabs
acetaminophen 160 mg/5 mL oral 480 mg PO DAILYPRN PRN mild pain 09/18/24 09/18/24 History
liquid
amiodarone 200 mg tablet 200 mg PO DAILY Heart 09/18/24 09/18/24 History
Disease/Condition
magnesium hydroxide 400 mg/5 mL 15 ml PO ONCE PRN constipation 09/18/24 09/18/24 History
oral suspension (Milk of Magnesia)
ondansetron 4 mg disintegrating 4 mg PO DAILYPRN PRN 09/18/24 09/18/24 History
tablet nausea/vomiting
rosuvastatin 20 mg tablet 20 mg PO DAILY@1500 High 09/18/24 09/18/24 History
Cholesterol
vit C 250 mg-E 90 mg-zinc 40 1 tab PO BID Supplement 09/18/24 09/18/24 History
mg-copper 1 [id number]-pyxqcm-cqqmhr chew
tablet (PreserVision AREDS-2)
apixaban 2.5 mg tablet (Eliquis) 2.5 mg PO BID Blood Clot 09/19/24 09/18/24 History
Prevention/Tx
clopidogrel 75 mg tablet 75 mg PO DAILY Blood Clot 09/19/24 09/18/24 History
Prevention/Tx
furosemide 40 mg tablet 40 mg PO DAILY Fluid 09/19/24 09/18/24 History
Retention/Swelling
Review of Systems
-
History Source: Patient and Family
All other systems: Negative unless noted
Constitutional: Reports No Symptoms
EENT: Reports No Symptoms
Respiratory: Reports No Symptoms
Cardiac: Reports No Symptoms
Vascular: Denies Leg Pain / Claudication
Abdomen/GI: Reports No Symptoms
: Reports No Symptoms
Musculoskeletal: Reports No Symptoms
Skin: Reports No Symptoms
Neurological: Reports Weakness
Endocrine: Reports No Symptoms
Physical Exam
Vital Signs
Temp Pulse Resp BP Pulse Ox
97.9 F 68 16 167/62 99
09/20/24 07:53 09/20/24 07:53 09/20/24 07:53 09/20/24 07:53 09/20/24 08:00
Lab Results
09/20/24 06:54
09/20/24 06:54
Troponin I 0.083 ng/ml H* 09/20/24 08:00
Kib-Q-Nrjijtlxuec Pept 65423 pg/ml 09/18/24 16:17
Physical Exam
General: No Apparent Distress
HEENT: Normocephalic and Atraumatic
Respiratory: Non Labored Respirations
Cardiac: Negative JVD
GI: Soft
Skin: Warm
Neuro: Awake, Alert, Oriented and Other (slight weakness to the left leg- improving)
Psych: Calm
Assessment / Plan
-
84-year-old female here with left-sided weakness for 2 weeks, now mostly resolved-neurology following
Refusing MRI
Dark stool being followed by GI, endoscopy on hold
Anticoagulation on hold-cards following (planning for Eliquis/aspirin on discharge)-patient states she will not be resuming anticoagulation
States she has a dye allergy from 'long time ago'
Patient seemed eager for surgery this morning although was considering comfort care last evening
I return to talk about CTA head and neck and daughter prefers patient to sleep on that decision tonight.
Discussed with neurology, GI, and hospitalist
Plan:
Patient and daughter want to sleep on decision regarding CTA head and neck (will check in tomorrow morning)
If patient decides to have CTA, will require prophylactic bicarb drip (1 bag max) and IV dye prep
Discussed with Attending
Data Reviewed
-
Ultrasound: Discussed with Patient
Labs: Labs Reviewed by me
[2024-09-20 14:45] LABS: Troponin I 0.075 ng/ml
[2024-09-20 15:05] VITALS: BP 135/56
--- NOTE | 2024-09-20 15:27 | CM ---
Patient with Dx concern for acute CVA, HF. Plan possible CTA head and neck. Room air. Receiving IV Protonix. PT/OT recommend skilled rehab.
Met with patient and daughter Fatou;
the patient resides alone in a 2 story house with 2 LEONARDA and chairlift to 2nd floor bedroom.
Fatou has been staying with her 3 weeks of the month.
Daughter is considering having patient move to her home in [place] after patient completes rehab.
The patient has been independent in ADLs and ambulation using her rollator.
For the past 4-5 days her leg was shakey and she was staying upstairs and also using a commode, w/c at times.
The patient fell twice in the past 2 weeks.
DME - rollator, commode, w/c, chair lift
Current with [facility] for SN/PT/OT
No prior SNF
PCP - Solitario Sharma
Pharmacy - [facility] Michael Chung, [place]
Discussed short term SNF for rehab; patient and daughter agree to a referral to [facility].
Message with Dr Gaxiola; possibly ready for d/c Wed 08/23; estimate Wed unless patient opts for aggressive tx Carotid Stenosis.
Spoke with Emily Licona; she will review the referral.
Plan follow up with [facility] for acceptance.
--- NOTE | 2024-09-20 15:50 | W.PN.CARDCBS ---
Addendum entered and electronically signed by Neno Esparza MD 09/20/24 16:14:
I saw and examined the patient.
The FRONT OFFICE MEDICAL ASSISTANT or PA's note was reviewed and I agree with the note.
Comment: General: Well developed, well nourished in NAD.
Neck: Supple, no JVD, HJR, carotids +2 B/L, no bruits bilaterally.
Heart: Non displaced PMI, irregular, no murmurs, No S3, S4, no rubs.
Lungs: Scattered rhonchi
Extremities: No clubbing, cyanosis or edema bilaterally.
Neuro: Grossly nonfocal, awake, alert and oriented x3.
Stable cardiology status for GI procedure without further testing. Eliquis and Plavix on hold. Will need discussed with interventional cardiology whether patient could be maintained on Eliquis and aspirin alone when GI approves restart of blood
thinners. Remains in rate controlled atrial fibrillation. Might consider stopping amiodarone.
Original Note:
Today's Communication / Plan
-
Consider rate control instead of rhythm control strategy at this point
Eliquis and Plavix on hold, but no plans for GI work-up
Cont aspirin
Restart Lasix 40 mg PO daily in AM
LDL was 153 last month, now 28. Neurology recommending stopping Crestor due to exceptionally low cholesterol
Impression / Plan
-
PCP: Dr. Solitario Sharma
Card: Scheduled to see Dr. Yung
Impression:
Admitted with GIB and possible CVA 09/18/24
Severe anemia/GI bleed
Likely CVA
patient unable to complete MRI brain
Paroxysmal Afib
Not on OAC due to patient choice
CAD s/p NSTEMI and 2.75 mm [place] YESICA to Circ 08/17/24
Chronic diastolic HFpEF
Hypertension
Hyperlipidemia
Multiple drug allergies
Hypokalemia
Echo 08/01/2021: EF 60 to 65%, mild septal hypertrophy, mild MR, heavy focal calcification of noncoronary cusp of aortic valve, mild AR, mild TR, PAP 37 mmHg
ECHO 08/17/24: EF 54%, mild concentric LVH, moderate MR, mild AR, moderate TR, PAP 25 to 30 mmHg, trivial pericardial effusion
Left heart catheterization 08/17/2024: LM: Patent. LAD: Patent. Left circumflex: 90 to 95% hazy mid left circumflex stenosis s/p 2.75 x 30 mm Medtronic [place] drug-eluting stent. Mid circumflex 30 to 40% stenosis. RCA: Ostial 60 to 70% stenosis with
mild pressure dampening upon selective engagement
Plan:
-Patient admitted with GIB and stroke symptoms. Cardiology was consulted due to recent admission for CAD with PCI and also for known history of A-fib.
-Patient was given 1 unit PRBCs on 09/18/2024 and Hgb improved from 7.3-8.8 on my review of labs on 09/20/2024. GI progress note reviewed by me and they are requesting that both Eliquis and Plavix be held, but there are no plans for upper endoscopy,
apparently patient preferred no GI procedures.
-New to aspirin 81 mg daily that was started and lieu of Plavix and Eliquis, but eventually look to restart Eliquis +/- Plavix vs aspirin given YESICA to the circumflex on 08/17/2024 in the setting of NSTEMI
-Peak troponin last admission was 63.4 on 08/17/2024 and troponin continues to trend down into this admission all labs reviewed by me 09/20/2024.
-LDL was 28 this admission and neurology recommends stopping outpatient dose of Crestor 20 mg daily due to 'exceptionally low cholesterol'. Interestingly LDL was 153 on 08/17/2024 when patient was admitted with NSTEMI.
-Outpatient dose of Lopressor 12.5 mg BID has been continued
-EF was 54% by echo on 08/17/2024.
-Patient with known chronic HFpEF and takes Lasix 40 mg daily. Lasix has been on hold since admission, perhaps because of Cre 1.2 on admission, the baseline creatinine has been 1.0-1.1 all labs reviewed by me. Will restart Lasix 40 mg daily on
09/21/2024 AM
-Patient with known paroxysmal A-fib. Patient was in SR when she was discharged for her [place] admission on 08/22/2024 and wore a 5-day monitor last month that showed 100% burden of A-fib, but we elected to maintain amiodarone 200 mg daily will be
considered rhythm control options. Patient was in A-fib at the time of this admission on ECG as reviewed by me. Patient is asymptomatic with A-fib. Patient should be considered for rate control only at this point.
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
Subjective
Date of Service: September 20, 2024
Denies palpitations
Objective
Labs:
09/20/24 06:54
09/20/24 06:54
Labs
Hgb 8.8 g/dL (12.0-16.0) L 09/20/24 06:54
Hct 26.7 % (37.0-47.0) L 09/20/24 06:54
Plt Count 215 10^3/uL (130-400) 09/20/24 06:54
Sodium 137 mmol/L (135-145) 09/20/24 06:54
Potassium 3.6 mmol/L (3.5-5.1) 09/20/24 06:54
BUN 31 mg/dl (7-17) H 09/20/24 06:54
Creatinine 1.1 mg/dL (0.6-1.0) H 09/20/24 06:54
Glucose 95 mg/dl (70-99) 09/20/24 06:54
Troponins
09/18/24 09/18/24 09/19/24
16:17 23:13 06:53
Troponin I 0.068 H* 0.064 H* 0.084 H* D
09/19/24 09/20/24 09/20/24
18:06 00:14 06:54
Troponin I 0.072 H* 0.074 H* Cancelled
09/20/24 09/20/24
08:00 14:06
Troponin I 0.083 H* 0.075 H*
Vital Signs and I&O:
Vital Signs
Temp Pulse Resp BP Pulse Ox
97.6 F 69 17 135/56 97
09/20/24 15:05 09/20/24 15:05 09/20/24 15:05 09/20/24 15:05 09/20/24 15:05
Vital Signs
Temp Pulse Resp BP Pulse Ox
97.6 F 69 17 135/56 97
09/20/24 15:05 09/20/24 15:05 09/20/24 15:05 09/20/24 15:05 09/20/24 15:05
Intake & Output
09/18/24 09/19/24 09/20/24 09/21/24
06:59 06:59 06:59 06:59
Intake Total 250 / 250 1080 / 1080
Balance 250 / 250 1080 / 1080
Physical Exam
Physical Exam
GEN: AAOx3
LUNGS: RA
CV: Afib on tele
[2024-09-20] MEDS: OCUVITE SOFTGEL 1 CAP PO (20:53)
--- NOTE | 2024-09-20 22:00 | TRANSFER ---
Pt transferred to room 417-01 d/t confused roommate in 437. Pt is AAOx3, NIH is a 0. Pt oriented to new room, call salazar in reach. Bed alarm on, SCDs on.
--- NOTE | 2024-09-20 23:21 | PTCARENOTE ---
Patient was moved to room 417-1 from 437-1 due to her room mate being very loud. New RN assigned to the patient (Erik). Patient happy to be moved
[2024-09-20 23:23] VITALS: BP 144/61
[2024-09-21] VITALS (8 sets, daily range): BP systolic 121–150; BP diastolic 42–71; PULSE 69; O2SAT 98
[2024-09-21] MEDS: PROTONIX 100 IV ×3 (01:43→22:06)
--- NOTE | 2024-09-21 07:54 | W.PN.VS ---
Today's Communication / Plan
-
patient does not wish for surgical intervention
given that would hold on carotid imaging
Assessment/Plan
-
bilateral high grade carotid stenosis - right likely symptomatic
- discussed with patient and her daughter (on phone)
- they do not want surgical intervention at this time
- only want medical management
- understand risks associated with this decision
- given this, we can hold on CTA as she does not think this will change her decision
- call with questions or if patient changes her mind
Subjective Data
-
Date of Service: September 21, 2024
asked to eval patient for bilat carotid stenosis
reports left side weakness
carotid duplex performed demonstrated high grade bilat stenosis
Objective Data
-
Vital Signs
Temp Pulse Resp BP Pulse Ox
97.2 F 69 22 144/61 99
09/20/24 23:23 09/20/24 23:23 09/20/24 23:23 09/20/24 23:23 09/20/24 23:23
Intake and Output
09/20/24 09/21/24 09/22/24
06:59 06:59 06:59
Intake Total 1080 / 1080 660 / 660
Balance 1080 / 1080 660 / 660
Intake:
Oral fluids 960 / 960 540 / 540
IV fluids (Total) 120 / 120
IV piggybacks 120 / 120
Other:
Number of approximated SMALL 3
amounts of urine
Number of approximated MODERATE 3 2
amounts of urine
Calcium 9.1 mg/dl (8.4-10.2) 09/20/24 06:54
Magnesium 2.3 mg/dl (1.6-2.3) 09/20/24 06:54
Total Bilirubin 1.0 mg/dl (0.2-1.3) 09/20/24 06:54
AST 49 U/L (14-36) H 09/20/24 06:54
ALT 31 U/L (0-35) 09/20/24 06:54
Alkaline Phosphatase 81 U/L (38-126) 09/20/24 06:54
Total Protein 6.2 g/dl (6.3-8.2) L 09/20/24 06:54
Albumin 3.6 g/dl (3.5-5.0) 09/20/24 06:54
Physical Exam
-
rrr
ctab
nt,nd,soft
gross motor intact bilat
[2024-09-21] MEDS: LOPRESSOR 12.5 MG PO ×2 (08:13→19:49)
[2024-09-21] MEDS: LASIX 40 MG PO (08:13)
[2024-09-21] MEDS: SENOKOT 8.6 MG PO ×2 (08:13→19:49)
[2024-09-21] MEDS: LOW STRENGTH ASPIRIN 81 MG PO (08:13)
[2024-09-21] MEDS: OCUVITE SOFTGEL PO ×4 (08:13→20:12)
[2024-09-21] MEDS: PACERONE 200 MG PO (08:13)
[2024-09-21] MEDS: MIRALAX 17 GRAMS PO (08:17)
--- NOTE | 2024-09-21 09:34 | VNURNOTE ---
Chart reviewed. Patient is current with [facility]. Appears that DC plan is SNF. [facility] remains available if plans change.
--- NOTE | 2024-09-21 09:53 | W.PN.HOSP.TC ---
Today's Communication/Plan
-
see a/p
Assessment / Plan
Assessment / Plan
Physical Exam
General: No Apparent Distress
HEENT: Normocephalic
Respiratory: Clear to Auscultation Bilaterally
Cardiac: S1/S2, Regular Rhythm and JVD
GI: Soft and Non Tender. Positive bowel sounds.
Musculoskeletal: No cyanosis
Skin: Warm and Dry
Neuro: AOx3 PERRLA, EOMI, left-sided pronator drift, 4+/5 strength RLE; 4/5 strength LLE, speech normal, slight left-sided facial droop
Psych: Calm
Assessment/Plan
84F paroxysmal afib Eliquis, admission 08/17-08/22/24 for NSTEMI (s/p PCI to LCx), HFpEF, essential HTN, HLD presented to the ER with progressive weakness.
Patient states she has had weakness in her left leg since September 01, 2024 where she has trouble walking and has fallen twice. She had a fall where she hit her head on September 10, [address] For 4 days prior to admission this
hospitalization, she also had left upper extremity weakness, where she had shaking and could not lift things easily. No difficulty speaking or swallowing. She also reported prior history of diarrhea that resolved when she cut out lactose. She now
has constipation but when she has a bowel movement it is black.
Left-Sided Weakness (Left Arm Spasms x 4 days prior to presentation), Left Lower Extremity Weakness and Spasms (for ~2 weeks prior to presentation), concern for acute CVA
-Patient had head CT for fall post onset of weakness, with new left arm weakness and patient is on Eliquis; repeat head CT with no bleed
-Continue to monitor on telemetry
-Neuro checks
-Hold Plavix/Eliquis (for GI Bleed, see below); Aspirin 81mg PO QD started on 09/19/24
-SENIOR MARKETING MANAGER Statin
-patient had a bad experience with MRI in past and has metal in left wrist
-Neurology consultation appreciated no need for statin at this time
-PT/OT eval appreciated SNF rehab
-ST eval appreciated
Severe bilateral Carotid Stenosis R>L noted on carotid US
-Vascular eval appreciated patient and family opting for conservative mgmt at this time
UGIB likely exacerbated by/associated with/due to Plavix/Eliquis use.
Generalized Weakness
Melena
Acute Blood Loss Anemia
History of H. Pylori
-Maintain 2 large bore peripheral gauge IVs
-Received 1 unit PRBC on 09/18/24 2nd PRBC 09/21 for goal of 8 as below
-s/p Protonix 80mg bolus, continue Protonix Drip as per GI
-Diet advanced to Low residue
-See speech evaluation diet for recommendations for when diet is advanced
-hold SENIOR MARKETING MANAGER Plavix and Eliquis and started daily Aspirin with recent cardiac hx (see below)
-trend Hg and transfuse to maintain Hgb at least 8 given CAD history
-GI consult appreciated cont PPI, npo after midnight for EGD 09/22/24
-Patient had Eliquis on the morning of 09/19/24
Constipation
-bowel regimen, enema as per GI
Coronary Artery Disease s/p PCI to LCx 08/17/24
-hold Plavix, Eliquis in setting of bleed
-Continue new asa 81mg PO QD
-Cardiology consult appreciated
Non-ischemic Troponin Elevation
-no chest pain, in setting of anemia/bleed
-trended to peak 0.084 since trended down
Heart Failure Preserved EF
Moderate MR
Moderate TR
-most recent TTE 08/17/24; EF 54%
-CXR (given reports of SOB): trace bilateral pleural effusions with minimal bibasilar atelectasis
-cont PO Lasix Metoprolol
paroxysmal Atrial Fibrillation
-SENIOR MARKETING MANAGER Amiodarone
-hold SENIOR MARKETING MANAGER Eliquis as above
-Cardiology consult
Suspect CKD III vs mild ZAHIRA
-monitor renal function
Hypokalemia
monitor and replete as necessary
Essential HTN
HLD
-SENIOR MARKETING MANAGER Statin
DVT PPx SCD
Full Code
discussed with patient and patient's daughter Fatou
I spent a total of 45 minutes with the patient or on the floor. More than 50% of this time involved counseling and coordination of care.
Anticipated Discharge: 24 - 48 hours
Subjective/Interval History
-
Date of Service: September 21, 2024
No acute distress resting comfortably in bed, denies new acute issues at this time. Overall reports feeling well though generalized weakness persists
Objective Data
-
Labs:
Laboratory Results
09/21/24
06:00
WBC Pending
Hgb Pending
Hct Pending
Plt Count Pending
Sodium Pending
Potassium Pending
Chloride Pending
Carbon Dioxide Pending
BUN Pending
Creatinine Pending
Glucose Pending
Calcium Pending
Total Bilirubin Pending
AST Pending
ALT Pending
Alkaline Phosphatase Pending
Vital Signs:
Vital Signs
Temp Pulse Resp BP Pulse Ox
98.4 F 77 16 147/71 100
09/21/24 07:39 09/21/24 07:39 09/21/24 07:39 09/21/24 07:39 09/21/24 07:39
I&O
09/20/24 09/21/24 09/22/24
06:59 06:59 06:59
Intake Total 1080 / 1080 660 / 660
Balance 1080 / 1080 660 / 660
[2024-09-21 10:35] LABS: Hematocrit 22.4 % (37.0-47.0); Hemoglobin 7.3 g/dL (12.0-16.0); Mean Corp Hgb Conc. 32.6 g/dL (33.0-37.0); Mean Corpuscular Volume 93.3 fL (81.0-99.0); Platelet Count 216 10^3/uL (130-400); Red Cell Dist. Width 20.0 % (11.5-14.5)
--- NOTE | 2024-09-21 10:53 | W.PN.CARDCBS ---
Addendum entered and electronically signed by Neno Esparza MD 09/21/24 11:16:
I saw and examined the patient.
The COSMETIC MAKER or PA's note was reviewed and I agree with the note.
Comment: General: Well developed, well nourished in NAD.
Neck: Supple, no JVD, HJR, carotids +2 B/L, no bruits bilaterally.
Heart: Non displaced PMI, Irregular, no murmurs, No S3, S4, no rubs.
Lungs: Clear to auscultation bilaterally, no wheeze, rhonchi, rubs bilaterally,
normal expiratory phase.
Extremities: No clubbing, cyanosis or edema bilaterally.
Neuro: Grossly nonfocal, awake, alert and oriented x3.
She is refusing procedures at present. Discussed with interventional cardiology and patient could be discharged on Eliquis and aspirin but she might refuse to go back on Eliquis. If she refuses Eliquis would prefer aspirin and Plavix if she would
be agreeable. Restart Crestor with CAD.
Original Note:
Today's Communication / Plan
-
If patient truly refuses to restart Eliquis then we need to start DAPT with Plavix and aspirin. If patient is willing to restart Eliquis then would proceed with Eliquis and aspirin and would discontinue Plavix.
Crestor restarted, LDL was 153 last month and patient with CAD
Impression / Plan
-
PCP: Dr. Solitario Sharma
Card: Scheduled to see Dr. Yung
Impression:
Admitted with GIB and possible CVA 09/18/24
Severe anemia/GI bleed
Likely CVA
patient unable to complete MRI brain
Paroxysmal Afib
Not on OAC due to patient choice
CAD s/p NSTEMI and 2.75 mm [place] YESICA to Circ 08/17/24
Chronic diastolic HFpEF
Hypertension
Hyperlipidemia
Multiple drug allergies
Hypokalemia
B/L high-grade carotid disease, likely symptomatic GABRIELA stenosis
Echo 08/01/2021: EF 60 to 65%, mild septal hypertrophy, mild MR, heavy focal calcification of noncoronary cusp of aortic valve, mild AR, mild TR, PAP 37 mmHg
ECHO 08/17/24: EF 54%, mild concentric LVH, moderate MR, mild AR, moderate TR, PAP 25 to 30 mmHg, trivial pericardial effusion
Left heart catheterization 08/17/2024: LM: Patent. LAD: Patent. Left circumflex: 90 to 95% hazy mid left circumflex stenosis s/p 2.75 x 30 mm Medtronic [place] drug-eluting stent. Mid circumflex 30 to 40% stenosis. RCA: Ostial 60 to 70% stenosis with
mild pressure dampening upon selective engagement
Plan:
-Patient admitted with GIB and stroke symptoms. Cardiology was consulted due to recent admission for CAD with PCI and also for known history of A-fib.
-Neurology and vascular surgery notes reviewed, patient is not interested in MRI, no longer wants to take OAC and not interested in carotid procedures.
-Patient was given 1 unit PRBCs on 09/18/2024. Hgb on admission was 7.3 and then improved to 8.8 on 09/20/2024, but back down to 7.3 again on 09/21/2024. GI progress note reviewed by me and they are requesting that both Eliquis and Plavix be held, but
there are no plans for upper endoscopy, apparently patient preferred no GI procedures.
-Daily CBC ordered
-New to aspirin 81 mg daily that was started and lieu of Plavix and Eliquis, but eventually look to restart Eliquis and aspirin given YESICA to the circumflex on 08/17/2024 in the setting of NSTEMI. If patient truly refuses to restart Eliquis then would
recommend Plavix and aspirin for DAPT following PCI.
-Peak troponin last admission was 63.4 on 08/17/2024 and troponin continues to trend down into this admission all labs reviewed by me 09/20/2024.
-LDL was 28 this admission and neurology recommends stopping outpatient dose of Crestor 20 mg daily due to 'exceptionally low cholesterol', but due to recent NSTEMI and LDL of 153 at that time we would like to continue Crestor 20 mg daily, order
placed by me.
-Outpatient dose of Lopressor 12.5 mg BID has been continued
-EF was 54% by echo on 08/17/2024.
-Patient with known chronic HFpEF and takes Lasix 40 mg daily, but dose held on admission due to ZAHIRA. Cre stable at 1.1 on labs reviewed by me 09/21/24 and so Lasix 40 mg PO daily restarted by me.
-Patient with known paroxysmal A-fib. Patient was in SR when she was discharged for her [place] admission on 08/22/2024 then wore a 5-day monitor last month that showed 100% burden of A-fib, but we elected to maintain amiodarone 200 mg daily for possible
eventual rhythm control, but patient no longer wishes to be on OAC Eliquis so will stop amiodarone and abandon rhythm control efforts for now. Patient is asymptomatic with A-fib. Patient should be considered for rate control only at this point.
Progress Note - Asset Protection Specialist
Subjective
Date of Service: September 21, 2024
No chest pain
Objective
Labs:
09/21/24 10:17
Labs
Hgb 7.3 g/dL (12.0-16.0) L 09/21/24 10:17
Hct 22.4 % (37.0-47.0) L 09/21/24 10:17
Plt Count 216 10^3/uL (130-400) 09/21/24 10:17
Sodium 137 mmol/L (135-145) 09/20/24 06:54
Potassium 3.6 mmol/L (3.5-5.1) 09/20/24 06:54
BUN 31 mg/dl (7-17) H 09/20/24 06:54
Creatinine 1.1 mg/dL (0.6-1.0) H 09/20/24 06:54
Glucose 95 mg/dl (70-99) 09/20/24 06:54
Troponins
09/18/24 09/18/24 09/19/24
16:17 23:13 06:53
Troponin I 0.068 H* 0.064 H* 0.084 H* D
09/19/24 09/20/24 09/20/24
18:06 00:14 06:54
Troponin I 0.072 H* 0.074 H* Cancelled
09/20/24 09/20/24
08:00 14:06
Troponin I 0.083 H* 0.075 H*
Vital Signs and I&O:
Vital Signs
Temp Pulse Resp BP Pulse Ox
98.4 F 77 16 147/71 100
09/21/24 07:39 09/21/24 07:39 09/21/24 07:39 09/21/24 07:39 09/21/24 08:00
Vital Signs
Temp Pulse Resp BP Pulse Ox
98.4 F 77 16 147/71 100
09/21/24 07:39 09/21/24 07:39 09/21/24 07:39 09/21/24 07:39 09/21/24 08:00
Intake & Output
09/19/24 09/20/24 09/21/24 09/22/24
06:59 06:59 06:59 06:59
Intake Total 250 / 250 1080 / 1080 660 / 660
Balance 250 / 250 1080 / 1080 660 / 660
Physical Exam
Physical Exam
GEN: AAOx3
LUNGS: RA
CV: Afib on tele
[2024-09-21 10:59] LABS: ALT (SGPT) 26 U/L (0-35); AST (SGOT) 38 U/L (14-36); Albumin 3.0 g/dl (3.5-5.0); Alkaline Phosphatase 61 U/L (38-126); Blood Urea Nitrogen 35 mg/dl (7-17); Calcium 8.3 mg/dl (8.4-10.2); Carbon Dioxide 24 mmol/L (22-30); Chloride 101 mmol/L (98-107); Estimated Creatinine Clearance 31 ml/min; Glucose 142 mg/dl (70-99); Potassium 3.3 mmol/L (3.5-5.1); Sodium 134 mmol/L (135-145); Total Protein 5.3 g/dl (6.3-8.2); eGFR 49.86
--- NOTE | 2024-09-21 13:34 | PN.CDI ---
CDI
- -
CDI:
Physician Documentation Request
Admit Date: 09/18/24 19:40
Dear Doctor Khalida,
Please review the following and provide your response in the progress notes.
Clinical Indicators:
PN, 09/20
#UGIB
#Generalized Weakness
#Melena
#Acute Blood Loss Anemia
#...-hold ELECTRICAL INSTRUMENTATION TECHNICIAN Plavix and Eliquis and started daily Aspirin with recent cardiac hx (see below)
#...-Patient had Eliquis on the morning of 09/19/24
Please clarify the relationship, if any, between these conditions:
Yes, UGIB is exacerbated by/associated with/due to Plavix/Eliquis.
No, UGIB is not exacerbated by/associated with/due to Plavix/Eliquis but it is due to ___. (Please specify)
Other(please specify)
Use of terms such as suspected, likely, concern for, or probable (associated with a specific diagnosis that is being evaluated, monitored, or treated as if it exists) are acceptable and can be coded in the inpatient setting, when documented at the
time of discharge.
Thank you,
Vivi Le RN BSN CCDS
CDI Specialist
Please contact via tiger text
Please use your independent medical judgment in providing your response.
[2024-09-21] MEDS: KCL ELIXIR 40 MEQ PO (13:49)
[2024-09-21 14:56] LABS: Hematocrit 23.7 % (37.0-47.0); Hemoglobin 7.5 g/dL (12.0-16.0)
--- NOTE | 2024-09-21 15:05 | W.PN.GI.CBS2 ---
Today's Communication / Plan
-
NPO for EGD tomorrow; increase bowel regimen
Assessment / Plan
-
84 y.o. female with pmhx fib on eliquis, HFpEF, HTN, HLD, CAD s/p recent PCI to Lcx on 08/17/24 on plavix admitted with left-sided weakness and dark stools, found to be anemic with heme positive stool, now with concern for acute CVA vs. Brain tumor.
After extensive discussion, patient does not want to proceed with MRI. Working diagnosis is CVA, however, if no improvement following 4 weeks of rehab, likely brain tumor per neurology. .
Hgb 10.9 --> 7.3, received 1 unit PRBC with improvement to 8.1 --> 8.3 --> 8.8--> 7.3 --> 7.5
BUN 48 -->34 --> 31--> 35
She certainly had a drop in her hemoglobin following initiation of plavix and eliquis and with melena, likely UGI source of bleeding vs. small bowel vs. right-sided colon. Given her blood thinners, recent cardiac stenting and concern for acute CVA,
she is a high risk procedure, which I explained to her. She is on a PPI gtt. Plavix and eliquis both on hold. Initially, patient wanted to defer EGD, she has declined ongoing vascular intervention of her carotid artery stenosis as well. She does not
want an MRI for further workup of her weakness- CVA vs. Brain tumor. However, with new decrease in hemoglobin this morning, patient now agreeable to EGD. Discussed at bedside with both patient and daughter who understand the risks of the procedure.
Plan
-2 large bore peripheral gauge IVs
-Trend H&H, transfuse for Hgb <8 in setting of cardiac disease
-Recommend transfuse with 1 unit PRBC
-NPO PMN for EGD tomorrow--
-last dose of plavix/elqiuis on 09/18?
-Prior H. pylori positive, no testing for eradication, can take biopsies at time of EGD, however, could potentially yield a false negative in setting of bleeding
-add miralax + senokot, give enema now
Subjective
Subjective
Date of Service: September 21, 2024
Patient seen in follow-up, hemoglobin down to 7.3 today no bowel movement. Repeat was 7.5. BUN increased from 31-->35. She has been taking the Senokot but only having small amounts of stool, feels that stool stuck in her rectum and unable to
fully evacuate, requesting additional laxative.
Objective
Data Reviewed
Laboratory Data:
Laboratory Results
09/21/24 14:27
09/21/24 10:17
Laboratory Results
Magnesium 2.3 mg/dl (1.6-2.3) 09/20/24 06:54
Total Bilirubin 0.6 mg/dl (0.2-1.3) 09/21/24 10:17
AST 38 U/L (14-36) H 09/21/24 10:17
ALT 26 U/L (0-35) 09/21/24 10:17
Alkaline Phosphatase 61 U/L (38-126) 09/21/24 10:17
Vital Signs and I&O:
Vital Signs
Temp Pulse Resp BP Pulse Ox
98.4 F 77 16 147/71 100
09/21/24 07:39 09/21/24 07:39 09/21/24 07:39 09/21/24 07:39 09/21/24 08:00
I&O
09/20/24 09/21/24 09/22/24
06:59 06:59 06:59
Intake Total 1080 / 1080 660 / 660
Balance 1080 / 1080 660 / 660
Physical Exam
Physical Exam
HEENT: Anicteric and Moist mucous membranes
GI: Soft, Non Distended and Non Tender
[2024-09-21] MEDS: CRESTOR 20 MG PO (17:43)
[2024-09-22] VITALS (7 sets, daily range): BP systolic 125–157; BP diastolic 53–70
[2024-09-22] MEDS: PROTONIX 100 IV (07:17)
[2024-09-22 08:09] LABS: Hematocrit 26.7 % (37.0-47.0); Hemoglobin 8.7 g/dL (12.0-16.0); Mean Corp Hgb Conc. 32.6 g/dL (33.0-37.0); Mean Corpuscular Volume 93.4 fL (81.0-99.0); Platelet Count 219 10^3/uL (130-400); Red Cell Dist. Width 18.9 % (11.5-14.5)
[2024-09-22 08:40] LABS: ALT (SGPT) 26 U/L (0-35); AST (SGOT) 37 U/L (14-36); Albumin 2.9 g/dl (3.5-5.0); Alkaline Phosphatase 68 U/L (38-126); Blood Urea Nitrogen 31 mg/dl (7-17); Calcium 8.2 mg/dl (8.4-10.2); Carbon Dioxide 27 mmol/L (22-30); Chloride 103 mmol/L (98-107); Estimated Creatinine Clearance 34 ml/min; Glucose 90 mg/dl (70-99); Magnesium 2.0 mg/dl (1.6-2.3); Potassium 3.4 mmol/L (3.5-5.1); Sodium 136 mmol/L (135-145); Total Protein 5.3 g/dl (6.3-8.2); eGFR 55.90
--- NOTE | 2024-09-22 08:57 | W.PN.HOSP.TC ---
Today's Communication/Plan
-
see a/p
Assessment / Plan
Assessment / Plan
Physical Exam
General: No Apparent Distress appears comfortable at this time
HEENT: Normocephalic PERRLA EOMI
Respiratory: Clear to Auscultation Bilaterally
Cardiac: S1/S2, Regular Rhythm and JVD
GI: Soft and Non Tender. Positive bowel sounds.
Musculoskeletal: No cyanosis
Skin: Warm and Dry
Neuro: AOx3 conversant coherent, no facial droop
Psych: Calm
Assessment/Plan
84F paroxysmal afib Eliquis, admission 08/17-08/22/24 for NSTEMI (s/p PCI to LCx), HFpEF, essential HTN, HLD presented to the ER with progressive weakness.
Patient states she has had weakness in her left leg since September 01, 2024 where she has trouble walking and has fallen twice. She had a fall where she hit her head on September 10, [address] For 4 days prior to admission this
hospitalization, she also had left upper extremity weakness, where she had shaking and could not lift things easily. No difficulty speaking or swallowing. She also reported prior history of diarrhea that resolved when she cut out lactose. She now
has constipation but when she has a bowel movement it is black.
Left-Sided Weakness (Left Arm Spasms x 4 days prior to presentation), Left Lower Extremity Weakness and Spasms (for ~2 weeks prior to presentation), concern for acute CVA
-Patient had head CT for fall post onset of weakness, with new left arm weakness and patient is on Eliquis; repeat head CT with no bleed
-Continue to monitor on telemetry
-Neuro checks
-Hold Plavix/Eliquis (for GI Bleed, see below); Aspirin 81mg PO QD started on 09/19/24
-REHAB THERAPY MANAGER Statin
-patient had a bad experience with MRI in past and has metal in left wrist
-Neurology consultation appreciated no need for statin at this time
-PT/OT eval appreciated SNF rehab
-ST eval appreciated
Severe bilateral Carotid Stenosis R>L noted on carotid US
-Vascular eval appreciated patient and family opting for conservative mgmt at this time
UGIB likely exacerbated by/associated with/due to Plavix/Eliquis use.
Generalized Weakness
Melena
Acute Blood Loss Anemia
History of H. Pylori
-Maintain 2 large bore peripheral gauge IVs
-Received 1 unit PRBC on 09/18/24 2nd PRBC 09/21 for goal of 8 as below
-protonix gtt completed, transitioned to PO daily
-See speech evaluation diet for recommendations for when diet is advanced
-hold REHAB THERAPY MANAGER Plavix and Eliquis and started daily Aspirin with recent cardiac hx (see below)
-trend Hg and transfuse to maintain Hgb at least 8 given CAD history
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
Constipation
-bowel regimen, enema as per GI
Coronary Artery Disease s/p PCI to LCx 08/17/24
-holding Plavix, Eliquis in setting of bleed
-Continue new asa 81mg PO QD
-Cardiology consult appreciated
Non-ischemic Troponin Elevation
-no chest pain, in setting of anemia/bleed
-trended to peak 0.084 since trended down
Heart Failure Preserved EF
Moderate MR
Moderate TR
-most recent TTE 08/17/24; EF 54%
-CXR (given reports of SOB): trace bilateral pleural effusions with minimal bibasilar atelectasis
-cont PO Lasix Metoprolol
paroxysmal Atrial Fibrillation
-REHAB THERAPY MANAGER Amiodarone
-hold REHAB THERAPY MANAGER Eliquis as above
-Cardiology consult
Suspect CKD III vs mild ZAHIRA
-monitor renal function
Hypokalemia
monitor and replete as necessary
Essential HTN
HLD
-REHAB THERAPY MANAGER Statin
DVT PPx SCD
Full Code
discussed with patient and patient's daughter Fatou
I spent a total of 45 minutes with the patient or on the floor. More than 50% of this time involved counseling and coordination of care.
Anticipated Discharge: 24 - 48 hours
Subjective/Interval History
-
Date of Service: September 22, 2024
No acute distress, reports overall feeling well, denies new acute issues at this time.
Objective Data
-
Labs:
Laboratory Results
09/22/24
06:39
WBC 12.1 H
Hgb 8.7 L
Hct 26.7 L
Plt Count 219
Sodium 136
Potassium 3.4 L
Chloride 103
Carbon Dioxide 27
BUN 31 H
Creatinine 1.0
Glucose 90
Calcium 8.2 L
Total Bilirubin 0.8
AST 37 H
ALT 26
Alkaline Phosphatase 68
Vital Signs:
Vital Signs
Temp Pulse Resp BP Pulse Ox
97.6 F 70 18 140/55 98
09/21/24 23:08 09/21/24 23:08 09/21/24 23:08 09/21/24 23:08 09/21/24 23:08
I&O
09/21/24 09/22/24 09/23/24
06:59 06:59 06:59
Intake Total 660 / 660 950 / 950
Balance 660 / 660 950 / 950
[2024-09-22] MEDS: LOPRESSOR 12.5 MG PO ×2 (09:06→20:32)
[2024-09-22] MEDS: LASIX 40 MG PO (09:07)
[2024-09-22] MEDS: PACERONE 200 MG PO (09:07)
[2024-09-22] MEDS: SENOKOT 8.6 MG PO ×2 (09:07→20:32)
[2024-09-22] MEDS: LOW STRENGTH ASPIRIN 81 MG PO (09:07)
[2024-09-22] MEDS: MIRALAX 17 GRAMS PO (09:08)
[2024-09-22] MEDS: OCUVITE SOFTGEL PO ×3 (09:08→20:45)
[2024-09-22] MEDS: LR 1000 IV (09:27)
--- NOTE | 2024-09-22 11:42 | PTOTSP ---
EGG PROCESSOR Evaluation
Patient presents with mild changes to her expressive (i.e., word finding with confrontational naming and fluency of speech in conversation) and receptive language (i.e., complex auditory comprehension). Quick Aphasia Battery Form 1 QAB overall =
8.86 (mild).
Recommend:
1. EGG PROCESSOR f/u at the acute care level and at next level of care for language tx and further cognitive linguistci assessment as appropriate.
--- NOTE | 2024-09-22 12:21 | W.PN.CARDCBS ---
Addendum entered and electronically signed by Neno Esparza MD 09/22/24 12:50:
I saw and examined the patient.
The CATH LAB RADIOLOGICAL TECHNOLOGIST or PA's note was reviewed and I agree with the note.
Comment: General: Well developed, well nourished in NAD.
Neck: Supple, no JVD, HJR, carotids +2 B/L, no bruits bilaterally.
Heart: Non displaced PMI, irregular, no murmurs, No S3, S4, no rubs.
Lungs: Scattered rhonchi
Extremities: No clubbing, cyanosis or edema bilaterally.
Neuro: Grossly nonfocal, awake, alert and oriented x3.
She is for EGD today. Resume Eliquis when okay with GI. Will discontinue Plavix after discussion with interventional cardiology. Will treat with Eliquis and aspirin alone if okay with GI. Will discontinue amiodarone as she appears to be in
permanent A-fib and asymptomatic. Rate is controlled.
Original Note:
Today's Communication / Plan
-
Eventually resume Eliquis 2.5 mg BID and instead of resuming Plavix would resume aspirin instead given GIB. If patient refuses to restart Eliquis then would recommend Plavix and aspirin for DAPT following PCI.
Impression / Plan
-
PCP: Dr. Solitario Sharma
Card: Scheduled to see Dr. Yung
Impression:
Admitted with GIB and possible CVA 09/18/24
Severe anemia/GI bleed
Likely CVA
patient unable to complete MRI brain
Paroxysmal Afib
Not on OAC due to patient choice
CAD s/p NSTEMI and 2.75 mm Rafiq YESICA to Circ 08/17/24
Chronic diastolic HFpEF
Hypertension
Hyperlipidemia
Multiple drug allergies
Hypokalemia
B/L high-grade carotid disease, likely symptomatic GABRIELA stenosis
Echo 08/01/2021: EF 60 to 65%, mild septal hypertrophy, mild MR, heavy focal calcification of noncoronary cusp of aortic valve, mild AR, mild TR, PAP 37 mmHg
ECHO 08/17/24: EF 54%, mild concentric LVH, moderate MR, mild AR, moderate TR, PAP 25 to 30 mmHg, trivial pericardial effusion
Left heart catheterization 08/17/2024: LM: Patent. LAD: Patent. Left circumflex: 90 to 95% hazy mid left circumflex stenosis s/p 2.75 x 30 mm Medtronic [place] drug-eluting stent. Mid circumflex 30 to 40% stenosis. RCA: Ostial 60 to 70% stenosis with
mild pressure dampening upon selective engagement
Plan:
-Patient admitted with GIB and stroke symptoms. Cardiology was consulted due to recent admission for CAD with PCI and also for known history of A-fib.
-Patient's symptoms and h/o Afib concerning for CVA, but patient declined MRI.
-Patient was in SR when she was discharged for her [place] admission on 08/22/2024 then wore a 5-day monitor last month that showed 100% burden of A-fib. Patient has been in Afib throughout this admission. Outpatient dose of amiodarone was stopped and plan
is for rate control.
-Patient was taking Eliquis 2.5 mg BID (age 84, Cre 1.0, wt 59.49 kg) prior to admission, but Eliquis was held on admission due to anemia.
-Patient initially refused GI procedures, but now agreeable and had EGD 09/22/24 that showed possible Romero's esophagus, erythematous mucosa in the gastric body with a few bleeding angiectasias in the duodenum that were injected and treated with
monopolar probe.
-Eventually resume Eliquis 2.5 mg BID and instead of resuming Plavix would resume aspirin instead given GIB. If patient refuses to restart Eliquis then would recommend Plavix and aspirin for DAPT following PCI.
-Peak troponin last admission was 63.4 on 08/17/2024 and troponin continues to trend down into this admission all labs reviewed by me 09/20/2024.
-LDL was 28 this admission and neurology recommended stopping outpatient dose of Crestor 20 mg daily due to 'exceptionally low cholesterol', but due to recent NSTEMI and LDL of 153 at that time we would like to continue Crestor 20 mg daily.
-Outpatient dose of Lopressor 12.5 mg BID has been continued
-EF was 54% by echo on 08/17/2024.
-Patient with known chronic HFpEF and takes Lasix 40 mg daily, but dose held on admission due to ZAHIRA. Cre stable so Lasix 40 mg PO daily restarted 09/21/24
Progress Note - [employer]
Subjective
Date of Service: September 22, 2024
Feels well, waiting for EGD
Objective
Labs:
09/22/24 06:39
Labs
Hgb 8.7 g/dL (12.0-16.0) L 09/22/24 06:39
Hct 26.7 % (37.0-47.0) L 09/22/24 06:39
Plt Count 219 10^3/uL (130-400) 09/22/24 06:39
Sodium 136 mmol/L (135-145) 09/22/24 06:39
Potassium 3.4 mmol/L (3.5-5.1) L 09/22/24 06:39
BUN 31 mg/dl (7-17) H 09/22/24 06:39
Creatinine 1.0 mg/dL (0.6-1.0) 09/22/24 06:39
Glucose 90 mg/dl (70-99) 09/22/24 06:39
Troponins
09/19/24 09/20/24 09/20/24
18:06 00:14 06:54
Troponin I 0.072 H* 0.074 H* Cancelled
09/20/24 09/20/24
08:00 14:06
Troponin I 0.083 H* 0.075 H*
Vital Signs and I&O:
Vital Signs
Temp Pulse Resp BP Pulse Ox
98.2 F 66 18 157/64 97
09/22/24 07:00 09/22/24 07:00 09/22/24 07:00 09/22/24 07:00 09/22/24 07:00
Vital Signs
Temp Pulse Resp BP Pulse Ox
98.2 F 66 18 157/64 97
09/22/24 07:00 09/22/24 07:00 09/22/24 07:00 09/22/24 07:00 09/22/24 07:00
Intake & Output
09/20/24 09/21/24 09/22/24 09/23/24
06:59 06:59 06:59 06:59
Intake Total 1080 / 1080 660 / 660 950 / 950
Balance 1080 / 1080 660 / 660 950 / 950
Physical Exam
Physical Exam
GEN: AAOx3
LUNGS: RA
CV: Afib on tele
[2024-09-22] MEDS: PROTONIX 40 MG PO (12:48)
[2024-09-22 15:49] LABS: Hematocrit 26.6 % (37.0-47.0); Hemoglobin 8.9 g/dL (12.0-16.0); Mean Corp Hgb Conc. 33.5 g/dL (33.0-37.0); Mean Corpuscular Volume 92.0 fL (81.0-99.0); Nucleated Red Blood Cells % 0.1 %; Platelet Count 217 10^3/uL (130-400); Red Cell Dist. Width 18.6 % (11.5-14.5)
[2024-09-22] MEDS: CRESTOR 20 MG PO (17:21)
[2024-09-22] MEDS: ANESTHETIC LOZENGE 1 LOZENGE PO (17:59)
[2024-09-22] MEDS: KCL 20 MEQ PO (20:31)
[2024-09-23 07:30] VITALS: BP 101/68; BP 137/56; BP 86/64; PULSE 74; PULSE 85; PULSE 86
[2024-09-23] MEDS: KCL ELIXIR 40 MEQ PO (07:58)
[2024-09-23] MEDS: SENOKOT 8.6 MG PO (08:00)
[2024-09-23] MEDS: PROTONIX 40 MG PO (08:00)
[2024-09-23] MEDS: LOPRESSOR 12.5 MG PO ×2 (08:00→20:29)
[2024-09-23] MEDS: LOW STRENGTH ASPIRIN 81 MG PO (08:00)
[2024-09-23] MEDS: LASIX 40 MG PO (08:01)
[2024-09-23] MEDS: MIRALAX 17 GRAMS PO (08:01)
[2024-09-23] MEDS: OCUVITE SOFTGEL 1 CAP PO ×2 (08:01→20:17)
[2024-09-23 08:23] LABS: Hematocrit 24.3 % (37.0-47.0); Hemoglobin 8.0 g/dL (12.0-16.0); Mean Corp Hgb Conc. 32.9 g/dL (33.0-37.0); Mean Corpuscular Volume 94.9 fL (81.0-99.0); Platelet Count 212 10^3/uL (130-400); Red Cell Dist. Width 18.6 % (11.5-14.5)
--- NOTE | 2024-09-23 08:38 | W.PN.GI.CBS2 ---
Today's Communication / Plan
-
Okay to resume eliquis tomorrow. Bowel Regimen. Daily PPI. Monitor H&H, transfuse for Hgb <8. GI will sign off, please call with questions.
Assessment / Plan
-
84 y.o. female with pmhx fib on eliquis, HFpEF, HTN, HLD, CAD s/p recent PCI to Lcx on 08/17/24 on plavix admitted with left-sided weakness and dark stools, found to be anemic with heme positive stool, now with concern for acute CVA vs. Brain tumor.
After extensive discussion, patient does not want to proceed with MRI. Working diagnosis is CVA, however, if no improvement following 4 weeks of rehab, likely brain tumor per neurology. .
Hgb 10.9 --> 7.3, received 1 unit PRBC with improvement to 8.1 --> 8.3 --> 8.8--> 7.3 --> 7.5--> 8.9 --> 8
BUN 48 -->34 --> 31--> 35 --> 31 --> AM BMP pending
s/p EGD 09/22 with actively bleeding AVMs in D2, treated with epi and APC. No BMs overnight. Hemoglobin slightly decreased to 8.
Plan:
-monitor H&H, transfuse for Hgb <8
-regular diet
-okay to start eliquis tomorrow, continue ASA; plan to discontinue plavix
-discussed with patient and daughter that she is at risk for rebleeding from AVMs especially with blood thinners, typcially this are slow, chronic bleeds and she could set up blood transfusions as an outpatient, if this happens again and it is not
an active/unstable GI bleed
--Prior H. pylori positive, no testing for eradication, no biopsies taken at time of EGD due to active bleeding; outpatient f/u to discuss
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
-PPI PO daily on discharge
take biopsies at time of EGD, however, could potentially yield a false negative in setting of bleeding
Subjective
Subjective
Date of Service: September 23, 2024
Patient seen in follow-up. She had an EGD yesterday with actively bleeding AVMS in the 2nd portion of the duodenum, treated with epinephrine and APC with adequate hemomstasis. Additionally, very difficult intubation of the esophagus, requiring
scope and then a guidewire to advance an adult endoscope, suspect cervical osteophytes at the UES. She denies any dsphagia.
Objective
Data Reviewed
Laboratory Data:
Laboratory Results
09/23/24 06:47
Laboratory Results
Phosphorus 3.9 mg/dl (2.5-4.5) 09/22/24 06:39
Magnesium 2.0 mg/dl (1.6-2.3) 09/22/24 06:39
Total Bilirubin 0.8 mg/dl (0.2-1.3) 09/22/24 06:39
AST 37 U/L (14-36) H 09/22/24 06:39
ALT 26 U/L (0-35) 09/22/24 06:39
Alkaline Phosphatase 68 U/L (38-126) 09/22/24 06:39
Vital Signs and I&O:
Vital Signs
Temp Pulse Resp BP Pulse Ox
98.1 F 74 14 137/56 98
09/23/24 07:30 09/23/24 07:30 09/23/24 07:30 09/23/24 07:30 09/23/24 07:30
I&O
09/22/24 09/23/24 09/24/24
06:59 06:59 06:59
Intake Total 950 / 950 480 / 480
Balance 950 / 950 480 / 480
Physical Exam
Physical Exam
HEENT: Anicteric and Moist mucous membranes
GI: Soft, Non Distended, Non Tender and Normal Bowel Sounds
[2024-09-23 08:57] LABS: ALT (SGPT) 23 U/L (0-35); AST (SGOT) 34 U/L (14-36); Albumin 2.8 g/dl (3.5-5.0); Alkaline Phosphatase 63 U/L (38-126); Blood Urea Nitrogen 30 mg/dl (7-17); Calcium 8.3 mg/dl (8.4-10.2); Carbon Dioxide 29 mmol/L (22-30); Chloride 102 mmol/L (98-107); Estimated Creatinine Clearance 37 ml/min; Glucose 84 mg/dl (70-99); Magnesium 1.9 mg/dl (1.6-2.3); Potassium 3.2 mmol/L (3.5-5.1); Sodium 135 mmol/L (135-145); Total Protein 5.1 g/dl (6.3-8.2); eGFR > 60.00
--- NOTE | 2024-09-23 09:03 | W.PN.HOSP.TC ---
Today's Communication/Plan
-
Eliquis cleared to restart tomorrow 09/24 as per GI
cardiac med adjustments as per cardiology
monitor H&H with restart Eliquis, possible discharge SNF rehab over weekend if remains stable/cont to improve
Assessment / Plan
Assessment / Plan
Physical Exam
General: No Apparent Distress appears comfortable at this time
HEENT: Normocephalic PERRLA EOMI
Respiratory: Clear to Auscultation Bilaterally
Cardiac: S1/S2, Regular Rhythm and JVD
GI: Soft and Non Tender. Positive bowel sounds.
Musculoskeletal: No cyanosis
Skin: Warm and Dry
Neuro: AOx3 conversant coherent, no facial droop
Psych: Calm
Assessment/Plan
84F paroxysmal afib Eliquis, admission 08/17-08/22/24 for NSTEMI (s/p PCI to LCx), HFpEF, essential HTN, HLD presented to the ER with progressive weakness.
Patient states she has had weakness in her left leg since September 01, 2024 where she has trouble walking and has fallen twice. She had a fall where she hit her head on September 10, [address] For 4 days prior to admission this
hospitalization, she also had left upper extremity weakness, where she had shaking and could not lift things easily. No difficulty speaking or swallowing. She also reported prior history of diarrhea that resolved when she cut out lactose. She now
has constipation but when she has a bowel movement it is black.
Left-Sided Weakness (Left Arm Spasms x 4 days prior to presentation), Left Lower Extremity Weakness and Spasms (for ~2 weeks prior to presentation), concern for acute CVA
-Patient had head CT for fall post onset of weakness, with new left arm weakness and patient is on Eliquis; repeat head CT with no bleed
-Continue to monitor on telemetry
-Neuro checks
-Hold Plavix/Eliquis (for GI Bleed, see below); Aspirin 81mg PO QD started on 09/19/24
-RUG WASHER Statin
-patient had a bad experience with MRI in past and has metal in left wrist
-Neurology consultation appreciated no need for statin at this time
-PT/OT eval appreciated SNF rehab
-ST eval appreciated
Severe bilateral Carotid Stenosis R>L noted on carotid US
-Vascular eval appreciated patient and family opting for conservative mgmt at this time
UGIB likely exacerbated by/associated with/due to Plavix/Eliquis use.
Generalized Weakness
Melena
Acute Blood Loss Anemia
History of H. Pylori
-Maintain 2 large bore peripheral gauge IVs
-Received 1 unit PRBC on 09/18/24 2nd PRBC 09/21 for goal of 8 as below
-protonix gtt completed, transitioned to PO daily
-See speech evaluation diet for recommendations for when diet is advanced
-hold RUG WASHER Plavix and Eliquis and started daily Aspirin with recent cardiac hx (see below)
-trend Hg and transfuse to maintain Hgb at least 8 given CAD history
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
Constipation
-received bowel regimen, enema as per GI with subsequent improvement
Coronary Artery Disease s/p PCI to LCx 08/17/24
-holding Plavix, Eliquis in setting of bleed
-Continue new asa 81mg PO QD
-Cardiology consult appreciated rosuvastatin reduced to 10 mg
Non-ischemic Troponin Elevation
-no chest pain, in setting of anemia/bleed
-trended to peak 0.084 since trended down
Heart Failure Preserved EF
Moderate MR
Moderate TR
-most recent TTE 08/17/24; EF 54%
-CXR (given reports of SOB): trace bilateral pleural effusions with minimal bibasilar atelectasis
-cont PO Lasix Metoprolol
-Lasix reduced to 20 mg Daily as per Cardio
paroxysmal Atrial Fibrillation
-RUG WASHER Amiodarone discontinued as per cardio
-Eliquis to resume 09/24 renally dosed d/t age and weight
Suspect CKD III vs mild ZAHIRA
-more likely mild ZAHIRA
-Cr high 1.2 since trended down
Hypokalemia
monitor and replete as necessary
Essential HTN
HLD
-RUG WASHER Statin
DVT PPx SCD
Full Code
discussed with patient and patient's daughter Fatou
I spent a total of 45 minutes with the patient or on the floor. More than 50% of this time involved counseling and coordination of care.
Anticipated Discharge: 24 - 48 hours
Subjective/Interval History
-
Date of Service: September 23, 2024
No acute distress, appears comfortable at this time. Denies new acute issues.
Objective Data
-
Labs:
Laboratory Results
09/23/24
06:47
WBC 13.9 H
Hgb 8.0 L
Hct 24.3 L
Plt Count 212
Sodium 135
Potassium 3.2 L
Chloride 102
Carbon Dioxide 29
BUN 30 H
Creatinine 0.9
Glucose 84
Calcium 8.3 L
Total Bilirubin 0.8
AST 34
ALT 23
Alkaline Phosphatase 63
Vital Signs:
Vital Signs
Temp Pulse Resp BP Pulse Ox
98.1 F 74 14 137/56 98
09/23/24 07:30 09/23/24 07:30 09/23/24 07:30 09/23/24 07:30 09/23/24 07:30
I&O
09/22/24 09/23/24 09/24/24
06:59 06:59 06:59
Intake Total 950 / 950 480 / 480
Balance 950 / 950 480 / 480
--- NOTE | 2024-09-23 10:29 | CM ---
Addendum entered by Bakari Perales 09/23/24 10:39:
Possible d/c tomorrow per hospitalist. Update to [facility] admissions
Original Note:
Chart reviewed. Plan of care ongoing at this time.
Therapy rec SNF, [facility] accepted and bed availability will be determined when patient is ready for d/c.
Per hospitalist yesterday, d/c another 24-48 hours
Will need insurance auth prior to d/c
Updated patient bedside
Plan: [facility] SNF, pending bed availability
[2024-09-23 13:05] LABS: Iron < 20 ug/dl (37-170)
[2024-09-23 13:11] LABS: Total Iron Binding Capacity 283 ug/dl (265-497)
--- NOTE | 2024-09-23 14:27 | W.PN.CARDCBS ---
Addendum entered and electronically signed by Neno Esparza MD 09/23/24 16:26:
I saw and examined the patient.
The ARCHITECTURE INTERNSHIP or PA's note was reviewed and I agree with the note.
Comment: General: Well developed, well nourished in NAD.
Discussed with patient in detail. Restart Eliquis on 09/24. Plan is to discontinue Plavix at discharge with Eliquis and aspirin baby. Patient daughter complains of to me medicines. Will decrease Lasix to 20 mg daily and Crestor to 10 mg daily.
Amiodarone has been discontinued. Will arrange cardiology follow-up and sign off.
Original Note:
Today's Communication / Plan
-
Decrease Lasix to 20 mg PO daily
Decrease Crestor to 10 mg daily
Amiodarone stopped this admission
Restart Eliquis tomorrow
Plavix stopped and now on aspirin
51 min talking with patient and family and coordination of care
Impression / Plan
-
PCP: Dr. Solitario Sharma
Card: Scheduled to see Dr. Yung
Impression:
Admitted with GIB and possible CVA 09/18/24
Severe anemia/GI bleed
Likely CVA
patient unable to complete MRI brain
Paroxysmal Afib
Not on OAC due to patient choice
CAD s/p NSTEMI and 2.75 mm [place] YESICA to Circ 08/17/24
Chronic diastolic HFpEF
Hypertension
Hyperlipidemia
Multiple drug allergies
Hypokalemia
B/L high-grade carotid disease, likely symptomatic GABRIELA stenosis
Echo 08/01/2021: EF 60 to 65%, mild septal hypertrophy, mild MR, heavy focal calcification of noncoronary cusp of aortic valve, mild AR, mild TR, PAP 37 mmHg
ECHO 08/17/24: EF 54%, mild concentric LVH, moderate MR, mild AR, moderate TR, PAP 25 to 30 mmHg, trivial pericardial effusion
Left heart catheterization 08/17/2024: LM: Patent. LAD: Patent. Left circumflex: 90 to 95% hazy mid left circumflex stenosis s/p 2.75 x 30 mm Medtronic [place] drug-eluting stent. Mid circumflex 30 to 40% stenosis. RCA: Ostial 60 to 70% stenosis with
mild pressure dampening upon selective engagement
Plan:
-Patient admitted with GIB and stroke symptoms. Cardiology was consulted due to recent admission for CAD with PCI and also for known history of A-fib.
-Patient's symptoms and h/o Afib concerning for CVA, but patient declined MRI.
-Patient was in SR when she was discharged for her [place] admission on 08/22/2024 then wore a 5-day monitor last month that showed 100% burden of A-fib. Patient has been in Afib throughout this admission. Outpatient dose of amiodarone was stopped and plan
is for rate control.
-Patient was taking Eliquis 2.5 mg BID (age 84, Cre 1.0, wt 59.49 kg) prior to admission and then held for GIB, but now able to resume on 09/24/24 per GI note that was reviewed by me. ,
-Patient initially refused GI procedures, but had EGD 09/22/24 that showed possible Romero's esophagus, erythematous mucosa in the gastric body with a few bleeding angiectasias in the duodenum that were injected and treated with monopolar probe.
-Instead of resuming Plavix would resume aspirin instead given GIB.
-Peak troponin last admission was 63.4 on 08/17/2024 and troponin continues to trend down into this admission all labs reviewed by me 09/20/2024.
-LDL was 28 this admission and neurology recommended stopping outpatient dose of Crestor 20 mg daily due to 'exceptionally low cholesterol', but due to recent NSTEMI and LDL of 153 at that time we would like to continue Crestor 20 mg daily.
Patient's daughter feels that patient becomes extremely fatigued with Crestor dosing. We will decrease Crestor to 10 mg daily and changed to HS dosing.
-Outpatient dose of Lopressor 12.5 mg BID has been continued
-EF was 54% by echo on 08/17/2024.
-Patient with known chronic HFpEF and takes Lasix 40 mg daily, but dose held on admission due to ZAHIRA. Patient's daughter is concerned that Lasix 40 mg daily is too much due to patient's poor p.o. intake outside of the hospital. We made a plan to
reduce Lasix to 20 mg daily and follow for fluid retention/HF symptoms.
-Talked with patient's daughter, Fatou, by phone for 17 minutes along with patient and family friend in the room. We talked about all the medication changes as noted above and about arranging for outpatient follow-up.
-Stable for d/c to home
Progress Note - Audit Manager
Subjective
Date of Service: September 23, 2024
Feels well, tired and wants to sleep
Objective
Labs:
09/23/24 06:47
09/23/24 06:47
Labs
Hgb 8.0 g/dL (12.0-16.0) L 09/23/24 06:47
Hct 24.3 % (37.0-47.0) L 09/23/24 06:47
Plt Count 212 10^3/uL (130-400) 09/23/24 06:47
Sodium 135 mmol/L (135-145) 09/23/24 06:47
Potassium 3.2 mmol/L (3.5-5.1) L 09/23/24 06:47
BUN 30 mg/dl (7-17) H 09/23/24 06:47
Creatinine 0.9 mg/dL (0.6-1.0) 09/23/24 06:47
Glucose 84 mg/dl (70-99) 09/23/24 06:47
Troponins
09/20/24
14:06
Troponin I 0.075 H*
Vital Signs and I&O:
Vital Signs
Temp Pulse Resp BP Pulse Ox
98.1 F 74 14 137/56 98
09/23/24 07:30 09/23/24 07:30 09/23/24 07:30 09/23/24 07:30 09/23/24 07:30
Vital Signs
Temp Pulse Resp BP Pulse Ox
98.1 F 74 14 137/56 98
09/23/24 07:30 09/23/24 07:30 09/23/24 07:30 09/23/24 07:30 09/23/24 07:30
Intake & Output
09/21/24 09/22/24 09/23/24 09/24/24
06:59 06:59 06:59 06:59
Intake Total 660 / 660 950 / 950 480 / 480
Balance 660 / 660 950 / 950 480 / 480
Physical Exam
Physical Exam
GEN: AAOx3
LUNGS: RA
CV: Afib on tele
[2024-09-23 15:20] LABS: Ferritin 50.5 ng/ml (11.1-264.0)
[2024-09-23 15:40] VITALS: BP 126/59
[2024-09-23 15:52] LABS: Folate 7.8 ng/ml (2.76-20); Vitamin B12 494 pg/ml (239-931)
[2024-09-23] MEDS: CRESTOR 10 MG PO (17:35)
[2024-09-23] MEDS: MELATONIN PO (21:26)
[2024-09-23] MEDS: SENOKOT PO ×2 (21:26→21:57)
[2024-09-23] MEDS: MELATONIN 3 MG PO (22:10)
[2024-09-23 23:07] VITALS: BP 150/56
[2024-09-24] VITALS (8 sets, daily range): BP systolic 90–165; BP diastolic 52–78; PULSE 67–86
[2024-09-24 00:12] LABS: Troponin I 0.086 ng/ml
[2024-09-24 05:24] LABS: Troponin I 0.085 ng/ml
[2024-09-24] MEDS: LASIX 20 MG PO (09:15)
[2024-09-24] MEDS: PROTONIX 40 MG PO (09:15)
[2024-09-24] MEDS: LOW STRENGTH ASPIRIN 81 MG PO (09:15)
[2024-09-24] MEDS: OCUVITE SOFTGEL PO ×2 (09:16→21:04)
[2024-09-24] MEDS: LOPRESSOR 12.5 MG PO ×2 (09:16→20:44)
[2024-09-24] MEDS: ELIQUIS 2.5 MG PO ×2 (09:16→20:43)
[2024-09-24] MEDS: MIRALAX 17 GRAMS PO (09:17)
[2024-09-24] MEDS: KCL ELIXIR 40 MEQ PO (09:17)
--- NOTE | 2024-09-24 10:05 | W.PN.HOSP.TC ---
Today's Communication/Plan
-
1PRBC transfusion
IV Iron infusion
cont monitoring H&H
PT/OT
Assessment / Plan
Assessment / Plan
Physical Exam
General: No Apparent Distress appears comfortable at this time
HEENT: Normocephalic PERRLA EOMI
Respiratory: Clear to Auscultation Bilaterally
Cardiac: S1/S2, Regular Rhythm and JVD
GI: Soft and Non Tender. Positive bowel sounds.
Musculoskeletal: No cyanosis
Skin: Warm and Dry
Neuro: AOx3 conversant coherent, no facial droop
Psych: Calm
Assessment/Plan
84F paroxysmal afib Eliquis, admission 08/17-08/22/24 for NSTEMI (s/p PCI to LCx), HFpEF, essential HTN, HLD presented to the ER with progressive weakness.
Patient states she has had weakness in her left leg since September 01, 2024 where she has trouble walking and has fallen twice. She had a fall where she hit her head on September 10, [address] For 4 days prior to admission this
hospitalization, she also had left upper extremity weakness, where she had shaking and could not lift things easily. No difficulty speaking or swallowing. She also reported prior history of diarrhea that resolved when she cut out lactose. She now
has constipation but when she has a bowel movement it is black.
Left-Sided Weakness (Left Arm Spasms x 4 days prior to presentation), Left Lower Extremity Weakness and Spasms (for ~2 weeks prior to presentation), concern for acute CVA
-Patient had head CT for fall post onset of weakness, with new left arm weakness and patient is on Eliquis; repeat head CT with no bleed
-Continue to monitor on telemetry
-Neuro checks
-Held Plavix/Eliquis (for GI Bleed, see below); Aspirin 81mg PO QD started on 09/19/24
-BONE PULLER Statin
-patient had a bad experience with MRI in past and has metal in left wrist
-Neurology consultation appreciated
-PT/OT eval appreciated SNF rehab
-ST eval appreciated
Severe bilateral Carotid Stenosis R>L noted on carotid US
-Vascular eval appreciated patient and family opting for conservative mgmt at this time
UGIB likely exacerbated by/associated with/due to Plavix/Eliquis use.
Generalized Weakness
Melena
Acute Blood Loss Anemia
History of H. Pylori
-Received 1 unit PRBC on 09/18/24 2nd PRBC 09/21, 3rd unit ordered 09/24 for goal of 8 as below
-protonix gtt completed, transitioned to PO daily
-trend Hg and transfuse to maintain Hgb at least 8 given CAD history
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
Severe Iron Deficiency Anemia
-IV iron infusions
Constipation
-received bowel regimen, enema as per GI with subsequent improvement
Coronary Artery Disease s/p PCI to LCx 08/17/24
-Eliquis resumed
-Plavix discontinued in favor of asa 81mg PO QD as per Cardio
-Cardiology consult appreciated rosuvastatin reduced to 10 mg
Non-ischemic Troponin Elevation
-no chest pain, in setting of anemia/bleed
-trended to peak 0.084 since trended down
Heart Failure Preserved EF
Moderate MR
Moderate TR
-most recent TTE 08/17/24; EF 54%
-CXR (given reports of SOB): trace bilateral pleural effusions with minimal bibasilar atelectasis
-cont PO Lasix Metoprolol
-Lasix reduced to 20 mg Daily as per Cardio
paroxysmal Atrial Fibrillation
-BONE PULLER Amiodarone discontinued as per cardio
-Eliquis resumed 09/24 renally dosed d/t age and weight
Suspect CKD III vs mild ZAHIRA
-more likely mild ZAHIRA
-Cr high 1.2 since trended down
Hypokalemia
monitor and replete as necessary
Essential HTN
HLD
-BONE PULLER Statin
DVT PPx SCD
Full Code
I spent a total of 45 minutes with the patient or on the floor. More than 50% of this time involved counseling and coordination of care.
Anticipated Discharge: 24 - 48 hours
Subjective/Interval History
-
Date of Service: September 24, 2024
No acute distress, appears comfortable at this time. Denies new acute issues.
Objective Data
-
Labs:
Laboratory Results
09/24/24
06:00
WBC Pending
Hgb Pending
Hct Pending
Plt Count Pending
Sodium Pending
Potassium Pending
Chloride Pending
Carbon Dioxide Pending
BUN Pending
Creatinine Pending
Glucose Pending
Calcium Pending
Vital Signs:
Vital Signs
Temp Pulse Resp BP Pulse Ox
97.8 F 71 16 129/52 97
09/24/24 07:36 09/24/24 07:36 09/24/24 07:36 09/24/24 07:36 09/24/24 07:36
I&O
09/23/24 09/24/24 09/25/24
06:59 06:59 06:59
Intake Total 480 / 480 900 / 900
Balance 480 / 480 900 / 900
[2024-09-24 11:16] LABS: Hematocrit 23.4 % (37.0-47.0); Hemoglobin 7.6 g/dL (12.0-16.0); Mean Corp Hgb Conc. 32.5 g/dL (33.0-37.0); Mean Corpuscular Volume 94.0 fL (81.0-99.0); Platelet Count 241 10^3/uL (130-400); Red Cell Dist. Width 18.6 % (11.5-14.5)
[2024-09-24 11:23] LABS: Blood Urea Nitrogen 32 mg/dl (7-17); Calcium 8.4 mg/dl (8.4-10.2); Carbon Dioxide 28 mmol/L (22-30); Chloride 101 mmol/L (98-107); Estimated Creatinine Clearance 34 ml/min; Glucose 131 mg/dl (70-99); Magnesium 1.9 mg/dl (1.6-2.3); Potassium 3.6 mmol/L (3.5-5.1); Sodium 133 mmol/L (135-145); eGFR 55.90
[2024-09-24 11:45] LABS: Troponin I 0.079 ng/ml
[2024-09-24] MEDS: FERRLECIT 110 MG IV (13:56)
[2024-09-24] MEDS: CRESTOR 10 MG PO (17:07)
--- NOTE | 2024-09-24 19:30 | PTCARENOTE ---
Pt. refusing milk of molasses enema and noted to daughter on the phone that she was not taking it.
[2024-09-24] MEDS: SENOKOT 17.2 MG PO (20:44)
[2024-09-24] MEDS: MELATONIN 3 MG PO (20:56)
--- NOTE | 2024-09-25 03:31 | PTCARENOTE ---
Pt. refusing ortho signs, does not want to be bothered, will continue to monitor.
[2024-09-25 07:00] VITALS: BP 150/72
[2024-09-25 07:59] LABS: Hematocrit 27.2 % (37.0-47.0); Hemoglobin 9.0 g/dL (12.0-16.0); Mean Corp Hgb Conc. 33.1 g/dL (33.0-37.0); Mean Corpuscular Volume 92.8 fL (81.0-99.0); Platelet Count 241 10^3/uL (130-400); Red Cell Dist. Width 17.7 % (11.5-14.5)
[2024-09-25 08:18] LABS: Blood Urea Nitrogen 26 mg/dl (7-17); Calcium 8.7 mg/dl (8.4-10.2); Carbon Dioxide 31 mmol/L (22-30); Chloride 100 mmol/L (98-107); Estimated Creatinine Clearance 37 ml/min; Glucose 102 mg/dl (70-99); Magnesium 2.0 mg/dl (1.6-2.3); Potassium 3.3 mmol/L (3.5-5.1); Sodium 135 mmol/L (135-145); eGFR > 60.00
--- NOTE | 2024-09-25 08:27 | W.PN.HOSP.TC ---
Today's Communication/Plan
-
cont Eliquis
monitor H&H
Iron infusions
Protonix switched to Pepcid (not tolerating PO protonix)
compazine prn nausea
Discharge planning SNF rehab
Assessment / Plan
Assessment / Plan
Physical Exam
General: No Apparent Distress appears comfortable at this time
HEENT: Normocephalic PERRLA EOMI
Respiratory: Clear to Auscultation Bilaterally
Cardiac: S1/S2, Regular Rhythm and JVD
GI: Soft and Non Tender. Positive bowel sounds.
Musculoskeletal: No cyanosis
Skin: Warm and Dry
Neuro: AOx3 conversant coherent, no facial droop
Psych: Calm
Assessment/Plan
84F paroxysmal afib Eliquis, admission 08/17-08/22/24 for NSTEMI (s/p PCI to LCx), HFpEF, essential HTN, HLD presented to the ER with progressive weakness.
Patient states she has had weakness in her left leg since September 01, 2024 where she has trouble walking and has fallen twice. She had a fall where she hit her head on September 10, [address] For 4 days prior to admission this
hospitalization, she also had left upper extremity weakness, where she had shaking and could not lift things easily. No difficulty speaking or swallowing. She also reported prior history of diarrhea that resolved when she cut out lactose. She now
has constipation but when she has a bowel movement it is black.
Left-Sided Weakness (Left Arm Spasms x 4 days prior to presentation), Left Lower Extremity Weakness and Spasms (for ~2 weeks prior to presentation), concern for acute CVA
-Patient had head CT for fall post onset of weakness, with new left arm weakness and patient is on Eliquis; repeat head CT with no bleed
-Continue to monitor on telemetry
-Neuro checks
-Held Plavix/Eliquis (for GI Bleed, see below); Aspirin 81mg PO QD started on 09/19/24
-WETLAND SCIENTIST Statin
-patient had a bad experience with MRI in past and has metal in left wrist
-Neurology consultation appreciated
-PT/OT eval appreciated SNF rehab
-ST eval appreciated
Severe bilateral Carotid Stenosis R>L noted on carotid US
-Vascular eval appreciated patient and family opting for conservative mgmt at this time
UGIB likely exacerbated by/associated with/due to Plavix/Eliquis use.
Generalized Weakness
Melena
Acute Blood Loss Anemia
History of H. Pylori
-Received 1 unit PRBC on 09/18/24 2nd PRBC 09/21, 3rd unit ordered 09/24 for goal of 8 as below
-protonix gtt completed, transitioned to PO daily unable to tolerate PO Protonix switched to famotidine (would prescribe Nexium on discharge, not available in hospital)
-trend Hg and transfuse to maintain Hgb at least 8 given CAD history
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
Severe Iron Deficiency Anemia
-IV iron infusions
Constipation
-received bowel regimen, enema as per GI with subsequent improvement
Coronary Artery Disease s/p PCI to LCx 08/17/24
-Eliquis resumed
-Plavix discontinued in favor of asa 81mg PO QD as per Cardio
-Cardiology consult appreciated rosuvastatin reduced to 10 mg
Non-ischemic Troponin Elevation
-no chest pain, in setting of anemia/bleed
-trended to peak 0.084 since trended down
Heart Failure Preserved EF
Moderate MR
Moderate TR
-most recent TTE 08/17/24; EF 54%
-CXR (given reports of SOB): trace bilateral pleural effusions with minimal bibasilar atelectasis
-cont PO Lasix Metoprolol
-Lasix reduced to 20 mg Daily as per Cardio
paroxysmal Atrial Fibrillation
-WETLAND SCIENTIST Amiodarone discontinued as per cardio
-Eliquis resumed 09/24 renally dosed d/t age and weight
Suspect CKD III vs mild ZAHIRA
-more likely mild ZAHIRA
-Cr high 1.2 since trended down
Hypokalemia
monitor and replete as necessary
Essential HTN
HLD
-WETLAND SCIENTIST Statin
DVT PPx SCD
Full Code
Discussed with patient and patient's daughter Fatou
I spent a total of 45 minutes with the patient or on the floor. More than 50% of this time involved counseling and coordination of care.
Anticipated Discharge: 24 - 48 hours
Subjective/Interval History
-
Date of Service: September 25, 2024
No acute distress, appears comfortable at this time. Later developed nausea, resolved with compazine. Unable to tolerate PO protonix switched to famotidine.
Objective Data
-
Labs:
Laboratory Results
09/25/24
07:29
WBC 8.1
Hgb 9.0 L
Hct 27.2 L
Plt Count 241
Sodium 135
Potassium 3.3 L
Chloride 100
Carbon Dioxide 31 H
BUN 26 H
Creatinine 0.9
Glucose 102 H
Calcium 8.7
Vital Signs:
Vital Signs
Temp Pulse Resp BP Pulse Ox
97.9 F 85 16 150/72 96
09/25/24 07:00 09/25/24 07:00 09/25/24 07:00 09/25/24 07:00 09/25/24 07:00
I&O
09/24/24 09/25/24 09/26/24
06:59 06:59 06:59
Intake Total 900 / 900 730 / 730
Balance 900 / 900 730 / 730
[2024-09-25] MEDS: KCL ELIXIR PO ×2 (09:57→10:44)
[2024-09-25] MEDS: MIRALAX 17 GRAMS PO (09:57)
[2024-09-25] MEDS: LOPRESSOR 12.5 MG PO ×2 (09:58→20:07)
[2024-09-25] MEDS: PROTONIX 40 MG PO (09:58)
[2024-09-25] MEDS: ELIQUIS 2.5 MG PO ×2 (09:58→20:06)
[2024-09-25] MEDS: LASIX 20 MG PO (09:58)
[2024-09-25] MEDS: LOW STRENGTH ASPIRIN 81 MG PO (09:59)
[2024-09-25] MEDS: OCUVITE SOFTGEL PO ×2 (10:44→20:07)
[2024-09-25] MEDS: PEPCID 20 MG PO (13:26)
[2024-09-25] MEDS: FERRLECIT 110 MG IV (15:02)
[2024-09-25 15:03] VITALS: BP 155/76; PULSE 77
[2024-09-25 15:14] VITALS: BP 151/78
[2024-09-25] MEDS: CRESTOR 10 MG PO (18:47)
[2024-09-25 19:44] VITALS: BP 138/61
[2024-09-25] MEDS: COMPAZINE 5 MG IV (19:44)
[2024-09-25] MEDS: KLOR-CON 20 MEQ PO (20:06)
[2024-09-25] MEDS: SENOKOT 17.2 MG PO (20:08)
[2024-09-25] MEDS: MELATONIN 3 MG PO (21:59)
[2024-09-25 23:20] VITALS: BP 111/70
[2024-09-26 06:53] VITALS: BMI 24.2
[2024-09-26 07:00] VITALS: BP 130/54
--- NOTE | 2024-09-26 08:01 | W.PN.HOSP.TC ---
Today's Communication/Plan
-
IV iron infusions
Monitor H&H, transfuse goal Hgb 8
bowel regimen, constipation
Discharge planning SNF rehab
Assessment / Plan
Assessment / Plan
Physical Exam
General: No Apparent Distress appears comfortable at this time
HEENT: Normocephalic PERRLA EOMI
Respiratory: Clear to Auscultation Bilaterally
Cardiac: S1/S2, Regular Rhythm and JVD
GI: Soft and Non Tender. Positive bowel sounds.
Musculoskeletal: No cyanosis
Skin: Warm and Dry
Neuro: AOx3 conversant coherent, no facial droop
Psych: Calm
Assessment/Plan
84F paroxysmal afib Eliquis, admission 08/17-08/22/24 for NSTEMI (s/p PCI to LCx), HFpEF, essential HTN, HLD presented to the ER with progressive weakness.
Patient states she has had weakness in her left leg since September 01, 2024 where she has trouble walking and has fallen twice. She had a fall where she hit her head on September 10, [address] For 4 days prior to admission this
hospitalization, she also had left upper extremity weakness, where she had shaking and could not lift things easily. No difficulty speaking or swallowing. She also reported prior history of diarrhea that resolved when she cut out lactose. She now
has constipation but when she has a bowel movement it is black.
Left-Sided Weakness (Left Arm Spasms x 4 days prior to presentation), Left Lower Extremity Weakness and Spasms (for ~2 weeks prior to presentation), concern for acute CVA
-Patient had head CT for fall post onset of weakness, with new left arm weakness and patient is on Eliquis; repeat head CT with no bleed
-Continue to monitor on telemetry
-Neuro checks
-Held Plavix/Eliquis (for GI Bleed, see below); Aspirin 81mg PO QD started on 09/19/24
-AIRCRAFT POWERPLANT REPAIRER Statin
-patient had a bad experience with MRI in past and has metal in left wrist
-Neurology consultation appreciated
-PT/OT eval appreciated SNF rehab
-ST eval appreciated
Severe bilateral Carotid Stenosis R>L noted on carotid US
-Vascular eval appreciated patient and family opting for conservative mgmt at this time
UGIB likely exacerbated by/associated with/due to Plavix/Eliquis use.
Generalized Weakness
Melena
Acute Blood Loss Anemia
History of H. Pylori
-Received 1 unit PRBC on 09/18/24 2nd PRBC 09/21, 3rd unit ordered 09/24 for goal of 8 as below
-protonix gtt completed, transitioned to PO daily unable to tolerate PO Protonix switched to famotidine (would prescribe Nexium on discharge, not available in hospital)
-trend Hg and transfuse to maintain Hgb at least 8 given CAD history
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
-If not tolerating Eliquis d/t worsening anemia/bleeding, may need to consider switch Eliquis to Plavix so patient at least has DAPT for recent stent.
Severe Iron Deficiency Anemia
-IV iron infusions
Constipation
-cont bowel regimen
-milk of magnesia prn
Coronary Artery Disease s/p PCI to LCx 08/17/24
-Eliquis resumed
-Plavix discontinued in favor of asa 81mg PO QD as per Cardio
-Cardiology consult appreciated rosuvastatin reduced to 10 mg
Non-ischemic Troponin Elevation
-no chest pain, in setting of anemia/bleed
-trended to peak 0.084 since trended down
Heart Failure Preserved EF
Moderate MR
Moderate TR
-most recent TTE 08/17/24; EF 54%
-CXR (given reports of SOB): trace bilateral pleural effusions with minimal bibasilar atelectasis
-cont PO Lasix Metoprolol
-Lasix reduced to 20 mg Daily as per Cardio
paroxysmal Atrial Fibrillation
-AIRCRAFT POWERPLANT REPAIRER Amiodarone discontinued as per cardio
-Eliquis resumed 09/24 renally dosed d/t age and weight
Suspect CKD III vs mild ZAHIRA
-more likely mild ZAHIRA
-Cr high 1.2 since trended down
Hypokalemia
monitor and replete as necessary
Essential HTN
HLD
-AIRCRAFT POWERPLANT REPAIRER Statin
DVT PPx SCD
Full Code
Discussed with patient and patient's daughter Fatou
I spent a total of 45 minutes with the patient or on the floor. More than 50% of this time involved counseling and coordination of care.
Anticipated Discharge: 24 - 48 hours
Subjective/Interval History
-
Date of Service: September 26, 2024
reported constipation requesting milk of magnesia. Otherwise no acute distress, appears comfortable.
Objective Data
-
Labs:
Laboratory Results
09/26/24
07:18
WBC Pending
Hgb Pending
Hct Pending
Plt Count Pending
Sodium Pending
Potassium Pending
Chloride Pending
Carbon Dioxide Pending
BUN Pending
Creatinine Pending
Glucose Pending
Calcium Pending
Vital Signs:
Vital Signs
Temp Pulse Resp BP Pulse Ox
97.4 F 70 16 111/70 97
09/25/24 23:20 09/25/24 23:20 09/25/24 23:20 09/25/24 23:20 09/25/24 23:20
I&O
09/25/24 09/26/24 09/27/24
06:59 06:59 06:59
Intake Total 730 / 730 1310 / 1310
Balance 730 / 730 1310 / 1310
[2024-09-26 08:05] LABS: Hematocrit 22.3 % (37.0-47.0); Hemoglobin 7.4 g/dL (12.0-16.0); Mean Corp Hgb Conc. 33.2 g/dL (33.0-37.0); Mean Corpuscular Volume 92.9 fL (81.0-99.0); Platelet Count 209 10^3/uL (130-400); Red Cell Dist. Width 17.4 % (11.5-14.5)
[2024-09-26 08:23] LABS: Blood Urea Nitrogen 26 mg/dl (7-17); Calcium 8.7 mg/dl (8.4-10.2); Carbon Dioxide 31 mmol/L (22-30); Chloride 104 mmol/L (98-107); Estimated Creatinine Clearance 37 ml/min; Glucose 86 mg/dl (70-99); Magnesium 2.1 mg/dl (1.6-2.3); Potassium 3.8 mmol/L (3.5-5.1); Sodium 134 mmol/L (135-145); eGFR > 60.00
[2024-09-26] MEDS: LOPRESSOR 12.5 MG PO ×2 (09:06→20:04)
[2024-09-26] MEDS: KLOR-CON 20 MEQ PO (09:06)
[2024-09-26] MEDS: MIRALAX 17 GRAMS PO (09:07)
[2024-09-26] MEDS: PEPCID 20 MG PO (09:07)
[2024-09-26] MEDS: LOW STRENGTH ASPIRIN 81 MG PO (09:07)
[2024-09-26] MEDS: ELIQUIS 2.5 MG PO ×2 (09:07→20:02)
[2024-09-26] MEDS: LASIX 20 MG PO (09:07)
[2024-09-26] MEDS: OCUVITE SOFTGEL PO (09:09)
[2024-09-26 11:55] LABS: Hematocrit 26.2 % (37.0-47.0); Hemoglobin 8.6 g/dL (12.0-16.0)
--- NOTE | 2024-09-26 12:49 | PTOTSP ---
Speech Pathology
Dysphagia Treatment
Pt seen for dysphagia tx this date. Chart reviewed. WBC WNL. Afebrile. On room air. EGD on 09/22 with esophageal stenosis, suspected cervical osteophyte; small hiatal hernia; and possible Romero's esophagus. Remains on a regular textured diet and
thin liquids. Planned d/c for [facility]. Cleared by PATTI Henley for PO trials.
Patient received OOB in chair. Pleasant. Daughter present. Endorses hx of swallowing difficulty that has since resolved with modifications (i.e. softer foods, interspersing liquids, med modifications). Initiated PO trials of thin liquid via straw
and regular textures with adequate oral acceptance; self-fed; functional mastication and oral preparation; no overt s/s of aspiration or penetration observed. Benefits from interspersing liquids to assist with swallow. Pt appears to be independent
with safe swallowing strategies at this time. No further need for dysphagia tx. F/u at the acute care level and at next level of care for language tx and further cognitive linguistic assessment as appropriate.
Recommend:
1. Maintain current diet of regular textures/thin liquids
2. Meds as best tolerated
3. Strategies: alternated bites and sips, slow rate, opt for softer foods as able
4. HOST COORDINATOR f/u at the acute care level and at next level of care for language tx and further cognitive linguistic assessment as appropriate.
[2024-09-26] MEDS: FERRLECIT 110 MG IV (14:23)
--- NOTE | 2024-09-26 14:24 | CM ---
CM reviewed chart, plan remains [facility] pending bed availability, will need updated PT/OT notes for SNF auth. CM will continue to follow for all discharge planning needs.
Plan; [facility] pending bed availability, will need updated PT/OT for auth
[2024-09-26 15:30] VITALS: BP 146/64
--- NOTE | 2024-09-26 16:11 | CHAP ---
Isa was in good spirits. She shared some of her experience and then wanted to pray the rosary together. Emotional and spiritual support provided.
[2024-09-26] MEDS: CRESTOR 10 MG PO (18:44)
[2024-09-26] MEDS: MILK OF MAGNESIA 30 ML PO (20:02)
[2024-09-26] MEDS: NON-FORMULARY ITEM 1 UNIT PO (20:02)
[2024-09-26] MEDS: SENOKOT 17.2 MG PO (21:45)
[2024-09-26] MEDS: MELATONIN 3 MG PO (21:45)
[2024-09-26 23:57] VITALS: BP 140/72
[2024-09-27] VITALS (10 sets, daily range): BP systolic 117–151; BP diastolic 53–69; PULSE 61–73; O2SAT 100
[2024-09-27] MEDS: DULCOLAX 10 MG RECTAL ×2 (01:31→20:48)
[2024-09-27] MEDS: MILK OF MAGNESIA 30 ML PO (02:41)
--- NOTE | 2024-09-27 02:44 | PTCARENOTE ---
x 1 dose milk of magnesia administered with evening medication pass. Patient with small, black BM. Patient complaining that 'stool feels like it is stuck'. PRN suppository administered. Patient did have a soft, formed, black BM. Patient requesting
an additional dose of milk of magnesia. Last dose administered at 0241.
[2024-09-27 07:40] LABS: Hematocrit 23.2 % (37.0-47.0); Hemoglobin 7.4 g/dL (12.0-16.0)
[2024-09-27] MEDS: LASIX 20 MG PO (08:54)
[2024-09-27] MEDS: LOPRESSOR 12.5 MG PO ×2 (08:54→20:52)
[2024-09-27] MEDS: ELIQUIS 2.5 MG PO (09:00)
[2024-09-27] MEDS: LOW STRENGTH ASPIRIN 81 MG PO (09:00)
[2024-09-27] MEDS: PEPCID 20 MG PO (09:00)
[2024-09-27] MEDS: NON-FORMULARY ITEM 1 UNIT PO ×2 (09:00→20:47)
[2024-09-27] MEDS: MIRALAX 17 GRAMS PO (09:00)
[2024-09-27] MEDS: GLYCERIN SUPPOSITORY ADULT 1 SUPP RECTAL (10:39)
--- NOTE | 2024-09-27 11:20 | CM ---
Chart reviewed. Therapy cont to recommend SNF at d/c.
Per nurse, patient is due for a transfusion today
[facility] prev accepted for rehab, will inquire on bed availability when d/c date is determined
Plan: [facility], pending bed availability at d/c
[2024-09-27] MEDS: FERRLECIT 110 MG IV (15:19)
--- NOTE | 2024-09-27 15:35 | W.PN.HOSP.TC ---
Today's Communication/Plan
-
Assessment / Plan
Assessment / Plan
Physical Exam
General: No Apparent Distress appears comfortable at this time
HEENT: Normocephalic PERRLA EOMI
Respiratory: Clear to Auscultation Bilaterally
Cardiac: S1/S2, Regular Rhythm and JVD
GI: Soft and Non Tender. Positive bowel sounds.
Musculoskeletal: No cyanosis
Skin: Warm and Dry
Neuro: AOx3 conversant coherent, no facial droop
Psych: Calm
Assessment/Plan
84F paroxysmal afib Eliquis, admission 08/17-08/22/24 for NSTEMI (s/p PCI to LCx), HFpEF, essential HTN, HLD presented to the ER with progressive weakness.
Patient states she has had weakness in her left leg since September 01, 2024 where she has trouble walking and has fallen twice. She had a fall where she hit her head on September 10, [address] For 4 days prior to admission this
hospitalization, she also had left upper extremity weakness, where she had shaking and could not lift things easily. No difficulty speaking or swallowing. She also reported prior history of diarrhea that resolved when she cut out lactose. She now
has constipation but when she has a bowel movement it is black.
Left-Sided Weakness (Left Arm Spasms x 4 days prior to presentation), Left Lower Extremity Weakness and Spasms (for ~2 weeks prior to presentation), concern for acute CVA
- Patient had head CT for fall post onset of weakness, with new left arm weakness and patient is on Eliquis; repeat head CT with no bleed
- Evaluated by vascular surgery, has bilateral high-grade carotid artery stenosis with right carotid likely source of her symptoms, patient and family do not want surgical intervention, medical management only
- Held Plavix/Eliquis (for GI Bleed, see below), restarted Eliquis 2.5 mg twice daily on 09/24; Aspirin 81mg PO QD started on 09/19/24, continue home statin
- patient had a bad experience with MRI in past and has metal in left wrist
- Neurology consultation appreciated
- PT/OT eval appreciated SNF rehab
- ST eval appreciated
Severe bilateral Carotid Stenosis R>L noted on carotid US
-Vascular eval appreciated patient and family opting for conservative mgmt at this time
UGIB likely exacerbated by/associated with/due to Plavix/Eliquis use.
- Generalized Weakness
- Melena
- Acute Blood Loss Anemia
- History of H. Pylori
- Received 1 unit PRBC on 09/18/24 2nd PRBC 09/21, 3rd unit ordered 09/24 for goal of 8 as below
- Hemoglobin dropped to 7.4 today, will transfuse another unit PRBCs (4th) to maintain hemoglobin greater than 8.0
- protonix gtt completed, transitioned to PO daily but unable to tolerate PO Protonix so switched to famotidine (would prescribe Nexium on discharge, not available in hospital)
- trend Hg and transfuse to maintain Hgb at least 8 given CAD history
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
- If not tolerating Eliquis d/t worsening anemia/bleeding, may need to consider switch Eliquis to Plavix so patient at least has DAPT for recent stent.
Severe Iron Deficiency Anemia
-IV iron infusions
Constipation
-cont bowel regimen
-milk of magnesia prn
Coronary Artery Disease s/p PCI to LCx 08/17/24
-Eliquis resumed 09/24
-Plavix discontinued in favor of asa 81mg PO QD as per Cardio
-Cardiology consult appreciated rosuvastatin reduced to 10 mg
Non-ischemic Troponin Elevation
-no chest pain, in setting of anemia/bleed
-trended to peak 0.084 since trended down
Heart Failure Preserved EF
Moderate MR
Moderate TR
-most recent TTE 08/17/24; EF 54%
-CXR (given reports of SOB): trace bilateral pleural effusions with minimal bibasilar atelectasis
-cont PO Lasix Metoprolol
-Lasix reduced to 20 mg Daily as per Cardio
paroxysmal Atrial Fibrillation
-DESIGN DRAFTER Amiodarone discontinued as per cardio
-Eliquis resumed 09/24 renally dosed d/t age and weight
Suspect CKD III vs mild ZAHIRA
-more likely mild ZAHIRA
-Cr high 1.2 since trended down to within normal limit
Hypokalemia
monitor and replete as necessary
Essential HTN
HLD
-DESIGN DRAFTER Statin
DVT PPx SCD
Full Code
I spent a total of 45 minutes with the patient or on the floor. More than 50% of this time involved counseling and coordination of care.
Anticipated Discharge: 24 - 48 hours
Subjective/Interval History
-
Date of Service: September 27, 2024
Patient was seen and examined at bedside this morning. Still feeling constipated. Hemoglobin dropped to 7.4 again today, will transfuse another unit PRBCs.
Objective Data
-
Labs:
Laboratory Results
09/27/24
06:48
Hgb 7.4 L
Hct 23.2 L
Vital Signs:
Vital Signs
Temp Pulse Resp BP Pulse Ox
98.7 F 68 16 136/56 98
09/27/24 15:03 09/27/24 15:03 09/27/24 15:03 09/27/24 15:03 09/27/24 14:48
I&O
09/26/24 09/27/24 09/28/24
06:59 06:59 06:59
Intake Total 1310 / 1310 720 / 720 250 / 250
Balance 1310 / 1310 720 / 720 250 / 250
Review of Systems
-
History Source: Patient
All other systems: Reviewed and negative
Abdomen/GI: Reports Constipated
Physical Exam
-
General: No Apparent Distress
[2024-09-27] MEDS: CRESTOR 10 MG PO (18:09)
[2024-09-27] MEDS: ELIQUIS PO (20:09)
[2024-09-27] MEDS: SENOKOT 17.2 MG PO (20:47)
[2024-09-27] MEDS: MELATONIN 3 MG PO (20:47)
[2024-09-27 21:19] LABS: Hematocrit 26.5 % (37.0-47.0); Hemoglobin 8.7 g/dL (12.0-16.0)
[2024-09-28 07:40] LABS: Hematocrit 24.3 % (37.0-47.0); Hemoglobin 8.0 g/dL (12.0-16.0)
[2024-09-28] MEDS: NON-FORMULARY ITEM 1 UNIT PO ×2 (08:04→22:13)
[2024-09-28] MEDS: LOW STRENGTH ASPIRIN 81 MG PO (08:04)
[2024-09-28] MEDS: PEPCID 20 MG PO (08:04)
[2024-09-28] MEDS: MIRALAX 17 GRAMS PO (08:04)
[2024-09-28] MEDS: LASIX 20 MG PO (08:04)
[2024-09-28] MEDS: LOPRESSOR 12.5 MG PO ×2 (08:04→22:15)
[2024-09-28 08:16] VITALS: BP 124/51
[2024-09-28] MEDS: FERRLECIT 110 MG IV (14:13)
--- NOTE | 2024-09-28 14:40 | W.PN.HOSP.TC ---
Today's Communication/Plan
-
Assessment / Plan
Assessment / Plan
Physical Exam
General: No Apparent Distress appears comfortable at this time
HEENT: Normocephalic PERRLA EOMI
Respiratory: Clear to Auscultation Bilaterally
Cardiac: S1/S2, Regular Rhythm and JVD
GI: Soft and Non Tender. Positive bowel sounds.
Musculoskeletal: No cyanosis
Skin: Warm and Dry
Neuro: AOx3 conversant coherent, no facial droop
Psych: Calm
Assessment/Plan
84F paroxysmal afib Eliquis, admission 08/17-08/22/24 for NSTEMI (s/p PCI to LCx), HFpEF, essential HTN, HLD presented to the ER with progressive weakness.
Patient states she has had weakness in her left leg since September 01, 2024 where she has trouble walking and has fallen twice. She had a fall where she hit her head on September 10, [address] For 4 days prior to admission this
hospitalization, she also had left upper extremity weakness, where she had shaking and could not lift things easily. No difficulty speaking or swallowing. She also reported prior history of diarrhea that resolved when she cut out lactose. She now
has constipation but when she has a bowel movement it is black.
Left-Sided Weakness (Left Arm Spasms x 4 days prior to presentation), Left Lower Extremity Weakness and Spasms (for ~2 weeks prior to presentation), concern for acute CVA
- Patient had head CT for fall post onset of weakness, with new left arm weakness and patient is on Eliquis; repeat head CT with no bleed
- Evaluated by vascular surgery, has bilateral high-grade carotid artery stenosis with right carotid likely source of her symptoms, patient and family do not want surgical intervention, medical management only
- Held Plavix/Eliquis (for GI Bleed, see below), restarted Eliquis 2.5 mg twice daily on 09/24; Aspirin 81mg PO QD started on 09/19/24, continue home statin
- Due to concern for ongoing GI bleeding with hemoglobin trending back down to 8.0, will stop Eliquis as patient appears to have had bleeding episodes with this medication in the past, start Plavix
- patient had a bad experience with MRI in past and has metal in left wrist
- Neurology consultation appreciated
- PT/OT eval appreciated SNF rehab
- ST eval appreciated
Severe bilateral Carotid Stenosis R>L noted on carotid US
-Vascular eval appreciated patient and family opting for conservative mgmt at this time
UGIB likely exacerbated by/associated with/due to Plavix/Eliquis use.
- Generalized Weakness
- Melena
- Acute Blood Loss Anemia
- History of H. Pylori
- Received 1 unit PRBC on 09/18/24 2nd PRBC 09/21, 3rd unit ordered 09/24, 4th unit on 09/27 for hemoglobin 7.4
- Hemoglobin recovered to 8.7 yesterday after transfusion however drifted down to 8.0 on labs this morning, goal is to maintain hemoglobin greater than 8.0 considering CAD history
- protonix gtt completed, transitioned to PO daily but unable to tolerate PO Protonix so switched to famotidine (would prescribe Nexium on discharge, not available in hospital)
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
- Patient appears not to be tolerating Eliquis, will switch Eliquis to Plavix so patient at least has DAPT for recent stent.
Severe Iron Deficiency Anemia
-IV iron infusions
Constipation
-cont bowel regimen
-milk of magnesia prn
Coronary Artery Disease s/p PCI to LCx 08/17/24
- Eliquis resumed 09/24, later discontinued 09/28, Plavix restarted
- Continue low-dose aspirin
- Cardiology consult appreciated, rosuvastatin reduced to 10 mg
Non-ischemic Troponin Elevation
-no chest pain, in setting of anemia/bleed
-trended to peak 0.084 since trended down
Heart Failure Preserved EF
Moderate MR
Moderate TR
-most recent TTE 08/17/24; EF 54%
-CXR (given reports of SOB): trace bilateral pleural effusions with minimal bibasilar atelectasis
-cont PO Lasix Metoprolol
-Lasix reduced to 20 mg Daily as per Cardio
paroxysmal Atrial Fibrillation
-CLIENT SERVICES SPECIALIST Amiodarone discontinued as per cardio
-Eliquis resumed 09/24 renally dosed d/t age and weight, discontinued again 09/28
Suspect CKD III vs mild ZAHIRA
-more likely mild ZAHIRA
-Cr high 1.2 since trended down to within normal limit
Hypokalemia
monitor and replete as necessary
Essential HTN
HLD
-CLIENT SERVICES SPECIALIST Statin
DVT PPx SCD
Full Code
I spent a total of 45 minutes with the patient or on the floor. More than 50% of this time involved counseling and coordination of care.
Anticipated Discharge: 24 - 48 hours
Subjective/Interval History
-
Date of Service: September 28, 2024
Patient was seen and examined at bedside this morning. Hemoglobin recovered yesterday to 8.6 from 7.4 after transfusion 1 unit PRBCs. However trended back down to 8.0 this morning. No signs of active bleeding. Blood pressure remained stable.
Objective Data
-
Labs:
Laboratory Results
09/28/24
07:19
Hgb 8.0 L
Hct 24.3 L
Vital Signs:
Vital Signs
Temp Pulse Resp BP Pulse Ox
98.5 F 65 16 124/51 96
09/28/24 08:16 09/28/24 08:16 09/28/24 08:16 09/28/24 08:16 09/28/24 08:16
I&O
09/27/24 09/28/24 09/29/24
06:59 06:59 06:59
Intake Total 720 / 720 1580 / 1580
Balance 720 / 720 1580 / 1580
Review of Systems
-
History Source: Patient
All other systems: Reviewed and negative
Physical Exam
-
General: No Apparent Distress
[2024-09-28 15:56] VITALS: BP 129/43
[2024-09-28] MEDS: CRESTOR 10 MG PO (17:29)
[2024-09-28 20:45] VITALS: BP 123/61
[2024-09-28] MEDS: SENOKOT 17.2 MG PO (22:13)
[2024-09-28] MEDS: MELATONIN PO (22:27)
[2024-09-28 23:18] VITALS: BP 150/75
[2024-09-29] MEDS: MELATONIN 3 MG PO ×2 (01:17→21:52)
[2024-09-29] MEDS: TYLENOL 650 MG PO (01:18)
[2024-09-29 06:21] LABS: Hematocrit 24.9 % (37.0-47.0); Hemoglobin 8.0 g/dL (12.0-16.0)
[2024-09-29] MEDS: NON-FORMULARY ITEM 1 UNIT PO ×2 (07:30→21:52)
[2024-09-29] MEDS: LOPRESSOR 12.5 MG PO ×2 (07:31→21:52)
[2024-09-29] MEDS: LASIX 20 MG PO (07:32)
[2024-09-29] MEDS: PEPCID 20 MG PO (07:32)
[2024-09-29] MEDS: LOW STRENGTH ASPIRIN 81 MG PO (07:32)
[2024-09-29] MEDS: DULCOLAX 10 MG RECTAL (07:36)
[2024-09-29 08:06] VITALS: BP 134/61
[2024-09-29 12:01] LABS: Hematocrit 24.5 % (37.0-47.0); Hemoglobin 7.8 g/dL (12.0-16.0)
--- NOTE | 2024-09-29 13:17 | W.PN.HOSP.TC ---
Today's Communication/Plan
-
Assessment / Plan
Assessment / Plan
Physical Exam
General: No Apparent Distress appears comfortable at this time
HEENT: Normocephalic PERRLA EOMI
Respiratory: Clear to Auscultation Bilaterally
Cardiac: S1/S2, Regular Rhythm, heart rate controlled
GI: Soft and Non Tender. Positive bowel sounds.
Musculoskeletal: No cyanosis
Skin: Warm and Dry
Neuro: AOx3 conversant coherent, no facial droop
Psych: Calm and cooperative
Assessment/Plan
84F paroxysmal afib Eliquis, admission 08/17-08/22/24 for NSTEMI (s/p PCI to LCx), HFpEF, essential HTN, HLD presented to the ER with progressive weakness.
Patient states she has had weakness in her left leg since September 01, 2024 where she has trouble walking and has fallen twice. She had a fall where she hit her head on September 10, [address] For 4 days prior to admission this
hospitalization, she also had left upper extremity weakness, where she had shaking and could not lift things easily. No difficulty speaking or swallowing. She also reported prior history of diarrhea that resolved when she cut out lactose. She now
has constipation but when she has a bowel movement it is black.
Left-Sided Weakness (Left Arm Spasms x 4 days prior to presentation), Left Lower Extremity Weakness and Spasms (for ~2 weeks prior to presentation), concern for acute CVA
- Patient had head CT for fall post onset of weakness, with new left arm weakness and patient on Eliquis; repeat head CT with no bleed
- Evaluated by vascular surgery, has bilateral high-grade carotid artery stenosis with right carotid likely source of her symptoms, patient and family do not want surgical intervention, medical management only
- Held Plavix/Eliquis (for GI Bleed, see below), restarted Eliquis 2.5 mg twice daily on 09/24; Aspirin 81mg PO QD started on 09/19/24, continue home statin
- Have now stopped Eliquis as patient appears to have recurrent bleeding episodes with this medication, start Plavix
- patient had a bad experience with MRI in past and has metal in left wrist, does not want further workup with MRI
- Neurology consultation appreciated, treating presenting symptoms as if she had a stroke
- PT/OT recommending SNF which is being arranged
- ST eval appreciated
Severe bilateral Carotid Stenosis R>L noted on carotid US
-Vascular eval appreciated patient and family opting for conservative mgmt at this time
UGIB likely exacerbated by/associated with/due to Plavix/Eliquis use.
- Generalized Weakness and melena
- Acute Blood Loss Anemia
- History of H. Pylori
- Received 1 unit PRBC on 09/18/24 2nd PRBC 09/21, 3rd unit ordered 09/24, 4th unit on 09/27 for hemoglobin 7.4
- Hemoglobin remains stable around 8.0, which should be her goal considering CAD history
- protonix gtt completed, transitioned to PO daily but unable to tolerate PO Protonix so switched to famotidine (would prescribe Nexium on discharge, not available in hospital)
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
- Patient appears not to be tolerating Eliquis, have now discontinued Eliquis and restarted Plavix so patient at least has DAPT for recent stent.
Severe Iron Deficiency Anemia
-IV iron infusions
Constipation
-cont bowel regimen with holding parameters for loose stools
-milk of magnesia prn
Coronary Artery Disease s/p PCI to LCx 08/17/24
- Eliquis resumed 09/24, later discontinued 09/28, Plavix restarted
- Continue low-dose aspirin
- Cardiology consult appreciated, rosuvastatin reduced to 10 mg
Non-ischemic Troponin Elevation
-no chest pain, in setting of anemia/bleed
-trended to peak 0.084 since trended down
Heart Failure Preserved EF
Moderate MR
Moderate TR
-most recent TTE 08/17/24; EF 54%
-CXR (given reports of SOB): trace bilateral pleural effusions with minimal bibasilar atelectasis
-cont PO Lasix Metoprolol
-Lasix reduced to 20 mg Daily as per Cardio
paroxysmal Atrial Fibrillation
-AUTOMOTIVE ENGINEERING TEACHER Amiodarone discontinued as per cardio
-Eliquis resumed 09/24 renally dosed d/t age and weight, discontinued again 09/28
ZAHIRA
- Mild
-Cr high 1.2 since trended down to within normal limit
Hypokalemia
monitor and replete as necessary
Essential HTN
HLD
-AUTOMOTIVE ENGINEERING TEACHER Statin
DVT PPx SCD
Full Code
I spent a total of 45 minutes with the patient or on the floor. More than 50% of this time involved counseling and coordination of care.
Anticipated Discharge: 24 - 48 hours
Subjective/Interval History
-
Date of Service: September 29, 2024
Patient was seen and examined at bedside this morning. Her constipation has been relieved with aggressive bowel regimen and she had a large bowel movement this morning containing black stools which is likely residual from previous GI bleeding.
Hemoglobin remained stable.
Objective Data
-
Labs:
Laboratory Results
09/29/24 09/29/24
05:38 11:46
Hgb 8.0 L 7.8 L
Hct 24.9 L 24.5 L
Vital Signs:
Vital Signs
Temp Pulse Resp BP Pulse Ox
98.4 F 67 14 134/61 93
09/29/24 08:06 09/29/24 08:06 09/29/24 08:06 09/29/24 08:06 09/29/24 08:06
I&O
09/28/24 09/29/24 09/30/24
06:59 06:59 06:59
Intake Total 1580 / 1580 1260 / 1260
Balance 1580 / 1580 1260 / 1260
Review of Systems
-
History Source: Patient
All other systems: Reviewed and negative
Constitutional: Reports Weakness
Physical Exam
-
General: No Apparent Distress
[2024-09-29 13:34] VITALS: BP 142/62; O2SAT 100
--- NOTE | 2024-09-29 14:27 | CM ---
Per hospitalist, patient is stable for d/c today
[facility] accepted, confirmed w/ admissions bed available today
Called [facility], spoke w/ Zuri to initiate auth. Auth request will be sent to medical device assembler for review, will await determination
Patient will need ambulance auth
Pending auth ref [id number]
[facility]
Report: [phone]

Plan: [facility] today once auth is received
[2024-09-29 15:20] VITALS: BP 122/54
[2024-09-29] MEDS: CRESTOR 10 MG PO (16:51)
[2024-09-29] MEDS: SENOKOT 17.2 MG PO (21:51)
[2024-09-29 22:04] VITALS: BP 149/71
[2024-09-30] VITALS (8 sets, daily range): BP systolic 103–155; BP diastolic 60–75; PULSE 73; O2SAT 100; BMI 24.2
[2024-09-30 06:05] LABS: Hematocrit 23.1 % (37.0-47.0); Hemoglobin 7.3 g/dL (12.0-16.0)
[2024-09-30] MEDS: PEPCID 20 MG PO (08:00)
[2024-09-30] MEDS: LOPRESSOR 12.5 MG PO ×2 (08:00→20:22)
[2024-09-30] MEDS: LOW STRENGTH ASPIRIN 81 MG PO (08:00)
[2024-09-30] MEDS: NON-FORMULARY ITEM 1 UNIT PO ×2 (08:00→20:22)
[2024-09-30] MEDS: PLAVIX 75 MG PO (08:00)
[2024-09-30] MEDS: LASIX 20 MG PO (08:00)
--- NOTE | 2024-09-30 09:17 | W.PN.GI.CBS2 ---
Addendum entered and electronically signed by Ranjan Hawley MD 09/30/24 12:48:
I saw and examined the patient.
The HEALTH UNIT CLERK or PA's note was reviewed and I agree with the note.
Comment: Asked to return to see pt for ongoing bleeding.
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 Few bleeding ectasias in D2- injected w epi and cauterized w monopolar probe
Since EGD has required PRBC on 09/24, 09/27 and today for black stools and hgb repeatedly dropping into 7 range after transfusion.
On Eliquis/ASA, held for GI bleed, then restarted 09/24. Now eliquis held again given bleeding, last dose eliquis 09/27 am. Also rec'd plavix this am. Had recent PCI, stent 08/17. Also concern for CVA this admission with L sided weakness.
REC:
Given ongoing transfusion requirement, will set up EGD to assess ectasias and treat any recurrent bleeding. Will discuss timing with Dr Reid (coming on service tomorrow) given recent DOAC and plavix
Start protonix to help with clotting
May need colonoscopy if EGD negative
Trend Hgb
Addendum entered and electronically signed by MAI Berrios 09/30/24 11:19:
also noted with prior EGD esophageal stenosis with cervical osteophyte with need to downsize scope and guidewire to help traverse passed UES
Original Note:
Today's Communication / Plan
-
called back with continued dark stools-- rectal exam black heme + stool on my exam
s/p 4 units transfused and s/p IV iron given during admission
hbg range 7-9 range during admission now 7.3 today
in review of chart pt placed on therapy with Eliquis, and Plavix in August
she has not tolerated Eliquis and Plavix or just Eliquis and ASA with continued bleeding
last dose Plavix 09/30 and Eliquis 09/27
long discussion with patient on bleeding in setting of new Plavix and Eliquis in August -- concern for change in bowel habits recently with no prior colonoscopy. she also was noted AVM bleeding on recent EGD 09/[address]
will [address] Hawley for repeat EGD with recent AVM and colonoscopy and timing with Plavix dose given 09/30
pending decision on scopes ok to use ASA and heparin/Lovenox bridge if needed
pt wishes to review with daughter to see if she is agreeable to any further scopes when seen by Dr. Hawley
reviewed risk with patient with skipping procedures- continued bleeding, missed lesions, and risk of Anticoagulation hold - recurrent CVA and stent occlusion
trend hbg and stool record
change in low residue diet if case need to proceed with eventual colonoscopy
per Dr. Pacheco
--Prior H. pylori positive, no testing for eradication, no biopsies taken at time of EGD due to active bleeding; outpatient f/u to discuss
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
-PPI PO daily on discharge
take biopsies at time of EGD, however, could potentially yield a false negative in setting of bleeding
Assessment / Plan
-
84 y.o. female with pmhx afib on eliquis (recently started in August), HFpEF, HTN, HLD, CAD s/p recent PCI to Lcx on 08/17/24 on Plavix(recently started in August) admitted with left-sided weakness and dark stools, found to be anemic with heme positive
stool, now with concern for acute CVA vs. Brain tumor. Pt declined MRI.
s/p EGD 09/22 with actively bleeding AVMs in D2, treated with epi and APC.
no hx colonoscopy
-continued Melena
-anemia with iron deficiency s/p 4 units PRBC's given during admission
-EGD with actively bleeding AVM;s
-recent change
-concern for CVA on admission -- pt declined MRI
-carotid stenosis
-hx CAD with PCI/stent 08/17
-hx H pylori
-possible antoine's on EGD
Plan:
called back with continued dark stools-- rectal exam black heme + stool on my exam
s/p 4 units transfused and s/p IV iron given during admission
hbg range 7-9 range during admission now 7.3 today
in review of chart pt placed on therapy with Eliquis, and Plavix in August
she has not tolerated Eliquis and Plavix or just Eliquis and ASA with continued bleeding
last dose Plavix 09/30 and Eliquis 09/27
long discussion with patient on bleeding in setting of new Plavix and Eliquis in August -- concern for change in bowel habits recently with no prior colonoscopy. she also was noted AVM bleeding on recent EGD 09/22
will review [address] Hawley for repeat EGD with recent AVM and colonoscopy and timing with Plavix dose given 09/30
pending decision on scopes ok to use ASA and heparin/Lovenox bridge if needed
pt wishes to review with daughter to see if she is agreeable to any further scopes when seen by Dr. Hawley
reviewed risk with patient with skipping procedures- continued bleeding, missed lesions, and risk of Anticoagulation hold - recurrent CVA and stent occlusion
trend hbg and stool record
change in low residue diet if case need to proceed with eventual colonoscopy
per Dr. Pacheco
--Prior H. pylori positive, no testing for eradication, no biopsies taken at time of EGD due to active bleeding; outpatient f/u to discuss
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
-PPI PO daily on discharge
take biopsies at time of EGD, however, could potentially yield a false negative in setting of bleeding
Subjective
Subjective
Date of Service: September 30, 2024
10/09 black/dark brown stools
Objective
Data Reviewed
Laboratory Data:
Laboratory Results
09/30/24 05:14
09/26/24 07:18
Laboratory Results
Phosphorus 4.1 mg/dl (2.5-4.5) 09/26/24 07:18
Magnesium 2.1 mg/dl (1.6-2.3) 09/26/24 07:18
Total Bilirubin 0.8 mg/dl (0.2-1.3) 09/23/24 06:47
AST 34 U/L (14-36) 09/23/24 06:47
ALT 23 U/L (0-35) 09/23/24 06:47
Alkaline Phosphatase 63 U/L (38-126) 09/23/24 06:47
Vital Signs and I&O:
Vital Signs
Temp Pulse Resp BP Pulse Ox
97.6 F 75 18 144/75 100
09/30/24 07:00 09/30/24 07:00 09/30/24 07:00 09/30/24 07:00 09/30/24 08:00
I&O
09/29/24 09/30/24 10/01/24
06:59 06:59 06:59
Intake Total 1260 / 1260 1100 / 1100
Balance 1260 / 1260 1100 / 1100
Physical Exam
Physical Exam
HEENT: Anicteric and Moist mucous membranes
Cardiology: Normal Sinus Rhythm
Pulmonary: Clear
GI: Soft, Non Distended and Non Tender
Rectal: Black and Hem Positive
Extremities: No Edema
Neuro: Non Focal
--- NOTE | 2024-09-30 11:09 | CM ---
Chart reviewed. SNF auth still pending at this time
Per hospitalst, hold d/c as patient will need another transfusion today
Updated [facility] admissions
CM will cont to follow for d/c
--- NOTE | 2024-09-30 16:15 | W.PN.HOSP.TC ---
Today's Communication/Plan
-
Assessment / Plan
Assessment / Plan
Physical Exam
General: No Apparent Distress appears comfortable at this time
HEENT: Normocephalic PERRLA EOMI
Respiratory: Clear to Auscultation Bilaterally
Cardiac: S1/S2, Regular Rhythm, heart rate controlled
GI: Soft and Non Tender. Positive bowel sounds.
Musculoskeletal: No cyanosis
Skin: Warm and Dry
Neuro: AOx3 conversant coherent, no facial droop
Psych: Calm and cooperative
Assessment/Plan
84F paroxysmal afib Eliquis, admission 08/17-08/22/24 for NSTEMI (s/p PCI to LCx), HFpEF, essential HTN, HLD presented to the ER with progressive weakness.
Patient states she has had weakness in her left leg since September 01, 2024 where she has trouble walking and has fallen twice. She had a fall where she hit her head on September 10, [address] For 4 days prior to admission this
hospitalization, she also had left upper extremity weakness, where she had shaking and could not lift things easily. No difficulty speaking or swallowing. She also reported prior history of diarrhea that resolved when she cut out lactose. She now
has constipation but when she has a bowel movement it is black.
Concern for acute CVA:
- Left-Sided Weakness (Left Arm Spasms x 4 days prior to presentation), Left Lower Extremity Weakness and Spasms (for ~2 weeks prior to presentation)
- Patient had head CT for fall post onset of weakness, with new left arm weakness and patient on Eliquis; repeat head CT with no bleed
- Evaluated by vascular surgery, has bilateral high-grade carotid artery stenosis with right carotid likely source of her symptoms, patient and family do not want surgical intervention, medical management only
- Held Plavix/Eliquis (for GI Bleed, see below), restarted Eliquis 2.5 mg twice daily on 09/24; Aspirin 81mg PO QD started on 09/19/24, continue home statin
- Currently holding blood thinners other than low-dose aspirin pending possible repeat endoscopy for ongoing bleeding
- patient had a bad experience with MRI in past and has metal in left wrist, does not want further workup with MRI
- Neurology consultation appreciated, treating presenting symptoms as if she had a stroke
- PT/OT recommending SNF which is being arranged
- ST eval appreciated
Severe bilateral Carotid Stenosis R>L noted on carotid US
-Vascular eval appreciated patient and family opting for conservative mgmt at this time
UGIB likely exacerbated by/associated with/due to Plavix/Eliquis use.
- Generalized Weakness and melena
- Acute Blood Loss Anemia
- History of H. Pylori
- Received 1 unit PRBC on 09/18/24 2nd PRBC 09/21, 3rd unit ordered 09/24, 4th unit on 09/27 for hemoglobin 7.4
- Hemoglobin remained stable around 8.0, which should be her goal considering CAD history, however dropped to 7.3 on labs this morning and so transfusing another unit PRBCs
- GI following, considering repeat upper endoscopy and possible colonoscopy to identify sources of ongoing bleeding, last dose of Plavix 8 AM 09/30, last dose Eliquis 2.5 mg 9 AM 09/27
- All blood thinners discontinued for now other than low-dose aspirin considering ongoing bleeding, will consider starting heparin drip tomorrow morning if not undergoing endoscopy
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
- protonix gtt transitioned to PO daily but unable to tolerate PO Protonix so switched to famotidine (would prescribe Nexium on discharge, not available in hospital)
- Will transition back to IV Protonix twice daily for now considering apparent active bleeding
- Patient is hesitant to continue Eliquis as she feels recurrent bleeding is due to this medication, however she is agreeable to follow what ever recommendations her medical team offers
Severe Iron Deficiency Anemia
-IV iron infusions
Constipation
- Holding bowel regimen for loose stools
Coronary Artery Disease s/p PCI to LCx 08/17/24
- Has been trialed on both Eliquis and Plavix with recurrent bleeding, both of which have since been discontinued, last dose of Plavix 8 AM 09/30, last dose Eliquis 2.5 mg 9 09/27
- Continue low-dose aspirin
- Cardiology consult appreciated, rosuvastatin reduced to 10 mg
Non-ischemic Troponin Elevation
-no chest pain, in setting of anemia/bleed
-trended to peak 0.084 since trended down
Heart Failure Preserved EF
Moderate MR
Moderate TR
-most recent TTE 08/17/24; EF 54%
-CXR (given reports of SOB): trace bilateral pleural effusions with minimal bibasilar atelectasis
-cont PO Lasix Metoprolol
-Lasix reduced to 20 mg Daily as per Cardio
paroxysmal Atrial Fibrillation
- Heart rate well-controlled with Toprol tartrate 12.5 mg p.o. twice daily, amiodarone discontinued
- Has been trialed on both Eliquis and Plavix with recurrent bleeding, both of which have since been discontinued, last dose of Plavix 8 AM 09/30, last dose Eliquis 2.5 mg 09/27
- Will consider starting IV heparin drip if not going for endoscopy
ZAHIRA
- Mild
- Cr high 1.2 since trended down to within normal limit
Hypokalemia
monitor and replete as necessary
Essential HTN
HLD
-AIR FORCE PILOT Statin
DVT PPx SCD
Full Code
I spent a total of 50 minutes with the patient or on the floor. More than 50% of this time involved counseling and coordination of care.
Anticipated Discharge: > 48 hours
Subjective/Interval History
-
Date of Service: September 30, 2024
Patient was seen and examined at bedside this morning. Hemoglobin dropped again to 7.3 on morning labs. Transfusing another unit PRBCs. Holding further anticoagulation pending possible endoscopy.
Objective Data
-
Labs:
Laboratory Results
09/30/24
05:14
Hgb 7.3 L
Hct 23.1 L
Vital Signs:
Vital Signs
Temp Pulse Resp BP Pulse Ox
98.1 F 77 16 120/71 98
09/30/24 15:34 09/30/24 15:34 09/30/24 15:34 09/30/24 15:34 09/30/24 15:34
I&O
09/29/24 09/30/24 10/01/24
06:59 06:59 06:59
Intake Total 1260 / 1260 1100 / 1100 250 / 250
Balance 1260 / 1260 1100 / 1100 250 / 250
Review of Systems
-
History Source: Patient
All other systems: Reviewed and negative
Physical Exam
-
General: No Apparent Distress
[2024-09-30] MEDS: CRESTOR 10 MG PO (17:25)
[2024-09-30] MEDS: PROTONIX IV 40 MG IV (20:23)
[2024-09-30] MEDS: NSS (PRESERVATIVE FREE) 10 ML IV (20:23)
[2024-09-30] MEDS: MELATONIN PO (21:38)
[2024-10-01] VITALS (12 sets, daily range): BP systolic 16–155; BP diastolic 48–70
[2024-10-01 07:40] LABS: Hematocrit 26.0 % (37.0-47.0); Hemoglobin 8.3 g/dL (12.0-16.0); Mean Corp Hgb Conc. 31.9 g/dL (33.0-37.0); Mean Corpuscular Volume 97.0 fL (81.0-99.0); Nucleated Red Blood Cells % 0 %; Platelet Count 204 10^3/uL (130-400); Red Cell Dist. Width 19.6 % (11.5-14.5)
[2024-10-01 07:55] LABS: INR 1.18; PT 15.3 Sec (11.4-14.6)
[2024-10-01 07:56] LABS: APTT 22.4 Sec (23.4-35.0)
[2024-10-01 08:05] LABS: Blood Urea Nitrogen 31 mg/dl (7-17); Calcium 8.4 mg/dl (8.4-10.2); Carbon Dioxide 26 mmol/L (22-30); Chloride 107 mmol/L (98-107); Estimated Creatinine Clearance 42 ml/min; Glucose 83 mg/dl (70-99); Potassium 3.6 mmol/L (3.5-5.1); Sodium 136 mmol/L (135-145); eGFR > 60.00
[2024-10-01] MEDS: PROTONIX IV 40 MG IV (08:46)
[2024-10-01] MEDS: NSS (PRESERVATIVE FREE) 10 ML IV (08:46)
--- NOTE | 2024-10-01 13:19 | W.PN.UPDATE ---
Update Note
Progress Note Update
GI Update note
I returned to patient's room several hours post EGD when sedation wore off
I discussed that EGD did not show active or old blood. Prior bleeding duodenal ectasia appeared appropriately treatd and there was no oozing from that site.
I did offer her colonoscopy to evaluate for LGI source of blood and iron loss.
Risk/benefits discussed at length. She refuses to do prep. Hospitalist updated
At this juncture GI will sign off please call for ?
[2024-10-01] MEDS: LOPRESSOR 12.5 MG PO (13:34)
[2024-10-01] MEDS: LOW STRENGTH ASPIRIN 81 MG PO (13:34)
[2024-10-01] MEDS: NON-FORMULARY ITEM 1 UNIT PO (13:34)
[2024-10-01] MEDS: LASIX 20 MG PO (13:34)
--- NOTE | 2024-10-01 14:47 | W.DCSUMMARY ---
Discharge Summary
Discharge Data
Date of Admission: 09/18/24
Date of Discharge: 10/01/24
Total time spent discharging patient (in min): 60
-
Pending Results: No
Hospital Course
Ms. Jasso is an 84-year-old female with a medical history of recent NSTEMI (08/17/2024, PCI to LCx), HFpEF, A-fib (on amiodarone and low-dose Eliquis), and hypertension who presented with progressive weakness and black stools. During her
hospitalization 1 month ago for NSTEMI she was started on Plavix after PCI and low-dose Eliquis for her A-fib. During that hospitalization she developed significant epistaxis requiring ENT evaluation and nasal packing and cauterization. A few
weeks after the hospitalization she had multiple falls including a fall in which she hit her head on September 10. Head CT at that time was unremarkable. She reported developing left upper and lower extremity weakness starting approximately 4 days
prior to this admission. Repeat CT brain at the time of this hospitalization showed no evidence of bleeding. She was evaluated by neurology but did not want to undergo further evaluation with MRI due to a bad experience in the past. Neurology
recommended treating her symptoms as if she had a stroke including starting antiplatelets, statin, and PT/OT. Patient and her family were agreeable with this plan. She was also evaluated by vascular surgery and found to have severe bilateral
carotid artery stenosis, right worse than left, which correlates with her presenting symptoms. However patient and family opted for conservative management rather than surgical intervention.
Her clinical course was further complicated by GI bleeding melena and anemia with hemoglobin of 7.3. Her Plavix and Eliquis were held and she was transfused 1 unit of PRBCs on 09/18 and a 2nd unit on 09/21. She was continued on low-dose aspirin. She
underwent upper endoscopy on 09/22/2024 with findings of short segment Romero's esophagus and a few bleeding angioectasias in the duodenum which were cauterized. She was transfused a 3rd unit of PRBCs on 09/24 and her Eliquis was restarted later that
day. However on 09/27 her hemoglobin again dropped to 7.4, at which point she was transfused a 4th unit of PRBCs and her Eliquis was discontinued. Her hemoglobin again dropped to 7.3 on 09/30 at which point she was transfused a 5th unit. She
underwent repeat upper endoscopy on the morning of 10/01 with no evidence of recurrent bleeding. She declined further evaluation with colonoscopy. She did not want to be treated with Eliquis at all going forward, even low-dose. She did agree to
trial aspirin and Plavix considering her bilateral carotid artery stenosis and possible associated stroke. She is aware of the risks versus benefits of treatment with blood thinners versus no treatment, which have also been discussed at length with
her daughter. They are agreeable with the current plan. If she develops evidence of rebleeding including melena, bright red blood per rectum, abrupt hypotension, or worsening anemia she can stop aspirin, Plavix, or both. She will be discharged on
an acid reducing medication. She was unable to tolerate p.o. Protonix and so her regimen was switched to famotidine. However she will be continued on esomeprazole after discharge if tolerated, otherwise can switch back to famotidine. She was
significantly constipated but responded well to an aggressive bowel regimen. She will be continued on a scheduled bowel regimen with holding parameters for loose stools.
She will need frequent blood work to monitor her hemoglobin levels. Labs should be done every 2 to 3 days for 2 weeks after hospital discharge. She will need to follow-up with her primary care physician [facility] for ongoing hemoglobin monitoring and medication adjustments as needed. We discussed in detail the risks versus benefits of using blood thinners. In the short-term the benefits of using aspirin and Plavix likely outweigh the risks
considering her carotid artery stenosis and recent cardiac stent. However this balance of risks versus benefits may change management manager time. At the time of hospital discharge she was medically stable. In addition to following up with her PCP, she will
also need to follow-up with cardiology, gastroenterology, hematology, and vascular surgery.
Physical Exam
General: No Apparent Distress appears comfortable at this time
HEENT: Normocephalic PERRLA EOMI
Respiratory: Clear to Auscultation Bilaterally
Cardiac: S1/S2, Regular Rhythm, heart rate controlled
GI: Soft and Non Tender. Positive bowel sounds.
Musculoskeletal: No cyanosis
Skin: Warm and Dry
Neuro: AOx3 conversant coherent, no facial droop
Psych: Calm and cooperative
Discharge Plan
-
Patient Disposition: Longterm/SNF
Discharge Diagnosis/Procedures: Stroke
Severe bilateral Carotid Stenosis
Upper GI Bleed likely exacerbated by/associated with/due to Plavix/Eliquis use.
Acute Blood Loss Anemia
Severe Iron Deficiency Anemia
Constipation
Coronary Artery Disease status post stent 08/17/24
Chronic Heart Failure with Preserved Ejection Fraction
paroxysmal Atrial Fibrillation
Hypertension
Hyperlipidemia
Condition: Fair
Diet: Low Cholesterol and Supplements
Additional Diets: Daily Ensure Supplement
Activity: With assistance, As tolerated and With Walker
Driving Restrictions: Not until seen by your Dr
Blood Work: Repeat CBC and BMP with primary care provider in 1 week of discharge.
Other Services: PT and OT
Specialty Instructions: Weigh Daily- Call MD for wt gain/loss 3 lbs overnight/5 lbs in 1 week
Activity Restrictions/Additional Instructions:
Follow up with primary care provider in 1 week of discharge. Keep your appointments with Cardiology and Vascular Specialist. Follow up with Hematology in 2-4 weeks of discharge
Ms. Jasso is an 84-year-old female with a medical history of recent NSTEMI (08/17/2024, PCI to LCx), HFpEF, A-fib (on amiodarone and low-dose Eliquis), and hypertension who presented with progressive weakness and black stools. During her
hospitalization 1 month ago for NSTEMI she was started on Plavix after PCI and low-dose Eliquis for her A-fib. During that hospitalization she developed significant epistaxis requiring ENT evaluation and nasal packing and cauterization. A few
weeks after the hospitalization she had multiple falls including a fall in which she hit her head on September 10. Head CT at that time was unremarkable. She reported developing left upper and lower extremity weakness starting approximately 4 days
prior to this admission. Repeat CT brain at the time of this hospitalization showed no evidence of bleeding. She was evaluated by neurology but did not want to undergo further evaluation with MRI due to a bad experience in the past. Neurology
recommended treating her symptoms as if she had a stroke including starting antiplatelets, statin, and PT/OT. Patient and her family were agreeable with this plan. She was also evaluated by vascular surgery and found to have severe bilateral
carotid artery stenosis, right worse than left, which correlates with her presenting symptoms. However patient and family opted for conservative management rather than surgical intervention.
Her clinical course was further complicated by GI bleeding melena and anemia with hemoglobin of 7.3. Her Plavix and Eliquis were held and she was transfused 1 unit of PRBCs on 09/18 and a 2nd unit on 09/21. She was continued on low-dose aspirin. She
underwent upper endoscopy on 09/22/2024 with findings of short segment Roemro's esophagus and a few bleeding angioectasias in the duodenum which were cauterized. She was transfused a 3rd unit of PRBCs on 09/24 and her Eliquis was restarted later that
day. However on 09/27 her hemoglobin again dropped to 7.4, at which point she was transfused a 4th unit of PRBCs and her Eliquis was discontinued. Her hemoglobin again dropped to 7.3 on 09/30 at which point she was transfused a 5th unit. She
underwent repeat upper endoscopy on the morning of 10/01 with no evidence of recurrent bleeding. She declined further evaluation with colonoscopy. She did not want to be treated with Eliquis at all going forward, even low-dose. She did agree to
trial aspirin and Plavix considering her bilateral carotid artery stenosis and possible associated stroke. She is aware of the risks versus benefits of treatment with blood thinners versus no treatment, which have also been discussed at length with
her daughter. They are agreeable with the current plan. If she develops evidence of rebleeding including melena, bright red blood per rectum, abrupt hypotension, or worsening anemia she can stop aspirin, Plavix, or both. She will be discharged on
an acid reducing medication. She was unable to tolerate p.o. Protonix and so her regimen was switched to famotidine. However she will be continued on esomeprazole after discharge if tolerated, otherwise can switch back to famotidine. She was
significantly constipated but responded well to an aggressive bowel regimen. She will be continued on a scheduled bowel regimen with holding parameters for loose stools.
She will need frequent blood work to monitor her hemoglobin levels. Labs should be done every 2 to 3 days for 2 weeks after hospital discharge. She will need to follow-up with her primary care physician [facility] for ongoing hemoglobin monitoring and medication adjustments as needed. We discussed in detail the risks versus benefits of using blood thinners. In the short-term the benefits of using aspirin and Plavix likely outweigh the risks
considering her carotid artery stenosis and recent cardiac stent. However this balance of risks versus benefits may change management manager time. At the time of hospital discharge she was medically stable. In addition to following up with her PCP, she will
also need to follow-up with cardiology, gastroenterology, hematology, and vascular surgery.
Referrals:
Yamil Moore DO [Active, Hematology / Oncology] - in two to four weeks
Lukas Yung MD [Active, Cardiology] - 11/02/24 12:40 pm
Referral Note: You have an appointment to see Dr. Yung's physician shop assistant, iKm, at the [place] office on 11/02/2024 at 12:40 PM. You are later scheduled to see Dr. Yung at the [place] office on 12/02/2024 at 4 PM.
Solitario Sharma MD [Family Provider, Internal Medicine] - in one week
Caroline Krishnamurthy CRNP [Specified Professional Personl, Vascular Surgery] - 10/19/24 1:00 pm
Additional Discharge Medication Instructions: - Stop taking Eliquis (apixaban)
- Stop taking Amiodarone
- Start taking aspirin 81 mg daily
- Continue taking Plavix (clopidogrel) 75 mg daily
- Decrease your dose of Lasix (furosemide) to 20 mg (1/2 tablet of 40 mg tablet) once a day
- Decrease Crestor (rosuvastatin) to 10 mg daily and take at bedtime
- Nexium prescribed for GI prophylaxis recent GI bleed
Prescriptions:
New
aspirin 81 mg Tablet,Chewable
81 mg PO DAILY Qty: 30 0RF
furosemide 20 mg Tablet
20 mg PO DAILY Qty: 30 0RF
melatonin 3 mg Tablet
3 mg PO HS PRN (Reason: Sleep) Qty: 30 0RF
rosuvastatin 10 mg Tablet
10 mg PO QPM Qty: 30 0RF
esomeprazole magnesium [Nexium Packet] [address] for susp in packet
40 mg PO DAILY Qty: 30 0RF
Continued
nitroglycerin 0.4 mg Tablet, Sublingual
0.4 mg sublingual [id number] PRN (Reason: ANGINA) Qty: 3 0RF
metoprolol tartrate 25 mg Tablet
12.5 mg PO BID Qty: 60 0RF
acetaminophen 160 mg/5 mL Liquid
480 mg PO DAILYPRN PRN (Reason: mild pain)
magnesium hydroxide [Milk of Magnesia] 400 mg/5 mL Suspension
15 ml PO ONCE PRN (Reason: constipation)
ondansetron 4 mg Tablet,Disintegrating
4 mg PO DAILYPRN PRN (Reason: nausea/vomiting)
PreserVision AREDS-2 250-90-40-1 mg Tablet,Chewable
1 tab PO BID
clopidogrel 75 mg tablet
75 mg PO DAILY
Discontinued
amiodarone 200 mg tablet
200 mg PO DAILY
rosuvastatin 20 mg tablet
20 mg PO DAILY@1500
furosemide 40 mg tablet
40 mg PO DAILY
Eliquis 2.5 mg tablet
2.5 mg PO BID
Discharge Orders:
Discharge Patient (As Directed); Ordered 10/01/24
Ordered By: Enoch Argueta
Discharge Date and Time
Print Language: SETSWANA
--- NOTE | 2024-10-01 15:05 | CM ---
Patient stable for d/c today.
CM called [facility] for auth status. Auth approved 10/01-10/05. Facility to call [phone] for updates
Ambulance auth approved. Auth ref [id number]
Ambulance forms provided to
Updated patient bedside, happy to d/c today
IMM verbally reviewed, copy provided, copy on chart
[place] [facility]
Report: [phone]

Plan: D/c to [facility] today
--- NOTE | 2024-10-01 16:38 | PTCARENOTE ---
Report called in to Mansoor Gallegos.
[2024-10-01] MEDS: CRESTOR 10 MG PO (17:05)
== END 2024-10-01 19:10 | DRG 377 ==
LOC: 4 WEST ACU 19:40
PROVIDERS: Hospitalist; Internal Medicine; Internal Medicine Gastroenterology; Nurse Practitioner Family; Physician Assistant; ADMITTING PHYSICIAN Student in an Organized Health Care Education/Training Program; ATTENDING PHYSICIAN Internal Medicine; CONSULT PHYSICIAN Internal Medicine; CONSULT PHYSICIAN Internal Medicine Cardiovascular Disease; CONSULT PHYSICIAN Psychiatry & Neurology Clinical Neurophysiology; EMERGENCY PHYSICIAN Student in an Organized Health Care Education/Training Program; FAMILY PHYSICIAN Internal Medicine; OTHER PHYSICIAN Surgery
PROC: 30233N1 Transfusion of Nonautologous Red Blood Cells into Peripheral Vein, Percutaneous Approach (ICD-10-PCS; 2024-09-18)
PROC: 3E0G8GC Introduction of Other Therapeutic Substance into Upper GI, Via Natural or Artificial Opening Endoscopic (ICD-10-PCS; 2024-09-22)
PROC: 0DJ08ZZ Inspection of Upper Intestinal Tract, Via Natural or Artificial Opening Endoscopic (ICD-10-PCS; 2024-10-01)
DX: K31.811 Angiodysplasia of stomach and duodenum with bleeding (principal); I63.9 Cerebral infarction, unspecified; D62 Acute posthemorrhagic anemia; I50.32 Chronic diastolic (congestive) heart failure; D68.32 Hemorrhagic disorder due to extrinsic circulating anticoagulants; N17.9 Acute kidney failure, unspecified; G81.94 Hemiplegia, unspecified affecting left nondominant side; J98.11 Atelectasis; I48.0 Paroxysmal atrial fibrillation; I25.10 Atherosclerotic heart disease of native coronary artery without angina pectoris; I11.0 Hypertensive heart disease with heart failure; K21.9 Gastro-esophageal reflux disease without esophagitis; J45.909 Unspecified asthma, uncomplicated; E87.6 Hypokalemia; N28.9 Disorder of kidney and ureter, unspecified; I45.10 Unspecified right bundle-branch block; K22.2 Esophageal obstruction; K22.70 Barrett's esophagus without dysplasia; K44.9 Diaphragmatic hernia without obstruction or gangrene; D49.6 Neoplasm of unspecified behavior of brain; I65.23 Occlusion and stenosis of bilateral carotid arteries; H35.30 Unspecified macular degeneration; I08.1 Rheumatic disorders of both mitral and tricuspid valves; R29.6 Repeated falls; R79.89 Other specified abnormal findings of blood chemistry; K31.89 Other diseases of stomach and duodenum; K59.00 Constipation, unspecified; E78.00 Pure hypercholesterolemia, unspecified; Z96.652 Presence of left artificial knee joint; I25.2 Old myocardial infarction; Z95.5 Presence of coronary angioplasty implant and graft; Z79.01 Long term (current) use of anticoagulants; Z90.49 Acquired absence of other specified parts of digestive tract; Z88.1 Allergy status to other antibiotic agents; Z88.8 Allergy status to other drugs, medicaments and biological substances; Z11.52 Encounter for screening for COVID-19; Z79.02 Long term (current) use of antithrombotics/antiplatelets; Z82.49 Family history of ischemic heart disease and other diseases of the circulatory system; Z86.19 Personal history of other infectious and parasitic diseases; Z87.19 Personal history of other diseases of the digestive system
CPT/HCPCS: 36430; 70450; 71046; 80048; 80053; 80061; 81003; 81015; 82550; 82607; 82728; 82746; 82962; 83036; 83540; 83550; 83735; 83880; 84100; 84484; 85014; 85018; 85025; 85027; 85610; 85730; 86850; 86900; 86901; 86920; 87811; 92507; 92523; 92526; 92610; 93005; 93880; 96361; 96374; 97110; 97116; 97163; 97166; 97530; 97535; 99285; C1726; J2916; P9016

== ENCOUNTER → 2024-10-04 09:49 | Outpatient (REF) | payer OTHER, SELFPAY ==
[2024-10-04 10:38] LABS: Hematocrit 23.8 % (37.0-47.0); Hemoglobin 7.5 g/dL (12.0-16.0); Mean Corp Hgb Conc. 31.5 g/dL (33.0-37.0); Mean Corpuscular Volume 100.0 fL (81.0-99.0); Nucleated Red Blood Cells % 0 %; Platelet Count 230 10^3/uL (130-400); Red Cell Dist. Width 20.2 % (11.5-14.5)
== END ==
LOC: OLABP 09:49
PROVIDERS: ATTENDING PHYSICIAN Family Medicine
DX: G81.04 Flaccid hemiplegia affecting left nondominant side (principal); I65.22 Occlusion and stenosis of left carotid artery; I65.21 Occlusion and stenosis of right carotid artery; I48.0 Paroxysmal atrial fibrillation; D64.9 Anemia, unspecified; K92.2 Gastrointestinal hemorrhage, unspecified; I10 Essential (primary) hypertension; I50.30 Unspecified diastolic (congestive) heart failure; E78.5 Hyperlipidemia, unspecified; I51.0 Cardiac septal defect, acquired; E87.6 Hypokalemia
CPT/HCPCS: 36415; 85025

== ENCOUNTER 2024-10-05 16:21 | Inpatient (IN) | payer OTHER, SELFPAY ==
[2024-10-05] VITALS (17 sets, daily range): BP systolic 118–161; BP diastolic 52–132; PULSE 97–98; BMI 24.9; BMI 23.4
--- NOTE | 2024-10-05 12:03 | ED.GENMED ---
History of Present Illness
General
Chief Complaint: Abdominal Symptoms
Source: patient
Exam Limitations: none
Time Seen by Provider: 10/05/24 11:23
History of Present Illness
History of Present Illness:
84-year-old female presents from [facility] with increasing fatigue and persistent black-colored stools that have been present past 4 to 5 days. She denies any significant chest pain. She denies shortness of breath. She was admitted to this
hospital recently for non-STEMI and upper GI bleeding. She had endoscopies. She needed blood transfusions. Her daughter feels as though she is going in the wrong direction. Daughter feels like she looks pale. Patient notes some swelling in her
legs.
Past History
Past History
ED Past Medical History: Arrthythmia (Atrial fib), Asthma, GERD, HTN, Valvular disease (MVP) and Other (superficial thrombophlebitis LE, Diverticulosis, )
ED Past Surgical History: Cholecystectomy, Orthopedic (Left shoulder surgery, Knee surgery, Left wrist surgery, ) and Other (Vein stripping, )
Social History
Tobacco: Non-smoker
Alcohol: None
Drug: None
Personal:
Living: alone
Employment: Retired
Family History
Family History: Other (Noncontributory)
Phy Exam
Physical Exam
Physical Exam:
General: Well-appearing female no acute respiratory distress
HEENT: Normocephalic atraumatic
Heart: Regular rate and rhythm
Lungs: Clear no wheeze
Rectal exam: Black-colored stool heme positive, this was performed with female nursePenny in the room as a teacher adult education
Extremities: No cyanosis but edema is noted in the bilateral lower extremities
Skin is slightly pale
Course
Orders/Labs/Results
Orders:
Orders
10/05/24 13:10
Type+Screen Urgent
CMP [Comprehensive Metabolic Panel] Urgent
Complete Blood Count/With Diff Urgent
10/05/24 13:53
* Blood Bank Products Urgent
Blood Bank Products: *Packed RBC Leuko(PRBC's)
Quantity: 1
Transfuse Today: Yes
Reason: Anemia
Pantoprazole [Protonix IV] 80 mg IV NOW STA
Abnormal Lab Results
10/05/24
13:10
RBC 2.19 L 10^6/uL
(4.20-5.40)
Hgb 6.9 L* g/dL
(12.0-16.0)
Hct 21.4 L %
(37.0-47.0)
MCH 31.5 H pg
(27.0-31.0)
MCHC 32.2 L g/dL
(33.0-37.0)
RDW 20.1 H %
(11.5-14.5)
Absolute Monos (auto) 0.8 H 10^3/uL
(0.1-0.6)
Lymphocytes % 19.1 L %
(20.5-51.1)
Monocytes % 10.8 H %
(1.7-9.3)
Sodium 134 L mmol/L
(135-145)
Potassium 3.4 L mmol/L
(3.5-5.1)
BUN 26 H mg/dl
(7-17)
Calcium 8.0 L mg/dl
(8.4-10.2)
AST 45 H U/L
(14-36)
ALT 41 H U/L
(0-35)
Total Protein 5.3 L g/dl
(6.3-8.2)
Albumin 2.9 L g/dl
(3.5-5.0)
Crossmatch IS Only See Detail
10/05/24 13:10
10/05/24 13:10
Vital Signs
Initial and Last Documented VS:
Initial Vital Signs
Temp Pulse Resp BP Pulse Ox
97.5 F 67 18 146/67 100
10/05/24 11:41 10/05/24 11:41 10/05/24 11:41 10/05/24 11:41 10/05/24 11:41
Last Documented Vital Signs
Temp Pulse Resp BP Pulse Ox
97.5 F 65 9 122/105 100
10/05/24 11:41 10/05/24 14:00 10/05/24 14:00 10/05/24 14:00 10/05/24 13:30
MDM/Problems Addressed
Differential Diagnosis Includes:
Patient with fatigue and persistent dark stools over the past several days. Exam shows heme positive stools that are black in color. Will check blood work. I anticipate she will need admission again for persistent GI bleeding and possible anemia
*Pulse Oximetry
SaO2: 100
Oxygen Mode of Delivery: Room air
Patient hypoxic: no
*Critical Care Note
Total Time (30-74mins, 75-104mins- exclusive of procedures): Not Applicable
Update Note
Update Note:
Hemoglobin 6.9. Blood consent signed. The unit of packed red blood cells ordered for her symptomatic anemia likely secondary to GI bleeding. Protonix ordered. Admitted to hospitalist. GI team made aware
ED Attending Note
-
Portions of this chart may have been created with voice recognition software.� Occasional wrong word or��sound alike� substitutions may have occurred due to the inherent limitations of voice recognition software.
Discharge Plan
Departure
Patient Disposition: Admit
Date of Disposition: 10/05/24
Time of Disposition: 14:10
Presentation/result/management discussed w/ accepting MD/DO: Hospitalist
Discharge Problem:
GI (gastrointestinal bleed), Anemia
Prescriptions:
No Action
nitroglycerin 0.4 mg Tablet, Sublingual
0.4 mg sublingual [id number] PRN (Reason: ANGINA) Qty: 3 0RF
metoprolol tartrate 25 mg Tablet
12.5 mg PO BID Qty: 60 0RF
acetaminophen 160 mg/5 mL Liquid
480 mg PO DAILYPRN PRN (Reason: mild pain)
magnesium hydroxide [Milk of Magnesia] 400 mg/5 mL Suspension
15 ml PO ONCE PRN (Reason: constipation)
ondansetron 4 mg Tablet,Disintegrating
4 mg PO DAILYPRN PRN (Reason: nausea/vomiting)
PreserVision AREDS-2 250-90-40-1 mg Tablet,Chewable
1 tab PO BID
clopidogrel 75 mg tablet
75 mg PO DAILY
aspirin 81 mg Tablet,Chewable
81 mg PO DAILY Qty: 30 0RF
furosemide 20 mg Tablet
20 mg PO DAILY Qty: 30 0RF
melatonin 3 mg Tablet
3 mg PO HS PRN (Reason: Sleep) Qty: 30 0RF
rosuvastatin 10 mg Tablet
10 mg PO QPM Qty: 30 0RF
esomeprazole magnesium [Nexium Packet] [address] for susp in packet
40 mg PO DAILY Qty: 30 0RF
Referrals:
Alia Jung DO [Family Provider, General]
Interventions
Interventions:
*Risk Screen - Suicide Last Done: 10/05/24 11:21
*General Assessment Last Done: 10/05/24 11:21
*Neglect/Abuse Screening Last Done: 10/05/24 11:21
*ED- Fall Risk Assessment Last Done: 10/05/24 11:21
*ED COVID-19 Vaccine History Last Done: 10/05/24 11:21
MM-Cinmtp-Qfmgflidrg Assessment Last Done: 10/05/24 11:21
Discharge Date and Time
Print Language: SENEGALESE
[2024-10-05 13:44] LABS: Hematocrit 21.4 % (37.0-47.0); Hemoglobin 6.9 g/dL (12.0-16.0); Mean Corp Hgb Conc. 32.2 g/dL (33.0-37.0); Mean Corpuscular Volume 97.7 fL (81.0-99.0); Platelet Count 235 10^3/uL (130-400); Red Cell Dist. Width 20.1 % (11.5-14.5)
[2024-10-05 13:45] LABS: Nucleated Red Blood Cells % 0 %
[2024-10-05 13:46] LABS: ALT (SGPT) 41 U/L (0-35); AST (SGOT) 45 U/L (14-36); Albumin 2.9 g/dl (3.5-5.0); Alkaline Phosphatase 72 U/L (38-126); Blood Urea Nitrogen 26 mg/dl (7-17); Calcium 8.0 mg/dl (8.4-10.2); Carbon Dioxide 25 mmol/L (22-30); Chloride 104 mmol/L (98-107); Estimated Creatinine Clearance 44 ml/min; Glucose 96 mg/dl (70-99); Potassium 3.4 mmol/L (3.5-5.1); Sodium 134 mmol/L (135-145); Total Protein 5.3 g/dl (6.3-8.2); eGFR > 60.00
[2024-10-05] MEDS: PROTONIX IV 80 MG IV (14:08)
--- NOTE | 2024-10-05 14:44 | PHANOTE ---
med rec note- patient comes from [address], patient did not come with paperwork, called [phone] and spoke to Catherine who said her system is down and will fax over med list when she can
--- NOTE | 2024-10-05 14:48 | CON.GI ---
Addendum entered and electronically signed by Marika Gomez DO 10/05/24 18:01:
Patient seen and examined independently of MAI. I agree with her note with my additions below
Isa is a 89-year-old female with history of CAD with recent PCI to left circumflex on August 17, 2024 who is now being readmitted with black stools while on aspirin and Plavix. After undergoing drug-eluting stent she was placed on Plavix and
aspirin then found to be in A-fib and placed on Eliquis but developed significant epistaxis requiring packing and cauterization. Eliquis was decreased to 2.5 mg twice daily. A few weeks after her hospitalization she had multiple falls including a
head injury with no evidence of bleeding on imaging. Refused further neurology evaluation and patient was placed on antiplatelets statin. Also evaluated by vascular surgery found to have bilateral carotid artery stenosis and opted for conservative
management.
Further complicated by black stools and anemia with a hemoglobin of 7.3. Her Plavix and Eliquis were held transfused 2 units in early September and continued on aspirin. 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
bleeding angioectasias that were treated in the duodenum. Eliquis was restarted but unfortunately on her hemoglobin again dropped and her Eliquis was discontinued and she was given 1/4 unit of blood. Underwent repeat endoscopy on 10/01/2024
with no evidence of recurrent bleeding and she declined colonoscopy which she had never had before.
Upon discharge she was comfortable with aspirin and Plavix. The discussion on the discharge summary states if the patient developed any further bleeding she could stop aspirin and Plavix or both. She was discharged on Nexium.
Her echocardiogram from 08/17/2024 she has an EF of 54%'s with no significant valvular disease. She does have moderate tricuspid regurgitation. No significant stenosis.
Currently her hemoglobin is 6.9, platelets 235, recently normal INR on 10/01/2024, BUN 26, creatinine 0.8, AST 45, ALT 41, alkaline phosphatase 72, albumin 2.9. She states she is lost about 30 pounds since early August since being in and out of the
hospital.
Denies any shortness of breath or chest pain and states her bowels have changed over the past month with intermittent loose stools that have been brown but recently black.
# Intermittent GI bleeding in the setting of Plavix and aspirin off Eliquis
-- Return of black stools, no evidence of epistaxis
--Twice daily PPI for now, hold Plavix
-- Most likely small bowel angioectasias but has never had a colonoscopy
-- Patient is willing to undergo colonoscopy
-- I gave her the option of doing a diagnostic colonoscopy on average aspirin and Plavix but unable to doing any therapeutic maneuvers. Patient only wants to do this once and says she would like to do a Plavix washout and undergo colonoscopy on
Friday. Will continue the aspirin. I did send a message to her primary team and cardiology that if she needs any type of heparin or Lovenox that would be okay until Friday morning
-- Monitor hemoglobin, transfuse as necessary. Planning for colonoscopy on Friday.
-- If negative doing a capsule endoscopy sounds as if it would be virtually impossible to get past her hypertensive esophageal sphincter
Original Note:
Consultation
-
Date/Time Consultation Requested: 10/05/24 1430
Date/Time Consultation Performed: 10/05/24 1515
Requesting Provider: Joaquin Mi PA-C
Performing Provider: [facility]I Jensen, Marika Gomez,
Reason for Consultation: anemia
Medical History
Chief Complaint / HPI
Chief Complaint: weakness/black stools
History of Present Illness:
Pt is a 84 y.o. female with pmh HFpEF, HTN, HLD, CAD with recent PCI to Lcx on 08/17/24 in August with newly started on Plavix She was also noted with new Afib and Eliquis was added. She was admitted 09/18- 10/01 with multiple issues. She was seen
by GI with concern for GI bleeding with black stools and drop in hbg. She did require 5 units PRBC's during admission and completed 2 EGD's. She was offered colonoscopy but declined. She also started on different combination with initial triple
therapy with ASA, Plavix and Eliquis. Then of ASA and Eliquis and finally changed ASA and Plavix with bleeding on all regiment. She now returns with continued bleeding and hbg 6.9 and black stool on exam in ER. . Pt also noted with epistaxis with
Eliquis use, fall, and concern for CVA with b/l carotid stenosis She did decline further work up with MRI.
In review with patient she admits to change in bowel pattern with lower abdominal pain prior to August admission. She believes she had enema at some point then more recently has been passing black stools. She admits to dysphagia that was worse
after first EGD and occasional GERD with tums use and nausea. Pt feels like wt loss with recent admission but minimal change in wt per chart. She denies red blood in stools. Denies vaginal or urinary bleeding. No hx colonoscopy in past. Per
prior noted -Prior H. pylori positive, no testing for eradication, no biopsies taken at time of recent EGD due to active bleeding and also changes of antoine's without bx.
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 Few bleeding ectasias in D2- injected w epi and cauterized w monopolar probe
10/01- EGD - Wendy Do - Hypertensive upper esophageal sphincter. Unable to pass adult enscope but able to transverse with XP endoscope - Erythematous mucosa in the antrum. - Normal examined duodenum. Duodenal areas with prior treatment seen
without active bleeding No specimens collected. No old or fresh blood seen.
Past Medical History
Past Medical History: Other (afib on eliquis, HFpEF, HTN, HLD, CAD s/p recent PCI to Lcx on 08/17/24, anemia, GI bleeding, recent CVA, carotid stenosis, epistaxis )
Past Surgical History: Other (rotator cuff repair, varicose vein stripping, cholecystectomy, knee arthroscopy, D&C, left foot toe surgery)
Social History
Tobacco: Non-Smoker
Alcohol: None
Drug: None
Personal: Single
Living: Penitentiary
Employment: Retired
Family History
Family History: Other (granddaughter with hx chronic GI issue )
Allergies / Home Medications
Allergy/AdvReac Type Severity Reaction Status Date / Time
erythromycin base Allergy Rash, hives Verified 09/10/24 17:00
(Erythromycin Base)
lisinopril (From Zestril) Allergy BAD COUGH Verified 09/10/24 17:00
tetracycline (Tetracycline) Allergy Hives Verified 09/10/24 17:00
�Medication �Instructions �Recorded
metoprolol tartrate 25 mg tablet 12.5 mg (1/2 x 25 mg) PO BID #60 08/22/24
tabs
nitroglycerin 0.4 mg sublingual 0.4 mg sublingual [id number] PRN 08/22/24
tablet ANGINA #3 tabs
acetaminophen 160 mg/5 mL oral 480 mg PO DAILYPRN PRN mild pain 09/18/24
liquid
magnesium hydroxide 400 mg/5 mL 15 ml PO ONCE PRN constipation 09/18/24
oral suspension (Milk of Magnesia)
ondansetron 4 mg disintegrating 4 mg PO DAILYPRN PRN 09/18/24
tablet nausea/vomiting
vit C 250 mg-E 90 mg-zinc 40 1 tab PO BID Supplement 09/18/24
mg-copper 1 [id number] chew
tablet (PreserVision AREDS-2)
clopidogrel 75 mg tablet 75 mg PO DAILY Blood Clot 09/19/24
Prevention/Tx
aspirin 81 mg chewable tablet 81 mg PO DAILY #30 tabs 09/27/24
esomeprazole magnesium 40 mg 40 mg PO DAILY #30 ea 09/27/24
granules delayed release for susp
(Nexium Packet)
furosemide 20 mg tablet 20 mg PO DAILY #30 tabs 09/27/24
melatonin 3 mg tablet 3 mg PO HS PRN Sleep #30 tabs 09/27/24
rosuvastatin 10 mg tablet 10 mg PO QPM #30 tabs 07/14/25
Review of Systems
-
History Source: Patient
Constitutional: Reports Fatigue
EENT: Reports No Symptoms
Respiratory: Reports Trouble Breathing
Cardiac: Reports No Symptoms
Abdomen/GI: Reports Abdominal Pain (at times lower abdominal pain ), Nausea, Diarrhea and Black Stools
: Reports No Symptoms
Musculoskeletal: Reports No Symptoms
Skin: Reports No Symptoms
Neurological: Reports Weakness
Endocrine: Reports No Symptoms
Hematologic/Lymphatic: Reports Bleeding
Vital Signs
Temp Pulse Resp BP Pulse Ox
98.6 F 82 18 122/105 100
10/05/24 14:37 10/05/24 14:37 10/05/24 14:37 10/05/24 14:37 10/05/24 13:30
Physical Exam
Exam
General: Well Developed, Well Nourished and Other (pale appearing )
HEENT: Normocephalic and Anicteric
Respiratory: Clear
Cardiac: Regular Rhythm
GI: Soft, Non Tender and Non Distended
Rectal: Black and Hem Positive (per ER results)
Skin: Warm and Dry
Neuro: Awake, Alert and AO x 3
Psych: Calm
Results
WBC 7.4 10^3/uL (4.8-10.8) 10/05/24 13:10
Hgb 6.9 g/dL (12.0-16.0) L* 10/05/24 13:10
Hct 21.4 % (37.0-47.0) L 10/05/24 13:10
MCV 97.7 fL (81.0-99.0) 10/05/24 13:10
Plt Count 235 10^3/uL (130-400) 10/05/24 13:10
Absolute Neuts (auto) 5.1 10^3/uL (1.4-6.5) 10/05/24 13:10
Sodium 134 mmol/L (135-145) L 10/05/24 13:10
Potassium 3.4 mmol/L (3.5-5.1) L 10/05/24 13:10
Chloride 104 mmol/L (98-107) 10/05/24 13:10
Carbon Dioxide 25 mmol/L (22-30) 10/05/24 13:10
BUN 26 mg/dl (7-17) H 10/05/24 13:10
Creatinine 0.8 mg/dL (0.6-1.0) 10/05/24 13:10
Calcium 8.0 mg/dl (8.4-10.2) L 10/05/24 13:10
Total Bilirubin 0.4 mg/dl (0.2-1.3) 10/05/24 13:10
AST 45 U/L (14-36) H 10/05/24 13:10
ALT 41 U/L (0-35) H 10/05/24 13:10
Alkaline Phosphatase 72 U/L (38-126) 10/05/24 13:10
Diagnostic Image Results:
Echo 08/01/2021: EF 60 to 65%, mild septal hypertrophy, mild MR, heavy focal calcification of noncoronary cusp of aortic valve, mild AR, mild TR, PAP 37 mmHg
ECHO 08/17/24: EF 54%, mild concentric LVH, moderate MR, mild AR, moderate TR, PAP 25 to 30 mmHg, trivial pericardial effusion
Left heart catheterization 08/17/2024: LM: Patent. LAD: Patent. Left circumflex: 90 to 95% hazy mid left circumflex stenosis s/p 2.75 x 30 mm Medtronic Rafiq drug-eluting stent. Mid circumflex 30 to 40% stenosis. RCA: Ostial 60 to 70% stenosis with
mild pressure dampening upon selective engagement
Prior GI Procedures:
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 Few bleeding ectasias in D2- injected w epi and cauterized w monopolar probe
7/18- EGD - [facility] Do - Hypertensive upper esophageal sphincter. Unable to pass adult enscope but able to transverse with XP endoscope - Erythematous mucosa in the antrum. - Normal examined duodenum. Duodenal areas with prior treatment seen
without active bleeding No specimens collected. No old or fresh blood seen.
Colonoscopy: none
Assessment / Plan
-
Pt is a 84 y.o. female with pmh HFpEF, HTN, HLD, CAD with recent PCI to Lcx on 08/17/24 in August with newly started on Plavix She was also noted with new Afib and Eliquis was added. She was admitted 09/18- 10/01 with multiple issues. She was seen
by GI with concern for GI bleeding with black stools and drop in hbg. She did require 5 units PRBC's during admission and completed 2 EGD's. She was offered colonoscopy but declined. She also started on different combination with initial triple
therapy with ASA, Plavix and Eliquis. Then of ASA and Eliquis and finally changed ASA and Plavix with bleeding on all regiment. She now returns with continued bleeding and hbg 6.9 and black stool on exam in ER. Pt also noted with epistaxis with
prior Eliquis use, fall, and concern for CVA with b/l carotid stenosis She did decline further work up with MRI. In review with patient she admits to change in bowel pattern with lower abdominal pain prior to August admission. She believes she had
enema at some point then more recently has been passing black stools. She admits to dysphagia that was worse after first EGD and occasional GERD with tums use and nausea. Pt feels like wt loss with recent admission but minimal change in wt per
chart. She denies red blood in stools. Denies vaginal or urinary bleeding. No hx colonoscopy in past. Per prior noted -Prior H. pylori positive, no testing for eradication, no biopsies taken at time of recent EGD due to active bleeding and also
changes of antoine's without bx.
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 Few bleeding ectasias in D2- injected w epi and cauterized w monopolar probe
10/01- EGD - [facility] Do - Hypertensive upper esophageal sphincter. Unable to pass adult enscope but able to transverse with XP endoscope - Erythematous mucosa in the antrum. - Normal examined duodenum. Duodenal areas with prior treatment seen
without active bleeding No specimens collected. No old or fresh blood seen.
-continued Melena
-anemia with iron deficiency total 6 units PRBC's given since beginning of September
-EGD with actively bleeding AVM's - stable on follow up EGD
-recent change bowel pattern
-concern for recent CVA -- pt declined MRI
-carotid stenosis
-hx CAD with PCI/stent 08/17
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
-hx H pylori
-possible antoine's on EGD
PLAN:
pt with recurrent admission with concern for continued Melena pt placed on therapy with Eliquis, and Plavix in August and has not tolerated any combination of therapy with continued drop in hbg now on 6th unit PRBC's since beginning of August
s/p EGD x 2 as noted
recommended colonoscopy next and pt now agreeable
last dose Plavix 10/05 AM will review timing with Dr. Gomez if neg consider capsule next
pending decision on scopes ok to use ASA and heparin/Lovenox bridge if needed
ok for clear diet
trend hbg
cont PPI
-
-
Thank you for consultation and allowing me to participate in the patient's care. Please call the weapons engineer GI physician during the after hours with any questions or concerns.
--- NOTE | 2024-10-05 15:01 | HPS.HSE ---
Family Physician
-
Family Physician: Alia Jung,
Chief Complaint
-
fatigue and black-colored stools
History of Present Illness
Ms. Isa Jasso is a 84 yo woman with hx paroxysmal atrial fibrillation on Eliquis, admission 08/17-08/22/24 for NSTEMI (s/p PCI to LCx), followed by admission 09/18-10/01/24 for UGIB (s/p EGD with findings of short segment Romero's esophagus and a
few bleeding angiectasias in the duodenum which were cauterized; Eliquis discontinued and she was discharged on Aspirin/Plavix), HFpEF, essential HTN, HLD, presents to the ER with progressive weakness.
Patient reports black colored stools over the past 4-5 days. She has been having one BM/day. She has had increasing fatigue and so brought to the ER.
Patient denies fever/chills. She reports some chest discomfort that is now resolved. Chest discomfort described as heaviness but she reports does not feel like what she experienced with prior NSTEMI. No shortness of breath. No nausea/vomiting.
No abdominal pain. She has had increasing lower extremity swelling since discharge.
Medical History
Past Medical History
Past Medical History: Reports CAD (s/p PCI 09/08) and Other
Additional Past Medical History:
Hypertension
Parosyxmal Atrial Fibrillation
Varicose Veins
Superficial Thrombophlebitis
UGIB, duodenal angioectasias
Past Surgical History: Reports Other
Additional Past Surgical History:
Vein Stripping
Left TKA
Left Shoulder Surgery
Cholecystectomy
Social History
Tobacco: Non-smoker
Alcohol: None
Drug: None
Family History
Family History: Not pertinent
Allergies / Home Medications
Allergies reflects when Allergies were last updated in [facility].
Home Medications with original date entered in [facility]
Allergy/Medication List:
Allergies
Allergy/AdvReac Type Severity Reaction Status Date / Time
erythromycin base Allergy Rash, hives Verified 09/10/24 17:00
(Erythromycin Base)
lisinopril (From Zestril) Allergy BAD COUGH Verified 09/10/24 17:00
tetracycline (Tetracycline) Allergy Hives Verified 09/10/24 17:00
Home Medications
amiodarone 200 mg tablet 200 mg PO BID #60 tabs 08/22/24
apixaban 2.5 mg tablet (Eliquis) 2.5 mg PO BID #60 tabs 08/22/24
clopidogrel 75 mg tablet 75 mg PO DAILY #30 tabs 08/22/24
furosemide 40 mg tablet 40 mg PO DAILY #30 tabs 08/22/24
metoprolol tartrate 25 mg tablet 12.5 mg (1/2 x 25 mg) PO BID #60 tabs 08/22/24
nitroglycerin 0.4 mg sublingual tablet 0.4 mg sublingual [id number] PRN ANGINA #3 tabs 08/22/24
potassium chloride 20 mEq oral packet 20 meq PO DAILY #30 ea 08/22/24
rosuvastatin 20 mg tablet 20 mg PO QPM #30 tabs 08/22/24
Review of Systems
-
History Source: Patient
A 12 point ROS was completed and negative except as noted: Yes
Physical Exam
Vital Signs
Vital Signs
Temp Pulse Resp BP Pulse Ox
98.6 F 83 18 153/66 100
10/05/24 14:52 10/05/24 14:52 10/05/24 14:52 10/05/24 14:52 10/05/24 13:30
Physical Exam
General: No Apparent Distress
HEENT: PERRLA
Respiratory: No Wheezes
Cardiac: S1/S2, Regular Rhythm and JVD
GI: Soft and Non Tender
Musculoskeletal: Edema, Left Lower Extremity and Edema, Right Lower Extremity
Neuro: AO x 3
Psych: Calm
Laboratory Results
-
10/05/24 13:10
10/05/24 13:10
Laboratory Results
Total Bilirubin 0.4 mg/dl (0.2-1.3) 10/05/24 13:10
AST 45 U/L (14-36) H 10/05/24 13:10
ALT 41 U/L (0-35) H 10/05/24 13:10
Alkaline Phosphatase 72 U/L (38-126) 10/05/24 13:10
Data Reviewed
-
Diagnostic Radiology: Report Reviewed by me
Lab Data: Labs Reviewed by me
Impression/Plan
-
Ms. Isa Jasso is a 84 yo woman with hx paroxysmal atrial fibrillation on Eliquis, admission 08/17-08/22/24 for NSTEMI (s/p PCI to LCx), followed by admission 09/18-10/01/24 for left-sided weakness and UGIB (s/p EGD with findings of short segment
Romero's esophagus and a few bleeding angiectasias in the duodenum which were cauterized; Eliquis discontinued and she was discharged on Aspirin/Plavix), HFpEF, essential HTN, HLD, presents to the ER with progressive weakness.
Triage VS: T 97.5, P 67, RR 18, BP 146/67, SpO2 100%
LABS: WBC 7.4, Hg 6.9, PLT 235, Na 134, K+ 3.4, CO2 25, BUN 26, Cr 0.8, T. Bili 0.4, AST 45, ALT 41, Alk Phos 72
She is ordered for Protonix 80mg IV x 1 and 1 unit PRBC
Acute Blood Loss Anemia
Symptomatic Anemia
Melena
Hx UGIB with bleeding angioectasias
-admit to telemetry
-receiving 1 unit PRBC
-IV Protonix gtt
-repeat Hg 6PM and trend q8 hours, transfuse to keep Hg > 8 given recent cardiac history
-hold [employer] Plavix
-clear liquid diet
-GI consult
CAD
s/p PCI to LCx 08/17/24
-hold Plavix as above, continue aspirin 81mg daily
-Cardiology consult to help with med regimen
Heart Failure preserved EF acute exacerbation
Moderate MR
-patient overloaded on exam with b/l LE swelling and JVP
-Lasix 20mg IV x 1 now and continue BID
-replete K
-Troponin and BNP ordered, may need to repeat echo
-Cardiology consulted
Hypokalemia
-replete
Left-sided Weakness and concern for new CVA last admission, patient not MRI candidate
-left-sided weakness seems to have largely resolved on today's exam
-continue aspirin/statin
HLD - [employer] Statin
Paroxysmal Atrial Fibrillation
-Eliquis stopped last admission
-continue [employer] Metoprolol
Essential HTN
-[employer] DES[employer] Metoprolol
Severe bilateral Carotid Stenosis R>L noted on carotid US
-Vascular evaluated patient last admission, patient and family opting for conservative mgmt at this time
DVT PPX - SCD
DNR - patient was full code last admission. She was certain that she would not want CPR or intubation on my discussion with patient today.
I called daughter and left a VM
76 minutes spent on patient care
[2024-10-05 16:10] LABS: Magnesium 2.0 mg/dl (1.6-2.3)
--- NOTE | 2024-10-05 16:16 | CON.CAR ---
Consultation
Consultation Request
Date/Time Consultation Performed: October 05, 2024 at 1530
Medical History
-
Chief Complaint: Anemia with recent coronary stent
History of Present Illness:
This is an 84-year-old female with a complex recent medical history. She was admitted to [facility] on August 17, 2024 following the onset of substernal chest pressure with new dynamic ST segment changes. She continued to experience
substernal chest pressure and was referred for emergent coronary angiography. Significant delay in the door to balloon time because the patient continued to express a lot of concern regarding the need for dual antiplatelet therapy. This was
consistent with her past history and that she had a history of paroxysmal atrial fibrillation and refused oral anticoagulation because of its effects on her visual field.
The patient ultimately consented to proceed with coronary angiography and was found to have a hazy thrombotic 90-95% stenosis in the mid circumflex just beyond OM1. She underwent successful stenting of the circumflex with placement of a 2.75 x 30
mm [place] stent that was implanted at nominal pressures and postdilated with a 2.75 mm noncompliant balloon to 16 mariama with a nice angiographic result. Her troponin peaked at 63.4 ng/mL.
She was started on clopidogrel and apixaban and developed mild epistaxis. She was seen by ENT who treated with nasal packing. She was started on amiodarone and discharged to home.
She returned to for evaluation on 09/18/24 with weakness in the left leg since 09/01/24 and had fallen on several occasions; hitting her head on at least one occasion. She was found to be anemic and had heme (+) dark stools leading to an EGD on
09/22/2024 finding a few bleeding angioectasia in the duodenum which were injected and treated and repeat imaging several days later revealed no recurring active bleeding.
A carotid ultrasound was performed and she was noted to have bilateral >70% stenosis with very high PSV and EDV noted in both the right and left internal carotid arteries. She was seen by Dr. Peterson but she and her daughter refused further
intervention.
She was discharged OFF her apixaban and treated with aspirin 81mg.
She now presents with feeling poorly and recurring black stools, anemia, and GI bleed.
CARDIAC VASCULAR PROCEDURES / IMAGING:
-09/20/2024 carotid ultrasound: Right carotid: Greater than 70% stenosis with PSV 760 cm/sec in the right internal carotid artery and EDV of 327 cm/sec. Left carotid artery: Greater than 70% with PSV 401 cm/sec and EDV 112 cm/sec.
-08/17/2024: PCI: 2.75 x 30 mm [place] stent postdilated with 2.75 mm NC balloon
-08/17/2024: Cath: LM: Patent. LAD: Patent. Left circumflex: 90 to 95% hazy mid left circumflex stenosis s/p 2.75 x 30 mm Medtronic [place] drug-eluting stent. Mid circumflex 30 to 40% stenosis. RCA: Ostial 60 to 70% stenosis with mild pressure
dampening upon selective engagement
-08/17/2024: Echo: LV: Mild concentric LVH. EF 54%. Indeterminate diastolic function. RV: Normal, LA: Normal, RA: Mildly dilated, MV: Moderate MR, AV: Mild AI. Sclerotic valve. TV: Moderate TR with PAP 25-30 mmHg
Past Medical History
- Coronary artery disease: Recent stenting of the circumflex 08/17/2024 as described above
- Paroxysmal atrial fibrillation for which she has refused oral anticoagulation in the past.
- Hypertension
- Hyperlipidemia
- Multiple drug intolerances
- CVA with high-grade bilateral carotid for which she refused intervention. Seen and evaluated by Dr. Peterson. Declined intervention
- Multiple drug intolerances
- Upper GI bleed
- Varicose vein
- Left TKR
- Hx of cholecystectomy
SH: Living with daughter now. No tob. No ETOH
FH: Not pertinent to current admission
Allergies: Lisinopril: cough, Erythromycin: Rash, Tetracycline: rash
Allergies / Home Medications
Allergy/AdvReac Type Severity Reaction Status Date / Time
erythromycin base Allergy Rash, hives Verified 09/10/24 17:00
(Erythromycin Base)
lisinopril (From Zestril) Allergy BAD COUGH Verified 09/10/24 17:00
tetracycline (Tetracycline) Allergy Hives Verified 09/10/24 17:00
�Medication �Instructions �Recorded �Confirmed �Type
metoprolol tartrate 25 mg tablet 12.5 mg (1/2 x 25 mg) PO BID #60 08/22/24 09/18/24 Rx
tabs
nitroglycerin 0.4 mg sublingual 0.4 mg sublingual [id number] PRN 08/22/24 09/18/24 Rx
tablet ANGINA #3 tabs
acetaminophen 160 mg/5 mL oral 480 mg PO DAILYPRN PRN mild pain 09/18/24 09/18/24 History
liquid
magnesium hydroxide 400 mg/5 mL 15 ml PO ONCE PRN constipation 09/18/24 09/18/24 History
oral suspension (Milk of Magnesia)
ondansetron 4 mg disintegrating 4 mg PO DAILYPRN PRN 09/18/24 09/18/24 History
tablet nausea/vomiting
vit C 250 mg-E 90 mg-zinc 40 1 tab PO BID Supplement 09/18/24 09/18/24 History
mg-copper 1 gi-hduwwa-lafoos chew
tablet (PreserVision AREDS-2)
clopidogrel 75 mg tablet 75 mg PO DAILY Blood Clot 09/19/24 09/18/24 History
Prevention/Tx
aspirin 81 mg chewable tablet 81 mg PO DAILY #30 tabs 09/27/24 Rx
esomeprazole magnesium 40 mg 40 mg PO DAILY #30 ea 09/27/24 Rx
granules delayed release for susp
(Nexium Packet)
furosemide 20 mg tablet 20 mg PO DAILY #30 tabs 09/27/24 Rx
melatonin 3 mg tablet 3 mg PO HS PRN Sleep #30 tabs 09/27/24 Rx
rosuvastatin 10 mg tablet 10 mg PO QPM #30 tabs 09/27/24 Rx
Review of Systems
-
History Source: Patient
Constitutional: Weight Gain and Fatigue
Respiratory: Trouble Breathing
Cardiac: No Symptoms
Abdomen/GI: Nausea, Bloody Stools and Black Stools
Musculoskeletal: Joint Pain and Joint Swelling
Skin: No Symptoms
Neurological: Dizzy, Headache and Weakness
Physical Exam
Vital Signs
Temp Pulse Resp BP Pulse Ox
98.8 F 77 18 130/56 99
10/05/24 16:10 10/05/24 16:10 10/05/24 16:10 10/05/24 16:10 10/05/24 15:00
Lab Results
10/05/24 13:10
10/05/24 13:10
Physical Exam
GEN: AAO x 3.��No acute distress
HEENT:��NC/AT, sclera are anicteric, hearing and nares are normal.
LUNGS: Clear in the anterolateral lung mac. No wheezing
CV: Regular rate and rhythm.��Normal S1/S2.��No S3, No S4.��Murmur: II/ LLSB
ABD : Soft, NT, Bowel sounds are present.
EXT: +2 edema
NEURO: Difficult to get history. At times confused
Impression / Plan
-
Primary Cardiology: Dr. Alok Yung : appt scheduled
IMPRESSION :
-Recent lateral wall FL with stenting of the mid Lcx
Initial antiplatelet strategy included clopidogrel and apixaban. She experienced GI bleeding on this regimen and was de-escalated to aspirin and clopidogrel....Now in with recurring GI bleeding and anemia
-GI bleeding with recurrence:
Currently on aspirin and clopidogrel.
Prior bleeding episode on clopidogrel / apixaban for PAD
-Paroxysmal atrial fibrillation
In the past refused OAC. She was amenable to amiodarone and OAC and was started on apixaban post FL but developed GI bleeding. The apixaban was discontinued and she was treated post stent with aspirin and clopidogrel
Off amiodarone
-High grade bilateral Rt > Lt carotid stenosis
She has been evaluated by vascular surgery and declined intervention
-Hyperlipidemia
-Hypertension: Only wants to be on hydrochlorothiazide
-Multiple drug intolerances
RECOMMENDATIONS:
-GI has been consulted
-Continue aspirin and hold clopidogrel
-BID PPI is planned
-Possible colonoscopy after clopidogrel washout
-Spent 90 min reviewing old records and in seeing and evaluating this patient. I reviewed reports including echo, carotid ultrasound, catheterization, EGD and consultations from GI, neuro, cardiology. I met and discussed with patient
Data Reviewed
-
EKG: Tracing Personally Visualized and interpreted
Medical Tests (Nuc Med, Echo etc): Report Reviewed by me
Labs: Labs Reviewed by me
Old Records: Reviewed
[2024-10-05] MEDS: LASIX 20 MG IV (16:19)
[2024-10-05] MEDS: PROTONIX 100 IV (16:19)
[2024-10-05 19:55] LABS: Hematocrit 28.9 % (37.0-47.0); Hemoglobin 9.5 g/dL (12.0-16.0)
[2024-10-05 20:39] LABS: Troponin I 0.064 ng/ml
[2024-10-05] MEDS: CRESTOR 10 MG PO (21:08)
[2024-10-05] MEDS: LOPRESSOR 12.5 MG PO (21:08)
[2024-10-05] MEDS: KCL 270 MEQ IV (21:12)
[2024-10-06] VITALS (12 sets, daily range): BP systolic 119–175; BP diastolic 47–82; PULSE 77–100; BMI 23.3
[2024-10-06] MEDS: PROTONIX 100 IV (01:27)
--- NOTE | 2024-10-06 03:40 | PTCARENOTE ---
Received pt as an admit from ED. Pt AAOx3. No c/o pain. Pt afebrile, VSS. Afib on slide developer. IV C/D/I, infusing without issues. Assist x 1 with rolling walker. No N/V or stools this shift. EKG and labs obtained upon arrival to unit.
Call salazar within reach and bed in lowest position.
[2024-10-06 05:18] LABS: Hematocrit 23.8 % (37.0-47.0); Hemoglobin 7.7 g/dL (12.0-16.0); Mean Corp Hgb Conc. 32.4 g/dL (33.0-37.0); Mean Corpuscular Volume 96.0 fL (81.0-99.0); Platelet Count 203 10^3/uL (130-400); Red Cell Dist. Width 20.4 % (11.5-14.5)
[2024-10-06 06:06] LABS: Troponin I 0.068 ng/ml
[2024-10-06 06:14] LABS: ALT (SGPT) 37 U/L (0-35); AST (SGOT) 40 U/L (14-36); Albumin 2.6 g/dl (3.5-5.0); Alkaline Phosphatase 64 U/L (38-126); Blood Urea Nitrogen 24 mg/dl (7-17); Calcium 8.3 mg/dl (8.4-10.2); Carbon Dioxide 27 mmol/L (22-30); Chloride 109 mmol/L (98-107); Estimated Creatinine Clearance 44 ml/min; Glucose 81 mg/dl (70-99); Magnesium 2.0 mg/dl (1.6-2.3); Potassium 4.0 mmol/L (3.5-5.1); Sodium 139 mmol/L (135-145); Total Protein 4.9 g/dl (6.3-8.2); eGFR > 60.00
[2024-10-06] MEDS: LOPRESSOR 12.5 MG PO ×2 (07:56→20:14)
[2024-10-06] MEDS: LASIX 20 MG IV (07:57)
[2024-10-06] MEDS: LOW STRENGTH ASPIRIN 81 MG PO (07:57)
--- NOTE | 2024-10-06 08:54 | W.PN.HOSP.TC ---
Today's Communication/Plan
-
Switch to oral Lasix
Protonix twice daily
Monitor hemoglobin
Assessment / Plan
Assessment / Plan
Gen-AAOx3, NAD
HEENT-NC, AT, anicteric, clear oral mm
Neck-supple
CV-reg, no M, +S1/S2
Lungs-clear B/L
Abd-soft, NT, ND
Ext-no edema
Musculoskeletal-no cyanosis, clubbing
Skin-warm and dry
Neuro-grossly non-focal
Psych-calm, cooperative
Acute on chronic heart failure with preserved EF -on IV Lasix. Cardiology following. BNP 9520. Suspect she is euvolemic now, can switch back to oral Lasix. Weight of 59.6 kg appears improved compared to recent hospitalizations.
Acute blood loss anemia -due to GI bleed. Hemoglobin 7.7 this morning, admission hemoglobin 6.9. Hemodynamically stable. Getting second unit PRBC transfusion now. Plavix on hold awaiting washout for colonoscopy on October 11. Discussed
with GI service Dr. Goemz.
Monitor hemoglobin.
Acute GI bleed -awaiting colonoscopy on Friday after Plavix washout. GI consulted. Protonix twice daily.
She had a recent EGD October 01, 2024 that showed hypertensive upper esophageal sphincter, unable to pass adult endoscope but able to traverse with XP endoscope. Erythematous mucosa in the antrum, normal duodenum, no specimens collected. No old or
fresh blood seen.
EGD done September 22, 2024 showed esophageal stenosis possible cervical osteophyte, small hiatal hernia, short segment Romero's esophagus, erythematous mucosa in the gastric body and antrum, a few bleeding angiectasia's in the duodenum which were
injected and treated with a monopolar probe. No specimens collected.
Troponin elevation -likely acute nonischemic myocardial injury due to acute blood loss anemia. She denies chest pain or shortness of breath. Monitor for now.
Hypokalemia -POA, resolved.
Hyponatremia -POA, resolved.
Bilateral carotid stenosis -patient declined intervention during last hospitalization.
Paroxysmal atrial fibrillation -patient declined oral anticoagulation during last hospitalization.
CAD -s/p NSTEMI with YESICA to circumflex 08/17/2024. Plavix on hold awaiting colonoscopy next week. Continue aspirin.
Essential hypertension -occasional blood pressures are elevated.
Hyperlipidemia -rosuvastatin. Mild transaminase elevation noted, unclear etiology. Possibly due to passive congestion from heart failure. Monitor for now.
Varicose veins
Superficial thrombophlebitis
DNR
Anticipated Discharge: > 48 hours
Subjective/Interval History
-
Date of Service: October 06, 2024
Patient seen and examined. No complaints.
Objective Data
-
Labs:
Laboratory Results
10/06/24 10/06/24 10/06/24
05:09 05:09 05:09
WBC 6.0
Hgb Cancelled 7.7 L
Hct Cancelled 23.8 L
Plt Count 203
Sodium 139
Potassium 4.0
Chloride 109 H
Carbon Dioxide 27
BUN 24 H
Creatinine 0.8
Glucose 81
Calcium 8.3 L
Total Bilirubin 0.6
AST 40 H
ALT 37 H
Alkaline Phosphatase 64
10/06/24
10:49
WBC
Hgb Cancelled
Hct Cancelled
Plt Count
Sodium
Potassium
Chloride
Carbon Dioxide
BUN
Creatinine
Glucose
Calcium
Total Bilirubin
AST
ALT
Alkaline Phosphatase
Vital Signs:
Vital Signs
Temp Pulse Resp BP Pulse Ox
98.7 F 78 17 136/66 99
10/06/24 08:04 10/06/24 08:09 10/06/24 08:04 10/06/24 08:09 10/06/24 07:43
I&O
10/05/24 10/06/24 10/07/24
06:59 06:59 06:59
Intake Total 490 / 490 0 / 0
Output Total 0 / 0
Balance 490 / 490 0 / 0
Review of Systems
-
History Source: Patient
All other systems: Reviewed and negative
[2024-10-06] MEDS: PROTONIX 40 MG PO ×2 (09:57→20:14)
[2024-10-06] MEDS: LASIX 40 MG PO (09:57)
--- NOTE | 2024-10-06 10:57 | W.PN.GI.CBS2 ---
Addendum entered and electronically signed by Marika Gomez DO 10/06/24 14:29:
Patient seen and examined independently of SURGERY SCHEDULING COORDINATOR. I agree with her note with my additions below
Formed black stool today. Twice daily PPI is fine. Does not need a PPI drip. Most likely small bowel angioectasias/she had some on endoscopy just recently. She is also never had a colonoscopy and is now willing. I discussed with her I could do
her colonoscopy while on Plavix and aspirin but I cannot take anything out. She would prefer to proceed with the procedure when she can have polypectomies which would be Friday. She is agreeable.
She did get a unit of blood this morning. I believe the 9.5 was incorrect that she had gotten 1 unit after 6.8 which she go to 7.8.
Continue the aspirin, Plavix on hold.
Continue with low residue diet. Would start slow prepping her over the weekend to make sure she is cleaned out for Friday. Will go ahead and start with twice daily MiraLAX
Original Note:
Today's Communication / Plan
-
pt with recurrent admission with concern for continued Melena pt placed on therapy with Eliquis, and Plavix in August and has not tolerated any combination of therapy
total 7 units PRBC since beginning of September
s/p EGD x 2 as noted
plan for colonoscopy on Friday after plavix wash out (last dose 10/05) -- pt agreeable
will give dose MOM now with constipation
if colon neg consider capsule next
appreciate cards input -- cont ASA and if needed ok for heparin/lovenox
cont low residue diet
trend hbg-- 6.8-- 9.5--7.7
cont PPI
Assessment / Plan
-
Pt is a 84 y.o. female with pmh HFpEF, HTN, HLD, CAD with recent PCI to Lcx on 08/17/24 in August with newly started on Plavix She was also noted with new Afib and Eliquis was added. She was admitted 09/18- 10/01 with multiple issues. She was seen
by GI with concern for GI bleeding with black stools and drop in hbg. She did require 5 units PRBC's during admission and completed 2 EGD's. She was offered colonoscopy but declined. She also started on different combination with initial triple
therapy with ASA, Plavix and Eliquis. Then of ASA and Eliquis and finally changed ASA and Plavix with bleeding on all regiment. She now returns with continued bleeding and hbg 6.9 and black stool on exam in ER. Pt also noted with epistaxis with
prior Eliquis use, fall, and concern for CVA with b/l carotid stenosis She did decline further work up with MRI. In review with patient she admits to change in bowel pattern with lower abdominal pain prior to August admission. She believes she had
enema at some point then more recently has been passing black stools. She admits to dysphagia that was worse after first EGD and occasional GERD with tums use and nausea. Pt feels like wt loss with recent admission but minimal change in wt per
chart. She denies red blood in stools. Denies vaginal or urinary bleeding. No hx colonoscopy in past. Per prior noted -Prior H. pylori positive, no testing for eradication, no biopsies taken at time of recent EGD due to active bleeding and also
changes of antoine's without bx.
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 Few bleeding ectasias in D2- injected w epi and cauterized w monopolar probe
10/01- EGD - Wendy Do - Hypertensive upper esophageal sphincter. Unable to pass adult enscope but able to transverse with XP endoscope - Erythematous mucosa in the antrum. - Normal examined duodenum. Duodenal areas with prior treatment seen
without active bleeding No specimens collected. No old or fresh blood seen.
-continued Melena
-anemia with iron deficiency total 6 units PRBC's given since beginning of September
-EGD with actively bleeding AVM's - stable on follow up EGD
-elevated troponin
-recent change bowel pattern
-concern for recent CVA -- pt declined MRI
-carotid stenosis
-hx CAD with PCI/stent 08/17
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
-hx H pylori
-possible antoine's on EGD
PLAN:
pt with recurrent admission with concern for continued Melena pt placed on therapy with Eliquis, and Plavix in August and has not tolerated any combination of therapy
total 7 units PRBC since beginning of September
s/p EGD x 2 as noted
plan for colonoscopy on Friday after plavix wash out (last dose 10/05) -- pt agreeable
will give dose MOM now with constipation
if colon neg consider capsule next
appreciate cards input -- cont ASA and if needed ok for heparin/lovenox
cont low residue diet
trend hbg-- 6.8-- 9.5--7.7
cont PPI
Subjective
Subjective
Date of Service: October 06, 2024
on low residue diet, no stools and feeling constipated
Objective
Data Reviewed
Laboratory Data:
Laboratory Results
10/06/24 10:49
10/06/24 05:09
Laboratory Results
Magnesium 2.0 mg/dl (1.6-2.3) 10/06/24 05:09
Total Bilirubin 0.6 mg/dl (0.2-1.3) 10/06/24 05:09
AST 40 U/L (14-36) H 10/06/24 05:09
ALT 37 U/L (0-35) H 10/06/24 05:09
Alkaline Phosphatase 64 U/L (38-126) 10/06/24 05:09
Vital Signs and I&O:
Vital Signs
Temp Pulse Resp BP Pulse Ox
97.9 F 76 17 132/63 99
10/06/24 10:36 10/06/24 10:36 10/06/24 10:36 10/06/24 10:36 10/06/24 07:43
I&O
10/05/24 10/06/24 10/07/24
06:59 06:59 06:59
Intake Total 490 / 490 250 / 250
Output Total 0 / 0
Balance 490 / 490 250 / 250
Physical Exam
Physical Exam
HEENT: Anicteric and Moist mucous membranes
Cardiology: Normal Sinus Rhythm
Pulmonary: Clear
GI: Soft, Non Distended and Tender
Extremities: No Edema
Neuro: Non Focal
--- NOTE | 2024-10-06 12:50 | CM ---
Patient seen at bedside
IA completed
Dx: UGIB
came from [facility] was there for rehab (10/01), recent hospitalization at
does not wish to return to [facility]
Patient lives with daughter in a 2 story home, 1 step to enter, has a stair glide to bed/bath
PLOF: Independent with walker outside home
DME: Walker, cane, stair glide, wheelchair, shower chair
Denies insecurities
Has had VN in past, [facility] recent
PCP: Solitario Sharma
Pharmacy: [address], [place]
PLAN; tbd, follow hospital progress, CM to follow for needs
--- NOTE | 2024-10-06 14:04 | W.PN.CARDCBS ---
Addendum entered and electronically signed by Lukas Yung MD 10/06/24 15:22:
I saw and examined the patient.
The Manager Infrastructure's note was reviewed and I agree with the note.
Comment:
GEN: No distress, awake, Ox3
HEENT: supple, anicteric, mmm
LUNGS: CTA, no wheezes/rales
CV: Irreg, S1/S2, 1/6 syst LSB, no gallop
ABD: soft, BS+, NT/ND
EXT: No edema
NEURO: Gross non-focal
SKIN: No rash
PLan:
Hemoglobin was down to 7.7 this morning. Agree with plans for transfusion. Continue to hold Plavix and continue aspirin. She had a recent left circumflex PCI.
Awaiting Plavix washout for colonoscopy early next week.
Continue Lopressor for rate control. She remains in A-fib. Plan is for rate control strategy for now.
Continue Lasix 40 mg daily especially with transfusions. LVEF 54% with moderate MR. Weight is overall stable with chronic heart failure with preserved ejection fraction.
Continue medical therapy for CAD. Continue aspirin, metoprolol, and rosuvastatin.
Original Note:
Today's Communication / Plan
-
Plavix on hold
Aspirin has been continued
Impression / Plan
-
PCP: Dr. Solitario Sharma
Card: Scheduled to see Dr. Yung
Impression:
Admitted with recurrent GIB
Recent admission for GIB, CVA 09/18/24 until 10/01/24
Recent admission for NSTEMI and CHF 08/17/24 until 08/22/24
Acute blood loss anemia and GIB
Acute on chronic HFpEF
h/o possible CVA 09/2024
patient unable to complete MRI brain
Paroxysmal Afib
Not on OAC due to patient choice
refuses to ever be on Eliquis again due to h/o GIB
CAD s/p NSTEMI and 2.75 mm [place] YESICA to Circ 08/17/24
Hypertension
Hyperlipidemia
Multiple drug allergies
Hypokalemia
B/L high-grade carotid disease, likely symptomatic GABRIELA stenosis
Echo 08/01/2021: EF 60 to 65%, mild septal hypertrophy, mild MR, heavy focal calcification of noncoronary cusp of aortic valve, mild AR, mild TR, PAP 37 mmHg
ECHO 08/17/24: EF 54%, mild concentric LVH, moderate MR, mild AR, moderate TR, PAP 25 to 30 mmHg, trivial pericardial effusion
Left heart catheterization 08/17/2024: LM: Patent. LAD: Patent. Left circumflex: 90 to 95% hazy mid left circumflex stenosis s/p 2.75 x 30 mm Medtronic [place] drug-eluting stent. Mid circumflex 30 to 40% stenosis. RCA: Ostial 60 to 70% stenosis with
mild pressure dampening upon selective engagement
Plan:
-Patient admitted with recurrent GIB and CHF. Cardiology was consulted due to recent admission for CAD with PCI and also for known history of A-fib.
-Last dose of Plavix was 10/05/24
-Outpatient dose of aspirin 81 mg daily has been continued
-Troponin was 0.064 on admission and then 0.068 and overall trending down from a peak troponin of 63.4 on 08/17/2024 in the setting of MA at that time.
-Patient had upper endoscopy 09/22/2024 during that GIB admission and there was evidence of possible Romero's esophagus with erythematous mucosa in the gastric body and a few bleeding angiectasia's in the duodenum that were injected and treated with
monopolar probe.
-GI note reviewed by me 10/06/2024 and there is a plan for colonoscopy following Plavix washout, most likely colonoscopy will be performed on 10/11/2024
-There is significant concern that the patient had CVA last admission, but she declined to have MRI due to urinary claustrophobia and orthopedic issues.
-Patient now with persistent to permanent A-fib, telemetry reviewed by me 10/06/2024 and looks like A-fib throughout admission. Patient wore a 5-day monitor 08/2024 that showed 100% A-fib.
-Now that A-fib is considered persistent to permanent and patient is not willing to take OAC there are no plans for rhythm control. Amiodarone that had been started during her 08/2024 admission was stopped 09/2024.
-Outpatient dose of Crestor 10 mg daily has been continued. LDL was 153 at the time of her NSTEMI and LDL was 28 last admission.
-Outpatient dose of Lopressor 12.5 mg BID has been continued
-EF was 54% by echo on 08/17/2024.
-Patient with known chronic HFpEF and outpatient dose of Lasix 40 mg PO daily has been continued.
Progress Note - Filler Shredding Machine Loader
Subjective
Date of Service: October 06, 2024
She wishes she could go home and await colonoscopy, no chest pain
Objective
Labs:
10/06/24 10:49
10/06/24 05:09
Labs
Hgb Cancelled 10/06/24 10:49
Hct Cancelled 10/06/24 10:49
Plt Count 203 10^3/uL (130-400) 10/06/24 05:09
Sodium 139 mmol/L (135-145) 10/06/24 05:09
Potassium 4.0 mmol/L (3.5-5.1) 10/06/24 05:09
BUN 24 mg/dl (7-17) H 10/06/24 05:09
Creatinine 0.8 mg/dL (0.6-1.0) 10/06/24 05:09
Glucose 81 mg/dl (70-99) 10/06/24 05:09
Troponins
10/05/24 10/05/24 10/06/24
19:44 19:44 05:09
Troponin I 0.064 H* Cancelled 0.068 H*
10/06/24
10:49
Troponin I Cancelled
Vital Signs and I&O:
Vital Signs
Temp Pulse Resp BP Pulse Ox
98 F 82 14 147/73 100
10/06/24 11:11 10/06/24 11:11 10/06/24 11:11 10/06/24 11:11 10/06/24 11:26
Vital Signs
Temp Pulse Resp BP Pulse Ox
98 F 82 14 147/73 100
10/06/24 11:11 10/06/24 11:11 10/06/24 11:11 10/06/24 11:11 10/06/24 11:26
Intake & Output
10/04/24 10/05/24 10/06/24 10/07/24
06:59 06:59 06:59 06:59
Intake Total 490 / 490 250 / 250
Output Total 0 / 0
Balance 490 / 490 250 / 250
Physical Exam
Physical Exam
GEN: AAOx3
LUNGS: RA
CV: Afib on tele
[2024-10-06] MEDS: CRESTOR 10 MG PO (17:28)
[2024-10-06] MEDS: MIRALAX PO (20:12)
[2024-10-07] VITALS (7 sets, daily range): BP systolic 126–156; BP diastolic 49–78; PULSE 74–82; BMI 23.1
[2024-10-07] MEDS: ZOFRAN 4 MG IV (00:49)
--- NOTE | 2024-10-07 02:31 | PTCARENOTE ---
episode of nausea- takes Zofran po at home due to similar episodes. skills auditor ordered Zofran x1 . see mar- pt feels better- remains in afib controlled- did not want mirilax tonight. explained we need to start slowly cleaning her out for colonoscopy. agreed
to start in am
[2024-10-07] MEDS: LOW STRENGTH ASPIRIN 81 MG PO (07:52)
[2024-10-07] MEDS: LASIX 40 MG PO (07:52)
[2024-10-07] MEDS: MIRALAX 17 GRAMS PO ×2 (07:53→20:42)
[2024-10-07] MEDS: PROTONIX 40 MG PO ×2 (07:53→20:42)
[2024-10-07] MEDS: LOPRESSOR 12.5 MG PO ×2 (07:53→20:42)
[2024-10-07 09:05] LABS: Hematocrit 30.2 % (37.0-47.0); Hemoglobin 9.5 g/dL (12.0-16.0); Mean Corp Hgb Conc. 31.5 g/dL (33.0-37.0); Mean Corpuscular Volume 94.4 fL (81.0-99.0); Nucleated Red Blood Cells % 0 %; Platelet Count 230 10^3/uL (130-400); Red Cell Dist. Width 21.3 % (11.5-14.5)
--- NOTE | 2024-10-07 09:50 | W.PN.HOSP.TC ---
Today's Communication/Plan
-
Continue current care
Assessment / Plan
Assessment / Plan
Gen-AAOx3, NAD
HEENT-NC, AT, anicteric, clear oral mm
Neck-supple
CV-reg, no M, +S1/S2
Lungs-clear B/L
Abd-soft, NT, ND
Ext-no edema
Musculoskeletal-no cyanosis, clubbing
Skin-warm and dry
Neuro-grossly non-focal
Psych-calm, cooperative
Acute on chronic heart failure with preserved EF -clinically improved. Continue oral Lasix. Cardiology following. BNP 9520. Weight trending down.
Acute blood loss anemia -due to GI bleed. Hemoglobin improved to 9.5 this morning, transfused 2 units of blood this admission.
Plavix on hold awaiting washout for colonoscopy on October 11. Discussed with GI service Dr. Gomez.
Monitor hemoglobin.
Acute GI bleed -awaiting colonoscopy on Friday after Plavix washout. GI consulted. Protonix twice daily.
She had a recent EGD October 01, 2024 that showed hypertensive upper esophageal sphincter, unable to pass adult endoscope but able to traverse with XP endoscope. Erythematous mucosa in the antrum, normal duodenum, no specimens collected. No old or
fresh blood seen.
EGD done September 22, 2024 showed esophageal stenosis possible cervical osteophyte, small hiatal hernia, short segment Romero's esophagus, erythematous mucosa in the gastric body and antrum, a few bleeding angiectasia's in the duodenum which were
injected and treated with a monopolar probe. No specimens collected.
Troponin elevation -likely acute nonischemic myocardial injury due to acute blood loss anemia. She denies chest pain or shortness of breath. Monitor for now.
Hypokalemia -POA, resolved.
Hyponatremia -POA, resolved.
Bilateral carotid stenosis -patient declined intervention during last hospitalization.
Paroxysmal atrial fibrillation -patient declined oral anticoagulation during last hospitalization.
CAD -s/p NSTEMI with YESICA to circumflex 08/17/2024. Plavix on hold awaiting colonoscopy next week. Continue aspirin.
Essential hypertension -occasional blood pressures are elevated.
Hyperlipidemia -rosuvastatin. Mild transaminase elevation noted, unclear etiology. Possibly due to passive congestion from heart failure. Monitor for now.
Varicose veins
Superficial thrombophlebitis
DNR
Anticipated Discharge: > 48 hours
Subjective/Interval History
-
Date of Service: October 07, 2024
Patient seen and examined, no complaints.
Objective Data
-
Labs:
Laboratory Results
10/07/24
08:19
WBC 7.3
Hgb 9.5 L D
Hct 30.2 L
Plt Count 230
Sodium Pending
Potassium Pending
Chloride Pending
Carbon Dioxide Pending
BUN Pending
Creatinine Pending
Glucose Pending
Calcium Pending
Vital Signs:
Vital Signs
Temp Pulse Resp BP Pulse Ox
97.8 F 72 16 146/57 100
10/07/24 07:00 10/07/24 07:52 10/07/24 07:00 10/07/24 07:52 10/07/24 07:00
I&O
10/06/24 10/07/24 10/08/24
06:59 06:59 06:59
Intake Total 490 / 490 1210 / 1210
Output Total 0 / 0
Balance 490 / 490 1210 / 1210
Review of Systems
-
History Source: Patient
All other systems: Reviewed and negative
[2024-10-07 09:52] LABS: Blood Urea Nitrogen 33 mg/dl (7-17); Calcium 8.8 mg/dl (8.4-10.2); Carbon Dioxide 31 mmol/L (22-30); Chloride 102 mmol/L (98-107); Estimated Creatinine Clearance 35 ml/min; Glucose 107 mg/dl (70-99); Potassium 3.6 mmol/L (3.5-5.1); Sodium 136 mmol/L (135-145); eGFR 55.90
--- NOTE | 2024-10-07 11:24 | W.PN.CARDCBS ---
Addendum entered and electronically signed by Rose Mary Quintanilla PA-C 10/08/24 12:56:
please add to below diagnoses: bifascicular block
Addendum entered and electronically signed by Boris Maya DO 10/07/24 13:23:
I saw and examined the patient.
The Stock Counter's note was reviewed and I agree with the note.
Comment:
Plan:
Cont Plavix wash out in anticipation of colonoscopy scheduled October 12
Remains compensated from a cardiac standpoint for procedure.
H/H improved after transfusion
Remains rate controlled aFib, continue lopressor, refuses anticoagulation with hx GIBleed.
Will follow peripherally
Addendum entered and electronically signed by Rose Mary Quintanilla PA-C 10/07/24 12:25:
GIB is likely exacerbated by Plavix/Eliquis
Original Note:
Today's Communication / Plan
-
plavix washout for colonoscopy tentatively scheduled 10/11
hgb improved s/p transfusion
continue asa
in rate controlled afib. continue lopressor, refuses OAC and with recurrent GIB
continue lasix
Impression / Plan
-
PCP: Dr. Solitario Sharma
Card: Scheduled to see Dr. Yung
Impression:
Admitted with recurrent GIB
Recent admission for GIB, CVA 09/18/24 until 10/01/24
Recent admission for NSTEMI and CHF 08/17/24 until 08/22/24
Acute blood loss anemia and GIB
Acute on chronic HFpEF
h/o possible CVA 09/2024
patient unable to complete MRI brain
Paroxysmal Afib
Not on OAC due to patient choice
refuses to ever be on Eliquis again due to h/o GIB
CAD s/p NSTEMI and 2.75 mm [place] YESICA to Circ 08/17/24
Hypertension
Hyperlipidemia
Multiple drug allergies
Hypokalemia
B/L high-grade carotid disease, likely symptomatic GABRIELA stenosis
Echo 08/01/2021: EF 60 to 65%, mild septal hypertrophy, mild MR, heavy focal calcification of noncoronary cusp of aortic valve, mild AR, mild TR, PAP 37 mmHg
ECHO 08/17/24: EF 54%, mild concentric LVH, moderate MR, mild AR, moderate TR, PAP 25 to 30 mmHg, trivial pericardial effusion
Left heart catheterization 08/17/2024: LM: Patent. LAD: Patent. Left circumflex: 90 to 95% hazy mid left circumflex stenosis s/p 2.75 x 30 mm Medtronic [place] drug-eluting stent. Mid circumflex 30 to 40% stenosis. RCA: Ostial 60 to 70% stenosis with
mild pressure dampening upon selective engagement
Plan:
-Patient admitted with recurrent GIB and CHF.
-Troponin was 0.064 on admission and then 0.068 and overall trending down from a peak troponin of 63.4 on 08/17/2024 in the setting of NH at that time. Last dose of Plavix was 10/05/24. continue asa
-s/p transfusion 10/06 and hgb improved to 9.5 on 10/07.
-Patient had upper endoscopy 09/22/2024 during that GIB admission and there was evidence of possible Romero's esophagus with erythematous mucosa in the gastric body and a few bleeding angiectasias in the duodenum that were injected and treated with
monopolar probe. plan for colonoscopy Wednesday 10/11 per GI
-There is significant concern that the patient had CVA last admission, but she declined to have MRI due to urinary claustrophobia and orthopedic issues.
-Patient now with persistent to permanent A-fib, tele overnight reviewed by me and rate controlled. Patient wore a 5-day monitor 08/2024 that showed 100% A-fib. continue lopressor 12.5mg BID
-Now that A-fib is considered persistent to permanent and patient is not willing to take OAC there are no plans for rhythm control. Amiodarone that had been started during her 08/2024 admission was stopped 09/2024.
-continue crestor.
-EF was 54% by echo on 08/17/2024.
-Patient with known chronic HFpEF and outpatient dose of Lasix 40 mg PO daily has been continued. she reports some SOB which is likely multifactorial, will follow volume status
-will follow peripherally
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
Subjective
Date of Service: October 07, 2024
Denies chest pain or abdominal pain. Reports some shortness of breath
Objective
Labs:
10/07/24 08:19
10/07/24 08:19
Labs
Hgb 9.5 g/dL (12.0-16.0) L D 10/07/24 08:19
Hct 30.2 % (37.0-47.0) L 10/07/24 08:19
Plt Count 230 10^3/uL (130-400) 10/07/24 08:19
Sodium 136 mmol/L (135-145) 10/07/24 08:19
Potassium 3.6 mmol/L (3.5-5.1) 10/07/24 08:19
BUN 33 mg/dl (7-17) H 10/07/24 08:19
Creatinine 1.0 mg/dL (0.6-1.0) 10/07/24 08:19
Glucose 107 mg/dl (70-99) H 10/07/24 08:19
Troponins
10/05/24 10/05/24 10/06/24
19:44 19:44 05:09
Troponin I 0.064 H* Cancelled 0.068 H*
10/06/24
10:49
Troponin I Cancelled
Vital Signs and I&O:
Vital Signs
Temp Pulse Resp BP Pulse Ox
97.8 F 72 16 146/57 100
10/07/24 07:00 10/07/24 07:52 10/07/24 07:00 10/07/24 07:52 10/07/24 07:00
Vital Signs
Temp Pulse Resp BP Pulse Ox
97.8 F 72 16 146/57 100
10/07/24 07:00 10/07/24 07:52 10/07/24 07:00 10/07/24 07:52 10/07/24 07:00
Intake & Output
10/05/24 10/06/24 10/07/24 10/08/24
07:59 07:59 07:59 07:59
Intake Total 490 / 490 1210 / 1210
Output Total 0 / 0
Balance 490 / 490 1210 / 1210
Physical Exam
Physical Exam
GEN: No distress, awake, alert, oriented x3
HEENT: supple, anicteric, mmm, EOMI
LUNGS: CTA bilaterally, no wheezes/rales
CV: Irreg, S1/S2, 1/6 syst LSB
ABD: soft, BS+, NT/ND
EXT: No cyanosis, clubbing, edema
NEURO: Gross non-focal
SKIN: Warm, pink, dry. No rash
--- NOTE | 2024-10-07 12:19 | PN.CDI ---
CDI
- -
CDI:
Physician Documentation Request
Admit Date: 10/05/24 16:21
Dear Cardiology,
Please review the following and provide your response in the progress notes.
Clinical Indicators:
The diagnosis of bifascicular block was included in the signed EKGS
- 10/05 & 10/07 EKG 'bifascicular block'
- 'right bundle branch block'
- 'left posterior fascicular block'
- H&P home meds - amiodarone, metoprolol
Please indicate in your progress notes if you are in agreement that the above diagnosis is valid for this patient:
____ - Bifascicular block is a valid diagnosis (Please include it in your progress notes)
____ - Bifascicular block is not a valid diagnosis for this patient
____ - Other (please specify)
Use of terms such as suspected, likely, concern for, or probable are acceptable for a diagnosis that is being evaluated, monitored or treated as if it exists and can be coded in the inpatient setting, when documented at the time of discharge.
Thank you,
James Arizmendi RN
CDI Specialist
Please use your independent medical judgment in providing your response.
[2024-10-07] MEDS: CRESTOR 10 MG PO (17:48)
[2024-10-08] VITALS (8 sets, daily range): BP systolic 113–144; BP diastolic 48–91; PULSE 65–67; O2SAT 97; BMI 23.1
--- NOTE | 2024-10-08 05:32 | W.PN.GI.CBS2 ---
Today's Communication / Plan
-
No signs of recurrent GI bleeding, plan for colonoscopy next Friday on 10/11 to allow for plavix washout. GI will monitor peripherally over weekend. See rest of care as outlined below.
Assessment / Plan
-
Pt is a 84 y.o. female with pmh HFpEF, HTN, HLD, CAD with recent PCI to Lcx on 08/17/24 in August with newly started on Plavix She was also noted with new Afib and Eliquis was added. She was admitted 09/18- 10/01 with multiple issues. She was seen
by GI with concern for GI bleeding with black stools and drop in hbg. She did require 5 units PRBC's during admission and completed 2 EGD's. She was offered colonoscopy but declined. She also started on different combination with initial triple
therapy with ASA, Plavix and Eliquis. Then of ASA and Eliquis and finally changed ASA and Plavix with bleeding on all regiment. She now returns with continued bleeding and hbg 6.9 and black stool on exam in ER. Pt also noted with epistaxis with
prior Eliquis use, fall, and concern for CVA with b/l carotid stenosis She did decline further work up with MRI. In review with patient she admits to change in bowel pattern with lower abdominal pain prior to August admission. She believes she had
enema at some point then more recently has been passing black stools. She admits to dysphagia that was worse after first EGD and occasional GERD with tums use and nausea. Pt feels like wt loss with recent admission but minimal change in wt per
chart. She denies red blood in stools. Denies vaginal or urinary bleeding. No hx colonoscopy in past. Per prior noted -Prior H. pylori positive, no testing for eradication, no biopsies taken at time of recent EGD due to active bleeding and also
changes of antoine's without bx.
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 Few bleeding ectasias in D2- injected w epi and cauterized w monopolar probe
7/18- EGD - Wendy Do - Hypertensive upper esophageal sphincter. Unable to pass adult enscope but able to transverse with XP endoscope - Erythematous mucosa in the antrum. - Normal examined duodenum. Duodenal areas with prior treatment seen
without active bleeding No specimens collected. No old or fresh blood seen.
-continued Melena
-anemia with iron deficiency total 6 units PRBC's given since beginning of September
-EGD with actively bleeding AVM's - stable on follow up EGD
-elevated troponin
-recent change bowel pattern
-concern for recent CVA -- pt declined MRI
-carotid stenosis
-hx CAD with PCI/stent 08/17
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
-hx H pylori
-possible antoine's on EGD
Impression: Concern for obscure GI bleed and likely secondary to known AVMs given prior history of small bowel angiectasias during prior EGD. No prior colonoscopy in the past. Currently, Hgb remains stable while holding plavix with plans for
eventual colonoscopy this admission.
Recommendations:
- Okay for regular diet today, transition to CLD over weekend
- Start bowel prep with Miralax and Gavilyte on Friday and Friday
- Trend Hgb with serial CBC, transfuse for goal Hgb > 8.0 given her cardiac hx
- Continue to hold eliquis and plavix
- Plan for colonoscopy on Friday, 10/11, to allow for plavix wash-out (last dose on 10/05)
- Empiric PPI for ppx
- May continue ASA from GI standpoint
- Strict avoidance of all NSAIDs
- Rest of care per primary team
Discussed with both patient and primary internal medicine team. GI will continue to follow peripherally over weekend.
Subjective
Subjective
Date of Service: October 08, 2024
- No acute events overnight
- Hgb 7.7 -> 9.5 -> 8.5
Patient resting comfortably in bed, eating breakfast. Denies any further dark black or bloody stools. No nausea or vomiting. Admits to mild constipation and passing flatus.
Objective
Data Reviewed
Laboratory Data:
Laboratory Results
Magnesium 2.0 mg/dl (1.6-2.3) 10/06/24 05:09
Total Bilirubin 0.6 mg/dl (0.2-1.3) 10/06/24 05:09
AST 40 U/L (14-36) H 10/06/24 05:09
ALT 37 U/L (0-35) H 10/06/24 05:09
Alkaline Phosphatase 64 U/L (38-126) 10/06/24 05:09
Vital Signs and I&O:
Vital Signs
Temp Pulse Resp BP Pulse Ox
97.8 F 66 16 129/48 97
10/08/24 03:00 10/08/24 03:00 10/08/24 03:00 10/08/24 03:00 10/08/24 03:00
I&O
10/06/24 10/07/24 10/08/24
06:59 06:59 06:59
Intake Total 490 / 490 1210 / 1210 240 / 240
Output Total 0 / 0
Balance 490 / 490 1210 / 1210 240 / 240
Physical Exam
Physical Exam
HEENT: Anicteric and Moist mucous membranes
Pulmonary: Other (Normal WOB on room air)
GI: Soft, Non Distended and Non Tender
Extremities: No Edema
Neuro: Non Focal
--- NOTE | 2024-10-08 06:35 | PTCARENOTE ---
Patient refused to have her weight taken this morning. Patient seemed frustrated that she needed to be a daily weight.
[2024-10-08 06:50] LABS: Hematocrit 25.8 % (37.0-47.0); Hemoglobin 8.5 g/dL (12.0-16.0); Mean Corp Hgb Conc. 32.9 g/dL (33.0-37.0); Mean Corpuscular Volume 91.8 fL (81.0-99.0); Nucleated Red Blood Cells % 0 %; Platelet Count 201 10^3/uL (130-400); Red Cell Dist. Width 20.2 % (11.5-14.5)
[2024-10-08 07:18] LABS: Blood Urea Nitrogen 31 mg/dl (7-17); Calcium 8.2 mg/dl (8.4-10.2); Carbon Dioxide 29 mmol/L (22-30); Chloride 103 mmol/L (98-107); Estimated Creatinine Clearance 39 ml/min; Glucose 84 mg/dl (70-99); Potassium 3.9 mmol/L (3.5-5.1); Sodium 135 mmol/L (135-145); eGFR > 60.00
[2024-10-08] MEDS: PROTONIX 40 MG PO ×2 (09:24→21:55)
[2024-10-08] MEDS: LASIX 40 MG PO (09:24)
[2024-10-08] MEDS: LOPRESSOR 12.5 MG PO ×2 (09:25→21:55)
[2024-10-08] MEDS: MIRALAX 17 GRAMS PO ×2 (09:25→21:55)
[2024-10-08] MEDS: LOW STRENGTH ASPIRIN 81 MG PO (09:25)
--- NOTE | 2024-10-08 10:35 | W.PN.HOSP.TC ---
Today's Communication/Plan
-
Continue current care
Assessment / Plan
Assessment / Plan
Gen-AAOx3, NAD
HEENT-NC, AT, anicteric, clear oral mm
Neck-supple
CV-reg, no M, +S1/S2
Lungs-clear B/L
Abd-soft, NT, ND
Ext-no edema
Musculoskeletal-no cyanosis, clubbing
Skin-warm and dry
Neuro-grossly non-focal
Psych-calm, cooperative
Acute on chronic heart failure with preserved EF -clinically improved. Continue oral Lasix. Cardiology following. BNP 9520. Weight trending down.
Acute blood loss anemia -due to GI bleed. Hemoglobin down to 8.5 today. Monitor closely. Transfused 2 units of blood so far this admission. Last BM recorded was October 06.
Plavix on hold awaiting washout for colonoscopy on Friday, October 11. Discussed with GI service Dr. Gomez.
Acute GI bleed -awaiting colonoscopy on Friday after Plavix washout. GI consulted. Protonix twice daily.
She had a recent EGD October 01, 2024 that showed hypertensive upper esophageal sphincter, unable to pass adult endoscope but able to traverse with XP endoscope. Erythematous mucosa in the antrum, normal duodenum, no specimens collected. No old or
fresh blood seen.
EGD done September 22, 2024 showed esophageal stenosis possible cervical osteophyte, small hiatal hernia, short segment Romero's esophagus, erythematous mucosa in the gastric body and antrum, a few bleeding angiectasia's in the duodenum which were
injected and treated with a monopolar probe. No specimens collected.
Troponin elevation -likely acute nonischemic myocardial injury due to acute blood loss anemia. She denies chest pain or shortness of breath. Monitor for now.
Hypokalemia -POA, resolved.
Hyponatremia -POA, resolved.
Bilateral carotid stenosis -patient declined intervention during last hospitalization.
Paroxysmal atrial fibrillation -patient declined oral anticoagulation during last hospitalization.
CAD -s/p NSTEMI with YESICA to circumflex 08/17/2024. Plavix on hold awaiting colonoscopy next week. Continue aspirin.
Essential hypertension -occasional blood pressures are elevated.
Hyperlipidemia -rosuvastatin. Mild transaminase elevation noted, unclear etiology. Possibly due to passive congestion from heart failure. Monitor for now.
Varicose veins
Superficial thrombophlebitis
DNR
Anticipated Discharge: > 48 hours
Subjective/Interval History
-
Date of Service: October 08, 2024
Patient seen and examined. No complaints.
Objective Data
-
Labs:
Laboratory Results
10/08/24
06:35
WBC 5.5
Hgb 8.5 L
Hct 25.8 L
Plt Count 201
Sodium 135
Potassium 3.9
Chloride 103
Carbon Dioxide 29
BUN 31 H
Creatinine 0.9
Glucose 84
Calcium 8.2 L
Vital Signs:
Vital Signs
Temp Pulse Resp BP Pulse Ox
97.5 F 79 16 139/70 99
10/08/24 07:30 10/08/24 09:25 10/08/24 07:30 10/08/24 09:25 10/08/24 07:30
I&O
10/07/24 10/08/24 10/09/24
06:59 06:59 06:59
Intake Total 1210 / 1210 480 / 480
Balance 1210 / 1210 480 / 480
Review of Systems
-
History Source: Patient
All other systems: Reviewed and negative
--- NOTE | 2024-10-08 10:41 | CM ---
Patient seen at bedside
Colonoscopy on Wednesday 10/11
spoke with hospitalist for PT/OT kaylin
PLAN: tbd, follow hospital progress for needs, PT/OT evals
[2024-10-08] MEDS: NON-FORMULARY ITEM 1 UNIT PO ×2 (11:29→21:55)
[2024-10-08] MEDS: REFRESH EYE DROPS (PF) 1 DROPS OPHTH (11:30)
--- NOTE | 2024-10-08 15:34 | PTOTSP ---
pt currently requires supervision to no assistance to complete simple ADLs, functional transfers, ambulation. no overt deficits noted regarding self care. no acute OT needs identified, will sign off.
[2024-10-08] MEDS: CRESTOR 10 MG PO (17:30)
[2024-10-09 03:21] VITALS: BP 131/52; BMI 23.2
[2024-10-09 03:24] VITALS: BMI 23.2
[2024-10-09 07:02] LABS: Hematocrit 26.2 % (37.0-47.0); Hemoglobin 8.3 g/dL (12.0-16.0); Mean Corp Hgb Conc. 31.7 g/dL (33.0-37.0); Mean Corpuscular Volume 96.0 fL (81.0-99.0); Nucleated Red Blood Cells % 0 %; Platelet Count 215 10^3/uL (130-400); Red Cell Dist. Width 20.3 % (11.5-14.5)
[2024-10-09 07:15] LABS: Blood Urea Nitrogen 29 mg/dl (7-17); Calcium 8.1 mg/dl (8.4-10.2); Carbon Dioxide 34 mmol/L (22-30); Chloride 101 mmol/L (98-107); Estimated Creatinine Clearance 35 ml/min; Glucose 93 mg/dl (70-99); Potassium 3.4 mmol/L (3.5-5.1); Sodium 137 mmol/L (135-145); eGFR 55.90
[2024-10-09 07:30] VITALS: BP 119/61
[2024-10-09 08:26] LABS: ALT (SGPT) 37 U/L (0-35); AST (SGOT) 40 U/L (14-36); Albumin 2.8 g/dl (3.5-5.0); Alkaline Phosphatase 70 U/L (38-126); Total Protein 5.1 g/dl (6.3-8.2)
[2024-10-09] MEDS: PROTONIX 40 MG PO ×2 (09:42→20:53)
[2024-10-09] MEDS: LOW STRENGTH ASPIRIN 81 MG PO (09:42)
[2024-10-09] MEDS: LASIX 40 MG PO (09:42)
[2024-10-09] MEDS: KCL 40 MEQ PO (09:42)
[2024-10-09] MEDS: LOPRESSOR 12.5 MG PO ×2 (09:42→20:52)
[2024-10-09] MEDS: NON-FORMULARY ITEM 1 UNIT PO ×2 (09:43→20:54)
[2024-10-09] MEDS: MIRALAX 17 GRAMS PO ×2 (09:43→20:52)
[2024-10-09 11:00] VITALS: BP 134/59
--- NOTE | 2024-10-09 12:08 | CM ---
Addendum entered by Chinyere Madden 10/09/24 12:33:
Spoke with alton Lainez options reviewed. [facility]
referral [facility] in [facility].
PLAN: Home, with [facility] once accepted
Original Note:
Patient seen at bedside
Colonoscopy on Friday
PT rec home health
reviewed options with patient she stated that she has care set up already
CM called daughter Fatou to confirm
PLAN: home, with home health, CM to follow up with daughter
--- NOTE | 2024-10-09 12:16 | W.PN.HOSP.TC ---
Today's Communication/Plan
-
P.o. liquid diet
Colonoscopy planned for Friday
Hold Plavix
Assessment / Plan
Assessment / Plan
84 y/o female with CHF and GI bleed.
Admission 08/17-08/22/24 for NSTEMI (s/p PCI to LCx)
Admission 09/18-10/01/24 for UGIB requiring 5 units of blood(s/p EGD with findings of short segment Romero's esophagus and a few bleeding angiectasias in the duodenum which were cauterized; Eliquis discontinued and she was discharged on
Aspirin/Plavix)
She also had an admission a month ago for epistaxis requiring nasal packing and cauterization.
EGD October 01, 2024 that showed hypertensive upper esophageal sphincter, unable to pass adult endoscope but able to traverse with XP endoscope. Erythematous mucosa in the antrum, normal duodenum, no specimens collected. No old or fresh blood seen.
EGD done September 22, 2024 showed esophageal stenosis possible cervical osteophyte, small hiatal hernia, short segment Romero's esophagus, erythematous mucosa in the gastric body and antrum, a few bleeding angiectasia's in the duodenum which were
injected and treated with a monopolar probe. No specimens collected.
Had some loose dark Bms overnight
CVS: S1-S2 irregular
Chest: CTA B/L
Abdomen: Soft, NT , Bowel sounds present
Extremities: trace edema
# Acute on chronic HFpEF proBNP 9520
Improved, weights trending down
Continue oral Lasix
# Acute blood loss anemia secondary to GI bleed
Transfused with 2 units of packed red blood cells this admission
Plavix on hold
Continue PPI twice daily
EGD as above
Colonoscopy on October 11, 2024
# Troponin elevation-nonischemic myocardial injury
# Hypokalemia-replace
# Hyponatremia-resolved
# Paroxysmal atrial fibrillation-patient declined anticoagulation last hospitalization. Continue metoprolol
# Bilateral carotid stenosis-patient declined intervention during last hospitalization
# Coronary disease with history of non-STEMI with cath and YESICA to circumflex 08/17/2024. Holding Plavix. Continue aspirin.
# Hypertension-continue metoprolol
# Hyperlipidemia-continue rosuvastatin
# Slightly elevated LFTs likely passive congestion of the liver
# Varicose veins with history of superficial thrombophlebitis
# Diverticulosis
# Hypoalbuminemia
# DVT prophylaxis--continue SCDs
# DNR status
Part of this note was created using voice recognition system. Occasional wrong word or��sound alike� substitutions may have inadvertently occurred due to the inherent limitations of voice recognition software. If noted kindly bring it to my
attention for correction.
Anticipated Discharge: 24 - 48 hours
Subjective/Interval History
-
Date of Service: October 09, 2024
Objective Data
-
Labs:
Laboratory Results
10/09/24
06:41
WBC 5.6
Hgb 8.3 L
Hct 26.2 L
Plt Count 215
Sodium 137
Potassium 3.4 L
Chloride 101
Carbon Dioxide 34 H
BUN 29 H
Creatinine 1.0
Glucose 93
Calcium 8.1 L
Total Bilirubin 0.4
AST 40 H
ALT 37 H
Alkaline Phosphatase 70
Vital Signs:
Vital Signs
Temp Pulse Resp BP Pulse Ox
97.8 F 70 17 134/59 100
10/09/24 11:00 10/09/24 11:00 10/09/24 11:00 10/09/24 11:00 10/09/24 11:00
I&O
10/08/24 10/09/24 10/10/24
06:59 06:59 06:59
Intake Total 480 / 480 1979
Balance 480 / 480 1979
[2024-10-09 15:00] VITALS: BP 148/66
[2024-10-09] MEDS: GAVILAX 238 GM PO ×2 (15:03→16:45)
[2024-10-09] MEDS: CRESTOR 10 MG PO (17:42)
[2024-10-09 19:00] VITALS: BP 159/66
[2024-10-09 23:00] VITALS: BP 149/80
[2024-10-10 03:00] VITALS: BP 150/65
[2024-10-10 06:00] VITALS: BMI 23.1
[2024-10-10 07:13] VITALS: BP 151/54
[2024-10-10 07:13] LABS: Hematocrit 24.5 % (37.0-47.0); Hemoglobin 7.8 g/dL (12.0-16.0); Mean Corp Hgb Conc. 31.8 g/dL (33.0-37.0); Mean Corpuscular Volume 96.8 fL (81.0-99.0); Nucleated Red Blood Cells % 0 %; Platelet Count 213 10^3/uL (130-400); Red Cell Dist. Width 20.4 % (11.5-14.5)
[2024-10-10 07:44] LABS: Blood Urea Nitrogen 24 mg/dl (7-17); Calcium 8.6 mg/dl (8.4-10.2); Carbon Dioxide 32 mmol/L (22-30); Chloride 102 mmol/L (98-107); Estimated Creatinine Clearance 39 ml/min; Glucose 116 mg/dl (70-99); Potassium 3.6 mmol/L (3.5-5.1); Sodium 137 mmol/L (135-145); eGFR > 60.00
[2024-10-10] MEDS: LOPRESSOR 12.5 MG PO ×2 (08:13→20:34)
[2024-10-10] MEDS: PROTONIX 40 MG PO ×2 (08:14→20:34)
[2024-10-10] MEDS: LASIX 40 MG PO (08:14)
[2024-10-10] MEDS: LOW STRENGTH ASPIRIN 81 MG PO (08:14)
[2024-10-10] MEDS: MIRALAX 17 GRAMS PO ×2 (08:14→20:34)
[2024-10-10] MEDS: NON-FORMULARY ITEM 1 UNIT PO ×2 (08:14→20:39)
--- NOTE | 2024-10-10 09:23 | W.PN.UPDATE ---
Update Note
Progress Note Update
Brief GI Note:
Continue extended prep over weekend with additional prep this afternoon along with CLD. Keep NPO at MN (EXCEPT for bowel prep). Please transfuse for goal Hgb > 8.0 prior to procedure given her cardiac history. Plan for colonoscopy tomorrow,
10/11/2024, for further evaluation of her HAYDEN and prior dark stools while holding plavix. See rest of additional recommendations as outlined on prior GI progress note from 10/08/24.
Please call with any questions or concerns.
--- NOTE | 2024-10-10 11:17 | CM ---
Patient seen at bedside
Plan for colonoscopy tomorrow, 10/11/2024
[facility]
PLAN: Home with [facility] when stable
[2024-10-10 11:31] VITALS: BP 147/62
--- NOTE | 2024-10-10 14:53 | W.PN.HOSP.TC ---
Addendum entered and electronically signed by Bandar Knapp MD 10/10/24 15:00:
D/W GI
Original Note:
Today's Communication/Plan
-
Watch Hb in am
Assessment / Plan
Assessment / Plan
84 y/o female with CHF and GI bleed.
Admission 08/17-08/22/24 for NSTEMI (s/p PCI to LCx)
Admission 09/18-10/01/24 for UGIB requiring 5 units of blood(s/p EGD with findings of short segment Romero's esophagus and a few bleeding angiectasias in the duodenum which were cauterized; Eliquis discontinued and she was discharged on
Aspirin/Plavix)
She also had an admission a month ago for epistaxis requiring nasal packing and cauterization.
EGD October 01, 2024 that showed hypertensive upper esophageal sphincter, unable to pass adult endoscope but able to traverse with XP endoscope. Erythematous mucosa in the antrum, normal duodenum, no specimens collected. No old or fresh blood seen.
EGD done September 22, 2024 showed esophageal stenosis possible cervical osteophyte, small hiatal hernia, short segment Romero's esophagus, erythematous mucosa in the gastric body and antrum, a few bleeding angiectasia's in the duodenum which were
injected and treated with a monopolar probe. No specimens collected.
coffee grounds in BMS
CVS: S1-S2 irregular
Chest: CTA B/L
Abdomen: Soft, NT , Bowel sounds present
Extremities: trace edema
# Acute on chronic HFpEF proBNP 9520
Improved, weights trending down
Continue oral Lasix
# Acute blood loss anemia secondary to GI bleed
Transfused with 2 units of packed red blood cells this admission
Plavix on hold
Hb 7.8 today. Watch
Continue PPI twice daily
EGD as above
Colonoscopy on October 11, 2024
# Troponin elevation-nonischemic myocardial injury
# Hypokalemia-replace
# Hyponatremia-resolved
# Paroxysmal atrial fibrillation-patient declined anticoagulation last hospitalization. Continue metoprolol
# Bilateral carotid stenosis-patient declined intervention during last hospitalization
# Coronary disease with history of non-STEMI with cath and YESICA to circumflex 08/17/2024. Holding Plavix. Continue aspirin.
# Hypertension-continue metoprolol
# Hyperlipidemia-continue rosuvastatin
# Slightly elevated LFTs likely passive congestion of the liver
# Varicose veins with history of superficial thrombophlebitis
# Diverticulosis
# Hypoalbuminemia
# DVT prophylaxis--continue SCDs
# DNR status
Part of this note was created using voice recognition system. Occasional wrong word or��sound alike� substitutions may have inadvertently occurred due to the inherent limitations of voice recognition software. If noted kindly bring it to my
attention for correction.
Anticipated Discharge: 24 - 48 hours
Subjective/Interval History
-
Date of Service: October 10, 2024
Objective Data
-
Labs:
Laboratory Results
10/10/24
06:56
WBC 5.3
Hgb 7.8 L
Hct 24.5 L
Plt Count 213
Sodium 137
Potassium 3.6
Chloride 102
Carbon Dioxide 32 H
BUN 24 H
Creatinine 0.9
Glucose 116 H
Calcium 8.6
Vital Signs:
Vital Signs
Temp Pulse Resp BP Pulse Ox
98.2 F 73 18 147/62 99
10/10/24 11:31 10/10/24 11:31 10/10/24 11:31 10/10/24 11:31 10/10/24 11:31
I&O
10/09/24 10/10/24 10/11/24
06:59 06:59 06:59
Intake Total 1979
Balance 1979
[2024-10-10 14:55] VITALS: BP 124/52
[2024-10-10] MEDS: NULYTELY SOLUTION 4 LITERS PO (16:04)
--- NOTE | 2024-10-10 16:22 | PTCARENOTE ---
Pt ordered KANE stockings and agreeable to wear once placed. 1-2 hrs after placed TEDS it was noted that pt took them off, stating ' I didn't want them on'. Pt encouraged to keep TEDS on, pt kindly declined. Continues on bowel prep for colonscopy on
10/11/24.
[2024-10-10] MEDS: CRESTOR 10 MG PO (18:34)
[2024-10-10 19:00] VITALS: BP 150/67
[2024-10-10 23:00] VITALS: BP 153/65
[2024-10-11] VITALS (9 sets, daily range): BP systolic 12–153; BP diastolic 52–80; BMI 23.7
--- NOTE | 2024-10-11 06:33 | PTCARENOTE ---
Pt woke up around 0200 and walked the hallway on unit. Pt stated this is when she usually wakes at home in some discomfort d/t RL abdomen. Pt also pointed out a round bulge on RL abdomen (similar to a hernia) that was painful to touch. Around 06:15,
pt pulled bathroom string for help, RN went in and found pt sitting on toilet with loose stool all over toilet and pt gown. Pt again pointed out the bulge on the RL abdomen, RN examined and once again noted a round bulge on RL abd that was tender to
touch.
[2024-10-11] MEDS: LOPRESSOR 12.5 MG PO ×2 (08:07→20:32)
[2024-10-11] MEDS: MIRALAX 17 GRAMS PO (08:07)
[2024-10-11] MEDS: LOW STRENGTH ASPIRIN 81 MG PO (08:07)
[2024-10-11] MEDS: LASIX 40 MG PO (08:07)
[2024-10-11] MEDS: PROTONIX 40 MG PO ×2 (08:07→20:31)
[2024-10-11] MEDS: NON-FORMULARY ITEM 1 UNIT PO ×2 (08:08→20:37)
[2024-10-11 08:58] LABS: Hematocrit 25.2 % (37.0-47.0); Hemoglobin 8.0 g/dL (12.0-16.0); Mean Corp Hgb Conc. 31.7 g/dL (33.0-37.0); Mean Corpuscular Volume 97.7 fL (81.0-99.0); Platelet Count 243 10^3/uL (130-400); Red Cell Dist. Width 20.3 % (11.5-14.5)
[2024-10-11 09:48] LABS: ALT (SGPT) 43 U/L (0-35); AST (SGOT) 44 U/L (14-36); Albumin 3.0 g/dl (3.5-5.0); Alkaline Phosphatase 81 U/L (38-126); Blood Urea Nitrogen 20 mg/dl (7-17); Calcium 8.7 mg/dl (8.4-10.2); Carbon Dioxide 28 mmol/L (22-30); Chloride 104 mmol/L (98-107); Estimated Creatinine Clearance 44 ml/min; Glucose 94 mg/dl (70-99); Potassium 3.9 mmol/L (3.5-5.1); Sodium 135 mmol/L (135-145); Total Protein 5.4 g/dl (6.3-8.2); eGFR > 60.00
--- NOTE | 2024-10-11 14:29 | CM ---
Addendum entered by Ana Paula Platt 10/11/24 14:32:
Plan is to home with [facility], [facility] have accepted patient.
Original Note:
Chart reviewed and per physical therapy no skilled physical therapy required plan is to home, no needs.
Plan; Home no needs.
--- NOTE | 2024-10-11 15:26 | W.PN.HOSP.TC ---
Today's Communication/Plan
-
Start clear liquid diet and advance as tolerated to low residue diet
Restart Plavix on 10/14/2024
Possible discharge tomorrow
Case management consulted for VN
Assessment / Plan
Assessment / Plan
84 y/o female with CHF and GI bleed.
Admission 08/17-08/22/24 for NSTEMI (s/p PCI to LCx)
Admission 09/18-10/01/24 for UGIB requiring 5 units of blood(s/p EGD with findings of short segment Romero's esophagus and a few bleeding angiectasias in the duodenum which were cauterized; Eliquis discontinued and she was discharged on
Aspirin/Plavix)
She also had an admission a month ago for epistaxis requiring nasal packing and cauterization.
EGD October 01, 2024 that showed hypertensive upper esophageal sphincter, unable to pass adult endoscope but able to traverse with XP endoscope. Erythematous mucosa in the antrum, normal duodenum, no specimens collected. No old or fresh blood seen.
EGD done September 22, 2024 showed esophageal stenosis possible cervical osteophyte, small hiatal hernia, short segment Romero's esophagus, erythematous mucosa in the gastric body and antrum, a few bleeding angiectasia's in the duodenum which were
injected and treated with a monopolar probe. No specimens collected.
coffee grounds in BMS
CVS: S1-S2 irregular
Chest: CTA B/L
Abdomen: Soft, NT , Bowel sounds present
Extremities: trace edema
# Acute on chronic HFpEF proBNP 9520
Improved, weights trending down
Continue oral Lasix
# Acute blood loss anemia secondary to GI bleed
Transfused with 2 units of packed red blood cells this admission
Plavix on hold
Hemoglobin 8 today
Colonoscopy on 10/11/2024-Dr. Angel stool in the entire examined colon. Examined portion of the ileum without any AVMs. 1 polyp in the cecum removed, congested mucosa in the proximal ascending colon biopsied, 1 polyp in the proximal rectum removed,
diverticulosis in the entire examined colon without any signs of bleeding.
Plavix can be restarted 48 hours after the procedure per discussion with GI
Clears and advance as tolerated
Continue PPI twice daily
EGD as above
# Troponin elevation-nonischemic myocardial injury
# Hypokalemia-replaced
# Hyponatremia-resolved
# Paroxysmal atrial fibrillation-patient declined anticoagulation last hospitalization. Continue metoprolol
# Bilateral carotid stenosis-patient declined intervention during last hospitalization
# Coronary disease with history of non-STEMI with cath and YESICA to circumflex 08/17/2024. Holding Plavix. Continue aspirin. Plavix can be restarted on 10/14/2024
# Hypertension-continue metoprolol
# Hyperlipidemia-continue rosuvastatin
# Slightly elevated LFTs likely passive congestion of the liver
# Varicose veins with history of superficial thrombophlebitis
# Diverticulosis
# Hypoalbuminemia
# DVT prophylaxis--continue SCDs
# DNR status
D/W GI
D/W RN
Left message for daughter
Part of this note was created using voice recognition system. Occasional wrong word or��sound alike� substitutions may have inadvertently occurred due to the inherent limitations of voice recognition software. If noted kindly bring it to my
attention for correction.
Anticipated Discharge: Within 24 hours
Subjective/Interval History
-
Date of Service: October 11, 2024
Objective Data
-
Labs:
Laboratory Results
10/11/24
08:29
WBC 6.1
Hgb 8.0 L
Hct 25.2 L
Plt Count 243
Sodium 135
Potassium 3.9
Chloride 104
Carbon Dioxide 28
BUN 20 H
Creatinine 0.8
Glucose 94
Calcium 8.7
Total Bilirubin 0.7
AST 44 H
ALT 43 H
Alkaline Phosphatase 81
Vital Signs:
Vital Signs
Temp Pulse Resp BP Pulse Ox
98.1 F 72 17 128/66 95
10/11/24 14:55 10/11/24 14:55 10/11/24 14:55 10/11/24 14:55 10/11/24 14:55
I&O
10/10/24 10/11/24 10/12/24
06:59 06:59 06:59
Intake Total 1800 / 1800 700 / 700
Balance 1800 / 1800 700 / 700
[2024-10-11] MEDS: CRESTOR 10 MG PO (17:10)
[2024-10-11] MEDS: LASIX 20 MG IV (17:10)
--- NOTE | 2024-10-11 20:00 | PTCARENOTE ---
Patient stated she had 2 episodes of loose coffee ground like stools right after eating advanced diet. CYNTHIA Macias notified. Miralax held per [employer]. See MAY. Patient scheduled for H&H at 23:55. Patient refused H&H telling this RN 'if it's going
to mean transfusions for my whole life, I do not want it. I'd rather be on hospice'. This RN educated patient on benefits of having H&H drawn. CYNTHIA Macias notified. Will continue to monitor.
[2024-10-11] MEDS: MIRALAX PO (20:29)
[2024-10-12] VITALS (7 sets, daily range): BP systolic 125–147; BP diastolic 54–59; BMI 23.2
[2024-10-12] MEDS: LOW STRENGTH ASPIRIN 81 MG PO (07:37)
[2024-10-12] MEDS: NON-FORMULARY ITEM 1 UNIT PO ×2 (07:37→21:05)
[2024-10-12] MEDS: LASIX 40 MG PO (07:38)
[2024-10-12] MEDS: MIRALAX PO ×2 (07:38→21:04)
[2024-10-12] MEDS: LOPRESSOR 12.5 MG PO ×2 (07:38→21:21)
[2024-10-12] MEDS: PROTONIX 40 MG PO ×2 (07:38→21:05)
[2024-10-12 10:34] LABS: Hematocrit 25.1 % (37.0-47.0); Hemoglobin 7.9 g/dL (12.0-16.0); Mean Corp Hgb Conc. 31.5 g/dL (33.0-37.0); Mean Corpuscular Volume 96.9 fL (81.0-99.0); Platelet Count 275 10^3/uL (130-400); Red Cell Dist. Width 20.9 % (11.5-14.5)
--- NOTE | 2024-10-12 11:11 | CM ---
Patient seen at bedside
[facility]
PLAN: home with [facility] when stable
[2024-10-12 11:16] LABS: ALT (SGPT) 38 U/L (0-35); AST (SGOT) 40 U/L (14-36); Albumin 3.2 g/dl (3.5-5.0); Alkaline Phosphatase 83 U/L (38-126); Blood Urea Nitrogen 22 mg/dl (7-17); Calcium 8.3 mg/dl (8.4-10.2); Carbon Dioxide 28 mmol/L (22-30); Chloride 102 mmol/L (98-107); Estimated Creatinine Clearance 35 ml/min; Glucose 111 mg/dl (70-99); Potassium 3.3 mmol/L (3.5-5.1); Sodium 137 mmol/L (135-145); Total Protein 5.5 g/dl (6.3-8.2); eGFR 55.90
--- NOTE | 2024-10-12 15:11 | W.PN.HOSP.TC ---
Addendum entered and electronically signed by Bandar Knapp MD 10/12/24 16:21:
spoke to daughter and updarted
Original Note:
Today's Communication/Plan
-
lasix
Replace K
CBC in am
If stable DC
Assessment / Plan
Assessment / Plan
84 y/o female with CHF and GI bleed.
Admission 08/17-08/22/24 for NSTEMI (s/p PCI to LCx)
Admission 09/18-10/01/24 for UGIB requiring 5 units of blood(s/p EGD with findings of short segment Romero's esophagus and a few bleeding angiectasias in the duodenum which were cauterized; Eliquis discontinued and she was discharged on
Aspirin/Plavix)
She also had an admission a month ago for epistaxis requiring nasal packing and cauterization.
EGD October 01, 2024 that showed hypertensive upper esophageal sphincter, unable to pass adult endoscope but able to traverse with XP endoscope. Erythematous mucosa in the antrum, normal duodenum, no specimens collected. No old or fresh blood seen.
EGD done September 22, 2024 showed esophageal stenosis possible cervical osteophyte, small hiatal hernia, short segment Romero's esophagus, erythematous mucosa in the gastric body and antrum, a few bleeding angiectasia's in the duodenum which were
injected and treated with a monopolar probe. No specimens collected.
Patient states that she had some black stools last night she flushed it before the nurses could see it. No vomiting.
CVS: S1-S2 irregular
Chest: CTA B/L
Abdomen: Soft, NT , Bowel sounds present
Extremities: Trace edema
# Acute on chronic HFpEF proBNP 9520
Improved, weights trending down
Continue oral Lasix
# Acute blood loss anemia secondary to GI bleed
Transfused with 2 units of packed red blood cells this admission
Plavix on hold
Hemoglobin 7.9 today
Colonoscopy on 10/11/2024-Dr. Angel stool in the entire examined colon. Examined portion of the ileum without any AVMs. 1 polyp in the cecum removed, congested mucosa in the proximal ascending colon biopsied, 1 polyp in the proximal rectum removed,
diverticulosis in the entire examined colon without any signs of bleeding.
Plavix can be restarted 2 days after the procedure per discussion with GI 10/14/2024
On a diet
Continue PPI twice daily
EGD as above
# Troponin elevation-nonischemic myocardial injury
# Hypokalemia-replaced
# Hyponatremia-resolved
# Paroxysmal atrial fibrillation-patient declined anticoagulation last hospitalization. Continue metoprolol
# Bilateral carotid stenosis-patient declined intervention during last hospitalization
# Coronary disease with history of non-STEMI with cath and YESICA to circumflex 08/17/2024. Holding Plavix. Continue aspirin. Plavix can be restarted on 10/14/2024
# Hypertension-continue metoprolol
# Hyperlipidemia-continue rosuvastatin
# Slightly elevated LFTs likely passive congestion of the liver
# Varicose veins with history of superficial thrombophlebitis
# Diverticulosis
# Hypoalbuminemia
# DVT prophylaxis--continue SCDs
# DNR status
D/W RN
Left message for daughter again today
Part of this note was created using voice recognition system. Occasional wrong word or��sound alike� substitutions may have inadvertently occurred due to the inherent limitations of voice recognition software. If noted kindly bring it to my
attention for correction.
Anticipated Discharge: Within 24 hours
Subjective/Interval History
-
Date of Service: October 12, 2024
Objective Data
-
Labs:
Laboratory Results
10/12/24
10:24
WBC 7.9
Hgb 7.9 L
Hct 25.1 L
Plt Count 275
Sodium 137
Potassium 3.3 L
Chloride 102
Carbon Dioxide 28
BUN 22 H
Creatinine 1.0
Glucose 111 H
Calcium 8.3 L
Total Bilirubin 0.6
AST 40 H
ALT 38 H
Alkaline Phosphatase 83
Vital Signs:
Vital Signs
Temp Pulse Resp BP Pulse Ox
98.0 F 68 17 128/57 96
10/12/24 14:51 10/12/24 14:51 10/12/24 14:51 10/12/24 14:51 10/12/24 14:51
I&O
10/11/24 10/12/24 10/13/24
06:59 06:59 06:59
Intake Total 700 / 700 1769
Balance 700 / 700 1769
[2024-10-12] MEDS: LASIX 20 MG IV (15:44)
[2024-10-12] MEDS: KCL 40 MEQ PO (15:45)
--- NOTE | 2024-10-12 16:22 | W.PN.UPDATE ---
Update Note
Progress Note Update
Chart reviewed, patient had upper endoscopy on 10/01/2024 that showed no evidence of bleeding. Patient had colonoscopy on 10/11/2024 and despite a large amount of brown and green stool there was no evidence of bleeding, no evidence of AVMs and
overall no signs of bleeding. Plavix can resume 10/14/2024. Aspirin 81 mg daily has been continued throughout. Patient was given Lasix 20 mg IV x 1 today. Overall weight is stable.
[2024-10-12] MEDS: CRESTOR 10 MG PO (17:05)
[2024-10-12] MEDS: KCL 20 MEQ PO (21:18)
[2024-10-13 06:00] VITALS: BMI 22.8
[2024-10-13 07:35] VITALS: BP 164/56
[2024-10-13] MEDS: LOPRESSOR 12.5 MG PO ×2 (08:02→22:10)
[2024-10-13] MEDS: LOW STRENGTH ASPIRIN 81 MG PO (08:02)
[2024-10-13] MEDS: MIRALAX PO ×2 (08:03→22:10)
[2024-10-13] MEDS: NON-FORMULARY ITEM 1 UNIT PO ×2 (08:03→22:12)
[2024-10-13] MEDS: LASIX 40 MG PO (08:03)
[2024-10-13] MEDS: PROTONIX 40 MG PO ×2 (08:04→22:11)
[2024-10-13 12:20] LABS: Hematocrit 23.3 % (37.0-47.0); Hemoglobin 7.3 g/dL (12.0-16.0); Mean Corp Hgb Conc. 31.3 g/dL (33.0-37.0); Mean Corpuscular Volume 97.1 fL (81.0-99.0); Platelet Count 243 10^3/uL (130-400); Red Cell Dist. Width 20.3 % (11.5-14.5)
--- NOTE | 2024-10-13 12:39 | CM ---
Chart reviewed
[facility]
PLAN: Home with [facility] when stable
--- NOTE | 2024-10-13 12:46 | W.PN.HOSP.TC ---
Today's Communication/Plan
-
Do not restart Plavix yet
Hemoglobin is dropping
I like to give the patient a unit of blood she wants to take about it and get back to me
Await BMP to see if we can dose lasix
Patient is refusing to use any compression stockings or Venkata bandages for lower extremity
Assessment / Plan
Assessment / Plan
84 y/o female with CHF and GI bleed.
Admission 08/17-08/22/24 for NSTEMI (s/p PCI to LCx)
Admission 09/18-10/01/24 for UGIB requiring 5 units of blood(s/p EGD with findings of short segment Romero's esophagus and a few bleeding angiectasias in the duodenum which were cauterized; Eliquis discontinued and she was discharged on
Aspirin/Plavix)
She also had an admission a month ago for epistaxis requiring nasal packing and cauterization.
EGD October 01, 2024 that showed hypertensive upper esophageal sphincter, unable to pass adult endoscope but able to traverse with XP endoscope. Erythematous mucosa in the antrum, normal duodenum, no specimens collected. No old or fresh blood seen.
EGD done September 22, 2024 showed esophageal stenosis possible cervical osteophyte, small hiatal hernia, short segment Romero's esophagus, erythematous mucosa in the gastric body and antrum, a few bleeding angiectasia's in the duodenum which were
injected and treated with a monopolar probe. No specimens collected.
Patient states that she had some black stools last night she flushed it before the nurses could see it. No vomiting.
CVS: S1-S2 irregular
Chest: CTA B/L
Abdomen: Soft, NT , Bowel sounds present
Extremities: Edema bilateral lower extremity
# Acute on chronic HFpEF proBNP 9520
Improved, weights trending down
Continue oral Lasix
Once labs are back will give extra lasix.
# Acute blood loss anemia secondary to GI bleed
Transfused with 2 units of packed red blood cells this admission
Plavix on hold
Hemoglobin 7.3 today
Colonoscopy on 10/11/2024-Dr. Angel stool in the entire examined colon. Examined portion of the ileum without any AVMs. 1 polyp in the cecum removed, congested mucosa in the proximal ascending colon biopsied, 1 polyp in the proximal rectum removed,
diverticulosis in the entire examined colon without any signs of bleeding.
Plavix can be restarted 2 days after the procedure per discussion with GI 10/14/2024
On a diet
Continue PPI twice daily
EGD as above
Talked to pt about getting blood.
She wants to think about it
# Troponin elevation-nonischemic myocardial injury
# Hypokalemia-replaced
# Hyponatremia-resolved
# Paroxysmal atrial fibrillation-patient declined anticoagulation last hospitalization. Continue metoprolol
# Bilateral carotid stenosis-patient declined intervention during last hospitalization
# Coronary disease with history of non-STEMI with cath and YESICA to circumflex 08/17/2024. Holding Plavix. Continue aspirin. Plavix can be restarted on 10/14/2024
# Hypertension-continue metoprolol
# Hyperlipidemia-continue rosuvastatin
# Slightly elevated LFTs likely passive congestion of the liver
# Varicose veins with history of superficial thrombophlebitis
# Diverticulosis
# Hypoalbuminemia
# DVT prophylaxis--continue SCDs
# DNR status
D/W RN
D/W Daughter yesterday
GI made aware re dropping Hb
Part of this note was created using voice recognition system. Occasional wrong word or��sound alike� substitutions may have inadvertently occurred due to the inherent limitations of voice recognition software. If noted kindly bring it to my
attention for correction.
Anticipated Discharge: Within 24 hours
Subjective/Interval History
-
Date of Service: October 13, 2024
Objective Data
-
Labs:
Laboratory Results
10/13/24
12:05
WBC 7.4
Hgb 7.3 L
Hct 23.3 L
Plt Count 243
Sodium Pending
Potassium Pending
Chloride Pending
Carbon Dioxide Pending
BUN Pending
Creatinine Pending
Glucose Pending
Calcium Pending
Vital Signs:
Vital Signs
Temp Pulse Resp BP Pulse Ox
97.5 F 82 15 164/56 98
10/13/24 07:35 10/13/24 08:03 10/13/24 07:35 10/13/24 08:03 10/13/24 09:25
I&O
10/12/24 10/13/24 10/14/24
06:59 06:59 06:59
Intake Total 1769 1100 / 1100
Balance 1769 1100 / 1100
[2024-10-13 12:49] LABS: Blood Urea Nitrogen 26 mg/dl (7-17); Calcium 8.6 mg/dl (8.4-10.2); Carbon Dioxide 29 mmol/L (22-30); Chloride 101 mmol/L (98-107); Estimated Creatinine Clearance 35 ml/min; Glucose 119 mg/dl (70-99); Potassium 3.3 mmol/L (3.5-5.1); Sodium 135 mmol/L (135-145); eGFR 55.90
[2024-10-13] MEDS: LASIX 20 MG IV (14:12)
[2024-10-13] MEDS: KCL 40 MEQ PO (14:12)
[2024-10-13 15:36] VITALS: BP 111/79
[2024-10-13] MEDS: CRESTOR 10 MG PO (17:04)
[2024-10-13 17:53] VITALS: BP 134/63
[2024-10-13 18:13] VITALS: BP 125/64
--- NOTE | 2024-10-13 21:30 | PTCARENOTE ---
Patient finished one unit of blood. As this RN began vitals on her, patient started complaining 'chest pressure'. TIMBER FALLER Shannan Macias on floor, verbally notified. Vitals stable. Will continue to monitor.
[2024-10-13 21:31] VITALS: BP 151/58
[2024-10-13] MEDS: KCL 20 MEQ PO (22:11)
[2024-10-13 23:04] VITALS: BP 175/76
[2024-10-14 06:11] VITALS: BMI 22.8
[2024-10-14 07:47] VITALS: BP 125/61
[2024-10-14] MEDS: PROTONIX 40 MG PO ×2 (08:01→20:30)
[2024-10-14] MEDS: NON-FORMULARY ITEM 1 UNIT PO ×2 (08:02→20:30)
[2024-10-14] MEDS: MIRALAX PO ×2 (08:02→20:29)
[2024-10-14] MEDS: LOW STRENGTH ASPIRIN 81 MG PO (08:02)
[2024-10-14] MEDS: LASIX 40 MG PO (08:02)
[2024-10-14] MEDS: LOPRESSOR 12.5 MG PO ×2 (08:02→20:30)
[2024-10-14 08:05] LABS: Hematocrit 24.8 % (37.0-47.0); Hemoglobin 8.0 g/dL (12.0-16.0); Mean Corp Hgb Conc. 32.3 g/dL (33.0-37.0); Mean Corpuscular Volume 94.7 fL (81.0-99.0); Platelet Count 198 10^3/uL (130-400); Red Cell Dist. Width 20.3 % (11.5-14.5)
[2024-10-14 08:07] LABS: Potassium 3.5 mmol/L (3.5-5.1)
[2024-10-14] MEDS: KCL 40 MEQ PO (10:21)
--- NOTE | 2024-10-14 11:08 | W.PN.CARDCBS ---
Addendum entered and electronically signed by Donald James MD 10/14/24 15:43:
84-year-old woman admitted with recurrent GI bleed
PMH: CVA September 2024, NSTEMI and heart failure August 2024, treated with Rafiq drug-eluting stent to circumflex August 2024, ostial 60 to 70% RCA stenosis hypertension, hyperlipidemia, drug allergies, high-grade bilateral carotid disease, history of HFpEF,
paroxysmal A-fib, not anticoagulated
Current medications: Aspirin 81 mg a day, metoprolol tartrate 12.5 mg twice daily, rosuvastatin 10 mg a day, pantoprazole 40 mg twice daily, furosemide 40 mg a day, 20 mg IV x 1
She offers no complaints, got a unit of blood yesterday
125/61, pulse 69, no acute distress, sleeping, head neck exam unremarkable, lungs are clear, soft systolic murmur at apex, abdomen benign extremities without edema
Hemoglobin 8.0 after 1 unit packed cells yesterday, previously hemoglobin 7.3, BUN and creatinine are 26 and 1.0, potassium 3.3
Impression:
Recurrent GI bleeding, Romero's esophagus, angioectasias, gastric erythema, being considered for capsule
Recent epistaxis requiring packing
CVA September 2024 with high-grade carotid disease
Non-ST segment elevation DC/HFpEF August 2024 treated with Rafiq stent to circumflex
Anemia, received 3 units of packed cells
Persistent/permanent A-fib, refuses anticoagulation
Other diagnoses as below as documented by Kim Ford. Reviewed in detail and agree, unless otherwise specified below
Plan:
She seems relatively stable from the standpoint of recent non-STEMI and stroke, no evidence of HFpEF on exam presents.
Major issue is ongoing anemia and antiplatelet/anticoagulant management.
She adamantly refuses Eliquis despite persistent/permanent atrial fibrillation
Given recent PCI for non-STEMI, ideally she would be treated with DAPT, aspirin and Plavix. This may not be feasible given her ongoing blood loss. If stable we will attempt to restart clopidogrel in the morning. An alternative would be to start
Plavix alone in place of aspirin if DAPT is not feasible. Aspirin alone would be the least likely to cause ongoing bleeding.
We will continue to follow.
Original Note:
Today's Communication / Plan
-
FARHAT to be performed by hospitalist and if heme positive then GI to see again. If patient is heme negative then restart Plavix and follow H&H
Patient needs to resume DAPT due to NSTEMI and Circ YESICA 08/17/24
Impression / Plan
-
PCP: Dr. Solitario Sharma
Card: Scheduled to see Dr. Yung
Impression:
Admitted with recurrent GIB
Recent admission for GIB, CVA 09/18/24 until 10/01/24
Recent admission for NSTEMI and CHF 08/17/24 until 08/22/24
Acute blood loss anemia and GIB
Acute on chronic HFpEF
h/o possible CVA 09/2024
patient unable to complete MRI brain
Paroxysmal Afib
Not on OAC due to patient choice
refuses to ever be on Eliquis again due to h/o GIB
CAD s/p NSTEMI and 2.75 mm [place] YESICA to Circ 08/17/24
Hypertension
Hyperlipidemia
Multiple drug allergies
Hypokalemia
B/L high-grade carotid disease, likely symptomatic GABRIELA stenosis
Echo 08/01/2021: EF 60 to 65%, mild septal hypertrophy, mild MR, heavy focal calcification of noncoronary cusp of aortic valve, mild AR, mild TR, PAP 37 mmHg
ECHO 08/17/24: EF 54%, mild concentric LVH, moderate MR, mild AR, moderate TR, PAP 25 to 30 mmHg, trivial pericardial effusion
Left heart catheterization 08/17/2024: LM: Patent. LAD: Patent. Left circumflex: 90 to 95% hazy mid left circumflex stenosis s/p 2.75 x 30 mm Medtronic Rafiq drug-eluting stent. Mid circumflex 30 to 40% stenosis. RCA: Ostial 60 to 70% stenosis with
mild pressure dampening upon selective engagement
Plan:
-Patient admitted with recurrent GIB and CHF.
-Patient had colonoscopy on 10/11/2024 and despite a large amount of brown and green stool there was no evidence of bleeding, no evidence of AVMs and overall no signs of bleeding. Plavix was set to resume 10/14/2024 but patient had another drop in
Hgb on 10/13/2024 and she was given 1 unit PRBCs on 10/13/2024.
-Aspirin 81 mg daily has been continued throughout.
-Patient needs to be restarted on DAPT following YESICA 08/17/2024. Case reviewed with hospitalist attending who plans on performing FARHAT on 10/14/2024 and if patient is heme positive will ask GI to look further. If patient is heme-negative we will
restart Plavix on 10/14/2024, follow Hgb and if stable discharge on 10/15/2024.
-Patient had upper endoscopy 09/22/2024 during that GIB admission and there was evidence of possible Romero's esophagus with erythematous mucosa in the gastric body and a few bleeding angiectasias in the duodenum that were injected and treated with
monopolar probe.
-Patient has received 3 units PRBCs in total this admission
-EF was 54% by echo on 08/17/2024.
-Patient with known chronic HFpEF and outpatient dose of Lasix 40 mg PO daily has been continued. Intermittent doses of additional Lasix 20 mg IV x 1 has been given by hospitalist attending for acute volume overload and with PRBC transfusions.
-Troponin was 0.064 on admission and then 0.068 and overall trending down from a peak troponin of 63.4 on 08/17/2024 in the setting of DC at that time.
-There is also significant concern that the patient had CVA last admission on 09/18/2024, but she declined to have MRI due to urinary claustrophobia and orthopedic issues.
-Patient now with persistent to permanent A-fib, tele overnight reviewed by me and rate controlled. Patient wore a 5-day monitor 08/2024 that showed 100% A-fib. continue lopressor 12.5mg BID
-Now that A-fib is considered persistent to permanent and patient is not willing to take OAC there are no plans for rhythm control. Amiodarone that had been started during her 08/2024 admission was stopped 09/2024.
-Outpatient dose of Crestor 10 mg daily has been continued. LDL at time of NSTEMI was 153 and on readmission a few weeks later interestingly her LDL was down to 28 so Crestor dose was decreased from 20 mg daily to 10 mg daily at that time
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
Subjective
Date of Service: October 14, 2024
She says she wants to go home
Objective
Labs:
10/14/24 06:59
10/14/24 06:59
Labs
Hgb 8.0 g/dL (12.0-16.0) L 10/14/24 06:59
Hct 24.8 % (37.0-47.0) L 10/14/24 06:59
Plt Count 198 10^3/uL (130-400) 10/14/24 06:59
Sodium 135 mmol/L (135-145) 10/13/24 12:05
Potassium 3.5 mmol/L (3.5-5.1) 10/14/24 06:59
BUN 26 mg/dl (7-17) H 10/13/24 12:05
Creatinine 1.0 mg/dL (0.6-1.0) 10/13/24 12:05
Glucose 119 mg/dl (70-99) H 10/13/24 12:05
Vital Signs and I&O:
Vital Signs
Temp Pulse Resp BP Pulse Ox
97.8 F 69 14 125/61 98
10/14/24 07:47 10/14/24 07:47 10/14/24 07:47 10/14/24 07:47 10/14/24 07:47
Vital Signs
Temp Pulse Resp BP Pulse Ox
97.8 F 69 14 125/61 98
10/14/24 07:47 10/14/24 07:47 10/14/24 07:47 10/14/24 07:47 10/14/24 07:47
Intake & Output
10/12/24 10/13/24 10/14/24 10/15/24
06:59 06:59 06:59 06:59
Intake Total 1770 / 1770 1100 / 1100 730 / 730
Balance 1770 / 1770 1100 / 1100 730 / 730
Physical Exam
Physical Exam
GEN: AAOx3
LUNGS: RA
CV: Afib on tele
--- NOTE | 2024-10-14 11:19 | CM ---
Patient seen at bedside
hgb 8.0 today
[facility] referral [facility]accept[facility]
PLAN: Home with [facility] when stable
--- NOTE | 2024-10-14 13:41 | W.PN.HOSP.TC ---
Today's Communication/Plan
-
Left message for daughter to call back to discuss capsule
Assessment / Plan
Assessment / Plan
84 y/o female with CHF and GI bleed.
Admission 08/17-08/22/24 for NSTEMI (s/p PCI to LCx)
Admission 09/18-10/01/24 for UGIB requiring 5 units of blood(s/p EGD with findings of short segment Romero's esophagus and a few bleeding angiectasias in the duodenum which were cauterized; Eliquis discontinued and she was discharged on
Aspirin/Plavix)
She also had an admission a month ago for epistaxis requiring nasal packing and cauterization.
EGD October 01, 2024 that showed hypertensive upper esophageal sphincter, unable to pass adult endoscope but able to traverse with XP endoscope. Erythematous mucosa in the antrum, normal duodenum, no specimens collected. No old or fresh blood seen.
EGD done September 22, 2024 showed esophageal stenosis possible cervical osteophyte, small hiatal hernia, short segment Romero's esophagus, erythematous mucosa in the gastric body and antrum, a few bleeding angiectasia's in the duodenum which were
injected and treated with a monopolar probe. No specimens collected.
Patient states that she had some black stools last night she flushed it before the nurses could see it. No vomiting.
CVS: S1-S2 irregular
Chest: CTA B/L
Abdomen: Soft, NT , Bowel sounds present
Extremities: Edema bilateral lower extremity
Rectal Heme positive black stool
# Acute on chronic HFpEF proBNP 9520
Improved, weights trending down
Continue oral Lasix
Once labs are back will give extra lasix.
# Acute blood loss anemia secondary to GI bleed
Transfused with 3 units of packed red blood cells this admission
Plavix still on hold
Colonoscopy on 10/11/2024-Dr. Angel stool in the entire examined colon. Examined portion of the ileum without any AVMs. 1 polyp in the cecum removed, congested mucosa in the proximal ascending colon biopsied, 1 polyp in the proximal rectum removed,
diverticulosis in the entire examined colon without any signs of bleeding.
On a diet
Continue PPI twice daily
EGD as above
Patient continues to have black stools and hemoglobin did not come up as expected after 1 unit of blood. Discussed with GI who recommended capsule endoscopy. Patient states that she does not want to swallow a camera.
# Troponin elevation-nonischemic myocardial injury
# Hypokalemia-replaced
# Hyponatremia-resolved
# Paroxysmal atrial fibrillation-patient declined anticoagulation last hospitalization. Continue metoprolol
# Bilateral carotid stenosis-patient declined intervention during last hospitalization
# Coronary disease with history of non-STEMI with cath and YESICA to circumflex 08/17/2024. Holding Plavix. Continue aspirin. Plavix can be restarted on 10/14/2024, but heme positive and also Hb drop Hold
# Hypertension-continue metoprolol
# Hyperlipidemia-continue rosuvastatin
# Slightly elevated LFTs likely passive congestion of the liver
# Varicose veins with history of superficial thrombophlebitis
# Diverticulosis
# Hypoalbuminemia
# DVT prophylaxis--continue SCDs
# DNR status
D/W RN
Called daughter and left message for call back to discuss
GI made aware re dropping Hb, Capsule offered.
D/W Cards
Part of this note was created using voice recognition system. Occasional wrong word or��sound alike� substitutions may have inadvertently occurred due to the inherent limitations of voice recognition software. If noted kindly bring it to my
attention for correction.
Anticipated Discharge: 24 - 48 hours
Subjective/Interval History
-
Date of Service: October 14, 2024
Objective Data
-
Labs:
Laboratory Results
10/14/24
06:59
WBC 6.4
Hgb 8.0 L
Hct 24.8 L
Plt Count 198
Potassium 3.5
Vital Signs:
Vital Signs
Temp Pulse Resp BP Pulse Ox
97.8 F 69 14 125/61 98
10/14/24 07:47 10/14/24 07:47 10/14/24 07:47 10/14/24 07:47 10/14/24 07:47
I&O
10/13/24 10/14/24 10/15/24
06:59 06:59 06:59
Intake Total 1100 / 1100 730 / 730
Balance 1100 / 1100 730 / 730
[2024-10-14 15:23] VITALS: BP 121/51
--- NOTE | 2024-10-14 15:48 | W.PN.UPDATE ---
Update Note
Progress Note Update
Spoke to patient's daughter about patient refusing small. SHE IS GOING TO TALK TO THE PATIENT AND GET BACK TO US.
[2024-10-14] MEDS: LASIX 20 MG IV (16:39)
[2024-10-14] MEDS: CRESTOR 10 MG PO (17:29)
--- NOTE | 2024-10-14 17:37 | W.PN.UPDATE ---
Update Note
Progress Note Update
I spoke with daughter and reviewed chart with need for 8 units PRBC in past month for persistent black stools. Discussed work up thus far with EGD x 2 and colonoscopy without source. Reviewed options of capsule, endo placed capsule, hold
anticoagulation with risk. Ideally for transfer and further double balloon tertiary center would like capsule completed to ID source. GI team will follow up tomorrow to further review with patient for plan. Reviewed with Dr. Knapp.
[2024-10-14 23:00] VITALS: BP 137/73
[2024-10-15 04:59] VITALS: BMI 22.7
[2024-10-15 07:00] VITALS: BP 114/55
[2024-10-15] MEDS: LASIX 40 MG PO (08:26)
[2024-10-15] MEDS: PROTONIX 40 MG PO ×2 (08:27→19:39)
[2024-10-15] MEDS: MIRALAX PO ×2 (08:27→19:39)
[2024-10-15] MEDS: LOW STRENGTH ASPIRIN 81 MG PO (08:27)
[2024-10-15] MEDS: LOPRESSOR 12.5 MG PO ×2 (08:27→19:39)
[2024-10-15] MEDS: NON-FORMULARY ITEM 1 UNIT PO ×2 (08:27→19:39)
[2024-10-15 08:53] LABS: Hematocrit 24.3 % (37.0-47.0); Hemoglobin 7.8 g/dL (12.0-16.0); Mean Corp Hgb Conc. 32.1 g/dL (33.0-37.0); Mean Corpuscular Volume 95.3 fL (81.0-99.0); Platelet Count 199 10^3/uL (130-400); Red Cell Dist. Width 20.6 % (11.5-14.5)
[2024-10-15 09:01] LABS: AST (SGOT) 41 U/L (14-36); Albumin 2.8 g/dl (3.5-5.0); Blood Urea Nitrogen 26 mg/dl (7-17); Carbon Dioxide 27 mmol/L (22-30); Chloride 105 mmol/L (98-107); Estimated Creatinine Clearance 39 ml/min; Glucose 89 mg/dl (70-99); Total Protein 5.1 g/dl (6.3-8.2); eGFR > 60.00
--- NOTE | 2024-10-15 09:10 | W.PN.CARDCBS ---
Addendum entered and electronically signed by Vineet Calderon MD 10/15/24 09:40:
I saw and examined the patient.
The Drafter Civil's note was reviewed and I agree with the note.
Comment: Briefly, 84-year-old woman with history of CAD and recent admission for NSTEMI on 08/17/2024 mLCx PCI as well as paroxysmal atrial fibrillation. Unfortunately has had multiple hospitalizations since that time for GI bleed as well as
suspected CVA. Has undergone EGD and colonoscopy without clear source of bleeding and there is discussion about transfer to a tertiary care center for further workup.
Ideally patient would be on Eliquis/Plavix given history of A-fib and recent PCI however antiplatelet and anticoagulation options are limited due to transfusion dependent anemia
Plan is to continue aspirin 81 mg daily for now with ongoing GI bleed and no clear source
If GI bleeding resolves would ideally resume Eliquis however patient previously refused
Continue metoprolol, rosuvastatin and Lasix 40 mg daily
We will follow peripherally
Original Note:
Today's Communication / Plan
-
Continue aspirin alone, eventually would like to restart DAPT, however w/ ongoing GIB holding off.
Continue lopressor for rate control of Afib.
Continue PO lasix.
Impression / Plan
-
PCP: Dr. Solitario Sharma
Card: Scheduled to see Dr. Yung
Impression:
Admitted with recurrent GIB
Recent admission for GIB, CVA 09/18/24 until 10/01/24
Recent admission for NSTEMI and CHF 08/17/24 until 08/22/24
Acute blood loss anemia and GIB
Acute on chronic HFpEF
h/o possible CVA 09/2024
patient unable to complete MRI brain
Paroxysmal Afib
Not on OAC due to patient choice
refuses to ever be on Eliquis again due to h/o GIB
CAD s/p NSTEMI and 2.75 mm Rafiq YESICA to Circ 08/17/24
Hypertension
Hyperlipidemia
Multiple drug allergies
Hypokalemia
B/L high-grade carotid disease, likely symptomatic GABRIELA stenosis
Echo 08/01/2021: EF 60 to 65%, mild septal hypertrophy, mild MR, heavy focal calcification of noncoronary cusp of aortic valve, mild AR, mild TR, PAP 37 mmHg
ECHO 08/17/24: EF 54%, mild concentric LVH, moderate MR, mild AR, moderate TR, PAP 25 to 30 mmHg, trivial pericardial effusion
Left heart catheterization 08/17/2024: LM: Patent. LAD: Patent. Left circumflex: 90 to 95% hazy mid left circumflex stenosis s/p 2.75 x 30 mm Medtronic [place] drug-eluting stent. Mid circumflex 30 to 40% stenosis. RCA: Ostial 60 to 70% stenosis with
mild pressure dampening upon selective engagement
Plan:
-Admitted with recurrent GIB and acute CHF. Underwent colonoscopy 10/11 and despite large amount of green/brown stool, there was no evidence of bleeding. Patient then had another drop in hgb on 10/13 and received 1 unit PRBCs. GI following and
discussions ongoing for possible capsule study. Prior endoscopy 09/22 revealed possible Romero's esophagus with erythematous mucosa and a few bleeding angiectasias in duodenum that were injected and treated with monopolar probe. Has received a total
of 3 units PRBCs this admission.
-Continues on aspirin 81mg daily alone at this time. Plavix on hold. Eventually should be restarted on DAPT following YESICA 08/17/2024.
-Echo 08/17 with preserved EF. Continues on PO lasix 40mg daily. Has required intermittent doses of additional IV lasix w/ transfusions. Weight overall stable at 128 lbs. Creat 0.9.
-Of note, there is also significant concern that the patient had CVA last admission on 09/18/2024, but she declined to have MRI due to urinary claustrophobia and orthopedic issues.
-Patient now with persistent to permanent A-fib. Patient wore a 5-day monitor 08/2024 that showed 100% A-fib. Continue lopressor 12.5mg BID.
-She is not willing to take OAC. No plans for rhythm control.
-Outpatient dose of Crestor 10 mg daily has been continued. LDL at time of NSTEMI was 153 and on readmission a few weeks later interestingly her LDL was down to 28 so Crestor dose was decreased from 20 mg daily to 10 mg daily at that time
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
Subjective
Date of Service: October 15, 2024
No chest pain or SOB.
Objective
Labs:
10/15/24 08:23
10/15/24 08:23
Labs
Hgb 7.8 g/dL (12.0-16.0) L 10/15/24 08:23
Hct 24.3 % (37.0-47.0) L 10/15/24 08:23
Plt Count 199 10^3/uL (130-400) 10/15/24 08:23
Sodium 135 mmol/L (135-145) 10/13/24 12:05
Potassium 3.5 mmol/L (3.5-5.1) 10/14/24 06:59
BUN 26 mg/dl (7-17) H 10/15/24 08:23
Creatinine 0.9 mg/dL (0.6-1.0) 10/15/24 08:23
Glucose 89 mg/dl (70-99) 10/15/24 08:23
Vital Signs and I&O:
Vital Signs
Temp Pulse Resp BP Pulse Ox
98.0 F 70 19 114/55 99
10/15/24 07:00 10/15/24 07:00 10/15/24 07:00 10/15/24 08:27 10/15/24 07:00
Vital Signs
Temp Pulse Resp BP Pulse Ox
98.0 F 70 19 114/55 99
10/15/24 07:00 10/15/24 07:00 10/15/24 07:00 10/15/24 08:27 10/15/24 07:00
Intake & Output
10/13/24 10/14/24 10/15/24 10/16/24
06:59 06:59 06:59 06:59
Intake Total 1100 / 1100 730 / 730 1380 / 1380
Balance 1100 / 1100 730 / 730 1380 / 1380
Physical Exam
Physical Exam
GEN: No distress, awake, alert, oriented x3
HEENT: supple, anicteric, mmm
LUNGS: CTA b/l, no wheezes/rales
CV: irreg, S1/S2, 1/6 syst murmur
EXT: No clubbing, cyanosis, or edema
NEURO: Gross non-focal
SKIN: Warm, dry, no rash
[2024-10-15 09:19] LABS: ALT (SGPT) 31 U/L (0-35); Alkaline Phosphatase 72 U/L (38-126); Calcium 8.4 mg/dl (8.4-10.2); Potassium 3.6 mmol/L (3.5-5.1); Sodium 135 mmol/L (135-145)
--- NOTE | 2024-10-15 12:12 | W.PN.HOSP.TC ---
Today's Communication/Plan
-
Patient is refusing capsule study.
GI has reached out to [facility] to see if enteroscopy is an option
She is not ready for discharge
Follow hemoglobin
Transfuse as needed.
Assessment / Plan
Assessment / Plan
84 y/o female with CHF and GI bleed.
Admission 08/17-08/22/24 for NSTEMI (s/p PCI to LCx)
Admission 09/18-10/01/24 for UGIB requiring 5 units of blood(s/p EGD with findings of short segment Romero's esophagus and a few bleeding angiectasias in the duodenum which were cauterized; Eliquis discontinued and she was discharged on
Aspirin/Plavix)
She also had an admission a month ago for epistaxis requiring nasal packing and cauterization.
EGD October 01, 2024 that showed hypertensive upper esophageal sphincter, unable to pass adult endoscope but able to traverse with XP endoscope. Erythematous mucosa in the antrum, normal duodenum, no specimens collected. No old or fresh blood seen.
EGD done September 22, 2024 showed esophageal stenosis possible cervical osteophyte, small hiatal hernia, short segment Romero's esophagus, erythematous mucosa in the gastric body and antrum, a few bleeding angiectasia's in the duodenum which were
injected and treated with a monopolar probe. No specimens collected.
Patient states that she had some black stools last night she flushed it before the nurses could see it. No vomiting.
CVS: S1-S2 irregular
Chest: CTA B/L
Abdomen: Soft, NT , Bowel sounds present
Extremities: Edema bilateral lower extremity
Rectal Heme positive black stool
# Acute on chronic HFpEF proBNP 9520
Improved, weights trending down
Continue oral Lasix
Once labs are back will give extra Lasix.
# Acute blood loss anemia secondary to GI bleed
Transfused with 3 units of packed red blood cells this admission
Plavix still on hold
Colonoscopy on 10/11/2024-Dr. Angel stool in the entire examined colon. Examined portion of the ileum without any AVMs. 1 polyp in the cecum removed, congested mucosa in the proximal ascending colon biopsied, 1 polyp in the proximal rectum removed,
diverticulosis in the entire examined colon without any signs of bleeding.
On a diet now.
Continue PPI twice daily
EGD as above
Patient continues to have black stools and hemoglobin did not come up as expected after 1 unit of blood 10/13/24. Discussed with GI who recommended capsule endoscopy. Patient states that she does not want to swallow a camera.
She wants to go to Hospital in [place]
# Troponin elevation-nonischemic myocardial injury
# Hypokalemia-replaced
# Hyponatremia-resolved
# Paroxysmal atrial fibrillation-patient declined anticoagulation last hospitalization. Continue metoprolol
# Bilateral carotid stenosis-Patient declined intervention during last hospitalization
# Coronary disease with history of non-STEMI with cath and YESICA to circumflex 08/17/2024. Holding Plavix. Continue aspirin. Plavix was supposed to be restarted on 10/14/2024, but heme positive and also Hb drop - Hold for now.
# Hypertension-continue metoprolol
# Hyperlipidemia-continue rosuvastatin
# Slightly elevated LFTs likely passive congestion of the liver
# Varicose veins with history of superficial thrombophlebitis
# Diverticulosis
# Hypoalbuminemia
# DVT prophylaxis--continue SCDs
# DNR status
D/W RN
Part of this note was created using voice recognition system. Occasional wrong word or��sound alike� substitutions may have inadvertently occurred due to the inherent limitations of voice recognition software. If noted kindly bring it to my
attention for correction.
Anticipated Discharge: > 48 hours
Subjective/Interval History
-
Date of Service: October 15, 2024
Objective Data
-
Labs:
Laboratory Results
10/15/24
08:23
WBC 6.6
Hgb 7.8 L
Hct 24.3 L
Plt Count 199
Sodium 135
Potassium 3.6
Chloride 105
Carbon Dioxide 27
BUN 26 H
Creatinine 0.9
Glucose 89
Calcium 8.4
Total Bilirubin 0.7
AST 41 H
ALT 31
Alkaline Phosphatase 72
Vital Signs:
Vital Signs
Temp Pulse Resp BP Pulse Ox
98.0 F 70 19 114/55 99
10/15/24 07:00 10/15/24 07:00 10/15/24 07:00 10/15/24 08:27 10/15/24 07:00
I&O
10/14/24 10/15/24 10/16/24
06:59 06:59 06:59
Intake Total 730 / 730 1380 / 1380
Balance 730 / 730 1380 / 1380
[2024-10-15] MEDS: KCL 40 MEQ PO (13:18)
--- NOTE | 2024-10-15 14:25 | CM ---
Patient seen at bedside
per note Patient is refusing capsule study
GI has reached out to [facility] to see if enteroscopy is an option
Referral in [facility] for [facility]
PLAN: Home with [facility] when stable, ?transfer, CM to continue to follow
[2024-10-15 14:56] LABS: Hematocrit 27.3 % (37.0-47.0); Hemoglobin 8.8 g/dL (12.0-16.0)
[2024-10-15 15:00] VITALS: BP 126/58
--- NOTE | 2024-10-15 19:07 | W.PN.GI.CBS2 ---
Today's Communication / Plan
-
nuc med scan, possible transfer, barium esophagram Mon, trend Hb
Assessment / Plan
-
Pt is a 84 y.o. female with pmh HFpEF, HTN, HLD, CAD with recent PCI to Lcx on 08/17/24 in August with newly started on Plavix She was also noted with new Afib and Eliquis was added. She was admitted 09/18- 10/01 with multiple issues. She was seen
by GI with concern for GI bleeding with black stools and drop in hbg. She did require 5 units PRBC's during admission and completed 2 EGD's. She was offered colonoscopy but declined. She also started on different combination with initial triple
therapy with ASA, Plavix and Eliquis. Then of ASA and Eliquis and finally changed ASA and Plavix with bleeding on all regiment. She now returns with continued bleeding and hbg 6.9 and black stool on exam in ER. Pt also noted with epistaxis with
prior Eliquis use, fall, and concern for CVA with b/l carotid stenosis She did decline further work up with MRI. In review with patient she admits to change in bowel pattern with lower abdominal pain prior to August admission. She believes she had
enema at some point then more recently has been passing black stools. She admits to dysphagia that was worse after first EGD and occasional GERD with tums use and nausea. Pt feels like wt loss with recent admission but minimal change in wt per
chart. She denies red blood in stools. Denies vaginal or urinary bleeding. No hx colonoscopy in past. Per prior noted -Prior H. pylori positive, no testing for eradication, no biopsies taken at time of recent EGD due to active bleeding and also
changes of antoine's without bx.
09/22 EGD- Dr. 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 Few bleeding ectasias in D2- injected w epi and cauterized w monopolar probe
10/01- EGD - Dr. Reid - Hypertensive upper esophageal sphincter. Unable to pass adult enscope but able to transverse with XP endoscope - Erythematous mucosa in the antrum. - Normal examined duodenum. Duodenal areas with prior treatment seen
without active bleeding No specimens collected. No old or fresh blood seen.
10/[address] Pugh - Polyps, no AVMs. Diverticulosis.
-continued Melena
-anemia with iron deficiency total 8 units PRBC's given since beginning of September
-EGD with actively bleeding AVM's - stable on follow up EGD
-elevated troponin
-recent change bowel pattern
-concern for recent CVA -- pt declined MRI
-carotid stenosis
-hx CAD with PCI/stent 08/17
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
-hx H pylori
-possible antoine's on EGD
Impression: Concern for obscure GI bleed and likely secondary to known AVMs given prior history of small bowel angiectasias during prior EGD. No prior colonoscopy in the past. Currently, Hgb remains stable while holding plavix with plans for
eventual colonoscopy this admission.
Plan was capsule endoscopy on Friday but patient unable to swallow capsule.
I discussed at length with Dr. Chen (who will be away next week- advanced endoscopy) and GI fellow at [facility] Dr. Jerome. Due to esophageal anatomy will be unable to endoscopically place capsule.
Dr. Jerome had discussed CTA I think no utility given slowness of bleed. He recommended a tagged RBC nuc med scan - I also am doubtful this will be helpful but Natali reached out to radiology and got this scheduled.
They also recommended a barium esophagram for further evaluation of her esophageal anatomy.
I called and d/w transfer center at [facility]. [facility] has NO bed availability and are not accepting transfers; unclear if [facility] is same. [facility] most likely best option but unclear if they have the GI capabilities needed. I have put a call
out to [facility] to discuss/possibly transfer.
Natali LOZADA updated daughter.
Hospitalist updated as well.
Given intermittent black stool and being transfusion dependent unable to discharge at this juncture.
Extensive time spent in coordination of care of patient as outlined above.
Subjective
Subjective
Date of Service: October 15, 2024
Last black stool recorded 10/13
Pt no abd pain
Objective
Data Reviewed
Laboratory Data:
Laboratory Results
10/15/24 14:43
10/15/24 08:23
Laboratory Results
Magnesium 2.0 mg/dl (1.6-2.3) 10/06/24 05:09
Total Bilirubin 0.7 mg/dl (0.2-1.3) 10/15/24 08:23
AST 41 U/L (14-36) H 10/15/24 08:23
ALT 31 U/L (0-35) 10/15/24 08:23
Alkaline Phosphatase 72 U/L (38-126) 10/15/24 08:23
Vital Signs and I&O:
Vital Signs
Temp Pulse Resp BP Pulse Ox
97.9 F 80 18 126/58 98
10/15/24 15:00 10/15/24 15:00 10/15/24 15:00 10/15/24 15:00 10/15/24 15:00
I&O
10/14/24 10/15/24 10/16/24
06:59 06:59 06:59
Intake Total 730 / 730 1380 / 1380 720 / 720
Balance 730 / 730 1380 / 1380 720 / 720
Physical Exam
Physical Exam
GI: Non Distended and Non Tender
[2024-10-15] MEDS: CRESTOR 10 MG PO (19:39)
[2024-10-15 23:20] VITALS: BP 127/55
[2024-10-16 06:14] VITALS: BMI 22.4
[2024-10-16 07:40] VITALS: BP 129/60
[2024-10-16] MEDS: LOPRESSOR 12.5 MG PO ×2 (08:44→21:02)
[2024-10-16] MEDS: PROTONIX 40 MG PO ×2 (08:44→21:02)
[2024-10-16] MEDS: LOW STRENGTH ASPIRIN 81 MG PO (08:44)
[2024-10-16] MEDS: LASIX 40 MG PO (08:44)
[2024-10-16] MEDS: NON-FORMULARY ITEM 1 UNIT PO ×2 (08:45→21:02)
[2024-10-16] MEDS: MIRALAX PO ×2 (08:45→20:54)
--- NOTE | 2024-10-16 09:22 | W.PN.GI.CBS2 ---
Today's Communication / Plan
-
monitor stools and Hb; BE on Friday; possible transfer
Assessment / Plan
-
Pt is a 84 y.o. female with pmh HFpEF, HTN, HLD, CAD with recent PCI to Lcx on 08/17/24 in August with newly started on Plavix She was also noted with new Afib and Eliquis was added. She was admitted 09/18- 10/01 with multiple issues. She was seen
by GI with concern for GI bleeding with black stools and drop in hbg. She did require 5 units PRBC's during admission and completed 2 EGD's. She was offered colonoscopy but declined. She also started on different combination with initial triple
therapy with ASA, Plavix and Eliquis. Then of ASA and Eliquis and finally changed ASA and Plavix with bleeding on all regiment. She now returns with continued bleeding and hbg 6.9 and black stool on exam in ER. Pt also noted with epistaxis with
prior Eliquis use, fall, and concern for CVA with b/l carotid stenosis She did decline further work up with MRI. In review with patient she admits to change in bowel pattern with lower abdominal pain prior to August admission. She believes she had
enema at some point then more recently has been passing black stools. She admits to dysphagia that was worse after first EGD and occasional GERD with tums use and nausea. Pt feels like wt loss with recent admission but minimal change in wt per
chart. She denies red blood in stools. Denies vaginal or urinary bleeding. No hx colonoscopy in past. Per prior noted -Prior H. pylori positive, no testing for eradication, no biopsies taken at time of recent EGD due to active bleeding and also
changes of antoine's without bx.
09/22 EGD- Dr. 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 Few bleeding ectasias in D2- injected w epi and cauterized w monopolar probe
10/01- EGD - Dr. Reid - Hypertensive upper esophageal sphincter. Unable to pass adult enscope but able to transverse with XP endoscope - Erythematous mucosa in the antrum. - Normal examined duodenum. Duodenal areas with prior treatment seen
without active bleeding No specimens collected. No old or fresh blood seen.
10/[address] Pugh - Polyps, no AVMs. Diverticulosis.
-continued Melena
-anemia with iron deficiency total 8 units PRBC's given since beginning of September
-EGD with actively bleeding AVM's - stable on follow up EGD
-elevated troponin
-recent change bowel pattern
-concern for recent CVA -- pt declined MRI
-carotid stenosis
-hx CAD with PCI/stent 08/17
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
-hx H pylori
-possible antoine's on EGD
Impression: Concern for obscure GI bleed and likely secondary to known AVMs given prior history of small bowel angiectasias during prior EGD. No prior colonoscopy in the past. Currently, Hgb remains stable while holding plavix with plans for
eventual colonoscopy this admission.
Plan was capsule endoscopy on Friday but patient unable to swallow capsule.
I discussed at length with Dr. Chen (who will be away next week- advanced endoscopy) and GI fellow at [place] Dr. Jerome on 10/15. Due to esophageal anatomy will be unable to endoscopically place capsule. D/w transfer center 10/15.
Dr. Jerome recommended nuc med bleed scan (done 10/15 negative); I explained no utility in CTA bleed too slow.
Plan for barium esophagram on Friday.
I d/w [facility] today - they do NOT have advanced capabilities, no double balloon.
I d/w patient options of transfer to [place] vs [place] - she asked me to reach out to her daughter I called and left .
Now with brown stool, last transfusion 10/13.
If has ongoing brown stool and stable hb without requiring transfusion can consider discharge however issue remains AC given recent IN.
Per Genevieve Tapia APN require 8U PRBC over course of September.
Extensive time spent in coordination of care of patient as outlined above.
Subjective
Subjective
Date of Service: October 16, 2024
Brown stool per patient
Objective
Data Reviewed
Laboratory Data:
Laboratory Results
Magnesium 2.0 mg/dl (1.6-2.3) 10/06/24 05:09
Total Bilirubin 0.7 mg/dl (0.2-1.3) 10/15/24 08:23
AST 41 U/L (14-36) H 10/15/24 08:23
ALT 31 U/L (0-35) 10/15/24 08:23
Alkaline Phosphatase 72 U/L (38-126) 10/15/24 08:23
Vital Signs and I&O:
Vital Signs
Temp Pulse Resp BP Pulse Ox
97.7 F 80 21 129/60 100
10/16/24 07:40 10/16/24 07:40 10/16/24 07:40 10/16/24 07:40 10/16/24 07:40
I&O
10/15/24 10/16/24 10/17/24
06:59 06:59 06:59
Intake Total 1380 / 1380 720 / 720
Balance 1380 / 1380 720 / 720
Physical Exam
Physical Exam
GI: Non Distended and Non Tender
[2024-10-16 10:44] LABS: Hematocrit 27.5 % (37.0-47.0); Hemoglobin 8.5 g/dL (12.0-16.0); Mean Corp Hgb Conc. 30.9 g/dL (33.0-37.0); Mean Corpuscular Volume 97.9 fL (81.0-99.0); Platelet Count 266 10^3/uL (130-400); Red Cell Dist. Width 20.8 % (11.5-14.5)
[2024-10-16 11:11] LABS: Blood Urea Nitrogen 28 mg/dl (7-17); Calcium 8.7 mg/dl (8.4-10.2); Carbon Dioxide 28 mmol/L (22-30); Chloride 101 mmol/L (98-107); Estimated Creatinine Clearance 35 ml/min; Glucose 224 mg/dl (70-99); Potassium 3.5 mmol/L (3.5-5.1); Sodium 134 mmol/L (135-145); eGFR 55.90
--- NOTE | 2024-10-16 12:34 | W.PN.HOSP.TC ---
Today's Communication/Plan
-
Barium swallow friday
Discussion s with Aryan ongoing re further testing.
Follow labs
Assessment / Plan
Assessment / Plan
84 y/o female with CHF and GI bleed.
Admission 08/17-08/22/24 for NSTEMI (s/p PCI to LCx)
Admission 09/18-10/01/24 for UGIB requiring 5 units of blood(s/p EGD with findings of short segment Romero's esophagus and a few bleeding angiectasias in the duodenum which were cauterized; Eliquis discontinued and she was discharged on
Aspirin/Plavix)
She also had an admission a month ago for epistaxis requiring nasal packing and cauterization.
EGD October 01, 2024 that showed hypertensive upper esophageal sphincter, unable to pass adult endoscope but able to traverse with XP endoscope. Erythematous mucosa in the antrum, normal duodenum, no specimens collected. No old or fresh blood seen.
EGD done September 22, 2024 showed esophageal stenosis possible cervical osteophyte, small hiatal hernia, short segment Romero's esophagus, erythematous mucosa in the gastric body and antrum, a few bleeding angiectasia's in the duodenum which were
injected and treated with a monopolar probe. No specimens collected.
Nuclear medicine bleeding scan-normal no active bleeding
CVS: S1-S2 irregular
Chest: CTA B/L
Abdomen: Soft, NT , Bowel sounds present
Extremities: no edema
# Acute on chronic HFpEF proBNP 9520
Improved, weights trending down
Continue oral Lasix
# Acute blood loss anemia secondary to GI bleed
Transfused with 3 units of packed red blood cells this admission
Plavix still on hold
Colonoscopy on 10/11/2024-Dr. Angel stool in the entire examined colon. Examined portion of the ileum without any AVMs. 1 polyp in the cecum removed, congested mucosa in the proximal ascending colon biopsied, 1 polyp in the proximal rectum removed,
diverticulosis in the entire examined colon without any signs of bleeding.
Tolerating diet
Continue PPI twice daily
EGD as above
Patient continues to have black stools and hemoglobin did not come up as expected after 1 unit of blood 10/13/24. Discussed with GI who recommended capsule endoscopy. Patient states that she does not want to swallow a camera.
Appreciate GI reaching out to [facility]. Plan is for barium swallow on Friday prior to patient being transferred to [facility]
Nuclear medicine bleeding scan negative-was requested by [facility]
# Troponin elevation-nonischemic myocardial injury
# Hypokalemia-replaced
# Hyponatremia-resolved
# Paroxysmal atrial fibrillation-patient declined anticoagulation last hospitalization. Continue metoprolol
# Bilateral carotid stenosis-Patient declined intervention during last hospitalization
# Coronary disease with history of non-STEMI with cath and YESICA to circumflex 08/17/2024. Holding Plavix. Continue aspirin. Plavix was supposed to be restarted on 10/14/2024, but heme positive and also Hb drop - Hold for now.
# Hypertension-continue metoprolol
# Hyperlipidemia-continue rosuvastatin
# Slightly elevated LFTs likely passive congestion of the liver
# Varicose veins with history of superficial thrombophlebitis
# Diverticulosis
# Hypoalbuminemia
# DVT prophylaxis--continue SCDs
# DNR status
D/W GI
D/W Daughter at bed side
D/W RN
Part of this note was created using voice recognition system. Occasional wrong word or��sound alike� substitutions may have inadvertently occurred due to the inherent limitations of voice recognition software. If noted kindly bring it to my
attention for correction.
Anticipated Discharge: > 48 hours
Subjective/Interval History
-
Date of Service: October 16, 2024
Objective Data
-
Labs:
Laboratory Results
10/16/24
10:29
WBC 6.9
Hgb 8.5 L
Hct 27.5 L
Plt Count 266 D
Sodium 134 L
Potassium 3.5
Chloride 101
Carbon Dioxide 28
BUN 28 H
Creatinine 1.0
Glucose 224 H
Calcium 8.7
Vital Signs:
Vital Signs
Temp Pulse Resp BP Pulse Ox
97.7 F 80 21 129/60 100
10/16/24 07:40 10/16/24 07:40 10/16/24 07:40 10/16/24 07:40 10/16/24 07:40
I&O
10/15/24 10/16/24 10/17/24
06:59 06:59 06:59
Intake Total 1380 / 1380 720 / 720
Balance 1380 / 1380 720 / 720
[2024-10-16] MEDS: SENOKOT 8.6 MG PO (15:09)
[2024-10-16 16:02] VITALS: BP 113/62
[2024-10-16] MEDS: CRESTOR 10 MG PO (18:03)
[2024-10-16] MEDS: SENOKOT PO (21:02)
[2024-10-16 22:52] VITALS: BP 129/66
[2024-10-17 06:00] VITALS: BMI 22.9
[2024-10-17] MEDS: NON-FORMULARY ITEM 1 UNIT PO ×2 (07:28→20:47)
[2024-10-17] MEDS: LOPRESSOR 12.5 MG PO ×2 (07:28→20:46)
[2024-10-17] MEDS: PROTONIX 40 MG PO ×2 (07:28→20:43)
[2024-10-17] MEDS: LOW STRENGTH ASPIRIN 81 MG PO (07:28)
[2024-10-17] MEDS: LASIX 40 MG PO (07:28)
[2024-10-17] MEDS: MIRALAX PO (07:29)
[2024-10-17 07:31] VITALS: BP 98/58
[2024-10-17 11:22] LABS: Hematocrit 23.5 % (37.0-47.0); Hemoglobin 7.7 g/dL (12.0-16.0); Mean Corp Hgb Conc. 32.8 g/dL (33.0-37.0); Mean Corpuscular Volume 95.5 fL (81.0-99.0); Platelet Count 236 10^3/uL (130-400); Red Cell Dist. Width 20.1 % (11.5-14.5)
[2024-10-17 11:49] LABS: Blood Urea Nitrogen 28 mg/dl (7-17); Calcium 8.5 mg/dl (8.4-10.2); Carbon Dioxide 28 mmol/L (22-30); Chloride 102 mmol/L (98-107); Estimated Creatinine Clearance 39 ml/min; Glucose 91 mg/dl (70-99); Potassium 3.5 mmol/L (3.5-5.1); Sodium 135 mmol/L (135-145); eGFR > 60.00
--- NOTE | 2024-10-17 13:31 | W.PN.HOSP.TC ---
Today's Communication/Plan
-
Await Call back from [facility]
X ray neck
Watch HHb
Assessment / Plan
Assessment / Plan
84 y/o female with CHF and GI bleed.
Admission 08/17-08/22/24 for NSTEMI (s/p PCI to LCx)
Admission 09/18-10/01/24 for UGIB requiring 5 units of blood(s/p EGD with findings of short segment Romero's esophagus and a few bleeding angiectasias in the duodenum which were cauterized; Eliquis discontinued and she was discharged on
Aspirin/Plavix)
She also had an admission a month ago for epistaxis requiring nasal packing and cauterization.
EGD October 01, 2024 that showed hypertensive upper esophageal sphincter, unable to pass adult endoscope but able to traverse with XP endoscope. Erythematous mucosa in the antrum, normal duodenum, no specimens collected. No old or fresh blood seen.
EGD done September 22, 2024 showed esophageal stenosis possible cervical osteophyte, small hiatal hernia, short segment Romero's esophagus, erythematous mucosa in the gastric body and antrum, a few bleeding angiectasia's in the duodenum which were
injected and treated with a monopolar probe. No specimens collected.
Nuclear medicine bleeding scan-normal no active bleeding
CVS: S1-S2 irregular
Chest: CTA B/L
Abdomen: Soft, NT , Bowel sounds present
Extremities: no edema
# Acute blood loss anemia secondary to GI bleed
Transfused with 3 units of packed red blood cells this admission
Plavix still on hold
Colonoscopy on 10/11/2024-Dr. Angel stool in the entire examined colon. Examined portion of the ileum without any AVMs. 1 polyp in the cecum removed, congested mucosa in the proximal ascending colon biopsied, 1 polyp in the proximal rectum removed,
diverticulosis in the entire examined colon without any signs of bleeding.
Tolerating diet
Continue PPI twice daily
EGD as above
Patient continues to have black stools and hemoglobin did not come up as expected after 1 unit of blood 10/13/24. Discussed with GI who recommended capsule endoscopy. Patient states that she does not want to swallow a camera.
Appreciate GI reaching out to [facility]. Plan is for barium swallow on Friday prior to patient being transferred to [facility]
Her GI [facility] do not have any beds
Called [place] transfer center per patient and family request and GI request. They will review the case and get back to me. Transfer center said that they typically do not do this kind of transfers on the weekends for patients not known to them.
Difficult time passing endoscope. Patient needs an enteroscopy at a tertiary facility.
# Acute on chronic HFpEF proBNP 9520
Improved, weights trending down
Continue oral Lasix
Nuclear medicine bleeding scan negative-was requested by Aryan
# Troponin elevation-nonischemic myocardial injury
# Hypokalemia-replaced
# Hyponatremia-resolved
# Paroxysmal atrial fibrillation-patient declined anticoagulation last hospitalization. Continue metoprolol
# Bilateral carotid stenosis-Patient declined intervention during last hospitalization
# Coronary disease with history of non-STEMI with cath and YESICA to circumflex 08/17/2024. Holding Plavix. Continue aspirin. Plavix was supposed to be restarted on 10/14/2024, but heme positive and also Hb drop - Hold for now.
# Hypertension-continue metoprolol
# Hyperlipidemia-continue rosuvastatin
# Slightly elevated LFTs likely passive congestion of the liver
# Varicose veins with history of superficial thrombophlebitis
# Diverticulosis
# Hypoalbuminemia
# DVT prophylaxis--continue SCDs
# DNR status
D/W GI
D/W Daughter at bed side
D/W RN
Part of this note was created using voice recognition system. Occasional wrong word or��sound alike� substitutions may have inadvertently occurred due to the inherent limitations of voice recognition software. If noted kindly bring it to my
attention for correction.
Anticipated Discharge: > 48 hours
Subjective/Interval History
-
Date of Service: October 17, 2024
Objective Data
-
Labs:
Laboratory Results
10/17/24
11:11
WBC 6.7
Hgb 7.7 L
Hct 23.5 L
Plt Count 236
Sodium 135
Potassium 3.5
Chloride 102
Carbon Dioxide 28
BUN 28 H
Creatinine 0.9
Glucose 91
Calcium 8.5
Vital Signs:
Vital Signs
Temp Pulse Resp BP Pulse Ox
97.6 F 72 20 98/58 99
10/17/24 07:31 10/17/24 07:31 10/17/24 07:31 10/17/24 07:31 10/17/24 07:31
I&O
10/16/24 10/17/24 10/18/24
06:59 06:59 06:59
Intake Total 720 / 720 1800 / 1800
Balance 720 / 720 1800 / 1800
--- NOTE | 2024-10-17 15:15 | W.PN.GI.CBS2 ---
Today's Communication / Plan
-
BE tmwr, XR neck today, reaching out to [facility] re: transfer
Assessment / Plan
-
Pt is a 84 y.o. female with pmh HFpEF, HTN, HLD, CAD with recent PCI to Lcx on 08/17/24 in August with newly started on Plavix She was also noted with new Afib and Eliquis was added. She was admitted 09/18- 10/01 with multiple issues. She was seen
by GI with concern for GI bleeding with black stools and drop in hbg. She did require 5 units PRBC's during admission and completed 2 EGD's. She was offered colonoscopy but declined. She also started on different combination with initial triple
therapy with ASA, Plavix and Eliquis. Then of ASA and Eliquis and finally changed ASA and Plavix with bleeding on all regiment. She now returns with continued bleeding and hbg 6.9 and black stool on exam in ER. Pt also noted with epistaxis with
prior Eliquis use, fall, and concern for CVA with b/l carotid stenosis She did decline further work up with MRI. In review with patient she admits to change in bowel pattern with lower abdominal pain prior to August admission. She believes she had
enema at some point then more recently has been passing black stools. She admits to dysphagia that was worse after first EGD and occasional GERD with tums use and nausea. Pt feels like wt loss with recent admission but minimal change in wt per
chart. She denies red blood in stools. Denies vaginal or urinary bleeding. No hx colonoscopy in past. Per prior noted -Prior H. pylori positive, no testing for eradication, no biopsies taken at time of recent EGD due to active bleeding and also
changes of antoine's without bx.
09/22 EGD- Dr. 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 Few bleeding ectasias in D2- injected w epi and cauterized w monopolar probe
10/01- EGD - Dr. Reid - Hypertensive upper esophageal sphincter. Unable to pass adult enscope but able to transverse with XP endoscope - Erythematous mucosa in the antrum. - Normal examined duodenum. Duodenal areas with prior treatment seen
without active bleeding No specimens collected. No old or fresh blood seen.
10/[address] Pugh - Polyps, no AVMs. Diverticulosis.
-continued Melena
-anemia with iron deficiency total 8 units PRBC's given since beginning of September
-EGD with actively bleeding AVM's - stable on follow up EGD
-elevated troponin
-recent change bowel pattern
-concern for recent CVA -- pt declined MRI
-carotid stenosis
-hx CAD with PCI/stent 08/17
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
-hx H pylori
-possible antoine's on EGD
Impression: Concern for obscure GI bleed and likely secondary to known AVMs given prior history of small bowel angiectasias during prior EGD. No prior colonoscopy in the past. Currently, Hgb remains stable while holding plavix with plans for
eventual colonoscopy this admission.
Plan was capsule endoscopy on Friday but patient unable to swallow capsule.
I discussed at length with Dr. Chen (who will be away next week- advanced endoscopy) and GI fellow at [place] Dr. Jerome on 10/15. Due to esophageal anatomy will be unable to endoscopically place capsule. D/w transfer center 10/15.
Dr. Jerome recommended nuc med bleed scan (done 10/15 negative); I explained no utility in CTA bleed too slow.
Plan for barium esophagram on Friday to evaluate anatomy, Dr. Knapp also got XR neck to further evaluate anatomy
I d/w [facility] 10/16- they do NOT have advanced capabilities, no double balloon.
I d/w patient options of transfer to [place] vs [place] - d/w pt and daughter at bedside prefer [place] appreciate Dr. Knapp attempting to reach out.
Now with melena again can't discharge. Per Genevieve Tapia's notes required 8U PRBC over course of September.
Subjective
Subjective
Date of Service: October 17, 2024
Black stool again
Objective
Data Reviewed
Laboratory Data:
Laboratory Results
10/17/24 11:11
10/17/24 11:11
Laboratory Results
Magnesium 2.0 mg/dl (1.6-2.3) 10/06/24 05:09
Total Bilirubin 0.7 mg/dl (0.2-1.3) 10/15/24 08:23
AST 41 U/L (14-36) H 10/15/24 08:23
ALT 31 U/L (0-35) 10/15/24 08:23
Alkaline Phosphatase 72 U/L (38-126) 10/15/24 08:23
Vital Signs and I&O:
Vital Signs
Temp Pulse Resp BP Pulse Ox
97.6 F 72 20 98/58 99
10/17/24 07:31 10/17/24 07:31 10/17/24 07:31 10/17/24 07:31 10/17/24 07:31
I&O
10/16/24 10/17/24 10/18/24
06:59 06:59 06:59
Intake Total 720 / 720 1800 / 1800
Balance 720 / 720 1800 / 1800
Physical Exam
Physical Exam
GI: Non Distended and Non Tender
[2024-10-17 15:51] VITALS: BP 120/52
[2024-10-17] MEDS: CRESTOR 10 MG PO (17:00)
[2024-10-17] MEDS: MIRALAX 17 GRAMS PO (20:46)
[2024-10-17] MEDS: SENOKOT 17.2 MG PO (21:46)
[2024-10-17 23:00] VITALS: BP 116/43
[2024-10-18 03:52] VITALS: BMI 23.0
[2024-10-18 07:00] VITALS: BP 136/55
[2024-10-18 07:30] VITALS: BMI 23.0
[2024-10-18] MEDS: LOW STRENGTH ASPIRIN 81 MG PO (07:31)
[2024-10-18] MEDS: PROTONIX 40 MG PO ×2 (07:31→20:38)
[2024-10-18] MEDS: LOPRESSOR 12.5 MG PO ×2 (07:31→20:38)
[2024-10-18] MEDS: MIRALAX PO ×2 (07:31→20:38)
[2024-10-18] MEDS: NON-FORMULARY ITEM 1 UNIT PO ×2 (07:31→20:38)
[2024-10-18] MEDS: LASIX 40 MG PO (07:32)
[2024-10-18 09:02] LABS: Hematocrit 24.1 % (37.0-47.0); Hemoglobin 7.4 g/dL (12.0-16.0); Mean Corp Hgb Conc. 30.7 g/dL (33.0-37.0); Mean Corpuscular Volume 99.2 fL (81.0-99.0); Platelet Count 243 10^3/uL (130-400); Red Cell Dist. Width 20.4 % (11.5-14.5)
--- NOTE | 2024-10-18 09:19 | W.PN.GI.CBS2 ---
Today's Communication / Plan
-
transfer [facility] for procedure
Assessment / Plan
-
Pt is a 84 y.o. female with pmh HFpEF, HTN, HLD, CAD with recent PCI to Lcx on 08/17/24 in August with newly started on Plavix She was also noted with new Afib and Eliquis was added. She was admitted 09/18- 10/01 with multiple issues. She was seen
by GI with concern for GI bleeding with black stools and drop in hbg. She did require 5 units PRBC's during admission and completed 2 EGD's. She was offered colonoscopy but declined. She also started on different combination with initial triple
therapy with ASA, Plavix and Eliquis. Then of ASA and Eliquis and finally changed ASA and Plavix with bleeding on all regiment. She now returns with continued bleeding and hbg 6.9 and black stool on exam in ER. Pt also noted with epistaxis with
prior Eliquis use, fall, and concern for CVA with b/l carotid stenosis She did decline further work up with MRI. In review with patient she admits to change in bowel pattern with lower abdominal pain prior to August admission. She believes she had
enema at some point then more recently has been passing black stools. She admits to dysphagia that was worse after first EGD and occasional GERD with tums use and nausea. Pt feels like wt loss with recent admission but minimal change in wt per
chart. She denies red blood in stools. Denies vaginal or urinary bleeding. No hx colonoscopy in past. Per prior noted -Prior H. pylori positive, no testing for eradication, no biopsies taken at time of recent EGD due to active bleeding and also
changes of antoine's without bx.
09/22 EGD- Dr. 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 Few bleeding ectasias in D2- injected w epi and cauterized w monopolar probe
10/01- EGD - Dr. Reid - Hypertensive upper esophageal sphincter. Unable to pass adult enscope but able to transverse with XP endoscope - Erythematous mucosa in the antrum. - Normal examined duodenum. Duodenal areas with prior treatment seen
without active bleeding No specimens collected. No old or fresh blood seen.
10/[address] Pugh - Polyps, no AVMs. Diverticulosis.
-continued Melena
-anemia with iron deficiency total 8 units PRBC's given since beginning of September
-EGD with actively bleeding AVM's - stable on follow up EGD
-elevated troponin
-recent change bowel pattern
-concern for recent CVA -- pt declined MRI
-carotid stenosis
-hx CAD with PCI/stent 08/17
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
-hx H pylori
-possible antoine's on EGD
Nuc med negative 10/15
barium esophagram 10/18 with ? cervical stenosis ? cervical esophageal cricopharyngeus indentation.
Impression: Concern for obscure GI bleed and likely secondary to known AVMs given prior history of small bowel angiectasias during prior EGD. No prior colonoscopy in the past. Currently, Hgb remains stable while holding plavix with plans for
eventual colonoscopy this admission.
Plan was capsule endoscopy on Friday but patient unable to swallow capsule.
Spent extensive time d/w adv GI with [facility] in discussion, greatly appreciate their help and assistance. They are willing to do a buy back agreement (pt will be sent back after procedure) and either do SIF anterograde or retrograde balloon
enteroscopy (another option is dilation but they are concerned still won't be able to get capsule down).
Dr. Knapp to call hospitalist service at [facility] to place transfer.
If melena stops and no longer transfusion dependent can set up outpatient follow up.
Total Time Spent with Patient (in minutes): 50
Subjective
Subjective
Date of Service: October 18, 2024
Still with black BM and Hb drifting down
Objective
Data Reviewed
Laboratory Data:
Laboratory Results
10/18/24 07:54
Laboratory Results
Magnesium 2.0 mg/dl (1.6-2.3) 10/06/24 05:09
Total Bilirubin 0.7 mg/dl (0.2-1.3) 10/15/24 08:23
AST 41 U/L (14-36) H 10/15/24 08:23
ALT 31 U/L (0-35) 10/15/24 08:23
Alkaline Phosphatase 72 U/L (38-126) 10/15/24 08:23
Vital Signs and I&O:
Vital Signs
Temp Pulse Resp BP Pulse Ox
97.4 F 71 18 136/55 99
10/18/24 07:00 10/18/24 07:00 10/18/24 07:00 10/18/24 07:00 10/18/24 07:30
I&O
10/17/24 10/18/24 10/19/24
06:59 06:59 06:59
Intake Total 1800 / 1800 1800 / 1800
Balance 1800 / 1800 1800 / 1800
Physical Exam
Physical Exam
GI: Non Distended and Non Tender
[2024-10-18 09:40] LABS: Blood Urea Nitrogen 26 mg/dl (7-17); Calcium 8.6 mg/dl (8.4-10.2); Carbon Dioxide 30 mmol/L (22-30); Chloride 99 mmol/L (98-107); Estimated Creatinine Clearance 35 ml/min; Glucose 93 mg/dl (70-99); Potassium 3.2 mmol/L (3.5-5.1); Sodium 135 mmol/L (135-145); eGFR 55.90
--- NOTE | 2024-10-18 11:10 | W.PN.UPDATE ---
Addendum entered and electronically signed by Bandar Knapp MD 10/18/24 12:26:
Matilda called back gave number for [facility] for GI
called [phone] left message
Also called [phone] (option 3) and left message for call back
Original Note:
Update Note
Progress Note Update
Called [facility], spoke to Matilda.
Said she will look into it.
Patients were not known to their system they usually get them done for a procedure and then send them back
She will call me back
[2024-10-18] MEDS: KCL 160 MEQ IV (13:09)
[2024-10-18] MEDS: KCL 40 MEQ PO (13:11)
--- NOTE | 2024-10-18 14:39 | W.PN.HOSP.TC ---
Today's Communication/Plan
-
1 unit of blood
Replace potassium
Plan is to transfer to tertiary facility for enteroscopy
Assessment / Plan
Assessment / Plan
84 y/o female with CHF and GI bleed.
Admission 08/17-08/22/24 for NSTEMI (s/p PCI to LCx)
Admission 09/18-10/01/24 for UGIB requiring 5 units of blood(s/p EGD with findings of short segment Romero's esophagus and a few bleeding angiectasias in the duodenum which were cauterized; Eliquis discontinued and she was discharged on
Aspirin/Plavix)
She also had an admission a month ago for epistaxis requiring nasal packing and cauterization.
EGD October 01, 2024 that showed hypertensive upper esophageal sphincter, unable to pass adult endoscope but able to traverse with XP endoscope. Erythematous mucosa in the antrum, normal duodenum, no specimens collected. No old or fresh blood seen.
EGD done September 22, 2024 showed esophageal stenosis possible cervical osteophyte, small hiatal hernia, short segment Romero's esophagus, erythematous mucosa in the gastric body and antrum, a few bleeding angiectasia's in the duodenum which were
injected and treated with a monopolar probe. No specimens collected.
Nuclear medicine bleeding scan-normal no active bleeding
CVS: S1-S2 irregular
Chest: CTA B/L
Abdomen: Soft, NT , Bowel sounds present
Extremities: no edema
Has bleck stools
# Acute blood loss anemia secondary to GI bleed
Transfused with 3 units of packed red blood cells this admission. Hemoglobin low today and patient with lack of energy and black stools transfuse 1 more unit of blood on 10/18/2024
Plavix still on hold
Colonoscopy on 10/11/2024-Dr. Angel stool in the entire examined colon. Examined portion of the ileum without any AVMs. 1 polyp in the cecum removed, congested mucosa in the proximal ascending colon biopsied, 1 polyp in the proximal rectum removed,
diverticulosis in the entire examined colon without any signs of bleeding.
Continue PPI twice daily
EGD as above
Discussed with GI who recommended capsule endoscopy. Patient states that she does not want to swallow a camera.
Difficult time passing endoscope. Patient needs an enteroscopy at a tertiary facility.
Nuclear medicine bleeding scan negative
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
Appreciate GI reaching out to [facility].
Per GI [facility] do not have any beds
Called [facility] transfer center then [facility] and also GI there left messages
Patient is okay with GI trying to transfer to [place] also
# Acute on chronic HFpEF proBNP 9520
Improved, weights trending down
Continue oral Lasix
# Troponin elevation-nonischemic myocardial injury
# Hypokalemia-replace
# Hyponatremia-resolved
# Paroxysmal atrial fibrillation-patient declined anticoagulation last hospitalization. Continue metoprolol
# Bilateral carotid stenosis-Patient declined intervention during last hospitalization
# Coronary disease with history of non-STEMI with cath and YESICA to circumflex 08/17/2024. Holding Plavix. Continue aspirin. Plavix was supposed to be restarted on 10/14/2024, but heme positive and also Hb drop - Hold for now.
# Hypertension-continue metoprolol
# Hyperlipidemia-continue rosuvastatin
# Slightly elevated LFTs likely passive congestion of the liver
# Varicose veins with history of superficial thrombophlebitis
# Diverticulosis
# Hypoalbuminemia
# DVT prophylaxis--continue SCDs
# DNR status
D/W GI
Called [facility] 3 times today
D/W RN
Called daughter-went to message
time spent over 50 min
Part of this note was created using voice recognition system. Occasional wrong word or��sound alike� substitutions may have inadvertently occurred due to the inherent limitations of voice recognition software. If noted kindly bring it to my
attention for correction.
Anticipated Discharge: 24 - 48 hours
Subjective/Interval History
-
Date of Service: October 18, 2024
Objective Data
-
Labs:
Laboratory Results
10/18/24
07:54
WBC 6.5
Hgb 7.4 L
Hct 24.1 L
Plt Count 243
Sodium 135
Potassium 3.2 L
Chloride 99
Carbon Dioxide 30
BUN 26 H
Creatinine 1.0
Glucose 93
Calcium 8.6
Vital Signs:
Vital Signs
Temp Pulse Resp BP Pulse Ox
97.4 F 71 18 136/55 99
10/18/24 07:00 10/18/24 07:00 10/18/24 07:00 10/18/24 07:00 10/18/24 07:30
I&O
10/17/24 10/18/24 10/19/24
06:59 06:59 06:59
Intake Total 1800 / 1800 1800 / 1800
Balance 1800 / 1800 1800 / 1800
--- NOTE | 2024-10-18 14:59 | W.PN.CARDCBS ---
Addendum entered and electronically signed by Neno Esparza MD 10/18/24 15:22:
I saw and examined the patient.
The HOME APPLIANCE INSTALLER or PA's note was reviewed and I agree with the note.
Comment: General: Well developed, well nourished in NAD.
Neck: Supple, no JVD, HJR, carotids +2 B/L, no bruits bilaterally.
Heart: Non displaced PMI, RRR, no murmurs, No S3, S4, no rubs.
Lungs: Clear to auscultation bilaterally, no wheeze, rhonchi, rubs bilaterally,
normal expiratory phase.
Extremities: No clubbing, cyanosis or edema bilaterally.
Neuro: Grossly nonfocal, awake, alert and oriented x3.
Stable cardiology status for GI procedure without further testing. Await transfer to [place] for possible enteroscopy.
Original Note:
Today's Communication / Plan
-
Possible transfer to [facility] for enteroscopy
Needs to resume DAPT at some point due to YESICA 08/17/24
Cont aspirin 81 mg daily
Impression / Plan
-
PCP: Dr. Solitario Sharma
Card: Scheduled to see Dr. Yung
Impression:
Admitted with recurrent GIB
Recent admission for GIB, CVA 09/18/24 until 10/01/24
Recent admission for NSTEMI and CHF 08/17/24 until 08/22/24
Acute blood loss anemia and GIB
Acute on chronic HFpEF
h/o possible CVA 09/2024
patient unable to complete MRI brain
Paroxysmal Afib
Not on OAC due to patient choice
refuses to ever be on Eliquis again due to h/o GIB
CAD s/p NSTEMI and 2.75 mm Rafiq YESICA to Circ 08/17/24
Hypertension
Hyperlipidemia
Multiple drug allergies
Hypokalemia
B/L high-grade carotid disease, likely symptomatic GABRIELA stenosis
Echo 08/01/2021: EF 60 to 65%, mild septal hypertrophy, mild MR, heavy focal calcification of noncoronary cusp of aortic valve, mild AR, mild TR, PAP 37 mmHg
ECHO 08/17/24: EF 54%, mild concentric LVH, moderate MR, mild AR, moderate TR, PAP 25 to 30 mmHg, trivial pericardial effusion
Left heart catheterization 08/17/2024: LM: Patent. LAD: Patent. Left circumflex: 90 to 95% hazy mid left circumflex stenosis s/p 2.75 x 30 mm Medtronic [place] drug-eluting stent. Mid circumflex 30 to 40% stenosis. RCA: Ostial 60 to 70% stenosis with
mild pressure dampening upon selective engagement
Plan:
-Admitted with recurrent GIB and acute CHF. Underwent colonoscopy 10/11/24 and despite large amount of green/brown stool, there was no evidence of bleeding. Patient then had another drop in hgb on 10/13/24 and received 1 unit PRBCs. GI following and
discussions ongoing for possible capsule study. Prior endoscopy 09/22/24 revealed possible Romero's esophagus with erythematous mucosa and a few bleeding angiectasias in duodenum that were injected and treated with monopolar probe. Has received a
total of 3 units PRBCs this admission.
-4th unit of PRBCs ordered for 10/18/24
-Hospitalist and GI attending notes reviewed. Patient cannot complete capsule endoscopy as she is unable to swallow the capsule. The case was reviewed with the GI fellow at [facility] and they feel that due to esophageal anatomy the patient cannot have
capsule placed endoscopically. Plan is for possible transfer to [place] for enteroscopy.
-Continues on aspirin 81mg daily alone at this time. Plavix on hold. Needs to eventually restart on DAPT following YESICA 08/17/2024.
-EF was 54% by echo on 08/17/2024.
-Patient with known chronic HFpEF and outpatient dose of Lasix 40 mg PO daily has been continued. Intermittent doses of additional Lasix 20 mg IV x 1 have been given by hospitalist attending for acute volume overload and with PRBC transfusions.
-Troponin was 0.064 on admission and then 0.068 and overall trending down from a peak troponin of 63.4 on 08/17/2024 in the setting of [place] at that time.
-There is also significant concern that the patient had CVA last admission on 09/18/2024, but she declined to have MRI due to urinary claustrophobia and orthopedic issues.
-Patient now with persistent to permanent A-fib, tele overnight reviewed by me and rate controlled. Patient wore a 5-day monitor 08/2024 that showed 100% A-fib.
-Outpatient dose of Lopressor 12.5 mg BID has been continued. Now that A-fib is considered persistent to permanent and patient is not willing to take OAC there are no plans for rhythm control. Amiodarone that had been started during her 08/2024
admission was stopped 09/2024.
-Outpatient dose of Crestor 10 mg daily has been continued. LDL at time of NSTEMI was 153 and on readmission a few weeks later interestingly her LDL was down to 28 so Crestor dose was decreased from 20 mg daily to 10 mg daily at that time
Progress Note - Custom Tailor Apprentice
Subjective
Date of Service: October 18, 2024
No chest pain
Objective
Labs:
10/18/24 07:54
10/18/24 07:54
Labs
Hgb 7.4 g/dL (12.0-16.0) L 10/18/24 07:54
Hct 24.1 % (37.0-47.0) L 10/18/24 07:54
Plt Count 243 10^3/uL (130-400) 10/18/24 07:54
Sodium 135 mmol/L (135-145) 10/18/24 07:54
Potassium 3.2 mmol/L (3.5-5.1) L 10/18/24 07:54
BUN 26 mg/dl (7-17) H 10/18/24 07:54
Creatinine 1.0 mg/dL (0.6-1.0) 10/18/24 07:54
Glucose 93 mg/dl (70-99) 10/18/24 07:54
Vital Signs and I&O:
Vital Signs
Temp Pulse Resp BP Pulse Ox
97.4 F 71 18 136/55 99
10/18/24 07:00 10/18/24 07:00 10/18/24 07:00 10/18/24 07:00 10/18/24 07:30
Vital Signs
Temp Pulse Resp BP Pulse Ox
97.4 F 71 18 136/55 99
10/18/24 07:00 10/18/24 07:00 10/18/24 07:00 10/18/24 07:00 10/18/24 07:30
Intake & Output
10/16/24 10/17/24 10/18/24 10/19/24
06:59 06:59 06:59 06:59
Intake Total 720 / 720 1800 / 1800 1800 / 1800
Balance 720 / 720 1800 / 1800 1800 / 1800
Physical Exam
Physical Exam
GEN: AAOx3
LUNGS: RA
CV: Afib on tele
[2024-10-18 15:00] VITALS: BP 132/53
--- NOTE | 2024-10-18 15:44 | W.PN.UPDATE ---
Update Note
Progress Note Update
Spoke to GI Hospitalist Dr. Israel . Accepted the patient to his service. GI also spoke to Dr. Onofre Carson who will be the GI doctor will be seeing the patient
[facility] has a standing buy back policy with us.
Requested to do LFTs and INR ordered
Transfer form signed by patient
--- NOTE | 2024-10-18 15:55 | CM ---
Patient seen at bedside
Patient to transfer to [facility] once bed available
PLAN: Transfer to [facility] once bed available
For Nursing update call [phone]
Fax #: [phone]
[2024-10-18 16:36] VITALS: BP 109/44
[2024-10-18 16:52] VITALS: BP 137/63
[2024-10-18] MEDS: CRESTOR 10 MG PO (17:00)
[2024-10-18 19:01] VITALS: BP 143/58
[2024-10-18 19:50] LABS: INR 1.19; PT 15.4 Sec (11.4-14.6)
[2024-10-18 20:00] LABS: ALT (SGPT) 34 U/L (0-35); AST (SGOT) 42 U/L (14-36); Albumin 3.2 g/dl (3.5-5.0); Alkaline Phosphatase 73 U/L (38-126); Total Protein 5.7 g/dl (6.3-8.2)
[2024-10-18] MEDS: SENOKOT PO (21:17)
[2024-10-18 23:00] VITALS: BP 120/56
--- NOTE | 2024-10-19 02:27 | PTCARENOTE ---
Report given to Gera ARMSTRONG for transfer to room 409/1
--- NOTE | 2024-10-19 03:00 | PTCARENOTE ---
Patient transferred into room 409-1 from via bed accompanied by RN and PCT. Nursing assessment completed at this time. Call salazar within reach, oriented to new room, VSS, care ongoing.
[2024-10-19 03:12] VITALS: BP 130/69
[2024-10-19] MEDS: LASIX 40 MG PO (08:03)
[2024-10-19] MEDS: PROTONIX 40 MG PO (08:04)
[2024-10-19] MEDS: LOW STRENGTH ASPIRIN 81 MG PO (08:04)
[2024-10-19] MEDS: NON-FORMULARY ITEM 1 UNIT PO (08:04)
[2024-10-19] MEDS: MIRALAX 17 GRAMS PO (08:05)
[2024-10-19] MEDS: LOPRESSOR 12.5 MG PO (08:05)
[2024-10-19 08:11] LABS: Hematocrit 23.6 % (37.0-47.0); Hemoglobin 7.9 g/dL (12.0-16.0); Mean Corp Hgb Conc. 33.5 g/dL (33.0-37.0); Mean Corpuscular Volume 92.5 fL (81.0-99.0); Platelet Count 176 10^3/uL (130-400); Red Cell Dist. Width 20.2 % (11.5-14.5)
[2024-10-19 08:21] VITALS: BP 119/48
[2024-10-19 08:32] LABS: Blood Urea Nitrogen 35 mg/dl (7-17); Calcium 8.4 mg/dl (8.4-10.2); Carbon Dioxide 27 mmol/L (22-30); Chloride 105 mmol/L (98-107); Estimated Creatinine Clearance 35 ml/min; Glucose 87 mg/dl (70-99); Magnesium 2.1 mg/dl (1.6-2.3); Potassium 3.7 mmol/L (3.5-5.1); Sodium 135 mmol/L (135-145); eGFR 55.90
--- NOTE | 2024-10-19 10:09 | W.PN.GI.CBS2 ---
Addendum entered and electronically signed by Lucrecia Martinez MD 10/19/24 13:12:
I saw and examined the patient.
The LURE MAKER or PA's note was reviewed and I agree with the note.
Comment: Patient without any abdominal pain, nausea or vomiting, no bowel movements today and hemoglobin seems to be stable at 8.4. She did have 1 black bowel movement last night.
Currently on clear liquid diet, continue Protonix 40 mg twice a day
Natali Arreola, our CARDIAC REHABILITATION PROGRAM DIRECTOR reached out to [facility], they are planning to take the patient today for deep enteroscopy possibly tomorrow as we do not have that ability at [facility] and also patient had difficult endoscopy due to
cervical osteophytes causing stenosis in the oropharynx area.
Patient and primary team aware of the plan.
Will follow until patient transferred.
Original Note:
Today's Communication / Plan
-
Pending trf to [facility]
Assessment / Plan
-
Pt is a 84 y.o. female with pmh HFpEF, HTN, HLD, CAD with recent PCI to Lcx on 08/17/24 in August with newly started on Plavix She was also noted with new Afib and Eliquis was added. She was admitted 09/18- 10/01 with multiple issues. She was seen
by GI with concern for GI bleeding with black stools and drop in hbg. She did require 5 units PRBC's during admission and completed 2 EGD's. She was offered colonoscopy but declined. She also started on different combination with initial triple
therapy with ASA, Plavix and Eliquis. Then of ASA and Eliquis and finally changed ASA and Plavix with bleeding on all regiment. She now returns with continued bleeding and hbg 6.9 and black stool on exam in ER. Pt also noted with epistaxis with
prior Eliquis use, fall, and concern for CVA with b/l carotid stenosis She did decline further work up with MRI. In review with patient she admits to change in bowel pattern with lower abdominal pain prior to August admission. She believes she had
enema at some point then more recently has been passing black stools. She admits to dysphagia that was worse after first EGD and occasional GERD with tums use and nausea. Pt feels like wt loss with recent admission but minimal change in wt per
chart. She denies red blood in stools. Denies vaginal or urinary bleeding. No hx colonoscopy in past. Per prior noted -Prior H. pylori positive, no testing for eradication, no biopsies taken at time of recent EGD due to active bleeding and also
changes of antoine's without bx.
09/22 EGD- Dr. 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 Few bleeding ectasias in D2- injected w epi and cauterized w monopolar probe
10/01- EGD - Dr. Reid - Hypertensive upper esophageal sphincter. Unable to pass adult endoscope but able to transverse with XP endoscope - Erythematous mucosa in the antrum. - Normal examined duodenum. Duodenal areas with prior treatment seen
without active bleeding No specimens collected. No old or fresh blood seen.
10/[address] Pugh - Polyps, no AVMs. Diverticulosis.
-continued Melena
-anemia with iron deficiency total 8 units PRBC's given since beginning of September
-EGD with actively bleeding AVM's - stable on follow up EGD
-elevated troponin
-recent change bowel pattern
-concern for recent CVA -- pt declined MRI
-carotid stenosis
-hx CAD with PCI/stent 08/17
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
-hx H pylori
-possible antoine's on EGD
Nuc med negative 10/15
barium esophagram 10/18 with ? cervical stenosis ? cervical esophageal cricopharyngeus indentation.
Impression: Concern for obscure GI bleed and likely secondary to known AVMs given prior history of small bowel angiectasias during prior EGD. No prior colonoscopy in the past. Currently, Hgb remains stable while holding plavix with plans for
eventual colonoscopy this admission.
Plan:
-Plan was capsule endoscopy on Friday but patient unable to swallow capsule.
-GI Hospitalist Dr. Israel . Accepted the patient to his service. Patient should be trf later today. Discussed with Dr. Israel and Trf center.
- They are willing to do a buy back agreement (pt will be sent back after procedure) and either do SIF anterograde or retrograde balloon enteroscopy (another option is dilation but they are concerned still won't be able to get capsule down).
-Patient can be clear liquid today, no red. Discussed with GI at [place].
Subjective
Subjective
Date of Service: October 19, 2024
Patient with an episode of melena overnight. Hemoglobin stable and is currently 7.9 up from 7.4 after 1 unit packed red blood cells yesterday. Had some mild nausea yesterday. No episodes of vomiting. Awaiting transfer to [facility]. Discussed with transfer center as well as GI Hospitalist Dr. Israel, who is excepting on his service. Okay to keep patient on clear liquid diet today (no reds). Will likely plan on procedure tomorrow. Updated
patient. Updated internal medicine team as well as RN.
Objective
Data Reviewed
Laboratory Data:
Laboratory Results
10/19/24 07:06
10/19/24 07:06
Laboratory Results
PT 15.4 Sec (11.4-14.6) H 10/18/24 19:29
INR 1.19 10/18/24 19:29
Magnesium 2.1 mg/dl (1.6-2.3) 10/19/24 07:06
Total Bilirubin 1.3 mg/dl (0.2-1.3) 10/18/24 19:29
AST 42 U/L (14-36) H 10/18/24 19:29
ALT 34 U/L (0-35) 10/18/24 19:29
Alkaline Phosphatase 73 U/L (38-126) 10/18/24 19:29
Vital Signs and I&O:
Vital Signs
Temp Pulse Resp BP Pulse Ox
97.8 F 71 16 119/48 96
10/19/24 08:21 10/19/24 08:21 10/19/24 08:21 10/19/24 08:21 10/19/24 08:21
I&O
10/18/24 10/19/24 10/20/24
06:59 06:59 06:59
Intake Total 1800 / 1800 970 / 970
Balance 1800 / 1800 970 / 970
Physical Exam
Physical Exam
HEENT: Anicteric
Cardiology: Normal Sinus Rhythm
Pulmonary: Clear
GI: Soft, Non Distended, Non Tender and Normal Bowel Sounds
Extremities: No Edema
Neuro: Non Focal
--- NOTE | 2024-10-19 11:29 | W.PN.HOSP.TC ---
Today's Communication/Plan
-
transfer to [place] today for enteroscopy (likely tomorrow)
-repeat Hg now given inappropriate rise from yesterday and report of melena, goal Hg > 8
Assessment / Plan
Assessment / Plan
84 y/o female with CHF and GI bleed.
Admission 08/17-08/22/24 for NSTEMI (s/p PCI to LCx)
Admission 09/18-10/01/24 for UGIB requiring 5 units of blood(s/p EGD with findings of short segment Romero's esophagus and a few bleeding angiectasias in the duodenum which were cauterized; Eliquis discontinued and she was discharged on
Aspirin/Plavix)
She also had an admission a month ago for epistaxis requiring nasal packing and cauterization.
EGD done September 22, 2024 showed esophageal stenosis possible cervical osteophyte, small hiatal hernia, short segment Romero's esophagus, erythematous mucosa in the gastric body and antrum, a few bleeding angiectasia's in the duodenum which were
injected and treated with a monopolar probe. No specimens collected.
EGD October 01, 2024 that showed hypertensive upper esophageal sphincter, unable to pass adult endoscope but able to traverse with XP endoscope. Erythematous mucosa in the antrum, normal duodenum, no specimens collected. No old or fresh blood seen.
Nuclear medicine bleeding scan-normal no active bleeding
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
Colonoscopy 10/11 - polyps, no AVM's
# Acute blood loss anemia secondary to GI bleed
-Colonoscopy on 10/11/2024- results above, examined colon without any signs of bleeding.
-s/p 4 units PRBC this admission; Hg 7.9 this morning and patient had melena - repeat Hg now
-Continue PPI twice daily
-plan was for capsule endoscopy but patient unable to swallow. plan is for transfer to tertiary facility for enteroscopy
# Acute on chronic HFpEF proBNP 9520
Improved, weights trending down
Continue oral Lasix
# Troponin elevation-nonischemic myocardial injury
# Hypokalemia-replace
# Hyponatremia-resolved
# Paroxysmal atrial fibrillation-patient declined anticoagulation last hospitalization. Continue metoprolol
# Bilateral carotid stenosis-Patient declined intervention during last hospitalization
# Coronary disease with history of non-STEMI with cath and YESICA to circumflex 08/17/2024. Holding Plavix. Continue aspirin. Plavix was supposed to be restarted on 10/14/2024, but heme positive and also Hb drop - Hold for now.
# Hypertension-continue metoprolol
# Hyperlipidemia-continue rosuvastatin
# Slightly elevated LFTs likely passive congestion of the liver
# Varicose veins with history of superficial thrombophlebitis
# Diverticulosis
# Hypoalbuminemia
# DVT prophylaxis--continue SCDs
# DNR status
time spent over 50 min
Anticipated Discharge: Within 24 hours
Subjective/Interval History
-
Date of Service: October 19, 2024
had some melena this morning
no chest pain or shortness of breath
Objective Data
-
Labs:
Laboratory Results
10/19/24 10/19/24
07:06 10:57
WBC 6.1
Hgb 7.9 L Pending
Hct 23.6 L
Plt Count 176 D
Sodium 135
Potassium 3.7
Chloride 105
Carbon Dioxide 27
BUN 35 H
Creatinine 1.0
Glucose 87
Calcium 8.4
Vital Signs:
Vital Signs
Temp Pulse Resp BP Pulse Ox
97.8 F 71 16 119/48 96
10/19/24 08:21 10/19/24 08:21 10/19/24 08:21 10/19/24 08:21 10/19/24 08:21
I&O
10/18/24 10/19/24 10/20/24
06:59 06:59 06:59
Intake Total 1799 / 1799 970 /
Balance 1800 / 1799
Review of Systems
-
History Source: Patient
All other systems: Reviewed and negative
Physical Exam
-
General: No Apparent Distress
HEENT: PERRLA
Respiratory: Clear to Auscultation; Negative Wheezes
Cardiac: Regular Rhythm and S1/S2
GI: Soft and Nontender
Musculoskeletal: No Edema
Skin: Warm and Dry; Negative Rash
Neuro: AO x 3
Psych: Calm
Data Reviewed
-
Diagnostic Radiology: Report Reviewed by me
Labs: Labs Reviewed by me
[2024-10-19 11:42] LABS: Hemoglobin 8.4 g/dL (12.0-16.0)
--- NOTE | 2024-10-19 14:21 | PTCARENOTE ---
Report given to accepting RN at [place]. [phone]. Patient to be transferred to [address] [place] [address] RM 1001 per RN. Ambulance picked up patient 12:20. Patient to be transferred back to [facility] post procedure.
--- NOTE | 2024-10-19 14:58 | W.PN.CARDCBS ---
Addendum entered and electronically signed by Neno Esparza MD 10/19/24 16:38:
I saw and examined the patient.
The ASSEMBLING MOTOR BUILDER or PA's note was reviewed and I agree with the note.
Comment: General: Well developed, well nourished in NAD.
Neck: Supple, no JVD, HJR, carotids +2 B/L, no bruits bilaterally.
Heart: Non displaced PMI, RRR, no murmurs, No S3, S4, no rubs.
Lungs: Scattered rhonchi
Extremities: No clubbing, cyanosis or edema bilaterally.
Neuro: Grossly nonfocal, awake, alert and oriented x3.
Stable cardiology status for transfer to [place] for enteroscopy. Eventually restart Plavix and Eliquis. Patient is status post stent on August 17, 2024.
Original Note:
Today's Communication / Plan
-
Plan is for transfer to [place] for deep enteroscopy and then return to [facility]
Impression / Plan
-
PCP: Dr. Solitario Sharma
Card: Scheduled to see Dr. Yung
Impression:
Admitted with recurrent GIB
Recent admission for GIB, CVA 09/18/24 until 10/01/24
Recent admission for NSTEMI and CHF 08/17/24 until 08/22/24
Acute blood loss anemia and GIB
Acute on chronic HFpEF
h/o possible CVA 09/2024
patient unable to complete MRI brain
Paroxysmal Afib
Not on OAC due to patient choice
refuses to ever be on Eliquis again due to h/o GIB
CAD s/p NSTEMI and 2.75 mm Rafiq YESICA to Circ 08/17/24
Hypertension
Hyperlipidemia
Multiple drug allergies
Hypokalemia
B/L high-grade carotid disease, likely symptomatic GABRIELA stenosis
Echo 08/01/2021: EF 60 to 65%, mild septal hypertrophy, mild MR, heavy focal calcification of noncoronary cusp of aortic valve, mild AR, mild TR, PAP 37 mmHg
ECHO 08/17/24: EF 54%, mild concentric LVH, moderate MR, mild AR, moderate TR, PAP 25 to 30 mmHg, trivial pericardial effusion
Left heart catheterization 08/17/2024: LM: Patent. LAD: Patent. Left circumflex: 90 to 95% hazy mid left circumflex stenosis s/p 2.75 x 30 mm Medtronic Rafiq drug-eluting stent. Mid circumflex 30 to 40% stenosis. RCA: Ostial 60 to 70% stenosis with
mild pressure dampening upon selective engagement
Plan:
-Admitted with recurrent GIB and acute CHF. Underwent colonoscopy 10/11/24 and despite large amount of green/brown stool, there was no evidence of bleeding. Patient then had another drop in hgb on 10/13/24 and received 1 unit PRBCs. GI following and
discussions ongoing for possible capsule study. Prior endoscopy 09/22/24 revealed possible Romero's esophagus with erythematous mucosa and a few bleeding angiectasias in duodenum that were injected and treated with monopolar probe. Has received a
total of 4 units PRBCs this admission.
-Patient cannot complete capsule endoscopy as she is unable to swallow the capsule. The case was reviewed with the GI fellow at [facility] and they feel that due to esophageal anatomy the patient cannot have capsule placed endoscopically. Plan is for
possible transfer to [place] for deep enteroscopy.
-Continues on aspirin 81mg daily alone at this time. Plavix on hold. Needs to eventually restart on DAPT following YESICA 08/17/2024.
-EF was 54% by echo on 08/17/2024.
-Patient with known chronic HFpEF and outpatient dose of Lasix 40 mg PO daily has been continued. Intermittent doses of additional Lasix 20 mg IV x 1 have been given by hospitalist attending for acute volume overload and with PRBC transfusions.
-Troponin was 0.064 on admission and then 0.068 and overall trending down from a peak troponin of 63.4 on 08/17/2024 in the setting of AR at that time.
-There is also significant concern that the patient had CVA last admission on 09/18/2024, but she declined to have MRI due to urinary claustrophobia and orthopedic issues.
-Patient now with persistent to permanent A-fib, tele overnight reviewed by me and rate controlled. Patient wore a 5-day monitor 08/2024 that showed 100% A-fib.
-Outpatient dose of Lopressor 12.5 mg BID has been continued. Now that A-fib is considered persistent to permanent and patient is not willing to take OAC there are no plans for rhythm control. Amiodarone that had been started during her 08/2024
admission was stopped 09/2024.
-Outpatient dose of Crestor 10 mg daily has been continued. LDL at time of NSTEMI was 153 and on readmission a few weeks later interestingly her LDL was down to 28 so Crestor dose was decreased from 20 mg daily to 10 mg daily at that time
Progress Note - Clinical Laboratory Manager
Subjective
Date of Service: October 19, 2024
No pain
Objective
Labs:
10/19/24 11:33
10/19/24 07:06
Labs
Hgb 8.4 g/dL (12.0-16.0) L 10/19/24 11:33
Hct 23.6 % (37.0-47.0) L 10/19/24 07:06
Plt Count 176 10^3/uL (130-400) D 10/19/24 07:06
PT 15.4 Sec (11.4-14.6) H 10/18/24 19:29
INR 1.19 10/18/24 19:29
Sodium 135 mmol/L (135-145) 10/19/24 07:06
Potassium 3.7 mmol/L (3.5-5.1) 10/19/24 07:06
BUN 35 mg/dl (7-17) H 10/19/24 07:06
Creatinine 1.0 mg/dL (0.6-1.0) 10/19/24 07:06
Glucose 87 mg/dl (70-99) 10/19/24 07:06
Vital Signs and I&O:
Vital Signs
Temp Pulse Resp BP Pulse Ox
97.8 F 71 16 119/48 96
10/19/24 08:21 10/19/24 08:21 10/19/24 08:21 10/19/24 08:21 10/19/24 08:21
Vital Signs
Temp Pulse Resp BP Pulse Ox
97.8 F 71 16 119/48 96
10/19/24 08:21 10/19/24 08:21 10/19/24 08:21 10/19/24 08:21 10/19/24 08:21
Intake & Output
10/17/24 10/18/24 10/19/24 10/20/24
06:59 06:59 06:59 06:59
Intake Total 1800 / 1800 1800 / 1800 970 / 970
Balance 1800 / 1800 1800 / 1800 970 / 970
Physical Exam
Physical Exam
GEN: AAOx3
LUNGS: RA
CV: Afib on tele
[2024-10-19] MEDS: CRESTOR PO (17:08)
[2024-10-20] MEDS: LOPRESSOR PO ×2 (05:22→07:43)
[2024-10-20] MEDS: MIRALAX PO ×2 (05:24→07:43)
[2024-10-20] MEDS: PROTONIX PO ×2 (05:24→07:50)
[2024-10-20] MEDS: NON-FORMULARY ITEM PO ×2 (05:24→07:44)
[2024-10-20] MEDS: SENOKOT PO (05:24)
[2024-10-20] MEDS: LOW STRENGTH ASPIRIN PO (07:43)
[2024-10-20] MEDS: LASIX PO (07:43)
--- NOTE | 2024-10-20 07:45 | PTCARENOTE ---
Patient left this hospital at 12:20 to go to [place] yesterday. Still remains at [place]. Called and received update that patient just taken for her procedure this morning.
--- NOTE | 2024-10-21 13:39 | W.DCSUMMARY ---
Discharge Summary
Discharge Data
Date of Admission: 10/05/24
Date of Discharge: 10/19/24
-
Pending Results: No
Hospital Course
Ms. Isa Jasso is a 84 yo woman with hx paroxysmal atrial fibrillation on Eliquis, admission 08/17-08/22/24 for NSTEMI (s/p PCI to LCx), followed by admission 09/18-10/01/24 for UGIB (s/p EGD with findings of short segment Romero's esophagus and a
few bleeding angiectasias in the duodenum which were cauterized; Eliquis discontinued and she was discharged on Aspirin/Plavix), HFpEF, essential HTN, HLD, presents to the ER on 10/05 with progressive weakness and melena. Patient had a colonoscopy
on 10/11 with finding of polyps, no AVM's. Plan was for capsule endocsopy but unable to swallow. She had a total of 4 units PRBC during this hospitalization. She was transferred to [place] for enteroscopy.
Discharge Plan
-
Patient Disposition: Acute Care Hospital
Discharge Orders:
Discharge Patient (As Directed); Ordered 10/19/24
Ordered By: Ophelia Cunningham
Discharge Date and Time
Discharge Date/Time: 10/19/24 12:20
Print Language: ROMANIAN
--- NOTE | 2024-10-22 13:04 | W.DCSUMMARY ---
Discharge Summary
Discharge Data
Date of Admission: 10/21/24
Date of Discharge: 10/22/24
-
Pending Results: No
Hospital Course
Discharging Physician : Dr. Ophelia Cunningham
Disposition : Home
Principal Discharge diagnosis : Upper GI Bleeding, Angioectasias in proximal Jejunum status post treatment with APC
Hospital Course :
Ms. Isa Jasso is a 84 yo woman with hx paroxysmal atrial fibrillation on Eliquis, admission 08/17-08/22/24 for NSTEMI (s/p PCI to LCx), followed by admission 09/18-10/01/24 for UGIB (s/p EGD x 2; with findings of esophageal stenosis, short segment
Romero's esophagus and a few bleeding angiectasias in the duodenum which were cauterized; Eliquis discontinued and she was discharged on Aspirin/Plavix), HFpEF, essential HTN, HLD, presents to the ER on 10/05 with progressive weakness and melena.
Patient had a colonoscopy on 10/11 with finding of polyps, no AVM's. She had a total of 4 units PRBC during this hospitalization. Plan was for capsule endoscopy but unable to swallow and given esophageal anatomy unable to endoscopically place
capsule. She was transferred to [place] for enteroscopy. She is s/p enteroscopy morning of 10/20 with finding of 5 angiectasias in the proximal jejunum treated with APC. Patient returned to on 10/21. She had no bleeding overnight. Hg stable.
She feels ready for discharge home.
Time spent on discharge was 35 minutes.
Important imaging findings :
Procedure findings :
Enteroscopy at [place] on 10/20 - 5 angiectasias in the proximal jejunum treated with APC. Upper esophagel web with small diverticulum, dilated with CRE balloon, unable to pass the pillcam
Discharge Plan
-
Patient Disposition: Acute Care Hospital
Discharge Orders:
Discharge Patient (As Directed); Ordered 10/19/24
Ordered By: Ophelia Cunningham
Discharge Date and Time
Discharge Date/Time: 10/19/24 12:20
Print Language: SLOVENIAN
== END 2024-10-19 12:20 | disposition short-term general hospital (02) | DRG 377 ==
LOC: 4 EAST ACU 16:21
PROVIDERS: Hospitalist; Physician Assistant; Student in an Organized Health Care Education/Training Program; ADMITTING PHYSICIAN Student in an Organized Health Care Education/Training Program; CONSULT PHYSICIAN Internal Medicine; EMERGENCY PHYSICIAN Emergency Medicine; FAMILY PHYSICIAN Family Medicine; OTHER PHYSICIAN Internal Medicine Interventional Cardiology
PROC: 30233N1 Transfusion of Nonautologous Red Blood Cells into Peripheral Vein, Percutaneous Approach (ICD-10-PCS; 2024-10-05)
PROC: 0DBP8ZZ Excision of Rectum, Via Natural or Artificial Opening Endoscopic (ICD-10-PCS; 2024-10-11)
PROC: 0DBK8ZX Excision of Ascending Colon, Via Natural or Artificial Opening Endoscopic, Diagnostic (ICD-10-PCS; 2024-10-11)
PROC: 0DBH8ZZ Excision of Cecum, Via Natural or Artificial Opening Endoscopic (ICD-10-PCS; 2024-10-11)
DX: K57.33 Diverticulitis of large intestine without perforation or abscess with bleeding (principal); I50.33 Acute on chronic diastolic (congestive) heart failure; D62 Acute posthemorrhagic anemia; I5A Non-ischemic myocardial injury (non-traumatic); E87.1 Hypo-osmolality and hyponatremia; I48.21 Permanent atrial fibrillation; I45.2 Bifascicular block; D68.32 Hemorrhagic disorder due to extrinsic circulating anticoagulants; I11.0 Hypertensive heart disease with heart failure; E78.5 Hyperlipidemia, unspecified; E87.6 Hypokalemia; I65.23 Occlusion and stenosis of bilateral carotid arteries; K21.9 Gastro-esophageal reflux disease without esophagitis; I25.10 Atherosclerotic heart disease of native coronary artery without angina pectoris; K22.70 Barrett's esophagus without dysplasia; J45.909 Unspecified asthma, uncomplicated; I48.0 Paroxysmal atrial fibrillation; K22.2 Esophageal obstruction; K64.4 Residual hemorrhoidal skin tags; M25.78 Osteophyte, vertebrae; K63.89 Other specified diseases of intestine; D12.0 Benign neoplasm of cecum; D12.8 Benign neoplasm of rectum; R04.0 Epistaxis; I83.90 Asymptomatic varicose veins of unspecified lower extremity; K76.1 Chronic passive congestion of liver; E88.09 Other disorders of plasma-protein metabolism, not elsewhere classified; Z66 Do not resuscitate; Z96.652 Presence of left artificial knee joint; Z79.02 Long term (current) use of antithrombotics/antiplatelets; Z79.82 Long term (current) use of aspirin; Z95.5 Presence of coronary angioplasty implant and graft; I25.2 Old myocardial infarction; Z88.1 Allergy status to other antibiotic agents; Z88.8 Allergy status to other drugs, medicaments and biological substances; Z86.73 Personal history of transient ischemic attack (TIA), and cerebral infarction without residual deficits; Z86.19 Personal history of other infectious and parasitic diseases; Z79.01 Long term (current) use of anticoagulants
CPT/HCPCS: 36430; 72040; 74221; 78278; 80048; 80053; 80076; 82248; 83735; 83880; 84132; 84484; 85014; 85018; 85025; 85027; 85610; 86850; 86900; 86901; 86920; 87070; 88305; 93005; 96365; 96366; 97116; 97162; 97167; 99285; A9560; P9016

== ENCOUNTER 2024-10-21 12:31 | Inpatient (IN) | payer OTHER, SELFPAY ==
[2024-10-21 12:53] VITALS: BP 89/56; BMI 23.6
--- NOTE | 2024-10-21 12:53 | PTCARENOTE ---
Received pt from EMS into room 409-1. Pt ambulatory to bathroom/bed. Reports no pain. AAOx3. VSS. Pt oriented to room, educated pt on plan of care and use of call salazar, no complaints at this time.
--- NOTE | 2024-10-21 13:12 | HPS.HSE ---
Family Physician
-
Family Physician: INTERVIEWE UNKNOWN - PT NOT
Chief Complaint
-
upper GI bleeding
History of Present Illness
Ms. Isa Jasso is a 84 yo woman with hx paroxysmal atrial fibrillation on Eliquis, admission 08/17-08/22/24 for NSTEMI (s/p PCI to LCx), followed by admission 09/18-10/01/24 for UGIB (s/p EGD with findings of short segment Romero's esophagus and a
few bleeding angiectasias in the duodenum which were cauterized; Eliquis discontinued and she was discharged on Aspirin/Plavix), HFpEF, essential HTN, HLD, presents to the ER on 10/05 with progressive weakness and melena. Patient had a colonoscopy
on 10/11 with finding of polyps, no AVM's. Plan was for capsule endocsopy but unable to swallow. She was transferred to [place] for enteroscopy. She is s/p enteroscopy morning of 10/20 with finding of 5 angiectasias in the proximal jejunum treated
with APC. Patient returns to today.
Patient states she hasn't had melena in a couple of days. She is feeling well. No chest pain or shortness of breath. Hoping to go home tomorrow.
Medical History
Past Medical History
Past Medical History: Reports CAD (s/p PCI 09/08) and Other
Additional Past Medical History:
Hypertension
Parosyxmal Atrial Fibrillation
Varicose Veins
Superficial Thrombophlebitis
UGIB, duodenal angioectasias
Past Surgical History: Reports Other
Additional Past Surgical History:
Vein Stripping
Left TKA
Left Shoulder Surgery
Cholecystectomy
Social History
Tobacco: Non-smoker
Alcohol: None
Drug: None
Family History
Family History: Not pertinent
Allergies / Home Medications
Allergies reflects when Allergies were last updated in [facility].
Home Medications with original date entered in [facility]
Allergy/Medication List:
Allergies
Allergy/AdvReac Type Severity Reaction Status Date / Time
erythromycin base Allergy Rash, hives Verified 09/10/24 17:00
(Erythromycin Base)
lisinopril (From Zestril) Allergy BAD COUGH Verified 09/10/24 17:00
tetracycline (Tetracycline) Allergy Hives Verified 09/10/24 17:00
Home Medications
amiodarone 200 mg tablet 200 mg PO BID #60 tabs 08/22/24
apixaban 2.5 mg tablet (Eliquis) 2.5 mg PO BID #60 tabs 08/22/24
clopidogrel 75 mg tablet 75 mg PO DAILY #30 tabs 08/22/24
furosemide 40 mg tablet 40 mg PO DAILY #30 tabs 08/22/24
metoprolol tartrate 25 mg tablet 12.5 mg (1/2 x 25 mg) PO BID #60 tabs 08/22/24
nitroglycerin 0.4 mg sublingual tablet 0.4 mg sublingual [id number] PRN ANGINA #3 tabs 08/22/24
potassium chloride 20 mEq oral packet 20 meq PO DAILY #30 ea 08/22/24
rosuvastatin 20 mg tablet 20 mg PO QPM #30 tabs 08/22/24
Review of Systems
-
History Source: Patient
A 12 point ROS was completed and negative except as noted: Yes
Physical Exam
Vital Signs
Vital Signs
Temp Pulse Resp BP Pulse Ox
97.7 F 56 18 89/56 98
10/21/24 12:53 10/21/24 12:53 10/21/24 12:53 10/21/24 12:53 10/21/24 12:53
Physical Exam
General: No Apparent Distress
HEENT: PERRLA
Respiratory: No Wheezes
Cardiac: S1/S2, Regular Rhythm and JVD
GI: Soft and Non Tender
Musculoskeletal: Edema, Left Lower Extremity and Edema, Right Lower Extremity
Neuro: AO x 3
Psych: Calm
Data Reviewed
-
Diagnostic Radiology: Report Reviewed by me
Lab Data: Labs Reviewed by me
Impression/Plan
-
Ms. Isa Jasso is a 84 yo woman with hx paroxysmal atrial fibrillation on Eliquis, admission 08/17-08/22/24 for NSTEMI (s/p PCI to LCx), followed by admission 09/18-10/01/24 for UGIB (s/p EGD with findings of short segment Romero's esophagus and a
few bleeding angiectasias in the duodenum which were cauterized; Eliquis discontinued and she was discharged on Aspirin/Plavix), HFpEF, essential HTN, HLD, presents to the ER on 10/05 with progressive weakness and melena. Patient had a colonoscopy
on 10/11 with finding of polyps, no AVM's. Plan was for capsule endocsopy but unable to swallow. She was transferred to [place] for enteroscopy. She is s/p enteroscopy morning of 10/20 with finding of 5 angiectasias in the proximal jejunum treated
with APC. Patient returns to today.
EGD done September 22, 2024 showed esophageal stenosis possible cervical osteophyte, small hiatal hernia, short segment Romero's esophagus, erythematous mucosa in the gastric body and antrum, a few bleeding angiectasia's in the duodenum which were
injected and treated with a monopolar probe. No specimens collected.
EGD October 01, 2024 that showed hypertensive upper esophageal sphincter, unable to pass adult endoscope but able to traverse with XP endoscope. Erythematous mucosa in the antrum, normal duodenum, no specimens collected. No old or fresh blood seen.
Nuclear medicine bleeding scan-normal no active bleeding
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
Colonoscopy 10/11 - polyps, no AVM's
Enteroscopy at [place] on 10/20 - 5 angiectasias in the proximal jejunum treated with APC. Upper esophagel web with small diverticulum, dilated with CRE balloon, unable to pass the pillcam
Upper GI Bleed in setting of multiple Angioectasias
Acute Blood Loss Anemia
-patient is s/p 4 units PRBC since admission on 10/05
-s/p 2 EGD prior admissions, colonoscopy on 10/11; results above
-she was transferred to [place] 10/19-10/20 and now s/p enteroscopy with finding of 5 angiectasias treated with APC
-admit back to telemetry
-continue PPI IV BID
-per Cardiology team at [place], [place] to resume Plavix 48 hours post-procedure, on 10/22/24
Heart Failure preserved Ejection Fraction
-not in acute exacerbation
-Lasix 20mg PO QD
Paroxysmal Atrial Fibrillation
-patient refuses Eliquis
-INDEX CLERK Metoprolol
Coronary Artery Disease wtih hx NSTEMI s/p PCI 08/17/24
-plan to resume Plavix tomorrow
-INDEX CLERK aspirin/statin/metoprolol
Left-sided Weakness and concern for new CVA last admission, patient not MRI candidate
-left-sided weakness seems to have largely resolved on today's exam
-continue aspirin/statin
HLD - INDEX CLERK Statin
Essential HTN
-INDEX CLERK Metoprolol
Severe bilateral Carotid Stenosis R>L noted on carotid US
-Vascular evaluated patient last admission, patient and family opting for conservative mgmt at this time
DVT PPX - SCD
DNR
--- NOTE | 2024-10-21 13:36 | W.PN.UPDATE ---
Update Note
Progress Note Update
notified by hospitalist service patient back from [place] after GI procedures. Plan to resume DAPT with asa, plavix when ok from GI standpoint. Patient not agreeable to eliquis at this time. She has follow up arranged 11/02 at which time we can
reassess and discuss further.
--- NOTE | 2024-10-21 13:39 | W.DCSUMMARY ---
Discharge Summary
Discharge Data
Date of Admission: 10/05/24
Date of Discharge: 10/19/24
-
Pending Results: No
Hospital Course
Ms. Isa Jasso is a 84 yo woman with hx paroxysmal atrial fibrillation on Eliquis, admission 08/17-08/22/24 for NSTEMI (s/p PCI to LCx), followed by admission 09/18-10/01/24 for UGIB (s/p EGD with findings of short segment Romero's esophagus and a
few bleeding angiectasias in the duodenum which were cauterized; Eliquis discontinued and she was discharged on Aspirin/Plavix), HFpEF, essential HTN, HLD, presents to the ER on 10/05 with progressive weakness and melena. Patient had a colonoscopy
on 10/11 with finding of polyps, no AVM's. Plan was for capsule endocsopy but unable to swallow. She had a total of 4 units PRBC during this hospitalization. She was transferred to [place] for enteroscopy.
Discharge Plan
-
Patient Disposition: Acute Care Hospital
Referrals:
Kim Ford PA-C [Specified Professional Personl, Cardiology] - 11/02/24 12:40 pm
Referral Note: You have a cardiology follow up appointment at the [facility] [place] office. Please call with questions.
UNKNOWN - PT NOT,INTERVIEWE [Family Provider]
Prescriptions:
No Action
nitroglycerin 0.4 mg Tablet, Sublingual
0.4 mg sublingual [id number] PRN (Reason: ANGINA) Qty: 3 0RF
metoprolol tartrate 25 mg Tablet
12.5 mg PO BID Qty: 60 0RF
magnesium hydroxide [Milk of Magnesia] 400 mg/5 mL Suspension
30 ml PO [id number] PRN (Reason: if no BM x 3 days GIVE ON DAY 4)
clopidogrel 75 mg tablet
75 mg PO DAILY
aspirin 81 mg Tablet,Chewable
81 mg PO DAILY Qty: 30 0RF
rosuvastatin 10 mg Tablet
10 mg PO QPM Qty: 30 0RF
acetaminophen [Tylenol] 325 mg Tablet
650 mg PO Q4HPRN MDD 3000 mg PRN (Reason: fever>100F/mild pain)
ondansetron HCl 4 mg Tablet
4 mg PO DAILYPRN PRN (Reason: nausea/vomiting)
bisacodyl [Dulcolax (bisacodyl)] 10 mg Suppository
10 mg CO DAILYPRN PRN (Reason: IF NO BM AFTR MOM OR IF NO BM BY DAY 5)
Fleet Enema 19-7 gram/118 mL Enema
118 ml CO DAILYPRN PRN (Reason: if NO BM AFTR dulcolax GIVE ON DAY 6)
PreserVision AREDS-2 250-90-40-1 mg Capsule
1 cap PO BID
naloxone 4 mg/actuation [place],Non-Aerosol
4 mg INTRANASAL Q3MPRN PRN (Reason: opioid suspected overdose)
melatonin 3 mg tablet
3 mg PO HSPRN PRN (Reason: Sleep)
furosemide 20 mg tablet
20 mg PO DAILY
esomeprazole magnesium [Nexium Packet] [address] for susp in packet
40 mg PO DAILY
Discharge Date and Time
Print Language: LATVIAN
[2024-10-21 15:26] VITALS: BP 100/59
--- NOTE | 2024-10-21 16:26 | W.PN.UPDATE ---
Update Note
Progress Note Update
s/p Enteroscopy at [place] 10/21/24- 5 angioectasias in the proximal jejunum Rx with APC, upper esophageal web with small diverticulum, dilated with CRE balloon, unable to pass the pillcam
Recs:continue IV PPI BID
OK to start DAPT 48 hrs post procedure-10/22/24
Monitor H/H and transfuse as needed
On 2 gm Na diet
Will follow in AM
[2024-10-21] MEDS: CRESTOR 10 MG PO (18:22)
[2024-10-21 19:40] VITALS: BP 128/65
[2024-10-21] MEDS: NSS (PRESERVATIVE FREE) 10 ML IV (21:00)
[2024-10-21] MEDS: LOPRESSOR 12.5 MG PO (21:01)
[2024-10-21] MEDS: PROTONIX IV 40 MG IV (21:01)
[2024-10-21] MEDS: NON-FORMULARY ITEM 1 UNIT PO (21:47)
[2024-10-21] MEDS: CHLORASEPTIC/SORE THROAT SPRAY 1 SPRAY PO (21:48)
[2024-10-21 23:44] VITALS: BP 136/71
[2024-10-22 03:55] VITALS: BP 128/60
[2024-10-22 07:05] VITALS: BP 136/66
[2024-10-22 08:05] LABS: Hematocrit 25.8 % (37.0-47.0); Hemoglobin 7.9 g/dL (12.0-16.0); Mean Corp Hgb Conc. 30.6 g/dL (33.0-37.0); Mean Corpuscular Volume 100.0 fL (81.0-99.0); Platelet Count 208 10^3/uL (130-400); Red Cell Dist. Width 20.3 % (11.5-14.5)
[2024-10-22 08:47] LABS: Blood Urea Nitrogen 30 mg/dl (7-17); Calcium 8.2 mg/dl (8.4-10.2); Carbon Dioxide 27 mmol/L (22-30); Chloride 105 mmol/L (98-107); Estimated Creatinine Clearance 28 ml/min; Glucose 79 mg/dl (70-99); Magnesium 1.9 mg/dl (1.6-2.3); Potassium 3.8 mmol/L (3.5-5.1); Sodium 136 mmol/L (135-145); eGFR 44.91
--- NOTE | 2024-10-22 09:18 | W.PN.HOSP.TC ---
Today's Communication/Plan
-
OK for DC today
Assessment / Plan
Assessment / Plan
Ms. Isa Jasso is a 84 yo woman with hx paroxysmal atrial fibrillation on Eliquis, admission 08/17-08/22/24 for NSTEMI (s/p PCI to LCx), followed by admission 09/18-10/01/24 for UGIB (s/p EGD with findings of short segment Romero's esophagus and a
few bleeding angiectasias in the duodenum which were cauterized; Eliquis discontinued and she was discharged on Aspirin/Plavix), HFpEF, essential HTN, HLD, presents to the ER on 10/05 with progressive weakness and melena. Patient had a colonoscopy
on 10/11 with finding of polyps, no AVM's. Plan was for capsule endocsopy but unable to swallow. She was transferred to [place] for enteroscopy. She is s/p enteroscopy morning of 10/20 with finding of 5 angiectasias in the proximal jejunum treated
with APC. Patient returns to today.
EGD done September 22, 2024 showed esophageal stenosis possible cervical osteophyte, small hiatal hernia, short segment Romero's esophagus, erythematous mucosa in the gastric body and antrum, a few bleeding angiectasia's in the duodenum which were
injected and treated with a monopolar probe. No specimens collected.
EGD October 01, 2024 that showed hypertensive upper esophageal sphincter, unable to pass adult endoscope but able to traverse with XP endoscope. Erythematous mucosa in the antrum, normal duodenum, no specimens collected. No old or fresh blood seen.
Nuclear medicine bleeding scan-normal no active bleeding
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
Colonoscopy 10/11 - polyps, no AVM's
Enteroscopy at [place] on 10/20 - 5 angiectasias in the proximal jejunum treated with APC. Upper esophagel web with small diverticulum, dilated with CRE balloon, unable to pass the pillcam
Upper GI Bleed in setting of multiple Angioectasias
Acute Blood Loss Anemia
-patient is s/p 4 units PRBC since admission on 10/05
-s/p 2 EGD prior admissions, colonoscopy on 10/11; results above
-she was transferred to [place] 10/19-10/20 and now s/p enteroscopy with finding of 5 angiectasias treated with APC
-admit back to telemetry
-continue PPI IV BID --> oral on DC
-per Cardiology team at [place], [place] to resume Plavix 48 hours post-procedure, resumed this AM on 10/22/24
-Hg stable, no bleeding overnight - OK for DC
Heart Failure preserved Ejection Fraction
-not in acute exacerbation
-Lasix 20mg PO QD
Paroxysmal Atrial Fibrillation
-patient refuses Eliquis
-SPRINKLER WORKER Metoprolol
Coronary Artery Disease wtih hx NSTEMI s/p PCI 08/17/24
-resume PLavix
-SPRINKLER WORKER aspirin/statin/metoprolol
-outpatient Cardiology follow up
Left-sided Weakness and concern for new CVA last admission, patient not MRI candidate
-left-sided weakness seems to have largely resolved on today's exam
-continue aspirin/statin
HLD - SPRINKLER WORKER Statin
Essential HTN
-SPRINKLER WORKER Metoprolol
Severe bilateral Carotid Stenosis R>L noted on carotid US
-Vascular evaluated patient last admission, patient and family opting for conservative mgmt at this time
DVT PPX - SCD
DNR
Anticipated Discharge: Today
Subjective/Interval History
-
Date of Service: October 22, 2024
feeling well
no black stools
no abdominal pain
hoping to go home today
Objective Data
-
Labs:
Laboratory Results
10/22/24 10/22/24
07:15 11:00
WBC 7.5
Hgb 7.9 L Cancelled
Hct 25.8 L
Plt Count 208
Sodium 136
Potassium 3.8
Chloride 105
Carbon Dioxide 27
BUN 30 H
Creatinine 1.2 H
Glucose 79
Calcium 8.2 L
Vital Signs:
Vital Signs
Temp Pulse Resp BP Pulse Ox
97.5 F 64 16 136/66 98
10/22/24 07:05 10/22/24 07:05 10/22/24 07:05 10/22/24 07:05 10/22/24 07:05
Review of Systems
-
History Source: Patient
All other systems: Reviewed and negative
Physical Exam
-
General: No Apparent Distress
HEENT: PERRLA
Respiratory: Clear to Auscultation; Negative Wheezes
Cardiac: Regular Rhythm and S1/S2
GI: Soft and Nontender
Musculoskeletal: No Edema
Skin: Warm and Dry; Negative Rash
Neuro: AO x 3
Psych: Calm
Data Reviewed
-
Diagnostic Radiology: Report Reviewed by me
Labs: Labs Reviewed by me
[2024-10-22 09:25] VITALS: BMI 24.0
[2024-10-22] MEDS: LOPRESSOR 12.5 MG PO (09:26)
[2024-10-22] MEDS: NSS (PRESERVATIVE FREE) 10 ML IV (09:27)
[2024-10-22] MEDS: LOW STRENGTH ASPIRIN 81 MG PO (09:27)
[2024-10-22] MEDS: PROTONIX IV 40 MG IV (09:27)
[2024-10-22] MEDS: FLUSH (NSS) 1 FLUSH IV (09:28)
[2024-10-22] MEDS: PLAVIX 75 MG PO (09:28)
[2024-10-22] MEDS: NON-FORMULARY ITEM 1 UNIT PO (09:30)
--- NOTE | 2024-10-22 09:37 | W.DS.TRANS ---
DC Summary - Hand Stemmer
-
Discharge Instructions:
Discharge Diagnosis/Procedures Angioectasias in small intestine resulting in
upper gastrointestinal bleeding, acute blood
loss anemia, recent NSTEMI with stent placement
Diet Low Cholesterol,2 Gram Sodium
Activity As tolerated
Driving Restrictions As prior to admission
Blood Work BMP and CBC in 3-4 days to monitor kidney
function and blood counts
Instructions: Good food sources of iron
Stand-Alone Forms:
Changes to Home Medications: Yes
Discharge Medications:
DC Medications w/original date entered in upad
metoprolol tartrate 25 mg tablet 12.5 mg (1/2 x 25 mg) PO BID #60 tabs 08/22/24
nitroglycerin 0.4 mg sublingual tablet 0.4 mg sublingual [id number] PRN ANGINA #3 tabs 08/22/24
clopidogrel 75 mg tablet 75 mg PO DAILY Blood Clot Prevention/Tx 09/19/24
aspirin 81 mg chewable tablet 81 mg PO DAILY #30 tabs 09/27/24
rosuvastatin 10 mg tablet 10 mg PO QPM #30 tabs 09/27/24
acetaminophen 325 mg tablet (Tylenol) 650 mg PO Q4HPRN PRN fever>100F/mild pain 10/05/24
melatonin 3 mg tablet 3 mg PO HSPRN PRN Sleep 10/05/24
ondansetron HCl 4 mg tablet 4 mg PO DAILYPRN PRN nausea/vomiting 10/05/24
vit C 250 mg-vit E 90 mg-zinc 40 mg-copper 1 [id number] capsule (PreserVision AREDS-2) 1 cap PO BID Supplement 10/05/24
furosemide 20 mg tablet 20 mg PO DAILY Fluid Retention/Swelling 10/06/24
pantoprazole 40 mg tablet,delayed release (Protonix) 40 mg PO BID #120 tabs 10/22/24
Home Medication Changes
Your labs show you are a little dehydrated. Your Lasix was held today, you may resume it tomorrow.
Take Protonix twice a day until directed otherwise by Dr. Pacheco
Pending Results: No
[2024-10-22 11:01] VITALS: BP 131/58
--- NOTE | 2024-10-22 13:04 | W.DCSUMMARY ---
Discharge Summary
Discharge Data
Date of Admission: 10/21/24
Date of Discharge: 10/22/24
-
Pending Results: No
Hospital Course
Discharging Physician : Dr. Ophelia Cunningham
Disposition : Home
Principal Discharge diagnosis : Upper GI Bleeding, Angioectasias in proximal Jejunum status post treatment with APC
Hospital Course :
Ms. Isa Jasso is a 84 yo woman with hx paroxysmal atrial fibrillation on Eliquis, admission 08/17-08/22/24 for NSTEMI (s/p PCI to LCx), followed by admission 09/18-10/01/24 for UGIB (s/p EGD x 2; with findings of esophageal stenosis, short segment
Romero's esophagus and a few bleeding angiectasias in the duodenum which were cauterized; Eliquis discontinued and she was discharged on Aspirin/Plavix), HFpEF, essential HTN, HLD, presents to the ER on 10/05 with progressive weakness and melena.
Patient had a colonoscopy on 10/11 with finding of polyps, no AVM's. She had a total of 4 units PRBC during this hospitalization. Plan was for capsule endoscopy but unable to swallow and given esophageal anatomy unable to endoscopically place
capsule. She was transferred to [place] for enteroscopy. She is s/p enteroscopy morning of 10/20 with finding of 5 angiectasias in the proximal jejunum treated with APC. Patient returned to on 10/21. She had no bleeding overnight. Hg stable.
She feels ready for discharge home.
Time spent on discharge was 35 minutes.
Important imaging findings :
Procedure findings :
Enteroscopy at [place] on 10/20 - 5 angiectasias in the proximal jejunum treated with APC. Upper esophagel web with small diverticulum, dilated with CRE balloon, unable to pass the pillcam
Discharge Plan
-
Patient Disposition: Home (Routine Discharge)
Discharge Diagnosis/Procedures: Angioectasias in small intestine resulting in upper gastrointestinal bleeding, acute blood loss anemia, recent NSTEMI with stent placement
Diet: Low Cholesterol and 2 Gram Sodium
Activity: As tolerated
Driving Restrictions: As prior to admission
Blood Work: BMP and CBC in 3-4 days to monitor kidney function and blood counts
Instructions: Good food sources of iron
Referrals:
Kim Ford PA-C [Specified Professional Personl, Cardiology] - 11/02/24 12:40 pm
Referral Note: You have a cardiology follow up appointment at the [facility] office. Please call with questions.
Rosa Pacheco, DO [Active, Gastroenterology] - in two to three weeks
UNKNOWN - PT NOT,INTERVIEWE [Family Provider] - in less than 1 week
Referral Note: follow up with your PCP within next week
Additional Discharge Medication Instructions: Your labs show you are a little dehydrated. Your Lasix was held today, you may resume it tomorrow.
Take Protonix twice a day until directed otherwise by Dr. Pacheco
Prescriptions:
New
pantoprazole [Protonix] 40 mg tablet,delayed release (DR/EC)
40 mg PO BID Qty: 120 0RF
Continued
nitroglycerin 0.4 mg Tablet, Sublingual
0.4 mg sublingual [id number] PRN (Reason: ANGINA) Qty: 3 0RF
metoprolol tartrate 25 mg Tablet
12.5 mg PO BID Qty: 60 0RF
clopidogrel 75 mg tablet
75 mg PO DAILY
aspirin 81 mg Tablet,Chewable
81 mg PO DAILY Qty: 30 0RF
acetaminophen [Tylenol] 325 mg Tablet
650 mg PO Q4HPRN MDD 3000 mg PRN (Reason: fever>100F/mild pain)
ondansetron HCl 4 mg Tablet
4 mg PO DAILYPRN PRN (Reason: nausea/vomiting)
PreserVision AREDS-2 250-90-40-1 mg Capsule
1 cap PO BID
melatonin 3 mg tablet
3 mg PO HSPRN PRN (Reason: Sleep)
furosemide 20 mg tablet
20 mg PO DAILY
Changed
rosuvastatin 10 mg Tablet
20 mg PO QPM Qty: 30 0RF
Discontinued
magnesium hydroxide [Milk of Magnesia] 400 mg/5 mL Suspension
30 ml PO [id number] PRN (Reason: if no BM x 3 days GIVE ON DAY 4)
bisacodyl [Dulcolax (bisacodyl)] 10 mg Suppository
10 mg VT DAILYPRN PRN (Reason: IF NO BM AFTR MOM OR IF NO BM BY DAY 5)
Fleet Enema 19-7 gram/118 mL Enema
118 ml VT DAILYPRN PRN (Reason: if NO BM AFTR dulcolax GIVE ON DAY 6)
naloxone 4 mg/actuation [place],Non-Aerosol
4 mg INTRANASAL Q3MPRN PRN (Reason: opioid suspected overdose)
esomeprazole magnesium [Nexium Packet] [address] for susp in packet
40 mg PO DAILY
Discharge Orders:
Discharge Patient (As Directed); Ordered 10/22/24
Ordered By: Ophelia Cunningham
Discharge Date and Time
Discharge Date/Time: 10/22/24 11:49
Print Language: TURKMEN
== END 2024-10-22 11:49 | disposition home or self-care (01) | DRG 377 ==
LOC: 4 EAST ACU 12:31
PROVIDERS: ADMITTING PHYSICIAN Internal Medicine; ATTENDING PHYSICIAN Student in an Organized Health Care Education/Training Program
DX: K31.811 Angiodysplasia of stomach and duodenum with bleeding (principal); I63.9 Cerebral infarction, unspecified; D62 Acute posthemorrhagic anemia; I50.32 Chronic diastolic (congestive) heart failure; G81.94 Hemiplegia, unspecified affecting left nondominant side; K22.70 Barrett's esophagus without dysplasia; I11.0 Hypertensive heart disease with heart failure; E78.5 Hyperlipidemia, unspecified; I83.90 Asymptomatic varicose veins of unspecified lower extremity; I25.119 Atherosclerotic heart disease of native coronary artery with unspecified angina pectoris; I48.0 Paroxysmal atrial fibrillation; I65.23 Occlusion and stenosis of bilateral carotid arteries; K22.2 Esophageal obstruction; Z66 Do not resuscitate; Z96.652 Presence of left artificial knee joint; I25.2 Old myocardial infarction; Z90.49 Acquired absence of other specified parts of digestive tract; Z88.1 Allergy status to other antibiotic agents; Z88.8 Allergy status to other drugs, medicaments and biological substances; Z79.01 Long term (current) use of anticoagulants; Z79.02 Long term (current) use of antithrombotics/antiplatelets; Z95.5 Presence of coronary angioplasty implant and graft
CPT/HCPCS: 80048; 83735; 85027; 87070

== ENCOUNTER 2024-10-24 12:25 | Inpatient (IN) | payer OTHER, SELFPAY ==
[2024-10-24] VITALS (13 sets, daily range): BP systolic 111–176; BP diastolic 54–145; BMI 23.4
[2024-10-24 10:42] LABS: Glucose - Point of Care 129 mg/dl (70-99)
--- NOTE | 2024-10-24 10:43 | EDRN ---
neurology and Bill HERRING currently at the pts bedside
[2024-10-24 10:55] LABS: Hematocrit 28.1 % (37.0-47.0); Hemoglobin 8.8 g/dL (12.0-16.0); Mean Corp Hgb Conc. 31.3 g/dL (33.0-37.0); Mean Corpuscular Volume 97.9 fL (81.0-99.0); Nucleated Red Blood Cells % 0 %; Platelet Count 238 10^3/uL (130-400); Red Cell Dist. Width 19.0 % (11.5-14.5)
--- NOTE | 2024-10-24 10:56 | ED.CVA ---
History of Present Illness
General
Chief Complaint: CVA/TIA Symptoms
Time Seen by Provider: 10/24/24 10:36
Onset of Stroke Symptoms
Onset of symptoms known: Yes
Date of onset of symptoms: 10/24/24
Time of onset of symptoms: 10:00
History of Present Illness
History of Present Illness:
84-year-old female with history of A-fib, CAD, recent NSTEMI, hypertension, and GI bleed status post small bowel enteroscopy with cautery performed at [place] earlier this week presents the emergency department with her daughter for evaluation of
stroke symptoms. Daughter states that approximately 30 minutes prior to arrival roughly 10 AM, she noted that her mother was having difficulty speaking. The daughter did have a normal conversation with her mother shortly before this. She also
noted facial droop. The patient is dysarthric and aphasic with mild facial droop. Patient has had recurrent GI bleeds over the past month, initially was evaluated here in early September at which point Eliquis was discontinued in favor of Plavix and
aspirin. She Devin presented earlier this month due to continued bleeding and was transferred to [place] for enteroscopy at which time small bowel bleed was noted that was cauterized. She was discharged 2 days ago and Plavix was restarted at that
time. She has been off Eliquis for several weeks.
Past History
Past History
ED Past Medical History: Arrthythmia (Atrial fib), Asthma, GERD, HTN, Valvular disease (MVP) and Other (superficial thrombophlebitis LE, Diverticulosis, )
ED Past Surgical History: Cholecystectomy, Orthopedic (Left shoulder surgery, Knee surgery, Left wrist surgery, ) and Other (Vein stripping, )
Social History
Tobacco: Non-smoker
Alcohol: None
Drug: None
Personal:
Living: alone
Employment: Retired
Family History
Family History: Other (Noncontributory)
Review of Systems
Review of Systems
Allergies reviewed?: Yes
All Other Systems: ROS reviewed and negative except as documented in HPI and ROS
Phy Exam
Physical Exam
Physical Exam:
GEN: Well appearing, NAD, WDWN
HEENT: Oral mucosa moist, no scleral icterus, no nasal congestion
Cardiac: Regular rate
Lung: No respiratory distress, no tachypnea
MSK: No gross deformity or injuries
Skin: Good color, no pallor or jaundice, no rashes
Neuro: AO x3; subtle droop of the right nasolabial fold that corrects adequately with smile otherwise cranial nerves II through XII grossly intact; BUE strength 5/5 in all mac, sensation intact and symmetric. BLE strength 5/5 in all mac,
sensation intact and symmetric. Mild dysarthria and aphasia, NIH score of 3
Psych: Calm, cooperative
Scores
NIH Stroke Score
Level of Consciousness: 0 - Alert
LOC Questions: 0-Answers both correctly
LOC Commands: 0-Performs both correctly
Best Horizontal Gaze: 0-Normal
Visual Mac: 0=Normal, no visual loss
Facial Palsy: 1=Minor paralysis
Motor - Right Arm: 0=No drift 10 seconds
Motor - Left Arm: 0=No drift 10 seconds
Motor - Right Le-No drift 5 seconds
Motor - Left Le-No drift 5 seconds
Limb Ataxia: 0-Absent
Sensation: 0-Normal
Best Language: 1-Mild aphasia
Dysarthria: 1-Mild slurring
Extinction and Inattention: 0-No abnormality
NIH Total Score:: 3
Thrombolytic Contraindication
Inclusion and Exclusion criteria reviewed: Yes
Reasons for NON-Tx with Thrombolytics ABSOLUTE Exclusions: Known bleeding disorders
Reasons for NON-Tx with Thrombolytics POSSIBLE Exclusions: Major GI/ bleed within 21 days
IAT Contraindications: NIHSS < 6
Course
Orders/Labs/Results
Orders:
Orders
10/24/24 10:43
EKG [Electrocardiogram (*1)] Urgent
Reason for Study: Fatigue / Weakness
EKG- Treatment ONCE
10/24/24 10:48
CT HEAD STROKE ALERT W/o Cont Urgent
Comment:
Reason For Exam: dysarthria/aphasia
CT HEAD/NECK ANG STROKE ALERT Urgent
Comment:
Reason For Exam: dysarthria/aphasia
10/24/24 10:49
Complete Blood Count/With Diff Urgent
Comprehensive Metabolic Panel Urgent
PTT Urgent
Prothrombin Time Urgent
Troponin I Urgent
Abnormal Lab Results
10/24/24 10/24/24
10:41 10:49
RBC 2.87 L 10^6/uL
(4.20-5.40)
Hgb 8.8 L g/dL
(12.0-16.0)
Hct 28.1 L %
(37.0-47.0)
MCHC 31.3 L g/dL
(33.0-37.0)
RDW 19.0 H %
(11.5-14.5)
Absolute Lymphs (auto) 1.0 L 10^3/uL
(1.2-3.4)
Absolute Monos (auto) 0.8 H 10^3/uL
(0.1-0.6)
Lymphocytes % 14.0 L %
(20.5-51.1)
Monocytes % 10.7 H %
(1.7-9.3)
BUN 24 H mg/dl
(7-17)
Creatinine 1.1 H mg/dL
(0.6-1.0)
Glucose 107 H mg/dl
(70-99)
Calcium 8.2 L mg/dl
(8.4-10.2)
Troponin I 0.062 H* ng/ml
Total Protein 5.7 L g/dl
(6.3-8.2)
Albumin 3.2 L g/dl
(3.5-5.0)
POC Glucose 129 H mg/dl
(70-99)
10/24/24 10:49
10/24/24 10:49
Vital Signs
Initial and Last Documented VS:
Initial Vital Signs
Temp Pulse Resp BP Pulse Ox
98 F 87 16 151/82 98
10/24/24 10:33 10/24/24 10:33 10/24/24 10:33 10/24/24 10:33 10/24/24 10:33
Last Documented Vital Signs
Temp Pulse Resp BP Pulse Ox
98.5 F 76 16 159/72 98
10/24/24 10:40 10/24/24 12:00 10/24/24 12:00 10/24/24 12:00 10/24/24 12:00
MDM/Problems Addressed
MDM/Problems Addressed:
84-year-old female presenting as a stroke alert due to dysarthria and aphasia. Initial NIH stroke scale of 3, however after imaging the patient was noted to have moderate worsening of aphasia with difficulty communicating any intelligible speech.
Unfortunately due to recent significant GI bleeding requiring intervention with cauterization thrombolytics are contraindicated. Imaging reveals critical right internal carotid stenosis which may be the culprit versus plaque embolization causing
her acute CVA which would not likely be amenable to TNK regardless. I did discuss the case with vascular surgery who will evaluate the patient in the hospital to determine if revascularization is an option for her.
Comment
Comment:
EKG independently interpreted by me patient is in rate controlled atrial fibrillation
*Pulse Oximetry
SaO2: 97
Oxygen Mode of Delivery: Room air
Patient hypoxic: no
*Critical Care Note
Total Time (30-74mins, 75-104mins- exclusive of procedures): 45 min
comment:
Critical care time: 45 minutes
Critical care time was exclusive of: Separately billable procedures, treating other patients, and teaching time
Critical care was necessary to treat or prevent imminent or life-threatening deterioration of the following conditions:
Critical care time spent personally by me on the following activities:
[x] Review of old charts
[x] Obtaining history from patient or surrogate
[x] Ordering and review of the laboratory studies
[x] Ordering and review of radiographic studies
[x] Ordering and performing treatments and interventions
[x] Patient patient's response to treatment
[x] Development of treatment plan with patient or surrogate
ED Attending Note
-
Portions of this chart may have been created with voice recognition software.� Occasional wrong word or��sound alike� substitutions may have occurred due to the inherent limitations of voice recognition software.
Discharge Plan
Departure
Patient Disposition: Admit
Date of Disposition: 10/24/24
Time of Disposition: 11:23
Admit to: Telemetry
Presentation/result/management discussed w/ accepting MD/DO: Hospitalist
Discharge Problem:
Acute cerebrovascular accident (CVA), Internal carotid artery stenosis
Prescriptions:
No Action
nitroglycerin 0.4 mg Tablet, Sublingual
0.4 mg sublingual [id number] PRN (Reason: ANGINA) Qty: 3 0RF
metoprolol tartrate 25 mg Tablet
12.5 mg PO BID Qty: 60 0RF
clopidogrel 75 mg tablet
75 mg PO DAILY
aspirin 81 mg Tablet,Chewable
81 mg PO DAILY Qty: 30 0RF
acetaminophen [Tylenol] 325 mg Tablet
650 mg PO Q4HPRN MDD 3000 mg PRN (Reason: fever>100F/mild pain)
ondansetron HCl 4 mg Tablet
4 mg PO DAILYPRN PRN (Reason: nausea/vomiting)
PreserVision AREDS-2 250-90-40-1 mg Capsule
1 cap PO BID
melatonin 3 mg tablet
3 mg PO HSPRN PRN (Reason: Sleep)
furosemide 20 mg tablet
20 mg PO DAILY
pantoprazole [Protonix] 40 mg tablet,delayed release (DR/EC)
40 mg PO BID Qty: 120 0RF
rosuvastatin 10 mg Tablet
20 mg PO QPM Qty: 30 0RF
Referrals:
[facility], [Other]
Vi Villareal MD [Family Provider, Internal Medicine]
Interventions
Interventions:
*Risk Screen - Suicide Last Done: 10/24/24 10:33
*General Assessment Last Done: 10/24/24 10:40
*Neglect/Abuse Screening Last Done: 10/24/24 10:33
*ED- Fall Risk Assessment Last Done: 10/24/24 10:40
*ED COVID-19 Vaccine History Last Done: 10/24/24 10:40
ED- Pulmonary Assessment Last Done: 10/24/24 10:40
ED- Neurological Assessment Last Done: 10/24/24 11:14
ED- Cardiac Assessment Last Done: 10/24/24 10:40
ED Swallowing Screen Last Done: 10/24/24 10:40
Discharge Date and Time
Print Language: [place]
[2024-10-24 11:05] LABS: INR 1.09; PT 14.4 Sec (11.4-14.6)
[2024-10-24 11:06] LABS: APTT 24.8 Sec (23.4-35.0)
--- NOTE | 2024-10-24 11:09 | CON.NEURO ---
Consultation
Order
Date of Consultation: 10/24/24
Reason for Consult: Stroke alert
Called in at: 10:34 am
Neurology Consultation Note.
HPI: This is an 84-year-old right-handed woman who presented to [facility] on 10/24/2024 with acute aphasia. According to patient's daughter, approximately 45 minutes prior to arrival, the patient's daughter noticed that her
mother was having trouble forming words and getting words out. The patient was initially unable to speak at all, though this has slightly improved.
Ms. Amanda was seen by neurology service in September 2024 for transient left-sided weakness. At that time she declined recommended brain MRI.
She has been off Eliquis due to GIB and reportedly underwent recent cauterization around 2 weeks ago.
ER VS: 151/82-176/85, 87, afebrile.
PDMP:none
Labs: Glucose�107, hemoglobin�8.8, creatinine�1.1
CT head wo contrast�no acute abnormalities.
CTA head/neck-Severe mixed soft and calcific plaque in the right carotid bulb resulting in focal complete occlusion of the proximal right internal carotid artery spanning approximately 7 mm in length.
Severe mixed soft and calcific plaque within the left carotid bulb resulting in focal approximately 80% stenosis of the proximal left internal carotid artery.
Carotid artery ultrasound (09/20/2024)�greater than 70% of bilateral ICA stenosis
PMH: PA A-Fib on ASA, GIB, bilateral carotid artery stenosis, NSTEMI (s/p PCI to LCx), CAD, HFpEF, HTN, HLD, macular degeneration
PSH:endoscopic cauterized, PTCI,
SH: Lives with daughter, does not drive
FH: Not contributory to current presentation
All: Lisinopril, tetracycline, erythromycin, azithromycin, olmesartan, losartan, Keflex, chlorthalidone, Nebivolol, amlodipine, lansoprazole
ROS: Limited due to aphasia.
NIH Stroke Scale
1A Level of Consciousness: 0/3
1B LOC Questions: 0/2
1C LOC Commands: 0/2
2 Best Gaze: 0/2
3 Visual: 0/3
4 Facial Palsy: 0/3
5A Motor Arm LEFT: 0/4
5B Motor Arm RIGHT: 0/4
6A Motor Leg LEFT: 0/4
6B Motor Leg RIGHT: 0/4
7 Limb Ataxia: 0/2
8 Sensory: 0/2
9 Best Language: 1/3
10 Dysarthria: 0/2
11 Extinction/Inattention: 0/2
Total NIHSS: 1
Assessment and Plan:
I. Acute aphasia. Likely symptomatic left ICA stenosis. Not a candidate for IV TNK due to recent GI bleed.
II. PA-fib
III. GIB
IV. Bilateral ICA stenosis
- cerebral hypoperfusion in view of carotid artery stenosis
- Continue DAPT
- LDL is at the goal
- Brain MRI without stephanie if patient is agreeable
- PT.
- DVT prophylaxis.
I personally reviewed all radiology and labs along with past medical records pertinent to current medical problems. Total time spent in patient care is 60 minutes.
Thank you for allowing us to participate in the care of this patient. We will continue to follow. Please do not hesitate to contact us with any questions or concerns.
Subjective/Objective
Subjective Data
Date of Service: October 24, 2024
Objective Data
Vital Signs
Temp Pulse Resp BP Pulse Ox
36.9 C 80 14 176/85 97
10/24/24 10:40 10/24/24 10:48 10/24/24 10:48 10/24/24 10:40 10/24/24 10:57
Lab Results
10/24/24 10:49
PT 14.4 Sec (11.4-14.6) 10/24/24 10:49
INR 1.09 10/24/24 10:49
APTT 24.8 Sec (23.4-35.0) 10/24/24 10:49
Patient Allergies
erythromycin base (Erythromycin Base) Allergy (Verified 09/10/24 17:00)
Rash, hives
lisinopril (From Zestril) Allergy (Verified 09/10/24 17:00)
BAD COUGH
tetracycline (Tetracycline) Allergy (Verified 09/10/24 17:00)
Hives
Medications
-
Home Medications
�Medication �Instructions �Recorded
metoprolol tartrate 25 mg tablet 12.5 mg (1/2 x 25 mg) PO BID #60 08/22/24
tabs
nitroglycerin 0.4 mg sublingual 0.4 mg sublingual [id number] PRN 08/22/24
tablet ANGINA #3 tabs
clopidogrel 75 mg tablet 75 mg PO DAILY Blood Clot 09/19/24
Prevention/Tx
aspirin 81 mg chewable tablet 81 mg PO DAILY #30 tabs 09/27/24
acetaminophen 325 mg tablet 650 mg PO Q4HPRN PRN 10/05/24
(Tylenol) fever>100F/mild pain
melatonin 3 mg tablet 3 mg PO HSPRN PRN Sleep 10/05/24
ondansetron HCl 4 mg tablet 4 mg PO DAILYPRN PRN 10/05/24
nausea/vomiting
vit C 250 mg-vit E 90 mg-zinc 40 1 cap PO BID Supplement 10/05/24
mg-copper 1 [id number]
capsule (PreserVision AREDS-2)
furosemide 20 mg tablet 20 mg PO DAILY Fluid 10/06/24
Retention/Swelling
pantoprazole 40 mg tablet,delayed 40 mg PO BID #120 tabs 10/22/24
release (Protonix)
rosuvastatin 10 mg tablet 20 mg (2 x 10 mg) PO QPM #30 tabs 10/22/24
Vital Signs and Labs
-
Vital Signs and Labs:
Vital Signs
Temp Pulse Resp BP Pulse Ox
36.9 C 80 14 176/85 97
10/24/24 10:40 10/24/24 10:48 10/24/24 10:48 10/24/24 10:40 10/24/24 10:57
Lab Results
10/24/24 10:49
PT 14.4 Sec (11.4-14.6) 10/24/24 10:49
INR 1.09 10/24/24 10:49
APTT 24.8 Sec (23.4-35.0) 10/24/24 10:49
Home Medications
-
Home Medications
metoprolol tartrate 25 mg tablet 12.5 mg (1/2 x 25 mg) PO BID #60 tabs 08/22/24
nitroglycerin 0.4 mg sublingual tablet 0.4 mg sublingual [id number] PRN ANGINA #3 tabs 08/22/24
clopidogrel 75 mg tablet 75 mg PO DAILY Blood Clot Prevention/Tx 09/19/24
aspirin 81 mg chewable tablet 81 mg PO DAILY #30 tabs 09/27/24
acetaminophen 325 mg tablet (Tylenol) 650 mg PO Q4HPRN PRN fever>100F/mild pain 10/05/24
melatonin 3 mg tablet 3 mg PO HSPRN PRN Sleep 10/05/24
ondansetron HCl 4 mg tablet 4 mg PO DAILYPRN PRN nausea/vomiting 10/05/24
vit C 250 mg-vit E 90 mg-zinc 40 mg-copper 1 [id number] capsule (PreserVision AREDS-2) 1 cap PO BID Supplement 10/05/24
furosemide 20 mg tablet 20 mg PO DAILY Fluid Retention/Swelling 10/06/24
pantoprazole 40 mg tablet,delayed release (Protonix) 40 mg PO BID #120 tabs 10/22/24
rosuvastatin 10 mg tablet 20 mg (2 x 10 mg) PO QPM #30 tabs 10/22/24
[2024-10-24 11:12] LABS: ALT (SGPT) 29 U/L (0-35); AST (SGOT) 31 U/L (14-36); Albumin 3.2 g/dl (3.5-5.0); Alkaline Phosphatase 82 U/L (38-126); Blood Urea Nitrogen 24 mg/dl (7-17); Calcium 8.2 mg/dl (8.4-10.2); Carbon Dioxide 28 mmol/L (22-30); Chloride 103 mmol/L (98-107); Estimated Creatinine Clearance 32 ml/min; Glucose 107 mg/dl (70-99); Potassium 3.7 mmol/L (3.5-5.1); Sodium 136 mmol/L (135-145); Total Protein 5.7 g/dl (6.3-8.2); eGFR 49.86
[2024-10-24 11:35] LABS: Troponin I 0.062 ng/ml
--- NOTE | 2024-10-24 11:55 | HPS.HSE ---
Addendum entered and electronically signed by Digna Mina MD 10/24/24 13:34:
I saw and evaluated the patient. I reviewed the resident�s note and agree with findings and plan as documented in the resident�s note.
84-year-old female with recent GI bleed s/p enterosocpy at [place], presented with acute onset of expressive aphasia.
# Acute CVA, expressive aphasia.
Per neuro, patient is not a candidate for TNK given recent GI bleed.
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
CT head unrevealing, but CT angio noted complete occlusion of the proximal right internal carotid artery
Check brain MRI without contrast
Speech evaluation, PT/OT
NPO for now until SPL eval, gentle IVF while NPO
Check A1c and lipid panel
Check echo
# Bilateral ICA stenosis, R > L
Per Vascular, patient and family opting for conservative mgmt from recent eval
# Paroxysmal A-fib
Consult cardiology
Appaarently pt decluiend OAC (likely due to recent GIB)
# Chronic HFpEF
No acute exacerbation
Holding E BUSINESS MANAGER lasix currently
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
Monitor Hemoglobin
# CAD with history of NSTEMI s/p PCI 08/17/2024
# Hypertension
NPO prior to SPL eval
# Hyperlipidemia
Hold rosuvastatin for now until cleared by speech
Will consider high-dose statin after getting clearance from the speech
CODE STATUS: DNR
Original Note:
Family Physician
-
Family Physician: Vi Villareal MD
Chief Complaint
-
Trouble Speaking
History of Present Illness
This is a 84-year-old female with history of paroxysmal atrial fibrillation currently on aspirin and Plavix, recent NSTEMI, hypertension , admission 08/17-08/22/24 for NSTEMI (s/p PCI to LCx), followed by admission 09/18-10/01/24 for UGIB (s/p EGD x 2;
with findings of esophageal stenosis, short segment Romero's esophagus and a few bleeding angiectasias in the duodenum which were cauterized; Eliquis discontinued and she was discharged on Aspirin/Plavix), HFpEF, essential HTN, HLD, colonoscopy on
10/11 with finding of polyps, no AVM's. s/p enteroscopy morning of 10/20 with finding of 5 angiectasias in the proximal jejunum treated with APC.
Presenting today in the emergency department with her daughter for evaluation of stroke symptoms. Daughter states that approximately 30 minutes prior to arrival roughly 10 AM, she noted that her mother was having difficulty speaking. The daughter
did have a normal conversation with her mother shortly before this. She also noted facial droop. The patient is dysarthric and aphasic with mild facial droop.
In the ER CT head did not show any acute intracranial abnormality. CT head neck angio showed approximately 80% stenosis of the proximal left internal carotid artery and complete occlusion of the proximal right ICA spanning approximately 7 mm in
length.
Hemoglobin of 8.8(7.9 on 10/22/2024), no white count, Creatinine of 1.1 with BUN of 24, troponin of 0.062,
Neurology was consulted in the ER and she was deemed not a candidate for TNK due to recent GI bleed. Patient and family aware.
Important: Some of the history is obtained from the chart review as well as from her daughter Fatou
Medical History
Past Medical History
Past Medical History: Reports CAD (s/p PCI 09/08) and Other
Additional Past Medical History:
Hypertension
Parosyxmal Atrial Fibrillation
Varicose Veins
Superficial Thrombophlebitis
UGIB, duodenal angioectasias
Past Surgical History: Reports Other
Additional Past Surgical History:
Vein Stripping
Left TKA
Left Shoulder Surgery
Cholecystectomy
Social History
Tobacco: Non-smoker
Alcohol: None
Drug: None
Family History
Family History: Not pertinent
Allergies / Home Medications
Allergies reflects when Allergies were last updated in [facility].
Home Medications with original date entered in [facility]
Allergy/Medication List:
Allergies
Allergy/AdvReac Type Severity Reaction Status Date / Time
erythromycin base Allergy Rash, hives Verified 09/10/24 17:00
(Erythromycin Base)
lisinopril (From Zestril) Allergy BAD COUGH Verified 09/10/24 17:00
tetracycline (Tetracycline) Allergy Hives Verified 09/10/24 17:00
Home Medications
metoprolol tartrate 25 mg tablet 12.5 mg (1/2 x 25 mg) PO BID #60 tabs 08/22/24
nitroglycerin 0.4 mg sublingual tablet 0.4 mg sublingual [id number] PRN ANGINA #3 tabs 08/22/24
clopidogrel 75 mg tablet 75 mg PO DAILY Blood Clot Prevention/Tx 09/19/24
aspirin 81 mg chewable tablet 81 mg PO DAILY #30 tabs 09/27/24
ondansetron HCl 4 mg tablet 4 mg PO DAILYPRN PRN nausea/vomiting 10/05/24
vit C 250 mg-vit E 90 mg-zinc 40 mg-copper 1 [id number] capsule (PreserVision AREDS-2) 1 cap PO BID Supplement 10/05/24
furosemide 20 mg tablet 20 mg PO DAILY Fluid Retention/Swelling 10/06/24
pantoprazole 40 mg tablet,delayed release (Protonix) 40 mg PO BID #120 tabs 10/22/24
rosuvastatin 10 mg tablet 20 mg (2 x 10 mg) PO QPM #30 tabs 10/22/24
Review of Systems
-
History Source: Patient
A 12 point ROS was completed and negative except as noted: Yes
Physical Exam
Vital Signs
Vital Signs
Temp Pulse Resp BP Pulse Ox
98.5 F 67 20 147/78 99
10/24/24 10:40 10/24/24 11:15 10/24/24 11:15 10/24/24 11:15 10/24/24 11:15
Physical Exam
General: No Apparent Distress and Comfortable
Respiratory: Clear and Non Labored Respirations
Cardiac: S1/S2 and Irregular Rhythm
GI: Soft, Non Tender and Non Distended
Neuro: Awake, Alert, Slurred Speech and Facial Droop (Right, ); No Oriented
Psych: Calm
Laboratory Results
-
10/24/24 10:49
10/24/24 10:49
Laboratory Results
PT 14.4 Sec (11.4-14.6) 10/24/24 10:49
INR 1.09 10/24/24 10:49
APTT 24.8 Sec (23.4-35.0) 10/24/24 10:49
Total Bilirubin 0.6 mg/dl (0.2-1.3) 10/24/24 10:49
AST 31 U/L (14-36) 10/24/24 10:49
ALT 29 U/L (0-35) 10/24/24 10:49
Alkaline Phosphatase 82 U/L (38-126) 10/24/24 10:49
Troponin I 0.062 ng/ml H* 10/24/24 10:49
Data Reviewed
-
CT Scan: Report Reviewed by me, Discussed with Patient and Discussed with Family
Lab Data: Labs Reviewed by me, Discussed with Physician, Discussed with Patient and Discussed with Family
Impression/Plan
-
84-year-old female with recent GI bleed, presented today with complaints of trouble forming words and getting the words out of the mouth.
# Acute CVA/TIA
# Acute aphasia
- Per neuro patient is not a candidate for TNK given recent GI bleed.
- Patient is on aspirin and Plavix and utilize dose medication in the morning today.
- Brain MRI without contrast
- Speech evaluation
- PT/OT
- Hold all oral meds for now
- Repeat labs in the a.m.
- Check A1c and lipid panel
- Check echo
- If patient not cleared by speech will do aspirin rectal tomorrow
# Bilateral ICA stenosis; progressive
- Consult vascular
- Vascular evaluated patient last admission, patient and family opting for conservative mgmt at this time
# Paroxysmal A-fib
- Consult cardiology
# Elevated creatinine and BUN
- Will do gentle fluids for now
# HFpEF
- No acute exacerbation
- Patient uses Lasix 20 mg p.o. daily at home; will hold for now
# Recent GI bleed
- Hemoglobin stable
- Continue to monitor
- Hold p.o. PPI for now
#CAD with history of NSTEMI s/p PCI 08/17/2024
#Hypertension
- Patient uses metoprolol 12.5 mg twice daily; will hold any oral medications at this time.
# Hyperlipidemia
- Hold rosuvastatin for now until cleared by speech
- Will consider high-dose statin after getting clearance from the speech
CODE STATUS: DNR
Diet: Low-cholesterol after getting clearance from the speech
--- NOTE | 2024-10-24 13:25 | CM ---
CM reviewed chart and met with pt and daughter bedside in ED. Pt lives alone in 2 story home, [address], has stairglide. Daughter has been staying with her since recent admission. Pt was admitted for GI bleed, discharged home 10/22.
Needs assistance with ADLs, independent in personal care. Ambulates with rollator, also has , WC and shower chair.
Confirms prescription coverage.
Correct home address is [address] [place] [address] [place]
Hx VN and [facility], pt and family were not happy with [facility] and she does not want to return there. Preference would be [facility] if SNF needed.
PCP: Solitario Sharma
Pharmacy: [facility]
CM will continue to follow for all discharge planning needs.
--- NOTE | 2024-10-24 13:34 | EDRN ---
patient taken to MRI
--- NOTE | 2024-10-24 13:48 | CON.CAR ---
Consultation
Consultation Request
Date/Time Consultation Requested: October 24, 2024
Date/Time Consultation Performed: October 24, 2024
Requesting Provider: Hospitalist
Performing Provider: Dr. Terrell Ge
Reason for Consultation: Atrial fibrillation
Medical History
-
Chief Complaint: Sudden difficulty speaking/expressing herself
History of Present Illness:
Primary care physician, Dr. Solitario Sharma
Primary care team coordinator scheduler, Dr. Alok Yung
She presented to [facility] emergency department this morning with acute expressive aphasia and facial droop. Symptoms started approximate 45 minutes prior to arrival according to her daughter.
Her medical history is complicated by recent GI bleed and therefore she is felt not to be a candidate for TNK. She has been seen by neurology and it is felt that etiology of CVA is likely her left internal carotid stenosis. Further complicating
things is she has history of paroxysmal atrial fibrillation.
She had ST segment elevation myocardial infarction in August 17, 2024 and underwent left circumflex stenting.
She had been on Plavix and Eliquis but then developed severe anemia with GI bleeding.
She was transferred to [facility] October 19, 2024 for complex endoscopic evaluation.
She has been refusing oral anticoagulation reinitiation and has been treated with aspirin and Plavix.
She has been evaluated by vascular and patient and family have opted for conservative management of her carotid disease.
ECG on presentation is atrial fibrillation with nonspecific interventricular conduction delay and nonspecific T wave abnormalities
Compared to prior EKG from October 07, 2024, previously there was a more typical right bundle branch block QRS, otherwise no significant changes
Troponin on admission is 0.062 which is less than her troponin prior to discharge, troponin from October 06, 2024 is 0.068
Past medical history:
Severe anemia/GI bleed
Admission 09/18-10/01/24 for UGIB (Romero's esophagus and a few bleeding angiectasias in the duodenum which were cauterized; Eliquis discontinued and she was discharged on Aspirin/Plavix)
Admitted 10/05/2024 with 3 bleeding and severe anemia
Overall she has required total 8 units PRBC's given since beginning of September
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
NSTEMI August 17, 2024 with peak troponin of 63.4. 90 to 95% hazy mid LCx stenosis treated with one YESICA
Known bilateral carotid stenosis right greater than left
Evaluated by vascular. Patient and family have opted for conservative management
Chronic diastolic HFpEF
Hypertension
Hyperlipidemia
Atrial fibrillation
Since GI bleeding episodes, patient has refused oral anticoagulation on multiple occasions
Multiple drug allergies
Hypokalemia
Mild renal insufficiency
DNR status
Allergies / Home Medications
Allergy/AdvReac Type Severity Reaction Status Date / Time
erythromycin base Allergy Rash, hives Verified 09/10/24 17:00
(Erythromycin Base)
lisinopril (From Zestril) Allergy BAD COUGH Verified 09/10/24 17:00
tetracycline (Tetracycline) Allergy Hives Verified 09/10/24 17:00
�Medication �Instructions �Recorded �Confirmed �Type
metoprolol tartrate 25 mg tablet 12.5 mg (1/2 x 25 mg) PO BID #60 08/22/24 10/24/24 Rx
tabs
nitroglycerin 0.4 mg sublingual 0.4 mg sublingual [id number] PRN 08/22/24 10/24/24 Rx
tablet ANGINA #3 tabs
clopidogrel 75 mg tablet 75 mg PO DAILY Blood Clot 09/19/24 10/24/24 History
Prevention/Tx
aspirin 81 mg chewable tablet 81 mg PO DAILY #30 tabs 09/27/24 10/24/24 Rx
vit C 250 mg-vit E 90 mg-zinc 40 1 cap PO BID Supplement 10/05/24 10/24/24 History
mg-copper 1 [id number]
capsule (PreserVision AREDS-2)
furosemide 20 mg tablet 20 mg PO DAILY Fluid 10/06/24 10/24/24 History
Retention/Swelling
pantoprazole 40 mg tablet,delayed 40 mg PO BID #120 tabs 10/22/24 10/24/24 Rx
release (Protonix)
rosuvastatin 10 mg tablet 10 mg PO QPM 10/24/24 10/24/24 History
Physical Exam
Vital Signs
Temp Pulse Resp BP Pulse Ox
98.5 F 76 16 159/72 98
10/24/24 10:40 10/24/24 12:00 10/24/24 12:00 10/24/24 12:00 10/24/24 12:00
Lab Results
10/24/24 10:49
10/24/24 10:49
Troponin I 0.062 ng/ml H* 10/24/24 10:49
Impression / Plan
-
.
Assessment:
Acute CVA
[place] to be related to left carotid disease
Recurrent severe anemia/GI bleed
Admission 09/18-10/01/24 for UGIB (Romero's esophagus and a few bleeding angiectasias in the duodenum which were cauterized; Eliquis discontinued and she was discharged on Aspirin/Plavix)
Admitted 10/05/2024 with 3 bleeding and severe anemia
Overall she has required total 8 units PRBC's given since beginning of September
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
NSTEMI August 17, 2024 with peak troponin of 63.4. 90 to 95% hazy mid LCx stenosis treated with one YESICA
Known bilateral carotid stenosis right greater than left
Evaluated by vascular. Patient and family have opted for conservative management
Chronic diastolic HFpEF
Hypertension
Hyperlipidemia
Atrial fibrillation
Since GI bleeding episodes, patient has refused oral anticoagulation on multiple occasions
Multiple drug allergies
Hypokalemia
Mild renal insufficiency
DNR status
Recommendations:
Her speech is improving post acute CVA.
I met with the patient and her 2 daughters and we had a long discussion regarding consideration for resuming anticoagulation.
The patient makes it very clear she is not excepting oral anticoagulation. She does except dual antiplatelet therapy.
We discussed that oral anticoagulation is appropriate for atrial fibrillation related thromboembolic risk reduction.
Dual antiplatelet therapy would be more appropriate for her vascular disease (carotid as well as coronary with recent stenting)
Using combined anticoagulation and antiplatelet therapy such as Eliquis and Plavix is recommended if she can tolerate without GI bleeding.
She reinforces again that she fully refuses oral anticoagulation.
We discussed that this current event appears to be related to her carotid disease. She tells me that she is now interested in having a full vascular evaluation. Her previous hospital stay she refused any vascular intervention but now is accepting
of this.
She has known coronary artery disease with prior non-ST segment elevation myocardial infarction requiring left circumflex stent August 17, 2024. She has had no chest pain or other signs or symptoms of unstable coronary syndrome. ECG is essentially
unchanged. Troponin value is actually less than it was during her previous hospital stay.
Oral meds currently on hold pending speech eval, but resume oral medication as soon as feasible.
Continue statin, rosuvastatin 10 mg daily
Continue metoprolol tartrate 12.5 mg twice daily
Continue dual antiplatelet therapy with aspirin and clopidogrel
Regarding atrial fibrillation she is rate controlled.
Maintain metoprolol tartrate 12.5 mg twice daily
She refuses oral anticoagulation, therefore maintain dual antiplatelet therapy
I did discuss with her and her daughters the possibility of left atrial appendage exclusion. She is aware of Watchman as her has Watchman.
She refuses consideration for left atrial appendage exclusion
Regarding heart failure with preserved ejection fraction
Appears euvolemic at present.
Would continue outpatient dose of furosemide 20 mg daily
Total time spent today was 85 minutes in preparing to see the patient, seeing the patient and coordination of care. This included review of recent laboratory evaluations, cardiact testing, imaging studies, primary care rtecords, specialty
consultations, hospital records, as well as personally interviewing and examining the patient, which included discussion of their tests, review/ordering medications, and communicating with other healthcare professionals and also treatment planning
as well as counseling.
Data Reviewed
-
EKG: Tracing Personally Visualized and interpreted, Discussed with Patient and Discussed with Family
Radiology: Report Reviewed by me
CT Scan: Report Reviewed by me
Medical Tests (Nuc Med, Echo etc): Report Reviewed by me, Discussed with Patient and Discussed with Family
Labs: Labs Reviewed by me, Discussed with Patient and Discussed with Family
Old Records: Requested
[2024-10-24 13:54] LABS: Glycohemoglobin (HgbA1c) 4.3 % (4.0-5.6)
--- NOTE | 2024-10-24 14:30 | PTCARENOTE ---
Pt arrived to floor on stretcher from ED. Transferred to bed. Stroke scale performed at bedside, NIH = 2; Pt had noted left facial droop with smile and mild aphasia. Swallow test performed and Pt passed, CL diet entered. Pt's daughters present
at bedside. Attempted to place [facility] SCD's on patient, however she refused. Educated pt on importance of blood flow and clot prevention s/p stroke. Pt's daughter had told Pt that the SCD's would make her clots worse, I had corrected her that this
was not true. Pt continued to refuse. Oriented Pt to room, call salazar within reach. Will continue to monitor and assess.
[2024-10-24] MEDS: NSS 1000 IV (14:44)
[2024-10-24 15:40] LABS: HDL Cholesterol 47 mg/dl; LDL Cholesterol, Calculated 44 mg/dl; Very Low Density Lipoprotein 19 mg/dl (0-30)
--- NOTE | 2024-10-24 16:45 | PTCARENOTE ---
Pt's daughter came out to the nurses station to inform nursing that Pt was sleeping and that her SpO2 on monitor was 91% and her lips were blue. This nurse noted that SpO2 was cycling between 91% and 97% while pt slept with pulse ox staying below
93% for only seconds. Informed daughter that this was okay and that we would check on Pt. Checked on Pt and lips were pink in color and had no signs of hypoxia. Will continue to monitor and assess.
--- NOTE | 2024-10-24 18:14 | RR ---
Pt's daughter came to nurses station to report and change in Pt's mentation. Went into room and found Pt's other daughter attempting to feed Pt with a new Left facial droop at rest and global aphasia. Asked family to stop feeding immediately and
NIH was performed. Pt's NIH was now 12 from a 2 earlier. Stroke alert and rapid response called.
A Rapid Response was called on this patient, please see Rapid Response form.
[2024-10-24] MEDS: LOVENOX 30 MG SC (18:34)
--- NOTE | 2024-10-24 18:48 | W.PN.UPDATE ---
Update Note
Progress Note Update
patient had recrudescence of the stroke symptoms with reoccurrence of expressive aphasia, that initially had some improvement after hospitalization, but insignificant. Already deemed not a candidate for TNK on admission, CTA showed no intracranial
LVO, but severe 80% L carotid stenosis that was deemed as a reason for initial hypoperfusion. MRI brain: Scattered acute infarcts in the right frontal and parietal lobes. With no new symptoms and already determined therapy - no need for urgent
repeated stroke w/u as it will not supervisor records change of the condition. Stroke code was cancelled.
[2024-10-24 19:01] LABS: Glucose - Point of Care 121 mg/dl (70-99)
--- NOTE | 2024-10-24 21:20 | PTCARENOTE ---
Swallow screening performed at beside by nursing and patient passed. Placed on cholesterol lowering diet per DR order.
--- NOTE | 2024-10-24 22:40 | PTCARENOTE ---
Patient refusing SCDs to be placed. Patient continuously stated ' No, No , No, No' when scds were being placed. Education provided and patient continues to refuse.
[2024-10-25] VITALS (20 sets, daily range): BP systolic 94–169; BP diastolic 39–109; PULSE 73–77; O2SAT 97–98; BMI 22.7
[2024-10-25 03:48] LABS: Hematocrit 27.4 % (37.0-47.0); Hemoglobin 8.7 g/dL (12.0-16.0); Mean Corp Hgb Conc. 31.8 g/dL (33.0-37.0); Mean Corpuscular Volume 97.9 fL (81.0-99.0); Platelet Count 234 10^3/uL (130-400); Red Cell Dist. Width 18.8 % (11.5-14.5)
[2024-10-25 04:16] LABS: ALT (SGPT) 25 U/L (0-35); AST (SGOT) 26 U/L (14-36); Albumin 2.9 g/dl (3.5-5.0); Alkaline Phosphatase 86 U/L (38-126); Blood Urea Nitrogen 19 mg/dl (7-17); Calcium 8.6 mg/dl (8.4-10.2); Carbon Dioxide 30 mmol/L (22-30); Chloride 104 mmol/L (98-107); Estimated Creatinine Clearance 39 ml/min; Glucose 84 mg/dl (70-99); HDL Cholesterol 47 mg/dl; LDL Cholesterol, Calculated 43 mg/dl; Magnesium 2.0 mg/dl (1.6-2.3); Potassium 3.0 mmol/L (3.5-5.1); Sodium 137 mmol/L (135-145); Total Protein 5.3 g/dl (6.3-8.2); Very Low Density Lipoprotein 16 mg/dl (0-30); eGFR > 60.00
[2024-10-25 04:29] LABS: Troponin I 0.096 ng/ml
--- NOTE | 2024-10-25 05:17 | PTCARENOTE ---
Patient with an NIH of 8 overnight. Does not follow nurses directions and refuses care. Education provided throughout the night and ineffective. Bed alarm placed. Will continue to monitor.
--- NOTE | 2024-10-25 05:56 | PTCARENOTE ---
Am k 3.0- yard person provider made aware and ordered PO repletion. BMP to be rechecked at noon. Will continue to monitor.
[2024-10-25] MEDS: KCL ELIXIR 40 MEQ PO (06:00)
--- NOTE | 2024-10-25 07:35 | W.PN.NEURO.1 ---
Today's Communication / Plan
-
Patient has previously refused vascular surgical intervention for bilateral carotid stenosis
Would discontinue antiplatelet agents in favor of anticoagulation although patient may have refused this in the past
Start aspirin 300 mg by rectum unless and until able to take by mouth
Consider Hospice
Neuro Assessment/Plan
Assessment
I. Acute aphasia. Likely symptomatic left ICA stenosis. Not a candidate for IV TNK due to recent GI bleed.
II. PA-fib
III. GIB
IV. Bilateral ICA stenosis
Plan
Patient has previously refused vascular surgical intervention for bilateral carotid stenosis
Would discontinue antiplatelet agents in favor of anticoagulation although patient may have refused this in the past
Start aspirin 300 mg by rectum unless and until able to take by mouth
Consider Hospice
Will follow as needed
Subjective/Objective
Subjective Data
Date of Service: October 25, 2024
Objective Data
Vital Signs
Temp Pulse Resp BP Pulse Ox
37.2 C 61 15 114/60 96
10/25/24 03:00 10/25/24 05:00 10/25/24 05:00 10/25/24 05:00 10/25/24 05:00
Lab Results
10/25/24 03:24
PT 14.4 Sec (11.4-14.6) 10/24/24 10:49
INR 1.09 10/24/24 10:49
APTT 24.8 Sec (23.4-35.0) 10/24/24 10:49
Sodium 137 mmol/L (135-145) 10/25/24 03:24
Potassium 3.0 mmol/L (3.5-5.1) L 10/25/24 03:24
BUN 19 mg/dl (7-17) H 10/25/24 03:24
Glucose 84 mg/dl (70-99) 10/25/24 03:24
Calcium 8.6 mg/dl (8.4-10.2) 10/25/24 03:24
LDL Cholesterol, Calc 43 mg/dl 10/25/24 03:24
Patient Allergies
erythromycin base (Erythromycin Base) Allergy (Verified 09/10/24 17:00)
Rash, hives
lisinopril (From Zestril) Allergy (Verified 09/10/24 17:00)
BAD COUGH
tetracycline (Tetracycline) Allergy (Verified 09/10/24 17:00)
Hives
Data Reviewed
-
MRI Head: Report Reviewed
Labs: Report Reviewed
Reviewed with: Physician
Old Records: Summarized
Past History
Past History
ED Past Medical History: Arrthythmia (Atrial fib), Asthma, GERD, HTN, Valvular disease (MVP) and Other (superficial thrombophlebitis LE, Diverticulosis, bilateral carotid artery stenosis)
ED Past Surgical History: Cholecystectomy, Orthopedic (Left shoulder surgery, Knee surgery, Left wrist surgery, ) and Other (Vein stripping, )
Social History
Tobacco: Non-smoker
Alcohol: None
Drug: None
Personal:
Living: alone
Employment: Retired
Family History
Family History: Other (Noncontributory)
Medications
-
Medications:
Generic Name Dose Route Start Last Admin
Trade Name Freq PRN Reason Stop Dose Admin
Acetaminophen 650 mg 10/24/24 14:27
Acetaminophen 650 Mg Rectal Suppository RECTAL 11/21/24 14:26
Q4HPRN PRN
OLIVO, mild pain, or temp >100.4F
Enoxaparin Sodium 30 mg 10/24/24 18:00 10/24/24 18:34
Enoxaparin Sodium 30 Mg/0.3 Ml Syringe SC 11/21/24 17:59 30 mg
QPM ANURADHA Administration
Sodium Chloride 1,000 mls @ 50 mls/hr 10/24/24 14:27 10/24/24 14:44
Nss IV 1,000 mls
.Q20H ANURADHA Administration
Sodium Chloride 0 flush 10/24/24 15:00
Sodium Chloride 0.9% (Flush) Syringe IV 11/21/24 14:59
PER PROTOCOL ANURADHA
--- NOTE | 2024-10-25 08:42 | CON.VAS ---
Addendum entered and electronically signed by Charles Peterson III, MD 10/25/24 13:40:
.
Addendum entered and electronically signed by Charles Peterson III, MD 10/25/24 13:39:
This patient was seen and examined in collaboration with MAI Goddard. I agree with the history and physical exam as well as the assessment and plan. I have the following additions:
Patient seen in early September for carotid stenosis
At that time her carotid was felt to be symptomatic
Carotid ultrasound demonstrated bilateral internal carotid artery stenoses but patient did not want to proceed with additional imaging or surgical intervention
Now returns with right frontal and parietal infarcts on MRI
CT angiography personally reviewed and demonstrates string sign in the proximal right internal carotid artery with significant plaque.
Duplex confirms stenosis with string sign on the right.
On physical exam she is well-appearing and in no acute distress
Neck is soft
Good range of motion
I had a detailed discussion with the patient and her daughters who are at bedside. Explained the results of the MRI and the CT angiogram. Explained that the most likely culprit for her right hemispheric infarcts is her high-grade right carotid
artery stenosis. Patient previously had refused surgery however now she has changed her mind and would like to pursue surgical intervention. My recommendation would be for carotid endarterectomy. The technical aspects of this procedure were
discussed with them in detail. The benefits and rationale for this approach were discussed with them in detail. Operative risks were discussed with them in detail including but not limited to stroke, heart attack, bleeding, infection, cranial
nerve injury, wound healing complications and the need for additional procedures. We also discussed the importance of lifelong medical therapy for her arterial disease risk factors.
The patient and her daughters all expressed a clear understanding of our conversation. The patient states that she would now like to move forward with surgery. Her younger daughter would like to have an additional discussion with her mother before
finalizing the plan given that this is a deviation from her previous wishes in September. We will [place] back this afternoon.
Signed:
Charles Peterson III, MD
Vascular Surgery
[facility]
Original Note:
Consultation
Consultation Request
Date/Time Consultation Performed: 10/25/24 7:30a
Performing Provider: Kristen
Reason for Consultation: Carotid stenosis
Medical History
-
Chief Complaint: 'Hard to get words out'
History of Present Illness:
84-year-old female with past medical history significant for A-fib not on anticoagulation, NSTEMI September 2024 with PCI, CHF, hypertension, hospitalized 1 month ago for UGIB (s/p EGD x 2; with findings of esophageal stenosis, short segment Romero's
esophagus and a few bleeding angiectasias in the duodenum which were cauterized; Eliquis discontinued and she was discharged on Aspirin/Plavix). Patient seen by vascular surgery on that admission for progressive left-sided weakness and carotid
ultrasound showing greater than 70% stenosis bilateral internal carotid arteries. When I saw her at bedside she initially wanted surgery but refused CTA and MRI stating she wanted 'only necessary medical interventions.' The next morning patient
refused surgery as well. Family was agreeable to medical management at that time.
Patient admitted through the emergency room yesterday for difficulty speaking, facial droop. In the ER the patient was noted to be dysarthric and aphasic with a mild facial droop.
ER CT head did not show any acute intracranial abnormalities.
CT head and neck: Severe mixed soft and calcific plaque in the right carotid bulb resulting in focal complete occlusion of the proximal right internal carotid artery spanning approximately 7 mm in length. Severe mixed soft and calcific plaque within
the left carotid bulb resulting in focal approximately 80% stenosis of the proximal left internal carotid artery.
Brain MRI: Scattered acute infarcts in the right frontal and parietal lobes
Neurology was consulted and patient was not a candidate for TNK due to recent GI bleed.
Past Medical History
Past Medical History: Arrhythmias (A-fib not on anticoagulation), CAD, CHF, GERD, HTN, SC and Other (Varicose veins)
Past Surgical History: Cardiac (PCI 08/2024) and Other (Vein stripping, rotator cuff repair, lap robert, left toe surgery, knee surgery)
Social History
Tobacco: Non-Smoker
Alcohol: None
Drug: None
Personal:
Living: Alone
Employment: Retired
Family History
Family History: CAD
Allergies / Home Medications
Allergy/AdvReac Type Severity Reaction Status Date / Time
erythromycin base Allergy Rash, hives Verified 09/10/24 17:00
(Erythromycin Base)
lisinopril (From Zestril) Allergy BAD COUGH Verified 09/10/24 17:00
tetracycline (Tetracycline) Allergy Hives Verified 09/10/24 17:00
�Medication �Instructions �Recorded �Confirmed �Type
metoprolol tartrate 25 mg tablet 12.5 mg (1/2 x 25 mg) PO BID #60 08/22/24 10/24/24 Rx
tabs
nitroglycerin 0.4 mg sublingual 0.4 mg sublingual [id number] PRN 08/22/24 10/24/24 Rx
tablet ANGINA #3 tabs
clopidogrel 75 mg tablet 75 mg PO DAILY Blood Clot 09/19/24 10/24/24 History
Prevention/Tx
aspirin 81 mg chewable tablet 81 mg PO DAILY #30 tabs 09/27/24 10/24/24 Rx
vit C 250 mg-vit E 90 mg-zinc 40 1 cap PO BID Supplement 10/05/24 10/24/24 History
mg-copper 1 [id number]
capsule (PreserVision AREDS-2)
furosemide 20 mg tablet 20 mg PO DAILY Fluid 10/06/24 10/24/24 History
Retention/Swelling
pantoprazole 40 mg tablet,delayed 40 mg PO BID #120 tabs 10/22/24 10/24/24 Rx
release (Protonix)
rosuvastatin 10 mg tablet 10 mg PO QPM 10/24/24 10/24/24 History
Review of Systems
-
History Source: Patient
All other systems: Negative unless noted
Constitutional: Reports No Symptoms
EENT: Reports No Symptoms
Respiratory: Reports No Symptoms
Cardiac: Reports No Symptoms
Vascular: Denies Leg Pain / Claudication
Musculoskeletal: Reports No Symptoms
Skin: Reports No Symptoms
Neurological: Reports Other (Difficulty getting words out)
Physical Exam
Vital Signs
Temp Pulse Resp BP Pulse Ox
97.5 F 61 15 114/60 96
10/25/24 07:40 10/25/24 05:00 10/25/24 05:00 10/25/24 05:00 10/25/24 05:00
Lab Results
10/25/24 03:24
Troponin I 0.096 ng/ml H* 10/25/24 03:24
Physical Exam
General: No Apparent Distress
HEENT: Normocephalic and Atraumatic
Respiratory: Non Labored Respirations
Cardiac: Negative JVD
GI: Soft
Musculoskeletal: No Clubbing and No Cyanosis
Skin: Warm
Neuro: Awake, Alert and Other (Speech is a bit slow, easy to understand)
Psych: Calm
Assessment / Plan
-
84-year-old female here with CVA, carotid stenosis, Afib not on anticoag
Plan:
Carotid ultrasound
Plan for discussion with daughter this morning
Data Reviewed
-
CT Scan: Discussed with Patient
Labs: Labs Reviewed by me
--- NOTE | 2024-10-25 08:53 | W.PN.HOSP.TC ---
Addendum entered and electronically signed by Jesus Burnett MD 10/25/24 19:33:
Attending Addendum-
I saw and evaluated the patient. I reviewed the resident�s note and agree with findings and plan as documented in the resident�s note. Sub: overnight had storke alert called due to episode of worsening expressive aphasia. No new interventions done.
Seen woth daughters x 2 presents. States she is almost back to her usual self. Very little residual expressive aphasia. Per patietn she feels greatly improved and denies weakness numbness or tingling. Full 12 point ROS reviewed and negative except
as documented Exam: Vitals reviewed in chart GEN-NAD heart irreg irreg lungs clear abd soft LE no edema N[place]uo AAO x 3 MS 5/5 sensation intact mild right facial droop no tongue or eye deviation fluent speech no cerebellar deficits.
Plan:
# Acute CVA, expressive aphasia.
- not a candidate for TNK given recent GI bleed.
- cont aspirin and Plavix
- CT angio noted complete occlusion of the proximal right internal carotid artery
- MRI without contrast-Scattered acute infarcts in the right frontal and parietal lobes
- Speech therapy, PT/OT
- A1c-4.3, LDL-43
- 2Decho- 10/25- Left ventricular ejection fraction 60 %, MR and TR
- multifactorial- b/l ICAS and atrial fib
# Bilateral ICA stenosis, R > L
- carotid u/s-1. Severe high-grade stenosis within the right carotid bulb. Small string of color Doppler signal is seen. Overall, findings are most suggestive of severe high-grade stenosis rather than focal occlusion.
2. Mixed plaque within the left carotid bulb, measurements suggestive of greater than 70% stenosis.
- family requesting intervention
- vasc surg on board
- cont asa and plavix
# Paroxysmal A-fib
- cardiology input appreciated
- cont metoprolol
- high risk bleed with AC
- pt and POA would like to consider watchman if able
# Chronic HFpEF
-No acute exacerbation, EF 60%
-cont [employer] lasix
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
-Monitor CBC
# NSTEMI- likely NIMI, trops have not peaked yet cont to monitor echo as above cards on board
# CAD with history of PCI left cx 08/17/24- cont asa and plavix
# Hyperlipidemia- cont rosuvastatin
CODE STATUS: DNR
[id number]
ACP
Patient consented to discuss, was with 2 daughters/POA, time spent explanation of advance directives, changes in health status, patient�s health care wishes if the patient becomes unable to make health decisions, goals of care, code status, and
prognosis, confirmed DNR and what that means- 16 minutes
Time spent coordinating care, review of plan of care with resident, personally reviewed previous records in EMR, med rec, labs, radiology, d/w nursing, cards, neuro, vasc surg, and family total time documented is exclusive of any additional time
listed that was spent in advance care planning discussion -�53 minutes
Original Note:
Today's Communication/Plan
-
Continue aspirin and Plavix
Consideration for carotid endarterectomy
Resume home oral medications
Discontinue IV fluid
PMR consult
Assessment / Plan
Assessment / Plan
84-year-old female with recent GI bleed, presented today with complaints of trouble forming words and getting the words out of the mouth.
# Acute CVA/TIA
# Acute expressive aphasia; significantly improved however there is still some residual R facial droop
- not a candidate for TNK given recent GI bleed.
- Patient is on aspirin and Plavix(patient refused resumption of Eliquis due to the GI bleed last month when she was taking Eliquis and Plavix.)
- Brain MRI: Scattered acute infarcts in the right frontal and parietal lobes
- Speech evaluation
- PT/OT
- A1c of 4.3, LDL of 44(at goal)
- Check echo
- will continue aspirin and Plavix for now; patient continues to refuse Eliquis
# Bilateral ICA stenosis; progressive
- Vascular evaluated patient last admission, patient and family opted for conservative mgmt however want vascular procedures now.
-Vascular following; ultrasound of carotids showed severe high-grade stenosis within the right carotid bulb. Greater than 70% stenosis within the left carotid bulb.
- ?? Carotid endarterectomy
# Paroxysmal A-fib
- Continue metoprolol tartrate 12.5 mg twice daily
- Patient refused anticoagulation; therefore maintain dual antiplatelet therapy
# Elevated creatinine and BUN
-Improving
- Will discontinue IV fluid
# Hypokalemia
- S/p potassium chloride 40 mEq
- Recheck in the a.m.
# HFpEF
- No acute exacerbation; appears euvolemic at this time
- Patient uses Lasix 20 mg p.o. daily at home; continue
# Recent GI bleed
- Hemoglobin stable
- Continue to monitor
- Continue PPI for now
#CAD with history of NSTEMI s/p PCI 08/17/2024
#Hypertension
- Patient uses metoprolol 12.5 mg twice daily
- Continue rosuvastatin 10 mg daily per cardio
# Hyperlipidemia
- Continue home rosuvastatin
CODE STATUS: DNR
Diet: Low-cholesterol
Anticipated Discharge: 24 - 48 hours
Subjective/Interval History
-
Date of Service: October 25, 2024
Seen and examined at bedside. Patient lying in the bed. Aphasia significantly improved.
Objective Data
-
Labs:
Laboratory Results
10/25/24 10/25/24
03:24 12:00
WBC 7.8
Hgb 8.7 L
Hct 27.4 L
Plt Count 234
Sodium 137 Pending
Potassium 3.0 L Pending
Chloride 104 Pending
Carbon Dioxide 30 Pending
BUN 19 H Pending
Creatinine 0.9 Pending
Glucose 84 Pending
Calcium 8.6 Pending
Total Bilirubin 0.7
AST 26
ALT 25
Alkaline Phosphatase 86
Vital Signs:
Vital Signs
Temp Pulse Resp BP Pulse Ox
97.5 F 61 15 114/60 96
10/25/24 07:40 10/25/24 05:00 10/25/24 05:00 10/25/24 05:00 10/25/24 05:00
I&O
10/24/24 10/25/24 10/26/24
06:59 06:59 06:59
Intake Total 1080 / 1080
Balance 1080 / 1080
Review of Systems
-
Unable to obtain full review of systems at this time due to: Acuity
History Source: Patient
Physical Exam
-
General: No Apparent Distress and Comfortable
Respiratory: Clear to Auscultation and Non Labored Respirations
Cardiac: S1/S2 and Irregular Rhythm
GI: Soft, Nontender and Nondistended
Musculoskeletal: No Edema
Skin: Warm
Neuro: Awake, Alert, Oriented, Central Nerve's Intact and Facial Droop
Psych: Calm
Data Reviewed
-
CT Scan: Report Reviewed by me, Discussed with Physician and Discussed with Patient
MRI: Report Reviewed by me, Discussed with Physician and Discussed with Patient
Labs: Labs Reviewed by me, Discussed with Physician and Discussed with Patient
[2024-10-25] MEDS: LOW STRENGTH ASPIRIN 81 MG PO (10:02)
[2024-10-25] MEDS: CRESTOR 10 MG PO ×2 (10:02→17:49)
[2024-10-25] MEDS: PLAVIX 75 MG PO (10:02)
[2024-10-25] MEDS: PROTONIX 40 MG PO ×2 (10:02→19:57)
[2024-10-25] MEDS: LOPRESSOR 12.5 MG PO ×2 (10:02→19:57)
[2024-10-25] MEDS: LASIX 20 MG PO (10:03)
--- NOTE | 2024-10-25 12:00 | CM ---
CM met with pt, dtrs/Jillian and Catherine
Pt resides with her dtr/Jillian in a home in [place]
Acute vs VN recs by therapy
PAC provided- explained role of PMR and prior auth in approval for acute rehab
Pt concerned about participating in acute therapy program but in agreement with referral to [facility]
Pt and family declined SNF backup due to poor prior experience
If no acute rehab on dc, plan for home with VN and family support
Pt noted she is considering vascular procedure now
CM rounded with attending and PMR requested
Referral placed to [facility] and pending
Pt's address updated with admissions
Discharge Disposition- acute vs home with VN/family
--- NOTE | 2024-10-25 12:15 | W.PN.CARDCBS ---
Today's Communication / Plan
-
Continue Aspirin/Plavix
Continue to hold Eliquis as a result of bleeding risk/patient preference
Await decision regarding best management strategy for recent CVA with severe bilateral carotid disease
From cardiac standpoint, CEA/ TCAR could be performed at elevated but not prohibitive cardiac risk
Impression / Plan
-
.
Assessment:
Acute CVA
[place] to be related to left carotid disease
Recurrent severe anemia/GI bleed
Admission 09/18-10/01/24 for UGIB (Romero's esophagus and a few bleeding angiectasias in the duodenum which were cauterized; Eliquis discontinued and she was discharged on Aspirin/Plavix)
Admitted 10/05/2024 with 3 bleeding and severe anemia
Overall she has required total 8 units PRBC's given since beginning of September
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
NSTEMI August 17, 2024 with peak troponin of 63.4. 90 to 95% hazy mid LCx stenosis treated with one YESICA
Known bilateral carotid stenosis right greater than left
Evaluated by vascular. Patient and family have opted for conservative management
Chronic diastolic HFpEF
Hypertension
Hyperlipidemia
Atrial fibrillation
Since GI bleeding episodes, patient has refused oral anticoagulation on multiple occasions
Multiple drug allergies
Hypokalemia
Mild renal insufficiency
DNR status
Moderate mitral regurgitation
Recommendations:
Despite a recent stroke in a very complex recent medical history she seems stable from a cardiac standpoint.
She remains in a controlled atrial fibrillation. She is off Eliquis per her choice and also in light of recent GI blood loss that was transfusion dependent. Of note, since APC of jejunal angioectasias and AVMs she has not had overt recurrent
bleeding
Neurologically it seems that she has made good recovery.
Regarding her recent PCI/stent of the circumflex with ostial RCA disease, she is stable. Continue aspirin and Plavix.
If intervention on her carotid is planned, she could proceed from a cardiac standpoint at elevated but not prohibitive risk.
No evidence of HFpEF at present. Her mitral regurgitation seems stable.
We will continue to follow. No medication changes recommended from cardiac standpoint at this time.
Progress Note - Control Electrician
Subjective
Date of Service: October 25, 2024
84-year-old woman admitted early August 2024 with ACS, history of paroxysmal atrial fibrillation off anticoagulation, started on Plavix and Eliquis prior to discharge following circumflex PCI with Blackstone stents,
readmitted September 18 with CVA and discharged October 01 following hospital stay complicated by GI blood loss with melena and hemoglobin 7.3, readmitted October 05 with recurrent anemia fatigue and GI bleed transferred to [facility] on October 21 for
enteroscopy, had angioectasia in the proximal jejunum treated with photo coagulation, discharged on clopidogrel 75 mg a day, aspirin 81 mg a day, furosemide 20 mg a day and readmitted yesterday with CVA
PMH: Blackstone stent to circumflex August 2024, 60-70% ostial RCA, hypertension, hyperlipidemia, angioectasias and GI bleeding of the jejunum, multiple drug allergies, high-grade bilateral carotid disease, HFpEF, persistent atrial fibrillation, refuses
Eliquis, history of epistaxis
Medications: Plavix 75 mg a day, enoxaparin 30 mg subcu, rosuvastatin 10 mg a day, aspirin 81 mg a day, metoprolol tartrate 12.5 twice daily, Plavix 40 twice daily, furosemide 20 twice daily
114/60, pulse 61, resp rate 15, afebrile, sats are 96, pleasant, speech may be slightly slowed, lungs are clear, regular rate and rhythm,JVD okay not much edema, no obvious focal neuro issues
Hemoglobin 8.7, BUN/creatinine are 19 and 0.9,, troponin is 0.096
ECG atrial fibrillation,
Objective
Labs:
10/25/24 03:24
Labs
Hgb 8.7 g/dL (12.0-16.0) L 08/11/25 03:24
Hct 27.4 % (37.0-47.0) L 10/25/24 03:24
Plt Count 234 10^3/uL (130-400) 10/25/24 03:24
PT 14.4 Sec (11.4-14.6) 10/24/24 10:49
INR 1.09 10/24/24 10:49
APTT 24.8 Sec (23.4-35.0) 10/24/24 10:49
Sodium 137 mmol/L (135-145) 10/25/24 03:24
Potassium 3.0 mmol/L (3.5-5.1) L 10/25/24 03:24
BUN 19 mg/dl (7-17) H 10/25/24 03:24
Creatinine 0.9 mg/dL (0.6-1.0) 10/25/24 03:24
Glucose 84 mg/dl (70-99) 10/25/24 03:24
Troponins
10/24/24 10/25/24
10:49 03:24
Troponin I 0.062 H* 0.096 H*
Vital Signs and I&O:
Vital Signs
Temp Pulse Resp BP Pulse Ox
36.4 C 74 17 153/73 97
10/25/24 11:42 10/25/24 10:03 10/25/24 10:01 10/25/24 10:03 10/25/24 10:01
Vital Signs
Temp Pulse Resp BP Pulse Ox
36.4 C 74 17 153/73 97
10/25/24 11:42 10/25/24 10:03 10/25/24 10:01 10/25/24 10:03 10/25/24 10:01
Intake & Output
10/23/24 10/24/24 10/25/24 10/26/24
07:59 07:59 07:59 07:59
Intake Total 1080 / 1080
Balance 1080 / 1080
Physical Exam
Physical Exam
See above
[2024-10-25 14:05] LABS: Blood Urea Nitrogen 19 mg/dl (7-17); Calcium 8.3 mg/dl (8.4-10.2); Carbon Dioxide 28 mmol/L (22-30); Chloride 103 mmol/L (98-107); Estimated Creatinine Clearance 35 ml/min; Glucose 152 mg/dl (70-99); Potassium 4.0 mmol/L (3.5-5.1); Sodium 136 mmol/L (135-145); eGFR 55.90
[2024-10-25 14:10] LABS: Troponin I 0.065 ng/ml
--- NOTE | 2024-10-25 15:21 | PTCARENOTE ---
Patient AOx3. NIH completed per order. See 'worklist' for documentation. Slight L sided facial and eye droop. Per patient and daughters, 'L sided facial droop looks much better then yesterday'. Slow speech and expressive aphasia. Patient gets
agitated at times due to expressive aphasia. L eye does not have central vision due to hx of macular degeneration. On RA with SpO2 greater than 92%. A fib on the monitor. BP stable. Assist x1 with RW when OOB. Call salazar within reach, bed in lowest
position, and bed of wheels locked. Daughters at bedside throughout shift.
--- NOTE | 2024-10-25 16:10 | PTOTSP ---
Speech Therapy Evaluations:
Language:
Given pt presented with expressive aphasia and acute CVAs, language was formally assessed via the Quick Aphasia Battery (QAB) Form 1. Scores were as follows:
Word Comprehension: 10.00
Sentence Comprehension: 5.00
Word Findin.50
Grammatical Construction: 5.50
Speech Motor Programmin.00
Repetition: 8.33
Readin.33
QAB Overall: 7.38 - moderate
Impression: Pt presents with moderate aphasia with deficits in sentence comprehension, word finding, grammatical construction, repetition, and reading. Of note, suspect some level of reading impairments related to baseline vision deficits. In
conversation, pt demonstrated speech that was slow with frequent pauses, filler words, and repetitions. Speech was also mildly telegraphic. Pt was able to discuss everyday topics, but communication was limited beyond that. Of note, pt presenting
with decline in language skills given pt previously scored mild on this assessment during admission in September.
Swallow:
Pt with acute risk factor for dysphagia including acute CVA's however oropharyngeal swallow appears functional at bedside. WBC WNL, pt afebrile, and on room air. No chest imaging completed thus far. Risk for reverse aspiration increased given hx of
esophageal stenosis and barretts esophagus.
Recommend:
1. Regular solids and thin liquids
2. Meds as tolerated
3. General aspiration and reflux precautions
4. GEL COATER to follow to monitor tolerance of diet and for re-assessment pending decisions for vascular surgery
5. GEL COATER to follow at acute care level for language and to determine if pt would benefit from cognitive assessment given R CVAs.
--- NOTE | 2024-10-25 17:07 | W.PN.UPDATE ---
Update Note
Progress Note Update
Met with patient and her 2 daughters again at the bedside. Patient and daughters wish to proceed with surgical intervention for the right carotid artery as detailed previously. Will plan for right CEA 10/26/2024. All questions answered
Charles Peterson III, MD
Vascular Surgery
[facility]
[2024-10-25] MEDS: LOVENOX 30 MG SC (17:49)
[2024-10-25] MEDS: NON-FORMULARY ITEM 1 CAP PO (19:56)
[2024-10-26] VITALS (25 sets, daily range): BP systolic 124–170; BP diastolic 54–97; BMI 23.4
[2024-10-26 04:28] LABS: Hematocrit 24.7 % (37.0-47.0); Hemoglobin 7.8 g/dL (12.0-16.0); Mean Corp Hgb Conc. 31.6 g/dL (33.0-37.0); Mean Corpuscular Volume 97.6 fL (81.0-99.0); Platelet Count 205 10^3/uL (130-400); Red Cell Dist. Width 18.3 % (11.5-14.5)
--- NOTE | 2024-10-26 04:31 | PTCARENOTE ---
No acute events overnight. NIH of 3. NPO since midnight. Plan for vascular surgery today. Will continue to monitor.
[2024-10-26 05:03] LABS: Blood Urea Nitrogen 18 mg/dl (7-17); Calcium 7.8 mg/dl (8.4-10.2); Carbon Dioxide 26 mmol/L (22-30); Chloride 106 mmol/L (98-107); Estimated Creatinine Clearance 39 ml/min; Glucose 83 mg/dl (70-99); Potassium 3.6 mmol/L (3.5-5.1); Sodium 135 mmol/L (135-145); eGFR > 60.00
--- NOTE | 2024-10-26 07:28 | W.PN.HOSP.TC ---
Addendum entered and electronically signed by Jesus Burnett MD 10/26/24 21:12:
Attending Addendum-
I saw and evaluated the patient. I reviewed the resident�s note and agree with findings and plan as documented in the resident�s note. Sub: NAEON, speech almost back to baseline. denies weakness numbness or tingling. Full 12 point ROS reviewed and
negative except as documented Exam: Vitals reviewed in chart GEN-NAD heart irreg irreg lungs clear abd soft LE no edema Neruo AAO x 3 MS 5/5 sensation intact mild right facial droop no tongue or eye deviation fluent speech no cerebellar deficits.
Plan:
# Acute CVA, expressive aphasia.
- not a candidate for TNK given recent GI bleed.
- cont aspirin and Plavix
- CT angio noted complete occlusion of the proximal right internal carotid artery
- MRI without contrast-Scattered acute infarcts in the right frontal and parietal lobes
- Speech therapy, PT/OT
- A1c-4.3, LDL-43
- 2Decho- 10/25- Left ventricular ejection fraction 60 %, MR and TR
- multifactorial- b/l ICAS and atrial fib
# Bilateral ICA stenosis, R > L
- carotid u/s-1. Severe high-grade stenosis within the right carotid bulb. Small string of color Doppler signal is seen. Overall, findings are most suggestive of severe high-grade stenosis rather than focal occlusion.
2. Mixed plaque within the left carotid bulb, measurements suggestive of greater than 70% stenosis.
- for right CEA today
- cont asa and plavix
# Paroxysmal A-fib
- cardiology input appreciated
- cont metoprolol
- high risk bleed with AC
- pt and POA would like to consider watchman if able
# Chronic HFpEF
-Not in acute exacerbation, EF 60%
-cont DIRT BIKE MECHANIC lasix
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
-Monitor CBC
# NSTEMI- NIMI, trops peaked, cont to monitor echo as above cards on board
# CAD with history of PCI left cx 08/17/24- cont asa and plavix
# Hyperlipidemia- cont rosuvastatin
CODE STATUS: DNR
[id number]
Time spent coordinating care, review of plan of care with resident, personally reviewed records in EMR, med rec, consults, notes, labs, radiology, d/w nursing and vasc� 52 mins
Original Note:
Today's Communication/Plan
-
Right carotid endarterectomy with vascular today.
Continue home meds for now
Assessment / Plan
Assessment / Plan
84-year-old female with recent GI bleed, presented today with complaints of trouble forming words and getting the words out of the mouth.
# Acute CVA/TIA
# Acute expressive aphasia; significantly improved however there is still some residual R facial droop
- not a candidate for TNK given recent GI bleed.
- Patient is on aspirin and Plavix(patient refused resumption of Eliquis due to the GI bleed last month when she was taking Eliquis and Plavix.)
- Brain MRI: Scattered acute infarcts in the right frontal and parietal lobes
- Speech evaluation
- PT/OT
- A1c of 4.3, LDL of 44(at goal)
- Check echo
- will continue aspirin and Plavix for now; patient continues to refuse Eliquis
# Bilateral ICA stenosis; progressive
- Vascular evaluated patient last admission, patient and family opted for conservative mgmt however want vascular procedures now.
-Vascular following; ultrasound of carotids showed severe high-grade stenosis within the right carotid bulb. Greater than 70% stenosis within the left carotid bulb.
- Right carotid endarterectomy today with vascular; patient understands the risk and benefits of the surgery.
# Paroxysmal A-fib
- Continue metoprolol tartrate 12.5 mg twice daily
- Patient refused anticoagulation; therefore maintain dual antiplatelet therapy
# Elevated creatinine and BUN
-Resolved
-Will discontinue IV fluid
# Hypokalemia
-Resolved
- Recheck in the a.m.
# HFpEF
- No acute exacerbation; appears euvolemic at this time
- Patient uses Lasix 20 mg p.o. daily at home; continue
# Recent GI bleed
- Hemoglobin stable
- Continue to monitor
- Continue PPI for now
#CAD with history of NSTEMI s/p PCI 08/17/2024
#Hypertension
- Patient uses metoprolol 12.5 mg twice daily
- Continue rosuvastatin 10 mg daily per cardio
# Hyperlipidemia
- Continue home rosuvastatin
CODE STATUS: DNR
Diet: Low-cholesterol
Dispo pending: PT recommends acute rehab or home PT; patient prefers going home
Anticipated Discharge: 24 - 48 hours
Subjective/Interval History
-
Date of Service: October 26, 2024
Seen and examined at bedside. Sitting comfortably in the chair. Offers no new complaints.
Objective Data
-
Labs:
Laboratory Results
10/26/24
04:02
WBC 6.5
Hgb 7.8 L
Hct 24.7 L
Plt Count 205
Sodium 135
Potassium 3.6
Chloride 106
Carbon Dioxide 26
BUN 18 H
Creatinine 0.9
Glucose 83
Calcium 7.8 L
Vital Signs:
Vital Signs
Temp Pulse Resp BP Pulse Ox
98.0 F 82 19 141/66 97
10/25/24 23:22 10/26/24 06:07 10/26/24 06:07 10/26/24 06:07 10/26/24 05:00
I&O
10/25/24 10/26/24 10/27/24
06:59 06:59 06:59
Intake Total 1080 / 1080 480 / 480
Balance 1080 / 1080 480 / 480
Review of Systems
-
History Source: Patient
All other systems: Reviewed and negative (Unless documented)
Physical Exam
-
General: No Apparent Distress and Comfortable
HEENT: Moist Mucous Membranes and PERRLA
Respiratory: Clear to Auscultation and Non Labored Respirations
Cardiac: S1/S2 and Irregular Rhythm
GI: Soft, Nontender and Nondistended
Musculoskeletal: No Edema
Skin: Warm
Neuro: Awake, Alert, Oriented, Central Nerve's Intact, No Sensory Deficits and Facial Droop
Psych: Calm
Data Reviewed
-
Labs: Labs Reviewed by me, Discussed with Physician, Discussed with Patient and Discussed with Family
[2024-10-26] MEDS: PLAVIX 75 MG PO (08:09)
[2024-10-26] MEDS: LASIX 20 MG PO (08:09)
[2024-10-26] MEDS: PROTONIX 40 MG PO ×2 (08:09→21:18)
[2024-10-26] MEDS: LOW STRENGTH ASPIRIN 81 MG PO (08:09)
[2024-10-26] MEDS: LOPRESSOR 12.5 MG PO ×2 (08:09→21:18)
[2024-10-26] MEDS: NON-FORMULARY ITEM 1 CAP PO ×2 (08:10→21:20)
--- NOTE | 2024-10-26 09:37 | W.PN.CARDCBS ---
Today's Communication / Plan
-
She remains in a controlled atrial fibrillation.
She remains off anticoagulation as she refuses and understands the risks.
Since her APC of jejunal angioectasias and AVMs she has not had overt recurrent bleeding with hx of significant GI bleed.
She declines Watchman, which was discussed by EP
Regarding her recent NSTEMI PCI/stent of the circumflex with ostial RCA disease, she is compensated.
Cont DAPT with Aspirin and Plavix.
Cont statin and beta nuria.
She is for CEA Oct 26 2024 as per vascular and appears compensated for this.
She appears euvolemic.
Cont current lasix
Discussed with family at bedside.
Impression / Plan
-
.
Impression:
Acute CVA
Howell to be related to left carotid disease
Recurrent severe anemia/GI bleed
Admission 09/18-10/01/24 for UGIB (Romero's esophagus and a few bleeding angiectasias in the duodenum which were cauterized; Eliquis discontinued and she was discharged on Aspirin/Plavix)
Admitted 10/05/2024 with 3 bleeding and severe anemia
Overall she has required total 8 units PRBC's given since beginning of September
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
NSTEMI August 17, 2024 with peak troponin of 63.4. 90 to 95% hazy mid LCx stenosis treated with one YESICA
Known bilateral carotid stenosis right greater than left
Evaluated by vascular. Patient and family have opted for conservative management
Chronic diastolic HFpEF
Hypertension
Hyperlipidemia
Atrial fibrillation
Since GI bleeding episodes, patient has refused oral anticoagulation on multiple occasions
Multiple drug allergies
Hypokalemia
Mild renal insufficiency
DNR status
Moderate mitral regurgitation
Plan:
She remains in a controlled atrial fibrillation.
She remains off anticoagulation as she refuses and understands the risks.
Since her APC of jejunal angioectasias and AVMs she has not had overt recurrent bleeding with hx of significant GI bleed.
She declines Watchman, which was discussed by EP
Regarding her recent NSTEMI PCI/stent of the circumflex with ostial RCA disease, she is compensated.
Cont DAPT with Aspirin and Plavix.
Cont statin and beta nuria.
She is for CEA Oct 26 2024 as per vascular and appears compensated for this.
She appears euvolemic.
Cont current lasix
Discussed with family at bedside.
Progress Note - Marketing Underwriter
Subjective
Date of Service: October 26, 2024
Pt seen and examined. No complaints. No chest pain or shortness of breath.
Objective
Labs:
10/26/24 04:02
10/26/24 04:02
Labs
Hgb 7.8 g/dL (12.0-16.0) L 10/26/24 04:02
Hct 24.7 % (37.0-47.0) L 10/26/24 04:02
Plt Count 205 10^3/uL (130-400) 10/26/24 04:02
PT 14.4 Sec (11.4-14.6) 10/24/24 10:49
INR 1.09 10/24/24 10:49
APTT 24.8 Sec (23.4-35.0) 10/24/24 10:49
Sodium 135 mmol/L (135-145) 10/26/24 04:02
Potassium 3.6 mmol/L (3.5-5.1) 10/26/24 04:02
BUN 18 mg/dl (7-17) H 10/26/24 04:02
Creatinine 0.9 mg/dL (0.6-1.0) 10/26/24 04:02
Glucose 83 mg/dl (70-99) 10/26/24 04:02
Troponins
10/24/24 10/25/24 10/25/24
10:49 03:24 13:24
Troponin I 0.062 H* 0.096 H* 0.065 H*
Vital Signs and I&O:
Vital Signs
Temp Pulse Resp BP Pulse Ox
98 F 68 19 136/60 99
10/26/24 07:42 10/26/24 08:09 10/26/24 08:00 10/26/24 08:09 10/26/24 08:00
Vital Signs
Temp Pulse Resp BP Pulse Ox
98 F 68 19 136/60 99
10/26/24 07:42 10/26/24 08:09 10/26/24 08:00 10/26/24 08:09 10/26/24 08:00
Intake & Output
10/24/24 10/25/24 10/26/24 10/27/24
06:59 06:59 06:59 06:59
Intake Total 1080 / 1080 480 / 480
Balance 1080 / 1080 480 / 480
Physical Exam
Physical Exam
General: No acute distress, AAOX3
Neck: Negative JVD
Heart: Irregularl irregular, Negative S3 positive S1/S2, Negative S4, No murmur
Lungs: CTA b/l, negative wheezes/rales/rhonchi
Abd: Positive BS, NT/ND, neg rebound/rigidity/guarding
Ext: Negative cyanosis/clubbing/edema
Neuro: nonfocal
--- NOTE | 2024-10-26 11:30 | PTCARENOTE ---
Patient AOx3. NIH completed per order. See 'worklist' for documentation. Slight L sided facial and eye droop. Slow speech and expressive aphasia. Patient gets agitated at times due to expressive aphasia. L eye does not have central vision due to hx
of macular degeneration. On RA with SpO2 greater than 92%. A fib on the monitor. BP stable. Assist x1 with RW when OOB. NPO since midnight per order due to R CEA planned today. Confirmed with Juany Corey SOILS ENGINEER that it is OK to give ASA prior to
procedure. Call salazar within reach, bed in lowest position, and bed of wheels locked. Daughters at bedside throughout shift.
--- NOTE | 2024-10-26 13:11 | CM ---
CM reviewed chart, remains in IMU, ADC>48 hours
Anticipate plan for OR today for vascular procedure
[place] following, PMR pending- Pt may want to consider return home with dtr
Will need auth, follow up for post-op needs
Discharge Disposition- acute rehab vs home with family
[2024-10-26] MEDS: PERIDEX 0.12% ORAL RINSE 15 ML PO (15:24)
[2024-10-26] MEDS: BACTROBAN 2% OINTMENT 1 APPLIC NASAL (15:25)
--- NOTE | 2024-10-26 15:40 | PTCARENOTE ---
Patient transported to landscaping and groundskeeping laborer by RN and patient transport. PRBC's running per order. VSS. Verbal report given to landscaping and groundskeeping laborer PATTI Millan.
--- NOTE | 2024-10-26 16:00 | PTCARENOTE ---
Received pt from [id number] with transport via bed on monitor at 1545. Pt AAO x3, denies complaints, able to state name and birthdate, PENNY, slight left facial droop noted, monitor showing A fib, vs as noted, lung sounds clear, O2 sat 100% on room air, abd
soft with +BS, PRBCs on pump infusing via right wrist IV stie, LAC 20G capped and flushses easily, unsuccessful attempt to place right arm IV- JUN garnett texted, Dr Jef garnett texted
--- NOTE | 2024-10-26 16:28 | PTCARENOTE ---
Verbal report given to PLATFORM ATTENDANT Aracely due to patient being transferred to ICU post R CEA. Patient belongings transferred to ICU.
--- NOTE | 2024-10-26 16:43 | PTCARENOTE ---
Hand off report given to Genevieve ARMSTRONG, pt transported to OR via bed
--- NOTE | 2024-10-26 16:59 | W.SUR.PREOP ---
Pre-Operative Surgical Note
-
I have examined this patient prior to the performance of the scheduled procedure.
The patient's condition is unchanged from the time of the current History and
Physical and the patient is able to undergo the scheduled procedure.
[2024-10-26 18:29] LABS: ACT-LR - POC 250 Seconds (116-155)
[2024-10-26 19:05] LABS: ACT-LR - POC 292 Seconds (116-155)
--- NOTE | 2024-10-26 19:44 | OR.RPT ---
Operative Report
Operative Report
Date of Operation: 10/26/2024
Pre Op Diagnosis: Symptomatic high-grade right internal carotid artery stenosis
Post Op Diagnosis: Symptomatic high-grade right internal carotid artery stenosis
Procedure: RIGHT carotid endarterectomy with patch angioplasty using bovine pericardium
Surgeon: Charles Peterson III, MD
Jewelry Setter: Primitivo Hurst MD PGY2
Anesthesia: General
Complications: None
History and Indications for Procedure: 84-year-old female with symptomatic right carotid artery stenosis
Procedure in Detail: Isa Jasso was correctly identified and placed supine on the operating table. After adequate induction of anesthesia the right neck was positioned, prepped and draped in the usual sterile fashion. Preoperative antibiotics
were administered. A timeout procedure was performed with the nursing and anesthesia staff confirming the patients identity as well as the nature and laterality of the procedure.
The carotid bifurcation was marked with ultrasound at the beginning of the case. The incision was planned accordingly. An incision was made along the anterior border of the right sternocleidomastoid muscle. Electrocautery was used to divide the
subcutaneous tissue and platysma. The carotid sheath was entered with sharp dissection. The internal jugular vein was retracted laterally. The vagus nerve was identified and protected throughout the case. The common carotid artery was identified at
the base of this incision and carefully encircled with a vessel loop. The patient was systemically heparinized. The dissection was continued distally towards the carotid bifurcation. The tissue planes during the dissection were inflamed and
somewhat fibrotic. The facial vein was skeletonized, ligated and divided between ties and clips. The proximal external carotid artery was encircled with a vessel loop. The distal internal carotid artery was encircled with a vessel loop at a soft
spot on the artery beyond the plaque. The hypoglossal nerve was identified and protected.
The internal vessel loop was secured followed by the common and external. An arteriotomy was made on the distal common carotid artery with an 11-blade. This was extended proximally and distally with Blakely scissors. The arteriotomy was extended
distally through the plaque to an area of normal appearing internal carotid artery. The distal vessel loop was replaced with a short tip hockey-stick type vascular clamp. An endarterectomy was performed with a Mary Alice elevator in the standard
fashion. The proximal extent of the plaque was transected with scissors. The distal end of the plaque in the internal carotid artery was feathered. A single interrupted 7-0 Prolene suture was placed along the posterior wall to tack down an intimal
flap. The plaque extending into the external carotid artery was everted. Once the plaque was fully removed the endarterectomy plane was irrigated with heparinized saline and any loose fronds of tissue were removed. A pre-cut piece of bovine
pericardium was sewn in place using a running 6-0 Prolene suture. Prior to the completion of the patch the common carotid was allowed to forward bleed and the external was allowed to back bleed. The area under the patch was irrigated with
heparinized saline to remove any potential thrombus or debris. The anastomosis was completed.
The external vessel loop was released first, followed by the common and then the internal. There was an excellent pulse in the distal internal carotid artery. An excellent quality Doppler signal in the distal internal carotid artery was also
confirmed. The patch suture line was closely inspected for hemostasis and was achieved. Protamine was administered. Hemostasis was achieved in the wound bed. The wound was irrigated with saline solution.
The wound was then closed in layers. Sterile skin glue was applied. The patient awoke from anesthesia with no immediate neuro deficits and was taken to the PACU in stable condition.
Attestation: I was present and responsible for the entire procedure
Signed:
Charles Peterson III, MD
Vascular Surgery
[facility]
--- NOTE | 2024-10-26 19:46 | W.IMMPOSTOP ---
Surgical Immed Post Op Note
-
Primary Surgeon: Kristen
Assisting Surgeon: Primitivo Hurst MD PGY2
Pre-op Diagnosis: chronic right carotid occlusion
Post-op Diagnosis: chronic right carotid occlusion
Procedure Performed: R CEA
Anesthesia Type: General
Specimen / Cultures: None
Estimated Blood Loss: 30 cc
Complications: None
Operative Findings: Chronic plaque in CCA extending to ECA and ICA. Performed R CEA without complication
[2024-10-26 19:54] LABS: ACT-LR - POC 128 Seconds (116-155)
[2024-10-26 20:29] LABS: Glucose - Point of Care 112 mg/dl (70-99)
[2024-10-26] MEDS: NSS 1000 IV (20:29)
[2024-10-26] MEDS: LOVENOX 40 MG SC (20:29)
[2024-10-26] MEDS: DILAUDID 0.5 MG IV (20:35)
[2024-10-26] MEDS: CRESTOR 10 MG PO (21:18)
[2024-10-26 21:47] LABS: Hematocrit 30.1 % (37.0-47.0); Hemoglobin 9.8 g/dL (12.0-16.0)
[2024-10-26 22:03] LABS: Blood Urea Nitrogen 16 mg/dl (7-17); Calcium 7.6 mg/dl (8.4-10.2); Carbon Dioxide 25 mmol/L (22-30); Chloride 105 mmol/L (98-107); Estimated Creatinine Clearance 44 ml/min; Glucose 110 mg/dl (70-99); Magnesium 1.9 mg/dl (1.6-2.3); Potassium 3.9 mmol/L (3.5-5.1); Sodium 136 mmol/L (135-145); eGFR > 60.00
[2024-10-26] MEDS: CARDENE 200 IV (22:55)
--- NOTE | 2024-10-26 23:05 | PTCARENOTE ---
received patient from OR, report updated at bedside. patient has NIH of 1, only trace r sided facial droop noted. patient drowsy from OR however able to tell me her name, and follow all commands. patient given small sips of water and swallows
with no aspiration only mild pain to neck.
Surgical site intact, minimal swelling, incision closed with derrmabond. IVF fluids running, orders to keep SBP 120-165
family at bedside for a few moments, will return tomorrow. PRN pain medication given with effective results.
--- NOTE | 2024-10-26 23:07 | PTCARENOTE ---
cardine restarted as SBP is 170-180, CONE PICKER notified. labs drawn, no new orders at this point, continue with q 1hr neuro checks.
[2024-10-27] VITALS (35 sets, daily range): BP systolic 95–173; BP diastolic 61–103; PULSE 68–71; O2SAT 97–98; BMI 23.4
[2024-10-27] MEDS: DILAUDID 0.5 MG IV ×3 (00:26→09:49)
--- NOTE | 2024-10-27 03:41 | PTCARENOTE ---
patient resting comfortably throughout shift, only c/o pain to incision site. cardine gtt off, sbp 130-160
ice pack to neck for comfort. will bladder scan to check for retention.
[2024-10-27 03:46] LABS: Hematocrit 30.8 % (37.0-47.0); Hemoglobin 10.1 g/dL (12.0-16.0); Mean Corp Hgb Conc. 32.8 g/dL (33.0-37.0); Mean Corpuscular Volume 93.6 fL (81.0-99.0); Platelet Count 276 10^3/uL (130-400); Red Cell Dist. Width 19.9 % (11.5-14.5)
[2024-10-27 03:54] LABS: INR 1.20; PT 15.5 Sec (11.4-14.6)
[2024-10-27 03:55] LABS: APTT 30.6 Sec (23.4-35.0)
[2024-10-27 04:07] LABS: Blood Urea Nitrogen 18 mg/dl (7-17); Calcium 7.8 mg/dl (8.4-10.2); Carbon Dioxide 23 mmol/L (22-30); Chloride 106 mmol/L (98-107); Estimated Creatinine Clearance 50 ml/min; Glucose 118 mg/dl (70-99); Sodium 137 mmol/L (135-145); eGFR > 60.00
--- NOTE | 2024-10-27 04:55 | PTCARENOTE ---
bladder scan for <100 ml, bolus ordered, redrew bmp for K+ which was hemolized, awaiting results.
[2024-10-27 05:00] LABS: Blood Urea Nitrogen 20 mg/dl (7-17); Calcium 8.2 mg/dl (8.4-10.2); Carbon Dioxide 22 mmol/L (22-30); Chloride 107 mmol/L (98-107); Estimated Creatinine Clearance 50 ml/min; Glucose 121 mg/dl (70-99); Potassium 3.9 mmol/L (3.5-5.1); Sodium 137 mmol/L (135-145); eGFR > 60.00
[2024-10-27] MEDS: NSS 1000 IV (05:01)
[2024-10-27] MEDS: LASIX 20 MG PO (07:17)
[2024-10-27] MEDS: LOPRESSOR 12.5 MG PO ×2 (07:18→19:28)
[2024-10-27] MEDS: LOW STRENGTH ASPIRIN 81 MG PO (07:19)
[2024-10-27] MEDS: PLAVIX 75 MG PO (07:19)
[2024-10-27] MEDS: PROTONIX 40 MG PO ×2 (07:19→19:28)
--- NOTE | 2024-10-27 07:24 | CON.INTV ---
Addendum entered and electronically signed by Hong Hill MD 10/27/24 12:44:
Hand Miter Operator service will sign off once patient is transferred out of ICU.
Original Note:
Consultation
Consultation Request
Date/Time Consultation Requested: 10/26/2024
Date/Time Consultation Performed: 10/27/2024
Medical History
-
Chief Complaint: Expressive aphasia
History of Present Illness:
Patient is 84 old female with known history of atrial fibrillation not on anticoagulation due to recurrent GI bleeds in the past, who presented with expressive aphasia and was admitted to the hospital on 10/24. Workup included CT and subsequently
MRI brain which was suggestive of acute stroke. Patient also noted to have bilateral carotid artery disease and vascular surgery was consulted patient was subsequently taken for carotid endarterectomy and was postsurgically admitted to ICU.
Hand Miter Operator, patient was requested for further input.
Past Medical History
Past Medical History: Reports CAD (s/p PCI 09/08) and Other
Additional Past Medical History:
Hypertension
Parosyxmal Atrial Fibrillation
Varicose Veins
Superficial Thrombophlebitis
UGIB, duodenal angioectasias
Past Surgical History: Reports Other
Additional Past Surgical History:
Vein Stripping
Left TKA
Left Shoulder Surgery
Cholecystectomy
Social History
Tobacco: Non-smoker
Alcohol: None
Drug: None
Family History
Family History: Not pertinent
Allergies / Home Medications
Allergies / Home Medications
Allergies
Allergy/AdvReac Type Severity Reaction Status Date / Time
erythromycin base Allergy Rash, hives Verified 09/10/24 17:00
(Erythromycin Base)
lisinopril (From Zestril) Allergy BAD COUGH Verified 09/10/24 17:00
tetracycline (Tetracycline) Allergy Hives Verified 09/10/24 17:00
Home Medications
�Medication �Instructions �Recorded �Confirmed �Last Taken �Type
metoprolol tartrate 25 mg tablet 12.5 mg (1/2 x 25 mg) PO BID #60 08/22/24 10/24/24 10/24/24 Rx
tabs
nitroglycerin 0.4 mg sublingual 0.4 mg sublingual [id number] PRN 08/22/24 10/24/24 1 Week Ago Rx
tablet ANGINA #3 tabs ~09/11/24
clopidogrel 75 mg tablet 75 mg PO DAILY Blood Clot 09/19/24 10/24/24 10/24/24 History
Prevention/Tx
aspirin 81 mg chewable tablet 81 mg PO DAILY #30 tabs 09/27/24 10/24/24 10/24/24 Rx
vit C 250 mg-vit E 90 mg-zinc 40 1 cap PO BID Supplement 10/05/24 10/24/24 10/24/24 History
mg-copper 1 [id number]
capsule (PreserVision AREDS-2)
furosemide 20 mg tablet 20 mg PO DAILY Fluid 10/06/24 10/24/24 10/24/24 History
Retention/Swelling
pantoprazole 40 mg tablet,delayed 40 mg PO BID #120 tabs 10/22/24 10/24/24 10/24/24 Rx
release (Protonix)
rosuvastatin 10 mg tablet 10 mg PO QPM High Cholesterol 10/24/24 10/24/24 10/23/24 History
Review of Systems
-
Hematologic/Lymphatic: Other (All 14 systems reviewed and negative except as stated above in the history of present illness.)
Vitals / Labs / Diagnostic Testing
Vital Signs
Temp Pulse Resp BP Pulse Ox
98.8 F 80 15 142/56 100
10/26/24 15:45 10/27/24 07:18 10/26/24 21:37 10/27/24 07:18 10/26/24 21:37
Lab Data
10/27/24 03:26
10/27/24 04:17
Laboratory Results
10/26/24 10/26/24 10/27/24
17:06 20:18 03:26
PT Cancelled Cancelled 15.5 H
INR Cancelled Cancelled 1.20
APTT Cancelled 30.6
Diagnostic Testing:
Physical Exam
-
HEENT: Normocephalic
Cardiovascular: S1/S2
Respiratory: Clear
GI: Soft
Neurology: Awake and Alert
Skin: Warm and Dry
General: Comfortable
Assessment
-
Patient is 84-year-old female with history of stroke, noted to have chronic right carotid occlusion, s/p right carotid endarterectomy by vascular surgery service, POD #1
Continue observation following procedure
Follow neurovascular checks per protocol
ASA, clopidogrel, Crestor, metoprolol twice daily.
10/27 overview: Patient not on any infusions, saturating 95% on room air. Not requiring any pressor support, MAP of 85.
Follow BP monitoring and parameters as set by primary team
Cardiac history noted
Monitor on telemetry
Pain control per protocol
RASS goal 0
No prior history of pulmonary disease, smoking hx includes
CXR reviewed indicating no acute disease
No prior PFTs for review
Encouraged IS
Diet advancement per protocol
Aspiration precautions
GI prophylaxis: Currently on Protonix twice daily
DVT prophylaxis, on Lovenox 40 daily
Creat at baseline, follow UO
Critical I/Os
Void trials
Replete electrolytes as needed
No signs/symptoms suspicious for infectious etiology at this time
Will observe off antibiotics for now
Follow temperatures/CBC
Hb and platelets postoperatively stable
Encouraged OOB/PT/OT/ambulation once cleared by surgical team
Other medical diagnoses:
- Acute CVA, 10/2024. Currently on aspirin, Plavix, statins.
- Chronic atrial fibrillation, patient declines anticoagulation or Watchman device. Not on anticoagulation currently. High risk of embolic stroke.
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 Continue Protonix twice daily as ordered
- History of coronary artery disease, NSTEMI, PCI of left circumflex 08/2024. Continue DAPT, statins and metoprolol, cardiology service on case.
- Heart failure with preserved ejection fraction. Trace pleural effusion noted on x-ray, continue Lasix as ordered.
- Hypertension, hyperlipidemia
Critical Care time 61 mins -- The patient is admitted for acute critical illness for the treatment of vital organ failure and/or prevention of further life-threatening conditions. Total care includes time spent in review of history, physical exam,
medications, hemodynamic/ventilator parameters, laboratory data, imaging and discussion with house staff, pharmacy, respiratory therapy, marketing operations manager, and nursing.
Data:
CXR 10/2024: Left basilar parenchymal opacity suspicious for aspiration/pneumonia versus atelectasis.
Trace bilateral pleural fluid. No pneumothorax. Stable enlargement of the cardiac silhouette. Chronic degenerative changes of the spine
MRI Brain 10/2024: Scattered acute infarcts in the right frontal and parietal lobes,
ECHO 10/2024: 1. Left ventricular ejection fraction is normal with an ejection fraction of 60 % by Sandoval's biplane method of discs.
2. Right ventricular cavity size cavity is mildly dilated.
3. Indexed left atrial volume is within normal range (15-34 ml/m2).
4. Mildly dilated right atrium.
5. Trace aortic regurgitation.
6. Mild to moderate mitral valve regurgitation.
7. Moderate tricuspid regurgitation.
8. Tricuspid valve opens normally. moderate tricuspid regurgitation. Estimated pulmonary artery pressure of 32 mmHg assuming a right atrial pressure of 3 mmHg.
9. When compared to the most recent echocardiogram from 08/17/24, there has been no significant change.
C 10/2024: 1. Successful percutaneous coronary artery intervention of a 90 to 95% hazy, thrombotic mid left circumflex stenosis (lesion type C, DARIEN II flow) with one 2.75 x 30 mm Medtronic Rafiq drug-eluting stent, postdilated using IVUS guidance
with a 2.75 x 20 mm NC trek balloon at 16 mariama with an excellent angiographic result.
2. Significantly elevated LVEDP at 27 mmHg
PFT 12/2022: Normal spirometry, normal total lung capacity, mildly reduced diffusion capacity. Overall normal PFTs except for moderate isolated gas exchange defect.
--- NOTE | 2024-10-27 07:29 | W.PN.ANS.POP ---
Anesthesia Post Operative
- Anesthesia Post Op Note
Vital Signs Stable-See Nursing Note: Yes
Airway Patent: Yes
Adequate Pain Control: Yes
Change in Mental Status: No
Current Postoperative Nausea & Vomiting: No
Anesthesia Complications: No
General Anesthetic Recall: No
Unplanned Admission: No
Post Op Hydration Adequate: Yes
--- NOTE | 2024-10-27 07:31 | PTCARENOTE ---
0700 assume care. Cardizem off; NSS 250 bolus infusing. Left Radial A/line 144/61 MAP 92 RT neck incision intact, no swelling noted BRUCE. ICE pack to incision. Patient c/o of pain. Appears to have pain while swallowing. Dry blood on lips. Call salazar
within reach
--- NOTE | 2024-10-27 08:06 | W.PN.HOSP.TC ---
Addendum entered and electronically signed by Jesus Burnett MD 10/27/24 21:16:
Attending Addendum-
I saw and evaluated the patient. I reviewed the resident�s note and agree with findings and plan as documented in the resident�s note. Sub: seen post Dilaudid administration. Appears groggy and mildly confused. 'i think its the pain meds' complains
if mild soreness in neck. denies weakness numbness or tingling. Per nursing having post op urinary retention. Full 12 point ROS reviewed and negative except as documented Exam: Vitals reviewed in chart GEN-NAD heart irreg irreg lungs clear HEENT-
right neck incision CDI midlly swollen NTTP abd soft LE no edema Neuro AAO x 2 MS 5/5 sensation intact,right facial droop resolved, no tongue or eye deviation fluent speech no cerebellar deficits.
Plan:
# Acute CVA, expressive aphasia.
- not a candidate for TNK given recent GI bleed.
- cont aspirin and Plavix
- CT angio noted complete occlusion of the proximal right internal carotid artery
- MRI without contrast-Scattered acute infarcts in the right frontal and parietal lobes
- Speech therapy, PT/OT
- A1c-4.3, LDL-43
- 2Decho- 10/25- Left ventricular ejection fraction 60 %, MR and TR
- multifactorial- b/l ICAS and atrial fib
# Bilateral ICA stenosis, R > L
- carotid u/s-1. Severe high-grade stenosis within the right carotid bulb. Small string of color Doppler signal is seen. Overall, findings are most suggestive of severe high-grade stenosis rather than focal occlusion.
2. Mixed plaque within the left carotid bulb, measurements suggestive of greater than 70% stenosis.
- 10/26-Right CEA with patch angioplasty using bovine pericardium POD#2
- cont asa and plavix
- transferred to ICU post procedure- now stable transfer to tele
# Paroxysmal A-fib
- cardiology input appreciated
- cont metoprolol
- high risk bleed with AC
- pt and POA refusing watchman and AC
# Chronic HFpEF
-Not in acute exacerbation, EF 60%
-cont ASBESTOS REMOVAL SUPERVISOR lasix
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
-Monitor CBC
#Urinary Retention-avoid [place], [place] for PVR > 350mls, encourage ambulation, likely from anesthesia
# NSTEMI- NIMI, trops peaked, cont to monitor echo as above cards on board
# CAD with history of PCI left cx 08/17/24- cont asa and plavix
# Hyperlipidemia- cont rosuvastatin
CODE STATUS: DNR
[id number]
Dispo Refusing SNF and acute rehab- DC home in am
Time spent coordinating care, review of plan of care with resident, personally reviewed records in EMR, med rec, consults, notes, labs, radiology, d/w nursing and vasc� 51 mins
Original Note:
Today's Communication/Plan
-
pt/ot eval
Discontinue IV fluid
Speech eval
Anticipate dispo tomorrow
Liquid Tylenol for pain
Transfer to telemetry
Assessment / Plan
Assessment / Plan
84-year-old female with recent GI bleed, presented today with complaints of trouble forming words and getting the words out of the mouth.
# Acute CVA/TIA
# Acute expressive aphasia; significantly improved however there is still some residual R facial droop
- not a candidate for TNK given recent GI bleed.
- Patient is on aspirin and Plavix(patient refused resumption of Eliquis due to the GI bleed last month when she was taking Eliquis and Plavix.)
- Brain MRI: Scattered acute infarcts in the right frontal and parietal lobes
- PT/OT
- A1c of 4.3, LDL of 44(at goal)
-10/25 echo with EF of 60%
- will continue aspirin and Plavix for now; patient continues to refuse Eliquis
- Aphasia and facial droop resolved
# Bilateral ICA stenosis; progressive
- Vascular evaluated patient last admission, patient and family opted for conservative mgmt however want vascular procedures now.
-Vascular following; ultrasound of carotids showed severe high-grade stenosis within the right carotid bulb. Greater than 70% stenosis within the left carotid bulb.
- s/p Right CEA with vascular on 10/27/23
- Patient received 1 bag of IV normal saline bolus; no additional IV fluid at this time.
- PT/OT
- Follow-up with outpatient vascular.
update: Per nurse patient had some pain and she gave her Dilaudid. Patient was very drowsy after Dilaudid. Discontinuing Dilaudid. Will get a speech eval to make sure she is cleared to eat and swallow. Recommend incentive spirometer
#cough
-cxr with Left basilar parenchymal opacity suspicious for aspiration/pneumonia versus atelectasis.
- Await speech eval
- Patient reports that her cough was resolved now; will continue to monitor
# Paroxysmal A-fib
- Continue metoprolol tartrate 12.5 mg twice daily
- Patient refused anticoagulation; therefore maintain dual antiplatelet therapy
# Elevated creatinine and BUN
-Resolved
# Hypokalemia
-Resolved
- Recheck in the a.m.
# HFpEF
- No acute exacerbation; appears euvolemic at this time
- Patient uses Lasix 20 mg p.o. daily at home; continue
- 10/25 echo with left ventricular EF 60%, MR and TR
# Recent GI bleed
- Hemoglobin stable
- Continue to monitor
- Continue PPI for now
#CAD with history of NSTEMI s/p PCI 08/17/2024
#Hypertension
- Patient uses metoprolol 12.5 mg twice daily
- Continue rosuvastatin 10 mg daily per cardio
# Hyperlipidemia
- Continue home rosuvastatin
CODE STATUS: DNR
Diet: Low-cholesterol
Dispo pending: PT recommends acute rehab or home PT; patient prefers going home
Anticipated Discharge: Within 24 hours
Subjective/Interval History
-
Date of Service: October 27, 2024
Seen and examined at bedside. Offers no new complaints. Mild incision site pain on the right side. She was on nicardipine drip to maintain SBP between 100 and 165 overnight for period of time
Objective Data
-
Labs:
Laboratory Results
10/26/24 10/26/24 10/26/24
17:06 20:18 21:27
WBC
Hgb 9.8 L D
Hct 30.1 L
Plt Count
PT Cancelled Cancelled
INR Cancelled Cancelled
APTT Cancelled
Sodium Cancelled 136
Potassium Cancelled 3.9
Chloride Cancelled 105
Carbon Dioxide Cancelled 25
BUN Cancelled 16
Creatinine Cancelled 0.8
Glucose Cancelled 110 H
Calcium Cancelled 7.6 L
10/27/24 10/27/24
03:26 04:17
WBC 9.4
Hgb 10.1 L
Hct 30.8 L
Plt Count 276 D
PT 15.5 H
INR 1.20
APTT 30.6
Sodium 137 137
Potassium 3.9
Chloride 106 107
Carbon Dioxide 23 22
BUN 18 H 20 H
Creatinine 0.7 0.7
Glucose 118 H 121 H
Calcium 7.8 L 8.2 L
Vital Signs:
Vital Signs
Temp Pulse Resp BP Pulse Ox
98.8 F 80 15 142/56 100
10/26/24 15:45 10/27/24 07:18 10/26/24 21:37 10/27/24 07:18 10/26/24 21:37
I&O
10/26/24 10/27/24 10/28/24
06:59 06:59 06:59
Intake Total 480 / 480 880 / 880
Balance 480 / 480 880 / 880
Review of Systems
-
History Source: Patient
All other systems: Reviewed and negative (Unless documented)
Physical Exam
-
General: No Apparent Distress and Comfortable
HEENT: Moist Mucous Membranes, PERRLA and Other (Intact postsurgical scar on the right side of the neck with skin glue.)
Respiratory: Clear to Auscultation and Non Labored Respirations
Cardiac: S1/S2 and Irregular Rhythm
GI: Soft, Nontender and Nondistended
Musculoskeletal: No Edema
Skin: Warm
Neuro: Awake, Alert, Oriented, Central Nerve's Intact, No Sensory Deficits and Facial Droop
Psych: Calm
Data Reviewed
-
Labs: Labs Reviewed by me, Discussed with Physician and Discussed with Patient
--- NOTE | 2024-10-27 08:26 | W.PN.VS ---
Today's Communication / Plan
-
Plan reviewed with attending Dr. Dheeraj Chapman
Assessment/Plan
-
Assessment: 84 year old POD#1 RIGHT carotid endarterectomy with patch angioplasty using bovine pericardium
Plan:
Discontinue arterial line
Discontinue IV fluids
OOB to chair with progression to ambulation as tolerated
Follow up appointment placed in dc instructions
Subjective Data
-
Date of Service: October 27, 2024
Patient seen and examined at bedside, offers no complaints. Endorses well managed postoperative pain.
Objective Data
-
Vital Signs
Temp Pulse Resp BP Pulse Ox
97 F 73 13 159/100 94
10/27/24 07:30 10/27/24 08:00 10/27/24 08:00 10/27/24 07:30 10/27/24 08:00
Intake and Output
10/26/24 10/27/24 10/28/24
06:59 06:59 06:59
Intake Total 480 / 480 880 / 880
Balance 480 / 480 880 / 880
Intake:
Oral fluids 480 / 480
IV fluids (Total) 880 / 880
Nss 1,000 ml @ 80 mls/hr IV . 880 / 880
[id number] [facility] Rx#:[id number]
Blood Product Amount Infused ( 0 / 0
mL)
Packed Rbc Leukoreduced Unit 0 / 0
[id number]
Other:
Number of approximated MODERATE 2
amounts of urine
Number of approximated LARGE 1
amounts of urine
Lab Results
10/27/24 03:26
10/27/24 04:17
Calcium 8.2 mg/dl (8.4-10.2) L 10/27/24 04:17
Phosphorus 3.9 mg/dl (2.5-4.5) 10/26/24 21:27
Magnesium 1.9 mg/dl (1.6-2.3) 10/26/24 21:27
Total Bilirubin 0.7 mg/dl (0.2-1.3) 10/25/24 03:24
AST 26 U/L (14-36) 10/25/24 03:24
ALT 25 U/L (0-35) 10/25/24 03:24
Alkaline Phosphatase 86 U/L (38-126) 10/25/24 03:24
Total Protein 5.3 g/dl (6.3-8.2) L 10/25/24 03:24
Albumin 2.9 g/dl (3.5-5.0) L 10/25/24 03:24
Physical Exam
-
NAD, resting in bed comfortably
Right neck surgical incision clean, dry, and intact, exofin glue intact, no evidence of hematoma or edema, tongue midline
No tachycardia
No dyspnea on room air
Moves BL UE and LE to command and spontaneously
--- NOTE | 2024-10-27 09:27 | PTCARENOTE ---
A-line Removed
Left A-Line Removed per order; Pressure help until bleeding was stopped. Pressure dressing in place. AT this time dry and intact . BP via Rt upper arm 145/61 MAP 85
--- NOTE | 2024-10-27 09:30 | W.PN.CARDCBS ---
Today's Communication / Plan
-
Patient continues to decline oral anticoagulation
Would continue current cardiac meds
Impression / Plan
-
Impression:
Acute CVA
[place] to be related to left carotid disease
Recurrent severe anemia/GI bleed
Admission 09/18-10/01/24 for UGIB (Romero's esophagus and a few bleeding angiectasias in the duodenum which were cauterized; Eliquis discontinued and she was discharged on Aspirin/Plavix)
Admitted 10/05/2024 with 3 bleeding and severe anemia
Overall she has required total 8 units PRBC's given since beginning of September
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
NSTEMI August 17, 2024 with peak troponin of 63.4. 90 to 95% hazy mid LCx stenosis treated with one YESICA
Known bilateral carotid stenosis right greater than left
Evaluated by vascular. Patient and family have opted for conservative management
Chronic diastolic HFpEF
Hypertension
Hyperlipidemia
Atrial fibrillation
Since GI bleeding episodes, patient has refused oral anticoagulation on multiple occasions
Multiple drug allergies
Hypokalemia
Mild renal insufficiency
DNR status
Moderate mitral regurgitation
Plan:
Remains in rate controlled atrial fibrillation
Discussed OAC again this AM, but she continue to decline this
Previously declined Watchman as well
Regarding her recent NSTEMI PCI/stent of the circumflex with ostial RCA disease, not reporting any chest discomfort
Cont DAPT with Aspirin and Plavix
Cont statin and beta nuria
Appears euvolemic, cont current maintenance dose of lasix
s/p CEA Oct 26 2024 with vascular surgery
Progress Note - Etl Analyst Developer
Subjective
Date of Service: October 27, 2024
NAOE. Recovering from CEA in the ICU. No cardiac complaints.
Objective
Labs:
10/27/24 03:26
10/27/24 04:17
Labs
Hgb 10.1 g/dL (12.0-16.0) L 10/27/24 03:26
Hct 30.8 % (37.0-47.0) L 10/27/24 03:26
Plt Count 276 10^3/uL (130-400) D 10/27/24 03:26
PT 15.5 Sec (11.4-14.6) H 10/27/24 03:26
INR 1.20 10/27/24 03:26
APTT 30.6 Sec (23.4-35.0) 10/27/24 03:26
Sodium 137 mmol/L (135-145) 10/27/24 04:17
Potassium 3.9 mmol/L (3.5-5.1) 10/27/24 04:17
BUN 20 mg/dl (7-17) H 10/27/24 04:17
Creatinine 0.7 mg/dL (0.6-1.0) 10/27/24 04:17
Glucose 121 mg/dl (70-99) H 10/27/24 04:17
Troponins
10/24/24 10/25/24 10/25/24
10:49 03:24 13:24
Troponin I 0.062 H* 0.096 H* 0.065 H*
Vital Signs and I&O:
Vital Signs
Temp Pulse Resp BP Pulse Ox
98.8 F 136 29 102/61 94
10/27/24 08:38 10/27/24 08:38 10/27/24 08:38 10/27/24 08:38 10/27/24 08:00
Vital Signs
Temp Pulse Resp BP Pulse Ox
98.8 F 136 29 102/61 94
10/27/24 08:38 10/27/24 08:38 10/27/24 08:38 10/27/24 08:38 10/27/24 08:00
Intake & Output
10/25/24 10/26/24 10/27/24 10/28/24
06:59 06:59 06:59 06:59
Intake Total 1080 / 1080 480 / 480 880 / 880
Balance 1080 / 1080 480 / 480 880 / 880
Physical Exam
Physical Exam
Gen: NAD, AA
HEENT: NC/AT, sclera anicteric
Neck: R sided incision CDI
CV: RRR, NL s1/s2
Lungs: No increased WOB on RA
Abd: S/ND
Ext: No LE edema
Skin: Warm, dry
[2024-10-27] MEDS: NON-FORMULARY ITEM 1 CAP PO ×2 (09:49→21:06)
--- NOTE | 2024-10-27 10:43 | CM ---
Patient seen at bedside in ICU with nurse working on IV. CM will continue to follow for discharge planning needs.
Plan; Pending PM&R assessment/[place] and will need auth pending medical treatment plan
--- NOTE | 2024-10-27 10:56 | PTCARENOTE ---
Patient c/o of Rt neck pain 8/10 pain scale level . c/o of pain while swallowing. Oxycodone offered but patient refused . Requested Dilaudid.
Post Dilaudid pt c/o of been diazines. Pain relieve achieve
--- NOTE | 2024-10-27 16:11 | CON.MD ---
Consultation - Medical
-
Chief Complaint:�Stroke
�
History of Present Illness:�84-year-old right-handed female with PMH (as below) presented to [facility] on 10/24/2024 with difficulty speaking and facial droop with change in voice 30 minutes prior to arrival. Initial CT of the head in the
ER with no acute intracranial abnormality. CT of the head and neck with angio showed approximately 80% stenosis of the proximal left internal carotid artery complete occlusion of the proximal right ICA spanning approximately 7 mm in length. Also
found to be anemic at 8.8 improved from 7.9 on 10/22. Neurology was consulted and she was found to not be a candidate for TNK secondary to recent GI bleed. Started on aspirin and Plavix. She was seen by vascular surgery with no bilateral carotid
stenosis, previously deferred surgical intervention. Given stroke symptoms she underwent an 10/26/2024 right carotid endarterectomy by Dr. Peterson.
�
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
heart failure with preserved ejection fraction, recent anemia from GI bleed, hypokalemia, mild renal insufficiency.
Procedure History:�Leg vein stripping, left TKA, left shoulder surgery, cholecystectomy, PCI 09/13/2024
Family History:�Denies
�
Social History:�
Functional Level Premorbidly:�Independent with all activities sometimes using cane or rollator.
Functional Level Currently:�10/25 moderate aphasia, oropharyngeal swallow appears functional at bedside. 10/27 supervision for bed mobility. Min assist for transfers and ambulating 10 feet with rolling walker.
�
Tobacco:�Denies�
Alcohol:�Denies�
Drug use:�Denies�
�
Lives with:�Daughter lives with her and is available as needed.
24-hour assistance available:�Yes daughter works from home at patient's house
Number of floors:�2
# steps to enter:�1
# steps to second floor: Stair glide
Potential First floor set up:�
Driving:�No
Occupation:�Retired
�
�
Allergies:�
Allergy/AdvReac Type Severity Reaction Status Date / Time
erythromycin base Allergy Rash, hives Verified 09/10/24 17:00
(Erythromycin Base)
lisinopril (From Zestril) Allergy BAD COUGH Verified 09/10/24 17:00
tetracycline (Tetracycline) Allergy Hives Verified 09/10/24 17:00
�
Review of Systems:�
Constitutional: (x) abNormal _tired
Eye: (x) Normal _
Ear/Nose/Throat: (x) Normal _
Respiratory: (x) Normal _
Cardiovascular: (x) abNormal _right carotid endarterectomy 10/26
Gastrointestinal: (x) Normal _
Genitourinary: (x) Normal _
Musculoskeletal: (x) Normal _
Integumentary: (x) Normal _
Neurologic: (x) abNormal _stroke with difficulty speaking
Psychiatric: (x) Normal _
Endocrine: (x) Normal _
Hematologic/Lymphatic: (x) Normal _
Allergic/Immunologic: (x) Normal _
�
Medications:�
Active Current Visit Medication List
Category Date Time Status
Acetaminophen [Tylenol Oral Solution] Med 10/27/24 16:14 Active
650 mg PO Q6HPRN PRN
Acetaminophen [Tylenol/Feverall] Med 10/24/24 14:27 Active
650 mg RECTAL Q4HPRN PRN
Aspirin Chewable [Low Strength Aspirin] Med 10/25/24 09:00 Active
81 mg PO DAILY
Bisacodyl [Dulcolax] Med 10/26/24 17:06 Active
10 mg RECTAL DAILYPRN PRN
Clopidogrel Bisulfate [Plavix] Med 10/25/24 09:00 Active
75 mg PO DAILY
Enoxaparin Sodium [Lovenox] Med 10/26/24 18:00 Active
40 mg SC QPM
Flush (0.9% Sodium Chloride) [Flush (Nss)] Med 10/24/24 15:00 Active
See Dose Instructions IV PER PROTOCOL
Furosemide [Lasix] Med 10/25/24 09:00 Active
20 mg PO DAILY
Metoprolol [Lopressor] Med 10/25/24 09:00 Active
12.5 mg PO BID
Oxycodone [Roxicodone] Med 10/26/24 17:06 Active
5 mg PO Q4HPRN PRN
Pantoprazole [Protonix] Med 10/25/24 09:00 Active
40 mg PO BID
Rosuvastatin Calcium [Crestor] Med 10/25/24 09:00 Active
10 mg PO QPM
Vit C,G-By-Ozjld-Lutein-Zeaxan [Preservision Areds-2] Med 10/25/24 20:00 Active
See Dose Instructions PO BID
�
Vitals:�
Temp Pulse Resp BP Pulse Ox
98.8 F 69 12 145/61 88
10/27/24 08:38 10/27/24 10:00 10/27/24 10:00 10/27/24 09:26 10/27/24 10:00
Height 5 ft 3 in
Actual Weight 59.9 kg
Body Mass Index (BMI) 23.4
�
Physical Exam:�
General Appearance/Observation: Well-developed, well-nourished female in no apparent distress.�
Pain/Comfort Assessment: Moderate right neck pain
Mood/Affect: Appropriate�
�
Integumentary/Operative Site:�Right CEA incision with glue
�� Pressure Ulcer Evaluation: absent over heels.�
�
Eyes: Conjunctiva/Lids: normal��� Pupils: pupils equal round and reactive to light and Accommodation
Ears/Nose/Throat: oral mucosa moist, throat clear.������������ Lips/Teeth/Gums: normal
Cardiovascular: Heart: regular, no murmur�
Pulses: dorsalis pedis 2+ bilaterally�
Respiratory: Respiratory Effort/Chest Expansion: normal������ Auscultation: Clear to auscultation bilaterally
Gastrointestinal: abdomen not tender, no distension, normal abdominal bowel sounds
Genitourinary: No Epterson�
Rectal Exam: Deferred�
Extremities:�Edema: None�Cyanosis: None�Trophic�changes: None
�
Neurology Exam:
Orientation: Alert, Oriented to self, Time, Place�
Memory: Intact for recent medical concerns
Repetition: Intact
Comprehension: Intact
Two step command: Intact
Naming: Intact
Cranial Nerves:
�� CNII:�Pupillary light reflex: Intact���Visual Field: Intact. Does have difficulty reading clock across the room
�� CN III, IV, : Extraocular muscles: Intact�
�� CN V:�Facial Sensation�at�Forehead: Intact,�Maxilla: Intact,�Mandible: Intact
�� CN VII:�Facial movement: Slight left facial asymmetry
�� CN VIII:�Hearing: Normal
�� CN IX/X:�Speech & swallow: Mild dysarthria and aphasia,�Position of Uvula: Midline
�� CN XI:�Shoulder shrug: Symmetric
�� CN XII:�Tongue protrusion: Midline
Sensory:
�� Light touch: Intact in bilateral upper and lower extremities, no extinction to double simultaneous stimulation.
�
Reflexes:
�� Biceps: 2+ bilaterally
�� Brachioradialis: 2+ bilaterally
�� Triceps: 2+ bilaterally
�� Patellar: 2+ bilaterally
�� Achilles: 2+ bilaterally
�� Babinski: Down going bilaterally
�� Clonus: None
�� Price: Negative bilaterally�
Cerebellar: Dysmetria/Ataxia: None�
Musculoskeletal: Motor: (Manual muscle scale 0-5)�
Muscle SA EF WE EE FF FA HF KE DF EHL PF
Right� 5 5 5 5 5 4 4 5 5 5 5
Left 5 5 5 5 5 4 4 5 5 5 5
�
Tone: Normal in all extremities�
Range of Motion: Passively within normal limits in all extremities�
�
Lab Results
Laboratory Data
10/27/24 03:26
10/27/24 04:17
PT 15.5 Sec (11.4-14.6) H 10/27/24 03:26
INR 1.20 10/27/24 03:26
APTT 30.6 Sec (23.4-35.0) 10/27/24 03:26
Total Bilirubin 0.7 mg/dl (0.2-1.3) 10/25/24 03:24
AST 26 U/L (14-36) 10/25/24 03:24
ALT 25 U/L (0-35) 10/25/24 03:24
Alkaline Phosphatase 86 U/L (38-126) 10/25/24 03:24
Total Protein 5.3 g/dl (6.3-8.2) L 10/25/24 03:24
Albumin 2.9 g/dl (3.5-5.0) L 10/25/24 03:24
�
Diagnostic Results:�as per HPI�
�
Assessment
84-year-old right-handed female with PMH (Paroxysmal atrial fibrillation, CAD with NSTEMI, hypertension, varicose veins, superficial thrombophlebitis, upper GI bleed, duodenal angioectasias, esophageal stenosis with short segment Romero's
esophagus, chronic diastolic heart failure with preserved ejection fraction, recent anemia from GI bleed, hypokalemia, mild renal insufficiency) with 10/24/2024 with speaking and facial droop from acute infarcts in the right frontal and parietal
lobes s/p 10/26/2024 right carotid endarte[address] by Dr. Peterson.
�
Plan�
PM&R�PT/OT to increase independence with ADLs, improve balance, coordination, endurance, strength, mobility, community reintegration, decreased burden of care on others and family education.�
�
CVA: Secondary prophylaxis with aspirin and Plavix for 21 days per neurology, statin, and blood pressure control (SBP less than 180 and diastolic less than 100 to participate with therapy for ischemic stroke). Continue to monitor neurologic status.�
-Status post right CEA 10/26/2024
-Patient has refused anticoagulation in the past per notes.
Dysarthria: speech �
Aphasia: speech�
HTN: Metoprolol, Lasix monitor
HLD: Statin�
Coronary artery disease�: Aspirin, statin, beta-nuria�
Atrial fibrillation: Not on anticoagulation and rate control with metoprolol.������������������������������������������
CHF: EF 60%, beta nuria, Lasix, monitor fluid status�
Anemia multifactorial after procedure and GI bleeding: Improving, monitor.�
Pain: acetaminophen or oxycodone as needed, monitor for sedation .�
Bowel: Bisacodyl as necessary
Bladder: Time void, PVRs, PRN straight cath.�
GI: Pantoprazole�
DVT Prophylaxis: Mechanical and Lovenox
Pulmonary: Incentive spirometry�
Safety: Continue to reinforce assistance with all transfers.�
Code Status:� DNR�per chart
Dispo�(date/plan/equipment needs): Home with family care.� Social history reviewed.�
Functional and Medical Goals:�Modified Independent with ADL�s, ambulation, transfers�
Discharge Destination:�Home�with home PT/OT/speech based upon evaluations 10/27/2024. Patient is not interested in an inpatient rehabilitation anyway.
A total of 60 minutes were spent with the patient preparing for the evaluation, obtaining history, performing examination and evaluation, counseling, data review, case management, care coordination, enrobing machine corder, and EMR documentation.
�
Thank you for allowing me to care for your patient. Please contact me with any questions or concerns.
Consultation
-
Date/Time Consultation Performed: 10/27/2024
Requesting Provider: Dr. Jesus Rainey
Performing Provider: Dr. Donald Villagomez
Reason for Consultation: Stroke
--- NOTE | 2024-10-27 16:22 | PTCARENOTE ---
Documenting end of transfusion in TAR for Bailey Kowalskilevy for unit [id number] to reconcile the TAR with the end documentation on the Unit Issue/Transfusion Form for the unit.
[2024-10-27] MEDS: CRESTOR 10 MG PO (17:01)
[2024-10-27] MEDS: TYLENOL ORAL SOLUTION 650 MG PO (17:01)
[2024-10-27] MEDS: LOVENOX 40 MG SC (17:02)
--- NOTE | 2024-10-27 18:33 | PTCARENOTE ---
patient in bed sleeping. appears comfortable
--- NOTE | 2024-10-27 18:36 | PTCARENOTE ---
Patient OOB chair. Transfer with PT about 2 hours ago. Able to ambulate with walker to bathroom and back in a chair. Tylenol suspension given for RT neck incision Post Tylenol pain 0. chair alarm activated call salazar within reach.
--- NOTE | 2024-10-27 19:14 | PTCARENOTE ---
cannot verify vital signs captured prior to 1845.
--- NOTE | 2024-10-27 20:12 | PTCARENOTE ---
Received pt resting in bed. AAOx3. NIH = 1 for mild facial droop. Flat affect. PENNY 5/5 strength. Pt. reports pain is 'controlled' at this time following tylenol earlier this evening. AFib on tele, HR 70s. BP 116/66. Trace LE edema. Weak DP pulses.
Afebrile. Pt. refusing to wear SCDs despite education. On RA. Lungs diminished throughout. Hypoactive bowel sounds. Clear liquid diet - pt reports poor appetite. R neck with CEA incision BRUCE, approximated. Assisted back to bed with rolling walker
from chair. Bed alarm on. Daughter at bedside visiting. Neuro checks ongoing per orders.
[2024-10-27] MEDS: NSS IV (22:33)
[2024-10-28] VITALS (13 sets, daily range): BP systolic 111–153; BP diastolic 54–98; PULSE 65–78; BMI 24.0
[2024-10-28] MEDS: TYLENOL ORAL SOLUTION 650 MG PO ×3 (02:13→10:56)
[2024-10-28 04:50] LABS: Hematocrit 31.1 % (37.0-47.0); Hemoglobin 9.7 g/dL (12.0-16.0); Mean Corp Hgb Conc. 31.2 g/dL (33.0-37.0); Mean Corpuscular Volume 95.1 fL (81.0-99.0); Platelet Count 256 10^3/uL (130-400); Red Cell Dist. Width 19.7 % (11.5-14.5)
[2024-10-28 05:14] LABS: Blood Urea Nitrogen 24 mg/dl (7-17); Calcium 8.1 mg/dl (8.4-10.2); Carbon Dioxide 29 mmol/L (22-30); Chloride 103 mmol/L (98-107); Estimated Creatinine Clearance 35 ml/min; Glucose 125 mg/dl (70-99); Magnesium 2.1 mg/dl (1.6-2.3); Potassium 4.1 mmol/L (3.5-5.1); Sodium 136 mmol/L (135-145); eGFR 55.90
--- NOTE | 2024-10-28 07:30 | PTCARENOTE ---
Received patient Arousable to voice, A&Ox3, on RA, Afib, BP WNL, advance to Puree diet per ST eval, continent w/ RW and x1 person assistance.
--- NOTE | 2024-10-28 08:14 | W.PN.VS ---
Addendum entered and electronically signed by Dheeraj Chapman MD 10/28/24 09:54:
Seen and examined with [employer]. Agree with findings as noted below. Right neck incision clean dry and intact, no hematoma. Neurologically stable, moves all extremities. Plan/as discussed and noted below.
Original Note:
Today's Communication / Plan
-
Patient seen and examined with Dr. Dheeraj Chapman, below plan reviewed with attending.
Assessment/Plan
-
Assessment: 84 year old POD#2 RIGHT carotid endarterectomy with patch angioplasty using bovine pericardium
Plan:
Follow up appointment placed in dc instructions
We will sign off please call with questions or concerns
Subjective Data
-
Date of Service: October 28, 2024
Patient seen and examined at bedside, reports well managed post operative pain.
Objective Data
-
Vital Signs
Temp Pulse Resp BP Pulse Ox
97.8 F 63 13 131/70 95
10/28/24 03:10 10/28/24 04:00 10/28/24 04:00 10/28/24 04:00 10/27/24 19:59
Intake and Output
10/27/24 10/28/24 10/29/24
06:59 06:59 06:59
Intake Total 1130 / 1130 480 / 480
Output Total 0 / 0
Balance 1130 / 1130 480 / 480
Intake:
Oral fluids 480 / 480
IV fluids (Total) 880 / 880
Nss 1,000 ml @ 80 mls/hr IV . 880 / 880
[id number] ANURADHA Rx#:[id number]
Blood Product Amount Infused ( 250 / 250
mL)
Packed Rbc Leukoreduced Unit 250 / 250
[id number]
Output:
Urine, Voided 0 / 0
Other:
Number of approximated MODERATE 2
amounts of urine
How many times incontinent 2
SATURATED amount urine
Lab Results
10/28/24 04:37
10/28/24 04:37
Calcium 8.1 mg/dl (8.4-10.2) L 10/28/24 04:37
Phosphorus 3.9 mg/dl (2.5-4.5) 10/26/24 21:27
Magnesium 2.1 mg/dl (1.6-2.3) 10/28/24 04:37
Total Bilirubin 0.7 mg/dl (0.2-1.3) 10/25/24 03:24
AST 26 U/L (14-36) 10/25/24 03:24
ALT 25 U/L (0-35) 10/25/24 03:24
Alkaline Phosphatase 86 U/L (38-126) 10/25/24 03:24
Total Protein 5.3 g/dl (6.3-8.2) L 10/25/24 03:24
Albumin 2.9 g/dl (3.5-5.0) L 10/25/24 03:24
Physical Exam
-
NAD, resting in bed comfortably
Right neck surgical incision clean, dry, and intact, exofin glue intact, no evidence of hematoma or edema, tongue midline
No tachycardia
No dyspnea on room air
Moves BL UE and LE to command and spontaneously
[2024-10-28] MEDS: PROTONIX 40 MG PO (08:18)
[2024-10-28] MEDS: PLAVIX 75 MG PO (08:18)
[2024-10-28] MEDS: LOW STRENGTH ASPIRIN 81 MG PO (08:18)
[2024-10-28] MEDS: LASIX 20 MG PO (08:19)
[2024-10-28] MEDS: LOPRESSOR 12.5 MG PO (08:19)
[2024-10-28] MEDS: NON-FORMULARY ITEM 1 CAP PO (08:21)
--- NOTE | 2024-10-28 08:25 | W.PN.HOSP.TC ---
Addendum entered and electronically signed by Jesus Burnett MD 10/28/24 22:11:
Attending Addendum-
I saw and evaluated the patient. I reviewed the resident�s note and agree with findings and plan as documented in the resident�s note. Sub: feels back to baseline. denies weakness numbness or tingling. urinating w/o difficulty. 'im going home
today' Full 12 point ROS reviewed and negative except as documented Exam: Vitals reviewed in chart GEN-NAD heart irreg irreg lungs clear HEENT- right neck incision CDI midlly swollen NTTP abd soft LE no edema Neuro AAO x 2 MS 5/5 sensation
intact,right facial droop resolved, no tongue or eye deviation fluent speech no cerebellar deficits.
Plan:
# Acute CVA, expressive aphasia.
- not a candidate for TNK given recent GI bleed.
- cont aspirin and Plavix
- CT angio noted complete occlusion of the proximal right internal carotid artery
- MRI without contrast-Scattered acute infarcts in the right frontal and parietal lobes
- Speech therapy, PT/OT
- A1c-4.3, LDL-43
- 2Decho- 10/25- Left ventricular ejection fraction 60 %, MR and TR
- multifactorial- b/l ICAS and atrial fib
# Bilateral ICA stenosis, R > L
- carotid u/s-1. Severe high-grade stenosis within the right carotid bulb. Small string of color Doppler signal is seen. Overall, findings are most suggestive of severe high-grade stenosis rather than focal occlusion.
2. Mixed plaque within the left carotid bulb, measurements suggestive of greater than 70% stenosis.
- 10/26-Right CEA with patch angioplasty using bovine pericardium POD#3
- cont asa and plavix
# Paroxysmal A-fib
- cardiology input appreciated
- cont metoprolol
- high risk bleed with AC
- pt and POA refusing watchman and AC
# Chronic HFpEF
-Not in acute exacerbation, EF 60%
-cont [employer] lasix
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
-Monitor CBC
#Urinary Retention-resolved, avoid hutchins, SC for PVR > 350mls, encourage ambulation, likely from anesthesia
# NSTEMI- NIMI, trops peaked, cont to monitor echo as above cards on board
# CAD with history of PCI left cx 08/17/24- cont asa and plavix
# Hyperlipidemia- cont rosuvastatin
CODE STATUS: DNR
UVN-x-newnrpm
Dispo Refusing SNF and acute rehab- DC home
Time spent coordinating care, DC planning, review of DC plan of care with resident, transition of care, review of records, med rec/scripts sent electronically, consults, notes, d/w consultants, nursing, family, and CM� 32 mins >50% of this time was
devoted to counseling and coordination of care
Original Note:
Today's Communication/Plan
-
d/c with home health when able
fu with vascular outpatient
Assessment / Plan
Assessment / Plan
84-year-old female with recent GI bleed, presented today with complaints of trouble forming words and getting the words out of the mouth.
# Acute CVA/TIA
# Acute expressive aphasia; significantly improved however there is still some residual R facial droop
- not a candidate for TNK given recent GI bleed.
- Patient is on aspirin and Plavix(patient refused resumption of Eliquis due to the GI bleed last month when she was taking Eliquis and Plavix.)
- Brain MRI: Scattered acute infarcts in the right frontal and parietal lobes
- A1c of 4.3, LDL of 44(at goal)
- 10/25 echo with EF of 60%
- will continue aspirin and Plavix for now; patient continues to refuse Eliquis
- Aphasia and facial droop resolved
- PT OT recommends home health
# Bilateral ICA stenosis; progressive
- Vascular evaluated patient last admission, patient and family opted for conservative mgmt however want vascular procedures now.
- Vascular following; ultrasound of carotids showed severe high-grade stenosis within the right carotid bulb. Greater than 70% stenosis within the left carotid bulb.
- s/p Right CEA with vascular on 10/27/23
- Follow-up with outpatient vascular.
# Leukocytosis
- Unclear cause; borderline elevated
# HFpEF
- No acute exacerbation; appears euvolemic at this time
- Patient uses Lasix 20 mg p.o. daily at home; continue
- 10/25 echo with left ventricular EF 60%, MR and TR
# cough
- Cxr with Left basilar parenchymal opacity suspicious for aspiration/pneumonia versus atelectasis.
- Speech cleared the patient
- Patient reports that her cough was resolved now; will continue to monitor
# Paroxysmal A-fib
- Continue metoprolol tartrate 12.5 mg twice daily
- Patient refused anticoagulation; therefore maintain dual antiplatelet therapy
# Elevated creatinine and BUN
- Resolved
# Hypokalemia
-Resolved
- Recheck in the a.m.
# Recent GI bleed
- Hemoglobin stable
- Continue to monitor
- Continue PPI for now
#CAD with history of NSTEMI s/p PCI 08/17/2024
#Hypertension
- Patient uses metoprolol 12.5 mg twice daily
- Continue rosuvastatin 10 mg daily per cardio
# Hyperlipidemia
- Continue home rosuvastatin
CODE STATUS: DNR
Diet: Pur�ed
Dispo pending: PT recommends home health
Anticipated Discharge: Within 24 hours
Subjective/Interval History
-
Date of Service: October 28, 2024
Seen and examined at bedside. Patient lying in the bed comfortable. Offers no new complaints.
Objective Data
-
Labs:
Laboratory Results
10/28/24
04:37
WBC 11.7 H
Hgb 9.7 L
Hct 31.1 L
Plt Count 256
Sodium 136
Potassium 4.1
Chloride 103
Carbon Dioxide 29
BUN 24 H
Creatinine 1.0
Glucose 125 H
Calcium 8.1 L
Vital Signs:
Vital Signs
Temp Pulse Resp BP Pulse Ox
97.8 F 61 13 124/60 95
10/28/24 03:10 10/28/24 08:19 10/28/24 04:00 10/28/24 08:19 10/27/24 19:59
I&O
10/27/24 10/28/24 10/29/24
06:59 06:59 06:59
Intake Total 1130 / 1130 480 / 480
Output Total 0 / 0
Balance 1130 / 1130 480 / 480
Review of Systems
-
History Source: Patient
All other systems: Reviewed and negative (Unless documented)
EENT: Reports Other
Skin: Reports Other (Right neck incision site discomfort)
Physical Exam
-
General: No Apparent Distress and Comfortable
HEENT: Moist Mucous Membranes, PERRLA and Other (Intact postsurgical scar on the right side of the neck with skin glue.)
Respiratory: Clear to Auscultation and Non Labored Respirations
Cardiac: S1/S2 and Irregular Rhythm
GI: Soft, Nontender and Nondistended
Musculoskeletal: No Edema
Skin: Warm
Neuro: Awake, Alert, Oriented, Central Nerve's Intact and No Sensory Deficits
Psych: Calm
Data Reviewed
-
Labs: Labs Reviewed by me, Discussed with Physician and Discussed with Patient
--- NOTE | 2024-10-28 10:52 | W.PN.CARDCBS ---
Today's Communication / Plan
-
Okay for discharge from cardiac standpoint
See recommendations below for cardiac meds
Impression / Plan
-
Impression:
Acute CVA
[place] to be related to left carotid disease
Recurrent severe anemia/GI bleed
Admission 09/18-10/01/24 for UGIB (Romero's esophagus and a few bleeding angiectasias in the duodenum which were cauterized; Eliquis discontinued and she was discharged on Aspirin/Plavix)
Admitted 10/05/2024 with 3 bleeding and severe anemia
Overall she has required total 8 units PRBC's given since beginning of September
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
NSTEMI August 17, 2024 with peak troponin of 63.4. 90 to 95% hazy mid LCx stenosis treated with one YESICA
Known bilateral carotid stenosis right greater than left
Evaluated by vascular. Patient and family have opted for conservative management
Chronic diastolic HFpEF
Hypertension
Hyperlipidemia
Atrial fibrillation
Since GI bleeding episodes, patient has refused oral anticoagulation on multiple occasions
Multiple drug allergies
Hypokalemia
Mild renal insufficiency
DNR status
Moderate mitral regurgitation
Plan:
She looks well, ambulating without difficulty in the hallway postop day 2 following right carotid endarterectomy
A-fib seems controlled, no overt heart failure on exam
She offers no cardiac complaints
No objection to discharge today from my standpoint.
Recommended cardiac medications at discharge:
Plavix 75 mg a day
Rosuvastatin 10 mg a day
Aspirin 81 mg a day
Metoprolol tartrate 12.5 mg twice daily
Furosemide 20 mg a day
Pantoprazole 40 mg twice daily
We will arrange for cardiac follow-up -she has a follow-up appointment with Dr. Yung in November
Progress Note - Lead C Developer
Subjective
Date of Service: October 28, 2024:
84-year-old woman admitted early August 2024 with ACS, history of paroxysmal atrial fibrillation off anticoagulation, started on Plavix and Eliquis prior to discharge following circumflex PCI with Rafiq stents,
readmitted September 18 with CVA and discharged October 01 following hospital stay complicated by GI blood loss with melena and hemoglobin 7.3, readmitted October 05 with recurrent anemia fatigue and GI bleed transferred to [facility] on October 21 for
enteroscopy, had angioectasia in the proximal jejunum treated with photo coagulation, discharged on clopidogrel 75 mg a day, aspirin 81 mg a day, furosemide 20 mg a day and readmitted 10/24 with CVA, left facial droop and dysarthria/aphasia
PMH: Rafiq stent to circumflex August 2024, 60-70% ostial RCA, hypertension, hyperlipidemia, angioectasias and GI bleeding of the jejunum, multiple drug allergies, high-grade bilateral carotid disease, HFpEF, persistent atrial fibrillation, refuses
Eliquis, history of epistaxis
Current medications: Plavix 75 mg a day
Rosuvastatin 10 mg a day
Aspirin 81 mg a day
Metoprolol tartrate 12.5 mg twice daily
Furosemide 20 mg a day
Pantoprazole 40 mg twice daily
Status post right CEA 10/26/2024
124/60, pulse 61, resp rate 13, right neck incision well-healed, lungs are clear regular rate and rhythm, soft systolic murmur, JVD okay not much edema abdomen benign
Hemoglobin 9.7, BUN and creatinine are 24 and 1, potassium is 4.1
Objective
Labs:
10/28/24 04:37
10/28/24 04:37
Labs
Hgb 9.7 g/dL (12.0-16.0) L 10/28/24 04:37
Hct 31.1 % (37.0-47.0) L 10/28/24 04:37
Plt Count 256 10^3/uL (130-400) 10/28/24 04:37
PT 15.5 Sec (11.4-14.6) H 10/27/24 03:26
INR 1.20 10/27/24 03:26
APTT 30.6 Sec (23.4-35.0) 10/27/24 03:26
Sodium 136 mmol/L (135-145) 10/28/24 04:37
Potassium 4.1 mmol/L (3.5-5.1) 10/28/24 04:37
BUN 24 mg/dl (7-17) H 10/28/24 04:37
Creatinine 1.0 mg/dL (0.6-1.0) 10/28/24 04:37
Glucose 125 mg/dl (70-99) H 10/28/24 04:37
Troponins
10/25/24
13:24
Troponin I 0.065 H*
Vital Signs and I&O:
Vital Signs
Temp Pulse Resp BP Pulse Ox
36.6 C 61 13 124/60 95
10/28/24 03:10 10/28/24 08:19 10/28/24 04:00 10/28/24 08:19 10/27/24 19:59
Vital Signs
Temp Pulse Resp BP Pulse Ox
36.6 C 61 13 124/60 95
10/28/24 03:10 10/28/24 08:19 10/28/24 04:00 10/28/24 08:19 10/27/24 19:59
Intake & Output
10/26/24 10/27/24 10/28/24 10/29/24
07:59 07:59 07:59 07:59
Intake Total 480 / 480 1130 / 1130 480 / 480
Output Total 0 / 0
Balance 480 / 480 1130 / 1130 480 / 480
Physical Exam
Physical Exam
See above
--- NOTE | 2024-10-28 12:45 | VNURNOTE ---
Home Health Liaison met with patient at bedside to discuss [facility] nurse/therapy, visits, schedule and homebound status. Patient is agreeable and understands that visits at home will be 2-3 x per week to assess and teach medical management.
Patient is aware that [facility] will contact them for start of care in 1-2 days after discharge from .
[facility] referral completed in [facility].
--- NOTE | 2024-10-28 13:15 | PN.CDI ---
CDI
- -
CDI:
Physician Documentation Request
Admit Date: 10/24/24 12:25
Dear Doctor Madan,
Clinical Indicators:
Patient admitted with acute CVA.
10/27 PN, 'Elevated creatinine and BUN- Resolved'
IVF: NSS (10/24-10/27)
Cr/GFR trend:
Laboratory Tests
10/24/24 10/26/24 10/27/24
10:49 04:02 03:26
Creatinine 1.1 H 0.9 0.7
eGFR 49.86 > 60.00 > 60.00
Please clarify which of the following accurately represents the patient's renal status:
ZAHIRA, resolved
Elevated creatinine only
Other
Criteria for ZAHIRA*
1 Increase in serum creatinine by > or = to 0.3 mg/dL (> or = to 26.5 micromol/L) within 48 hours, OR
2 Increase in serum creatinine to > or = to 1.5 times baseline, which is known or presumed to have occurred within 7 days, OR
3 Urine volume < 0.5 nL/kg/hour for six hours
Use of terms such as suspected, likely, concern for, or probable (associated with a specific diagnosis that is being evaluated, monitored, or treated as if it exists) are acceptable and can be coded in the inpatient setting, when documented at the
time of discharge.
Thank you,
SINA Burnette RN
CDI Specialist
available via tiger text
Please use your independent medical judgment in providing your response.
*Source: Kidney Disease: Improving Global Outcomes (KDIGO) 2012
--- NOTE | 2024-10-28 13:37 | CM ---
Patient seen at bedside earlier today in ICU. Patient for discharge home today with [facility] if accepted. Patient family for transportation home. CM will review IMM and signed form will be placed on chart. Patient plan is for discharge home today. CM
will continue to follow for discharge planning needs.
Plan; home with [facility]
[2024-10-28] MEDS: SENOKOT-S 1 TABLET PO (14:45)
--- NOTE | 2024-10-28 16:13 | W.DCSUMMARY ---
Addendum entered and electronically signed by Jesus Burnett MD 10/28/24 22:12:
Read, reviewed, and agree. See same day progress note for additional details.
Kyrie Burnett MD
Original Note:
Documented by User: Kosta Hager MD, Resident 10/28/24 16:36
Discharge Summary
Discharge Data
Date of Admission: 10/24/24
Date of Discharge: 10/28/24
-
Pending Results: No
Hospital Course
Discharging Physician : Kosta Hager MD ; Jesus Burnett MD
Disposition : Home with home health
Primary care physician : Vi Villareal
Principal Discharge diagnosis : Acute CVA/TIA, Acute expressive aphasia, bilateral ICA stenosis s/p Right CEA
Chronic Discharge diagnosis : HFpEF, paroxysmal A-fib, history of GI bleed, CAD with history of NSTEMI s/p PCI, hyperlipidemia
Hospital Course :
84-year-old female with recent GI bleed s/p enteroscopy at [facility], presented with acute onset of expressive aphasia.
1- Acute CVA/TIA
# Acute expressive aphasia
CT head was obtained which did not show any acute intracranial pathology. Neurology was consulted and she was deemed not a candidate for TNK given her recent history of GI bleed. She informed us that she is on aspirin and Plavix and she refused
resumption of Eliquis due to the GI bleed last month. Brain MRI was also obtained which showed scattered acute infarcts in the right frontal and parietal lobes. Additional testing including echo was done which showed EF of 60%. Physical therapy,
Occupational Therapy and speech therapist saw her during her hospital stay. Her symptoms resolved after few hours and has some minimal residual facial drop upon discharge. Further investigation showed significant bilateral ICA stenosis.
Additional information as below.
2- Bilateral ICA stenosis
During her last admission last month patient was evaluated by the vascular at that time as well. During that visit patient and family opted for conservative management. Given this new event. Vascular was consulted again and repeat ultrasound was
performed which showed severe high-grade stenosis within the right carotid bulb. Greater than 70% stenosis within the left carotid bulb. Treatment was discussed at length and patient had a successful right CEA with vascular on 10/27/2023.
Outpatient consult was arranged at the time of discharge. Patient aware. Surgical site remained clean and intact. Minimal pain.
3- Leukocytosis
Patient had a borderline elevated WBC count. Likely stress related after the procedure. Will repeat the CBC in 1 week prescription was given to the patient. Patient advised to discuss the results with the PCP
# HFpEF
Cardiac exam showed no acute exacerbation. Patient remained euvolemic during hospital stay. Her usual dose of Lasix 20 mg was continued. An echo was also performed which showed EF of 60% with MR and TR. Cardiology service continued to monitor
patient during her stay at the hospital.
4- cough
Patient had intermittent cough 1 day during her stay. Cxr with Left basilar parenchymal opacity suspicious for aspiration/pneumonia versus atelectasis.
Patient reports that her cough was resolved next day. Stable at the time of discharge
5-Paroxysmal A-fib
Patient was maintained on home metoprolol tartrate 12.5 mg twice daily
Patient refused anticoagulation; therefore decision was made to maintain dual antiplatelet therapy
Patient also had transient increase in creatinine, BUN and low potassium which resolved on periodic checks.
6-Recent GI bleed
Hemoglobin remained stable. She was maintained on home PPI during her stay at the hospital.
7- CAD with history of NSTEMI s/p PCI 08/17/2024; history of hyperlipidemia
Patient was continued on home metoprolol as well as home rosuvastatin. Advised to continue upon discharge as well.
Patient was medically stable at the time of discharge. Appointment with cardiology and vascular was made at the time of discharge. Patient aware. Patient going home with home health.
Important imaging findings : CT HEAD STROKE ALERT W/o Cont 10/24/2024
No acute intracranial abnormality noted.
CT HEAD/NECK ANG STROKE ALERT;
Severe mixed soft and calcific plaque in the right carotid bulb resulting in focal complete occlusion of the proximal right internal carotid artery spanning approximately 7 mm in length.
Severe mixed soft and calcific plaque within the left carotid bulb resulting in focal approximately 80% stenosis of the proximal left internal carotid artery.
MR Brain Without Contrast:
Scattered acute infarcts in the right frontal and parietal lobes.
US Cerebrovascular:
1. Severe high-grade stenosis within the right carotid bulb. Small string of color Doppler signal is seen. Overall, findings are most suggestive of severe high-grade stenosis rather than focal occlusion.
2. Mixed plaque within the left carotid bulb, measurements suggestive of greater than 70% stenosis.
CR Chest : Left basilar parenchymal opacity suspicious for aspiration/pneumonia versus atelectasis.
Trace bilateral pleural fluid. No pneumothorax. Stable enlargement of the cardiac silhouette. Chronic degenerative changes of the spine
Procedure findings : 10/26/2024 RIGHT carotid endarterectomy with patch angioplasty using bovine pericardium
Discharge Plan
-
Patient Disposition: Home with Home Care
Discharge Diagnosis/Procedures: Acute CVA/TIA, Acute expressive aphasia, bilateral ICA stenosis s/p Right CEA
Condition: Fair
Diet: As tolerated
Activity: No strenuous activity
Driving Restrictions: Not until seen by your Dr
Bathing Restrictions: OK to Shower
Blood Work: CBC in 1 week
Other Services: VN
Stand Alone Forms: Vascular Surg Discharge Instr
Referrals:
Vi Villareal MD [Family Provider, Internal Medicine] - in less than 1 week
Lukas Yung MD [Active, Cardiology] - 12/02/24 4:00 pm
Referral Note: -You have an appointment with Dr Yung in the [facility] office on 12/02/2024.
-You previously had an appointment with his physician industrial hire sales assistant Kim on 11/02/2024-that appointment is being cancelled.
Caroline Krishnamurthy CRNP [Specified Professional Personl, Vascular Surgery] - 11/10/24 11:00 am
Additional Discharge Medication Instructions: Please follow with pcp, digital ad trafficker and vascular ad recommended. Scheduled times written on these papers.
Prescriptions:
Continued
nitroglycerin 0.4 mg Tablet, Sublingual
0.4 mg sublingual [id number] PRN (Reason: ANGINA) Qty: 3 0RF
metoprolol tartrate 25 mg Tablet
12.5 mg PO BID Qty: 60 0RF
clopidogrel 75 mg tablet
75 mg PO DAILY
aspirin 81 mg Tablet,Chewable
81 mg PO DAILY Qty: 30 0RF
PreserVision AREDS-2 250-90-40-1 mg Capsule
1 cap PO BID
furosemide 20 mg tablet
20 mg PO DAILY
pantoprazole [Protonix] 40 mg tablet,delayed release (DR/EC)
40 mg PO BID Qty: 120 0RF
rosuvastatin 10 mg tablet
10 mg PO QPM
Discharge Orders:
Discharge Patient (As Directed); Ordered 10/28/24
Ordered By: Kosta Hager
Discharge Date and Time
Discharge Date/Time: 10/28/24 17:34
Print Language: LAO

Documented by User: Jesus Burnett MD 10/28/24 22:08
Discharge Summary
Discharge Data
Date of Admission: 10/24/24
Date of Discharge: 10/28/24
Discharge Plan
-
Patient Disposition: Home with Home Care
Discharge Diagnosis/Procedures: Acute CVA/TIA, Acute expressive aphasia, bilateral ICA stenosis s/p Right CEA
Condition: Fair
Diet: As tolerated
Activity: No strenuous activity
Driving Restrictions: Not until seen by your Dr
Bathing Restrictions: OK to Shower
Blood Work: CBC in 1 week
Other Services: VN
Stand Alone Forms: Vascular Surg Discharge Instr
Referrals:
Vi Villareal MD [Family Provider, Internal Medicine] - in less than 1 week
Lukas Yung MD [Active, Cardiology] - 12/02/24 4:00 pm
Referral Note: -You have an appointment with Dr Yung in the [facility] office on 12/02/2024.
-You previously had an appointment with his physician industrial hire sales assistant Kim on 11/02/2024-that appointment is being cancelled.
Caroline Krishnamurthy CRNP [Specified Professional Personl, Vascular Surgery] - 11/10/24 11:00 am
Additional Discharge Medication Instructions: Please follow with pcp, digital ad trafficker and vascular ad recommended. Scheduled times written on these papers.
Prescriptions:
Continued
nitroglycerin 0.4 mg Tablet, Sublingual
0.4 mg sublingual [id number] PRN (Reason: ANGINA) Qty: 3 0RF
metoprolol tartrate 25 mg Tablet
12.5 mg PO BID Qty: 60 0RF
clopidogrel 75 mg tablet
75 mg PO DAILY
aspirin 81 mg Tablet,Chewable
81 mg PO DAILY Qty: 30 0RF
PreserVision AREDS-2 250-90-40-1 mg Capsule
1 cap PO BID
furosemide 20 mg tablet
20 mg PO DAILY
pantoprazole [Protonix] 40 mg tablet,delayed release (DR/EC)
40 mg PO BID Qty: 120 0RF
rosuvastatin 10 mg tablet
10 mg PO QPM
Discharge Orders:
Discharge Patient (As Directed); Ordered 10/28/24
Ordered By: Kosta Hager
Discharge Date and Time
Discharge Date/Time: 10/28/24 17:34
Print Language: LAO
--- NOTE | 2024-10-28 17:32 | PTCARENOTE ---
Discharged patient with daughter Fatou at bedside, provided discharge education to both, all questions answered, took all personal belongings home.
== END 2024-10-28 17:34 | disposition home health service (06) | DRG 38 ==
LOC: ICU 12:25
PROVIDERS: Nurse Practitioner Acute Care; Nurse Practitioner Family; Physician Assistant; ADMITTING PHYSICIAN Internal Medicine; ATTENDING PHYSICIAN Family Medicine; CONSULT PHYSICIAN Internal Medicine; CONSULT PHYSICIAN Physical Medicine & Rehabilitation; CONSULT PHYSICIAN Psychiatry & Neurology Neurology; EMERGENCY PHYSICIAN Emergency Medicine; FAMILY PHYSICIAN Hospitalist; OTHER PHYSICIAN Internal Medicine Cardiovascular Disease; OTHER PHYSICIAN Surgery Vascular Surgery
PROC: 30233N1 Transfusion of Nonautologous Red Blood Cells into Peripheral Vein, Percutaneous Approach (ICD-10-PCS; 2024-10-26)
PROC: 03UK0KZ Supplement Right Internal Carotid Artery with Nonautologous Tissue Substitute, Open Approach (ICD-10-PCS; 2024-10-26)
PROC: 03CK0ZZ Extirpation of Matter from Right Internal Carotid Artery, Open Approach (ICD-10-PCS; 2024-10-26)
DX: I63.231 Cerebral infarction due to unspecified occlusion or stenosis of right carotid arteries (principal); I50.32 Chronic diastolic (congestive) heart failure; R29.810 Facial weakness; R47.01 Aphasia; R47.1 Dysarthria and anarthria; I48.0 Paroxysmal atrial fibrillation; I25.10 Atherosclerotic heart disease of native coronary artery without angina pectoris; I11.0 Hypertensive heart disease with heart failure; I83.90 Asymptomatic varicose veins of unspecified lower extremity; E87.6 Hypokalemia; K22.70 Barrett's esophagus without dysplasia; N28.9 Disorder of kidney and ureter, unspecified; I34.0 Nonrheumatic mitral (valve) insufficiency; M25.78 Osteophyte, vertebrae; R33.9 Retention of urine, unspecified; K21.9 Gastro-esophageal reflux disease without esophagitis; I45.9 Conduction disorder, unspecified; D64.9 Anemia, unspecified; J45.909 Unspecified asthma, uncomplicated; D72.829 Elevated white blood cell count, unspecified; Z66 Do not resuscitate; Z60.2 Problems related to living alone; Z96.652 Presence of left artificial knee joint; I25.2 Old myocardial infarction; Z90.49 Acquired absence of other specified parts of digestive tract; Z87.19 Personal history of other diseases of the digestive system; Z79.82 Long term (current) use of aspirin; Z79.02 Long term (current) use of antithrombotics/antiplatelets; Z88.1 Allergy status to other antibiotic agents; Z88.8 Allergy status to other drugs, medicaments and biological substances; Z95.5 Presence of coronary angioplasty implant and graft; Z86.72 Personal history of thrombophlebitis
CPT/HCPCS: 35301; 70450; 70496; 70498; 70551; 71045; 80048; 80053; 80061; 82962; 83036; 83735; 84100; 84484; 85014; 85018; 85025; 85027; 85610; 85730; 86850; 86900; 86901; 86920; 88304; 88311; 92523; 92526; 92610; 93005; 93306; 93880; 95938; 95941; 95955; 97116; 97163; 97167; 97535; 99291; P9016; Q9967